=== PATIENT | male | born 1945 | race Caucasian/White ===

== ENCOUNTER 2017-06-13 22:15 | Inpatient (IN) | payer MEDICARE ==
[2017-06-13 22:36] LABS: Glucose,Whole Blood 96 mg/dL (75-99)
--- NOTE | 2017-06-13 22:52 | ED ---
General Adult HPI - General Chief complaint: Weakness Stated complaint: Speech problems Time Seen by Provider: 06/13/17 22:34 Source: patient, RN notes reviewed Mode of arrival: wheelchair Limitations: no limitations - History of Present Illness Initial comments: patient is a pleasant 71-year-old male presenting to the emergency department complaining of an episode of drooling and speech problems. Patient noticed drooling twice and then went to go check on a light. Patient came back and tried to talk with his however had garbled speech. Garbled speech lasted one to 2 minutes then resolved. Patient is currently symptom-free at this time except for minimal paresthesias of his fingertips. No history of similar symptoms previously. Patient denies actual confusion. No isolated area of weakness.patient is unclear whether or not he could've had facial droop. - Related Data Home Medications Medication Instructions Recorded Confirmed ALPRAZolam [Xanax] 0.25 mg PO TID 06/13/17 06/13/17 Aspirin 81 mg PO DAILY 06/13/17 06/13/17 Atorvastatin [Lipitor] 20 mg PO DAILY 06/13/17 06/13/17 Chlorthalidone [Hygroton] 25 mg PO DAILY 06/13/17 06/13/17 Cinnamon Bark [Cinnamon] 500 mg PO DAILY 06/13/17 06/13/17 Cranberry Fruit Extract [Cranberry] 500 mg PO DAILY 06/13/17 06/13/17 Glucosamine/Chondr Martines A Sod [Osteo 1 tab PO DAILY 06/13/17 06/13/17 Bi-Flex Caplet] L.acidoph,Paracasei, B.lactis 1 cap PO DAILY 06/13/17 06/13/17 [Probiotic] Losartan Potassium 100 mg PO DAILY 06/13/17 06/13/17 Metoprolol Tartrate [Lopressor] 100 mg PO BID 06/13/17 06/13/17 Multivitamins, Thera [Multivitamin 1 tab PO DAILY 06/13/17 06/13/17 (formulary)] Spironolactone [Aldactone] 25 mg PO DAILY 06/13/17 06/13/17 Tamsulosin HCl [Flomax] 0.4 mg PO DAILY 06/13/17 06/13/17 Allergies Allergy/AdvReac Type Severity Reaction Status Date / Time No Known Allergies Allergy Verified 06/13/17 22:22 Review of Systems ROS Statement: Those systems with pertinent positive or pertinent negative responses have been documented in the HPI. ROS Other: All systems not noted in ROS Statement are negative. Constitutional: Denies: fever Eyes: Denies: eye pain ENT: Denies: ear pain Respiratory: Denies: cough Cardiovascular: Denies: chest pain Endocrine: Denies: fatigue Gastrointestinal: Denies: abdominal pain Genitourinary: Denies: dysuria Musculoskeletal: Denies: back pain Skin: Denies: rash Neurological: Denies: weakness Past Medical History Past Medical History: CVA/TIA, GERD/Reflux, Hyperlipidemia, Hypertension History of Any Multi-Drug Resistant Organisms: None Reported Additional Past Surgical History / Comment(s): aorticvalve replacement , AAA repair Past Psychological History: Anxiety Smoking Status: Former smoker Past Alcohol Use History: Daily Past Drug Use History: None Reported General Exam Limitations: no limitations General appearance: alert, in no apparent distress Head exam: Present: atraumatic Eye exam: Present: normal appearance, PERRL, EOMI. Absent: nystagmus ENT exam: Present: normal oropharynx Neck exam: Present: normal inspection Respiratory exam: Present: normal lung sounds bilaterally Cardiovascular Exam: Present: regular rate, normal rhythm Expanded Peripheral pulses: 2+: Radial (R), Radial (L), Dorsalis Pedis (R), Dorsalis Pedis (L) GI/Abdominal exam: Present: soft. Absent: tenderness Extremities exam: Present: normal inspection, full ROM Neurological exam: Present: alert, oriented X3, CN II-XII intact. Absent: motor sensory deficit Expanded Patient oriented to: Present: person, place, time Speech: Present: fluid speech Cranial nerves: EOM's Intact: Normal, Facial Sensation: Normal Cerebellar function: Finger to Nose: Normal Sensory exam: Upper Extremity Light Touch: Normal, Lower Extremity Light Touch: Normal Motor strength exam: RUE: 5, LUE: 5, RLE: 5, LLE: 5 Eye Response: (4) open spontaneously Motor Response: (6) obeys commands Verbal Response: (5) oriented Psychiatric exam: Present: normal affect, normal mood Skin exam: Present: normal color Course Vital Signs 06/13/17 06/13/17 06/13/17 22:17 22:45 23:00 Temperature 98.5 F Pulse Rate 68 61 64 Respiratory 18 18 20 Rate Blood Pressure 151/74 129/86 131/66 O2 Sat by Pulse 98 99 97 Oximetry 06/13/17 06/13/17 23:15 23:32 Temperature Pulse Rate 63 60 Respiratory 20 16 Rate Blood Pressure 138/69 128/77 O2 Sat by Pulse 97 95 Oximetry - Reevaluation(s) Reevaluation #1: 06/14/17 00:21 patient was reevaluated and unchanged. Patient was updated on results. Patient is updated on recommendation for admission. Patient is made aware of diagnosis and concern for further testing and possible extension of disease process including full CVA and . Patient is contemplating leaving AGAINST MEDICAL ADVICE and is discussing this with his . Patient does demonstrate medical decision making. 06/14/17 00:50 patient is now agreeable to stay. was also updated. Case was discussed with sounds physician group Dr. Hernandez, who will admit for hospital call. 06/14/17 00:54 patient states he does have a history of thoracic aneurysm or dissection with repair. Patient did have a stroke at that time however did have discomfort at that time. EKG Findings - EKG Comments: EKG Findings:: sinus rhythm at 63. For screening AV block with OR of 282. QRS 80. QT 404. QTC 413. Normal axis. Normal QRS. No acute ST change. Medical Decision Making - Lab Data Result diagrams: 06/13/17 22:35 06/13/17 22:35 Lab Results 06/13/17 06/13/17 06/13/17 Range/Units 22:34 22:35 22:35 WBC 10.8 H (3.8-10.6) k/uL RBC 4.21 L (4.30-5.90) m/uL Hgb 12.8 L (13.0-17.5) gm/dL Hct 38.9 L (39.0-53.0) % MCV 92.5 (80.0-100.0) fL MCH 30.3 (25.0-35.0) pg MCHC 32.8 (31.0-37.0) g/dL RDW 13.7 (11.5-15.5) % Plt Count 225 (150-450) k/uL Neutrophils % 68 % Lymphocytes % 19 % Monocytes % 8 % Eosinophils % 3 % Basophils % 1 % Neutrophils # 7.3 (1.3-7.7) k/uL Lymphocytes # 2.0 (1.0-4.8) k/uL Monocytes # 0.9 (0-1.0) k/uL Eosinophils # 0.3 (0-0.7) k/uL Basophils # 0.1 (0-0.2) k/uL PT (9.0-12.0) sec INR (<1.2) APTT (22.0-30.0) sec Sodium (137-145) mmol/L Potassium (3.5-5.1) mmol/L Chloride (98-107) mmol/L Carbon Dioxide (22-30) mmol/L Anion Gap mmol/L BUN (9-20) mg/dL Creatinine (0.66-1.25) mg/dL Est GFR (MDRD) Af Amer (>60 ml/min/1.73 sqM) Est GFR (MDRD) Non-Af (>60 ml/min/1.73 sqM) Glucose (74-99) mg/dL POC Glucose (mg/dL) 96 (75-99) mg/dL POC Glu [employer] ID Ethan Moss Calcium (8.4-10.2) mg/dL Total Bilirubin (0.2-1.3) mg/dL AST (17-59) U/L ALT (21-72) U/L Alkaline Phosphatase (38-126) U/L Total Creatine Kinase 159 (55-170) U/L CK-MB (CK-2) 3.5 H* (0.0-2.4) ng/mL CK-MB (CK-2) Rel Index 2.2 Troponin I 0.012 (0.000-0.034) ng/mL Total Protein (6.3-8.2) g/dL Albumin (3.5-5.0) g/dL 06/13/17 06/13/17 Range/Units 22:35 22:35 WBC (3.8-10.6) k/uL RBC (4.30-5.90) m/uL Hgb (13.0-17.5) gm/dL Hct (39.0-53.0) % MCV (80.0-100.0) fL MCH (25.0-35.0) pg MCHC (31.0-37.0) g/dL RDW (11.5-15.5) % Plt Count (150-450) k/uL Neutrophils % % Lymphocytes % % Monocytes % % Eosinophils % % Basophils % % Neutrophils # (1.3-7.7) k/uL Lymphocytes # (1.0-4.8) k/uL Monocytes # (0-1.0) k/uL Eosinophils # (0-0.7) k/uL Basophils # (0-0.2) k/uL PT 10.9 (9.0-12.0) sec INR 1.1 (<1.2) APTT 21.7 L (22.0-30.0) sec Sodium 132 L (137-145) mmol/L Potassium 3.5 (3.5-5.1) mmol/L Chloride 95 L (98-107) mmol/L Carbon Dioxide 26 (22-30) mmol/L Anion Gap 11 mmol/L BUN 21 H (9-20) mg/dL Creatinine 0.90 (0.66-1.25) mg/dL Est GFR (MDRD) Af Amer >60 (>60 ml/min/1.73 sqM) Est GFR (MDRD) Non-Af >60 (>60 ml/min/1.73 sqM) Glucose 90 (74-99) mg/dL POC Glucose (mg/dL) (75-99) mg/dL POC Glu [employer] ID Calcium 9.4 (8.4-10.2) mg/dL Total Bilirubin 0.3 (0.2-1.3) mg/dL AST 33 (17-59) U/L ALT 43 (21-72) U/L Alkaline Phosphatase 57 (38-126) U/L Total Creatine Kinase (55-170) U/L CK-MB (CK-2) (0.0-2.4) ng/mL CK-MB (CK-2) Rel Index Troponin I (0.000-0.034) ng/mL Total Protein 6.4 (6.3-8.2) g/dL Albumin 4.1 (3.5-5.0) g/dL - Radiology Data Radiology results: report reviewed (computed tomography scan of the brain shows atrophy. Old lacunar infarct. No acute process.), image reviewed (chest x-ray shows no acute process.) Disposition Clinical Impression: TIA (transient ischemic attack) Disposition: ADMITTED IP TO THIS HOSP Referrals: Nonstaff,Physician [Primary Care Provider] - 1-2 days Decision Time: 00:51
[2017-06-13 23:06] LABS: Basophils # (A) 0.1 k/uL (0-0.2); Basophils % (A) 1 %; CHCM 33.6; Eosinophils # (A) 0.3 k/uL (0-0.7); Eosinophils % (A) 3 %; HCT 38.9 % (39.0-53.0); HDW 2.06; HGB 12.8 gm/dL (13.0-17.5); Luc # (Auto) 0.16; Luc % (Auto) 2; Lymphocytes % (A) 19 %; MCH 30.3 pg (25.0-35.0); MCHC 32.8 g/dL (31.0-37.0); MCV 92.5 fL (80.0-100.0); Mean Platelet Volume 6.9; Monocytes # (A) 0.9 k/uL (0-1.0); Monocytes % (A) 8 %; Neutrophils # (A) 7.3 k/uL (1.3-7.7); Neutrophils % (A) 68 %; RBC 4.21 m/uL (4.30-5.90); RDW 13.7 % (11.5-15.5); WBC 10.8 k/uL (3.8-10.6); WBC (Perox) 11.41
[2017-06-13 23:17] LABS: ALT 43 U/L (21-72); AST 33 U/L (17-59); Alkaline Phosphatase 57 U/L (38-126); Anion Gap 11 mmol/L; Blood Urea Nitrogen 21 mg/dL (9-20); Calcium 9.4 mg/dL (8.4-10.2); Carbon Dioxide 26 mmol/L (22-30); Chloride 95 mmol/L (98-107); Glucose 90 mg/dL (74-99); Non-African American GFR(MDRD) >60 (>60 ml/min/1.73 sqM); Potassium 3.5 mmol/L (3.5-5.1); Sodium 132 mmol/L (137-145); Total Bilirubin 0.3 mg/dL (0.2-1.3); Total Protein 6.4 g/dL (6.3-8.2)
--- NOTE | 2017-06-13 23:17 | CT ---
EXAMINATION TYPE: CT brain wo con DATE OF EXAM: 06/13/2017 COMPARISON: NONE HISTORY: AMS CT DLP: 1120.70 mGycm Automated exposure control for dose reduction was used. FINDINGS: There is cerebral cortical atrophy. There is no mass effect nor midline shift. There is no sign of in tracranial hemorrhage. The calvarium is intact. IMPRESSION: CEREBRAL ATROPHY. NO ACUTE INTRACRANIAL ABNORMALITY. 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
--- NOTE | 2017-06-13 23:18 | XR ---
EXAMINATION TYPE: XR chest 2V DATE OF EXAM: 06/13/2017 COMPARISON: 06/18/2014 HISTORY: Altered mental status. TECHNIQUE: Frontal and lateral views of the chest are obtained. FINDINGS: There is no heart failure nor confluent pneumonic infiltrate. There are sternal wires. The re are chest leads. Costophrenic angles are clear. IMPRESSION: No active cardiopulmonary disease. No change.
[2017-06-13 23:19] LABS: INR 1.1 (<1.2); Prothrombin Time 10.9 sec (9.0-12.0)
[2017-06-13 23:32] LABS: Troponin I 0.012 ng/mL (0.000-0.034)
[2017-06-13 23:40] LABS: Partial Thromboplastin Time 21.7 sec (22.0-30.0)
[2017-06-13 23:41] LABS: Creatine Kinase MB 3.5 ng/mL (0.0-2.4)
[2017-06-14] MEDS ORDERED: ASPIRIN 325 MG TAB PO STA (00:52)
[2017-06-14] MEDS ORDERED: RX INFO: IV CONTRAST WAS GIVEN 1 EACH MISC MISCELLANE PRN ×2 (00:53→01:54)
[2017-06-14] MEDS ORDERED: SODIUM CHLORIDE 0.9% 1,000 ML IV SCH ×2 (01:00→02:00)
--- NOTE | 2017-06-14 01:38 | CT ---
EXAMINATION TYPE: CT angio abd aorta wo/w con DATE OF EXAM: 06/14/2017 COMPARISON: NONE HISTORY: No prior, AMS, weakness, evaluate thoracic aorta, history of aortic dissecton with repair, a nd open heart sx CT DLP: DLP:737.40 mGycm, Automated Exposure Control for Dose Reduction was Utilized. CONTRAST: CT scan of the abdomen and pelvis is performed with oral and with IV Contrast, patient injected with 100 mL of Omnipaque 350. FINDINGS: There are 3-D post processed images. Thoracic aorta is atheromatous. There are sternal wires. There is aneurysm at the origin of the thora cic aorta that measures up to 4.5 cm. There is aneurysm of the arch of the aorta that measures 4.1 cm. There is patency of the abdominal aorta aortic bifurcation is not included on the exam. There is rosado ncy of the superior mesenteric artery and the celiac artery. There is bilateral patency of the renal arteries. There is no evidence of aortic dissection. There is symmetrical contrast opacification of t he kidneys. Spleen and liver pancreas appear normal. There is no pleural effusion. Heart appears enla rged. There is mild pleural thickening at the right lung base. There is wide patency of the great ves sels on the aortic arch. CONCLUSION: Atherosclerotic vascular disease. 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 No evidence of dissection. No evidence of aortic stenosis.
[2017-06-14] MEDS ORDERED: ACETAMINOPHEN TAB 325 MG TAB PO PRN (01:46)
--- NOTE | 2017-06-14 02:17 | P.HPIM ---
History of Present Illness H&P Date: 06/14/17 Chief Complaint: slurred speech 71-year-old male presenting to the emergency department complaining of an episode of drooling and speech problems. The drooling was coming out from the right side of his mouth. The drooling was spontaneous, uncontrollable by the patient and he thought was secondary to weakness on the right side of the face. Last night patient went to the garage to check on the light then he came back and tried to talk with his however he could not put the words right and his speech was significantly garbled. The episode lasted for about 2 minutes then resolved. He felt significant improvement in route to the hospital and at the time of the interview patient was symptom-free. Patient was able to think about words he was trying to say but he simply could not put them out in clear sentences. He denied having any blurry or double vision. No focal weakness or numbness. No history of similar symptoms previously. Patient denies actual confusion. No isolated area of weakness.patient is unclear whether or not he could've had facial droop. Over the past 6 months patient has been noticing worsening weakness and shortness of breath, he had aortic valve replacement surgery about 5 years ago. Patient mentioned that he had a transient stroke during his heart surgery, when he woke up from anesthesia if symptoms already resolved. Also the noticed a mass in the right side of his neck for the past several months, he told his family care physician about it but his physician shrugged it off and did not investigated further with any imaging. Review of Systems 12 point review of system was performed, negative except for HPI Past Medical History Past Medical History: CVA/TIA, GERD/Reflux, Hyperlipidemia, Hypertension Additional Past Medical History / Comment(s): history of aortic stenosis status post valve replacement, aortic dissection status post repair History of Any Multi-Drug Resistant Organisms: None Reported Additional Past Surgical History / Comment(s): aorticvalve replacement , AAA repair Past Psychological History: Anxiety Smoking Status: Former smoker Past Alcohol Use History: Daily, Heavy Additional Past Alcohol Use History / Comment(s): 4 beers a day Past Drug Use History: None Reported Medications and Allergies Home Medications Medication Instructions Recorded Confirmed Type ALPRAZolam [Xanax] 0.25 mg PO TID 06/13/17 06/13/17 History Aspirin 81 mg PO DAILY 06/13/17 06/13/17 History Atorvastatin [Lipitor] 20 mg PO DAILY 06/13/17 06/13/17 History Chlorthalidone [Hygroton] 25 mg PO DAILY 06/13/17 06/13/17 History Cinnamon Bark [Cinnamon] 500 mg PO DAILY 06/13/17 06/13/17 History Cranberry Fruit Extract [Cranberry] 500 mg PO DAILY 06/13/17 06/13/17 History Glucosamine/Chondr Martines A Sod [Osteo 1 tab PO DAILY 06/13/17 06/13/17 History Bi-Flex Caplet] L.acidoph,Paracasei, B.lactis 1 cap PO DAILY 06/13/17 06/13/17 History [Probiotic] Losartan Potassium 100 mg PO DAILY 06/13/17 06/13/17 History Metoprolol Tartrate [Lopressor] 100 mg PO BID 06/13/17 06/13/17 History Multivitamins, Thera [Multivitamin 1 tab PO DAILY 06/13/17 06/13/17 History (formulary)] Spironolactone [Aldactone] 25 mg PO DAILY 06/13/17 06/13/17 History Tamsulosin HCl [Flomax] 0.4 mg PO DAILY 06/13/17 06/13/17 History Allergies Allergy/AdvReac Type Severity Reaction Status Date / Time No Known Allergies Allergy Verified 06/13/17 22:22 Physical Exam Vitals: Vital Signs Temp Pulse Resp BP Pulse Ox 06/14/17 01:21 58 L 16 136/71 97 06/13/17 23:32 60 16 128/77 95 06/13/17 23:15 63 20 138/69 97 06/13/17 23:00 64 20 131/66 97 06/13/17 22:45 61 18 129/86 99 06/13/17 22:17 98.5 F 68 18 151/74 98 Intake and Output 06/13/17 06/13/17 06/14/17 14:59 22:59 06:59 Other: Weight 86.183 kg Patient Weight 06/14/17 06:59 Weight 86.183 kg Constitutional: No acute distress, conversant, pleasant Eyes:Anicteric sclerae, moist conjunctiva, no lid-lag, PERRLA, ENMT: Oropharynx clear, no erythema, exudates Neck: Supple, FROM, right-sided neck mass feels hard, slightly tender, or JVD, No carotid bruits, No thyromegaly Lungs: Clear to auscultation, Clear to percussion, Normal respiratory effort, no accessory muscle use Cardiovascular: Heart regular in rate and rhythm, No murmurs, gallops, or rubs, No peripheral edema Abdominal: Soft, Nontender, no guarding, rebound or rigidity, Normoactive bowel sounds, No hepatomegaly, No splenomegaly, No palpable mass Skin: Normal temperature, tone, texture, turgor, no induration, No subcutaneous nodules, No rash, lesions, No ulcers Extremities: No digital cyanosis, No clubbing, Pedal pulses intact and symmetrical, Radial pulses intact and symmetrical, No calf tenderness Psychiatric: Alert and oriented to person, place and time, appropriate affect, intact judgement Neuro: Muscles Strength 5/5 in all 4 extremities, Sensation to light touch grossly present throughout, Cranial nerves II-XII grossly intact, no focal sensory deficits Results CBC & Chem 7: 06/13/17 22:35 06/13/17 22:35 Labs: Abnormal Lab Results - Last 24 Hours (Table) 06/13/17 06/13/17 06/13/17 Range/Units 22:35 22:35 22:35 WBC 10.8 H (3.8-10.6) k/uL RBC 4.21 L (4.30-5.90) m/uL Hgb 12.8 L (13.0-17.5) gm/dL Hct 38.9 L (39.0-53.0) % APTT (22.0-30.0) sec Sodium 132 L (137-145) mmol/L Chloride 95 L (98-107) mmol/L BUN 21 H (9-20) mg/dL CK-MB (CK-2) 3.5 H* (0.0-2.4) ng/mL 06/13/17 Range/Units 22:35 WBC (3.8-10.6) k/uL RBC (4.30-5.90) m/uL Hgb (13.0-17.5) gm/dL Hct (39.0-53.0) % APTT 21.7 L (22.0-30.0) sec Sodium (137-145) mmol/L Chloride (98-107) mmol/L BUN (9-20) mg/dL CK-MB (CK-2) (0.0-2.4) ng/mL Assessment and Plan Plan: #1 Acute transient ischemic attack: head CT negative for acute stroke Admit to [facility] on telemetry Consults neurology MRI of the brain to rule out stroke Carotid Doppler 2-D echocardiogram PT and OT Neuro checks Check HbA1c and lipid profile Increase aspirin from baby dose to 325 mg daily. #2 Right-sided neck mass: [place] on exam CT soft tissue of the neck to look into it. #3 Benign hypertension, hypercholesterolemia, benign prostatic hypertrophy, history of aortic dissection status post repair, history of aortic stenosis status post replacement: All stable Continue all medications #4 DVT prophylaxis: SCDs and encourage early ambulation
[2017-06-14] MEDS: ALPRAZolam 0.25 MG TAB PO SCH ×2 (08:00→15:03)
[2017-06-14] MEDS ORDERED: MULTIVITAMINS, THERA 1 EACH TAB PO SCH (09:00)
[2017-06-14] MEDS ORDERED: SPIRONOLACTONE 25 MG TAB PO SCH (09:00)
[2017-06-14] MEDS ORDERED: LOSARTAN 50 MG TAB PO SCH (09:00)
[2017-06-14] MEDS ORDERED: ATORVASTATIN 20 MG TAB PO SCH (09:00)
[2017-06-14] MEDS ORDERED: METOPROLOL TARTRATE 50 MG TAB PO SCH (09:00)
[2017-06-14] MEDS ORDERED: TAMSULOSIN 0.4 MG CAP.ER.24H PO SCH (09:00)
--- NOTE | 2017-06-14 11:33 | ECHOF ---
Referral Reason:stroke workup MEASUREMENTS -------- HEIGHT: 185.4 cm WEIGHT: 86.2 kg BP: 143/71 IVSd: 1.2 cm (0.6 - 1.1) LVIDd: 3.9 cm (3.9 - 5.3) LVPWd: 1.4 cm (0.6 - 1.1) IVSs: 2.0 cm LVIDs: 2.6 cm LVPWs: 1.8 cm LAESV Index (A-L): 43.45 ml/m MV EXCURSION: 11.063 mm (> 18.000) MV EF SLOPE: 38 mm/s (70 - 150) EPSS: 0.9 cm MV E Ranjith: 1.55 m/s MV DecT: 291 ms MV A Ranjith: 1.05 m/s MV E/A Ratio: 1.47 AV maxP.57 mmHg AV meanP.62 mmHg FINDINGS -------- Sinus rhythm. This was a technically good study. The left ventricular size is normal. There is mild concentric left ventricular hypertrophy. Overa ll left ventricular systolic function is low-normal with, an EF between 50 - 55 %. The right ventricle is normal in size and function. LA is midly dilated 29-33ml/m2. The right atrium is normal in size. Aortic valve is trileaflet and is mildly thickened. Peak/mean gradient across the Aortic Valve is 3 1.57mmHg / 19.62mmHg. Normally functioning bioprosthetic valve. There is trace mitral regurgitation. MV Repair. [id number] tricuspid regurgitation present. The right ventricular systolic pressure, as measu red by Doppler, is {RVSP}. Pulmonic valve appears structurally normal. The aortic root size is normal. Normal inferior vena cava with normal inspiratory collapse consistent with estimated right atrial pre ssure of 5 mmHg. The pericardium is normal. CONCLUSIONS -------- 1. Sinus rhythm. 2. This was a technically good study. 3. The left ventricular size is normal. 4. There is mild concentric left ventricular hypertrophy. 5. Overall left ventricular systolic function is low-normal with, an EF between 50 - 55 %. 6. The right ventricle is normal in size and function. 7. LA is midly dilated 29-33ml/m2. 8. The right atrium is normal in size. 9. Aortic valve is trileaflet and is mildly thickened. 10. Peak/mean gradient across the Aortic Valve is 31.57mmHg / 19.62mmHg. 11. Normally functioning bioprosthetic valve. 12. There is trace mitral regurgitation. 13. MV Repair. 14. [id number] tricuspid regurgitation present. 15. The right ventricular systolic pressure, as measured by Doppler, is {RVSP}. 16. Pulmonic valve appears structurally normal. 17. The aortic root size is normal. 18. Normal inferior vena cava with normal inspiratory collapse consistent with estimated right atrial pressure of 5 mmHg. 19. The pericardium is normal. CHARGEBACK SPECIALIST: Joanne Coulter RDCS
[2017-06-14 12:44] VITALS: RESP 18
--- NOTE | 2017-06-14 12:50 | P.PN ---
Progress Note - Text Progress Note Date: 06/14/17 Briefly this is a 71-year-old male that presented with drooling and slurred speech which have now resolved he's here for TIA workup so far he CT of the head is been negative echocardiogram shows a normal ejection fraction MRI and carotid Dopplers have been ordered along with neurology consultation. At present the patient is working well with physical therapy without any deficits. We'll follow-up imaging results and consultation recommendations
[2017-06-14 14:34] VITALS: BMI 23.3
--- NOTE | 2017-06-14 15:42 | MR ---
EXAMINATION TYPE: MR brain wo con DATE OF EXAM: 06/14/2017 COMPARISON: CT 06/13/2017 HISTORY: 71-year-old male slurred speech/ r/o stroke TECHNIQUE: Multiplanar, multisequence images of the brain and brainstem were acquired without IV con trast. Diffusion weighted imaging is performed. FINDINGS: No evidence for acute infarction, hemorrhage, mass, mass effect, midline shift, herniation, effacemen t of basal cisterns, or extra-axial fluid collection. There is mild prominence to the ventricular system secondary to moderate to advanced generalized supr atentorial volume loss. Major intracranial flow voids are intact. T2/FLAIR weighted sequences show mild to moderate scattered burden of T2 bright white matter changes particularly in the subcortical regions. Small foci are also noted within the bilateral cerebellar he mispheres particularly on the T2 sequence. Midline structures demonstrate normal morphology. The craniocervical junction is normal. Mild mucosal thickening ethmoid air cells and maxillary sinuses. Orbits appear intact. IMPRESSION: 1. No acute intracranial abnormality seen. 2. Moderate to advanced cerebral atrophy and mild to moderate scattered burden of chronic small vesse l ischemic disease. 3. Mild chronic paranasal sinus disease
--- NOTE | 2017-06-14 15:52 | US ---
EXAMINATION TYPE: US carotid duplex BILAT DATE OF EXAM: 06/14/2017 COMPARISON: NONE CLINICAL HISTORY: Stenosis. Slurred speech EXAM MEASUREMENTS: RIGHT: Peak Systolic Velocity (PSV) cm/sec ----- Right CCA: 50.6 ----- Right ICA: 102.2 ----- Right ECA: 68.4 ICA/CCA ratio: 2.0 RIGHT: End Diastole cm/sec ----- Right CCA: 14.1 ----- Right ICA: 40.2 ----- Right ECA: 10.8 LEFT: Peak Systolic Velocity (PSV) cm/sec ----- Left CCA: 67.9 ----- Left ICA: 106.3 ----- Left ECA: 71.1 ICA/CCA ratio: 1.6 LEFT: End Diastole cm/sec ----- Left CCA: 15.6 ----- Left ICA: 33.4 ----- Left ECA: 12.1 VERTEBRALS (direction of flow): Right Vertebral: Antegrade Left Vertebral: Antegrade Rhythm: Normal Atheromatous plaque is present within the carotid bulbs, there is some shadowing present compatible w ith calcification.. Grayscale, color Doppler, spectral Doppler imaging performed of the carotid arteries. IMPRESSION: Elevated internal carotid to common carotid artery ratio on the right without elevated v elocity. No hemodynamic significant stenosis is evident by Doppler criteria, an indirect measurement of carotid stenosis, carotid MRA or CTA could be performed for additional evaluation as indicated Criteria for Assigning % of Stenosis / Diameter reduction (Estimation based on the indirect measurements of the internal carotid artery velocities (ICA PSV). 1. Normal (no stenosis)=ICA PSV < 125 cm/s: ratio < 2.0: ICA EDV<40 cm/s. 2. Less than 50% stenosis=ICA PSV < 125 cm/s: ratio < 2.0: ICA EDV<40 cm/s. 3. 50 to 69% stenosis=ICA PSV of 125 to 230 cm/s: ration 2.0 ? 4.0: ICA EDV 40-100 cm/s. 4. Greater than 70% stenosis to near occlusion= ICA PSV > 230 cm/s: ratio > 4.0: ICA EDV > 100 cm/s. 5. Near occlusion= ICA PSV velocities may be low or undetectable: variable ratio and ICA EDV. 6. Total occlusion=unable to detect flow.
[2017-06-14 15:56] VITALS: BP 110/63; PULSE 58; TEMP 97.6
--- NOTE | 2017-06-14 18:41 | P.PN ---
Progress Note - Text Progress Note Date: 06/14/17 Hospitalist interval note: Patient seen at bedside.Had been cleared by neurology for discharge. He reports all symptoms resolved and he is feeling much better. Reviewed all imaging and lab results with the patient. PCP is Dr. Ramon Shaw out of [facility]. He is unsure the width of his aorta on his last exam. His vascular surgeon is Rodney Bee MD and distance education faculty liaison Dr. Lincoln Feldman. We will fax copies of his CT report to his providers with his permission. DIscharge orders written by myself after discussion with Dr. Taylor. Barbara Davis, DO
[2017-06-15] MEDS ORDERED: ASPIRIN 325 MG TAB PO SCH (09:00)
--- NOTE | 2017-06-15 09:37 | CONS ---
CONSULTATION DATE OF CONSULTATION: 06/14/2017 CHIEF COMPLAINT: Transient ischemic attack. HISTORY OF PRESENT ILLNESS: Mr. Robbins is a pleasant 71-year-old male, who is being evaluated today on 06/14/2017 by the neurology service per the request of Dr. Hernandez for a transient ischemic attack. The patient was brought into [facility] Emergency Room after he had a transient episode of difficulty speaking. The patient recalls the episode and states that he knew what he wanted to tell his but his words would not come out. The spell lasted approximately 2 minutes and resolved spontaneously. A CT scan of the brain was done, which showed generalized atrophy, along with an old lacunar infarct involving the right internal capsule. The patient does take aspirin 81 mg daily at home. His aspirin was increased to 325 mg daily and he was admitted for further workup and management. A carotid Doppler was done, which showed no hemodynamically significant stenosis. An MRI of the brain was done, which showed small-vessel ischemic changes and generalized atrophy. The patient does have a history of aortic dissection with surgery being done for that. He does follow up with vascular surgery on a regular basis and he does have a followup appointment scheduled within the next 2 weeks according to him. 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 His cardiac enzymes and comprehensive metabolic profiles were normal except for mild hyponatremia at 132. His CBC showed no significant abnormalities. At the time of my evaluation, the patient is lying in his bed and appears to be in no acute distress. He denies any recurrence of any neurological symptoms. PAST MEDICAL HISTORY: Aortic dissection, status post surgical repair, history of stroke, gastroesophageal reflux disease, hypertension, dyslipidemia, history of aortic stenosis and valve replacement. He also has history of anxiety disorder. SOCIAL HISTORY: The patient is a former smoker. He admits to frequent alcohol use. He denies any drug use. FAMILY HISTORY: Noncontributory. HOME MEDICATIONS: Reviewed in the chart. ALLERGIES: No known drug allergies. REVIEW OF SYSTEMS: CONSTITUTIONAL: Negative. EYES: Negative. ENT: Negative. CARDIOVASCULAR: As mentioned above. RESPIRATORY: Negative. NEUROLOGICAL: As mentioned above. GASTROINTESTINAL: Negative. GENITOURINARY: Negative. DERMATOLOGICAL: Negative. MUSCULOSKELETAL: Negative. ENDOCRINE: Negative. PHYSICAL EXAM: Vital signs show a temperature of 97.6, pulse 58, respiration 18, blood pressure 110/63. GENERAL APPEARANCE: The patient is a well-developed male, who appears to be in no acute distress. HEENT: Normocephalic, atraumatic. No facial asymmetry is seen. Extraocular muscles are intact. Neck is supple with no masses felt. CARDIOVASCULAR: Bradycardic rate with a normal rhythm. ABDOMEN: Nontender, nondistended. Extremities showed no edema or clubbing. NEUROLOGICAL EXAM: The patient is alert, aware and oriented x3. Speech and language are normal. Strength is full in all 4 extremities. Sensory exam was normal to light touch in all 4 extremities. No facial asymmetry seen on cranial nerve testing. No pronator drift is seen. No tremors or seizure-like activity is noticed. IMPRESSION: 1. Transient ischemic attack. 2. Expressive aphasia, resolved. 3. Aortic aneurysms. 4. History of ischemic stroke. RECOMMENDATION: The patient does appear to have suffered a transient ischemic attack with a transient episode of expressive aphasia. He is already on aspirin and his dose was increased to 325 mg daily. I will order a fasting lipid panel and serum homocystine level. His carotid Doppler showed no hemodynamically significant stenosis. Of concerns are his aortic aneurysms. I had a lengthy discussion with him regarding the importance of following up with his vascular surgeon, which is in the next 2 weeks as he is already scheduled for an appointment. I will continue to follow with you. Further recommendations to follow. Thank you for allowing me to participate in the care of your patient. If you have any questions, please feel free to contact me. MMODL / IJN: [id number] /
--- NOTE | 2017-06-15 15:18 | P.DS ---
Providers Date of admission: 06/14/17 00:52 Expected date of discharge: 06/14/17 Attending physician: Davida Hernandez MD Consults: 06/14/17 00:53 Consult Physician Urgent Consulting Provider: Almaz Milton Consult Reason/Comments: tia Do you want consulting provider notified?: Yes 06/14/17 08:16 Consult Physician Urgent Consulting Provider: Ara Hopkins Consult Reason/Comments: TIA Do you want consulting provider notified?: Yes Primary care physician: Physician Nonstaff - Discharge Diagnosis(es) (1) TIA (transient ischemic attack) Status: Acute (2) Expressive aphasia Status: Acute (3) Aortic aneurysm, thoracic Status: Acute (4) Essential hypertension Status: Acute Hospital Course: The patient is a 71-year-old male that presented with symptoms of expressive aphasia that resolved within 5 hours of presentation he was admitted for TIA/stroke workup. He had it CT of the head that showed an old right lacunar internal capsule infarct but nothing acute, subsequent MRI only was suggestive of chronic small vessel ischemic disease. Patient was started on aspirin 325 mg daily and continue on statin regimen. Neurology was consulted and patient was seen by Dr. Almazan, further workup with a carotid Dopplers was not suggestive of any clinically significant carotid artery disease, echocardiogram showed an EF of 55-60%. Patient did have a CT of his chest that showed a 4.5 cm aneurysm of the ascending aorta and the 4 cm aneurysm of the aortic arch no evidence of dissection or aortic stenosis. The patient was subsequently discharged home in stable condition with plans for follow-up with his primary care physician PCP is Dr. Ramon Shaw out of [facility]. He is unsure the width of his aorta on his last exam. His vascular surgeon is Rodney Bee MD and property utilization officer Dr. Lincoln Feldman. We will fax copies of his CT report to his providers with his permission. This discharge process took approximately 25 minutes is going home on some aspirin on discharge Patient Condition at Discharge: Good Plan - Discharge Summary Discharge Rx Participant: No New Discharge Prescriptions: Continue Tamsulosin HCl [Flomax] 0.4 mg PO DAILY Spironolactone [Aldactone] 25 mg PO DAILY Metoprolol Tartrate [Lopressor] 100 mg PO BID Losartan Potassium 100 mg PO DAILY Chlorthalidone [Hygroton] 25 mg PO DAILY Atorvastatin [Lipitor] 20 mg PO DAILY Aspirin 81 mg PO DAILY ALPRAZolam [Xanax] 0.25 mg PO TID Multivitamins, Thera [Multivitamin (formulary)] 1 tab PO DAILY L.acidoph,Paracasei, B.lactis [Probiotic] 1 cap PO DAILY Glucosamine/Chondr Martines A Sod [Osteo Bi-Flex Caplet] 1 tab PO DAILY Cranberry Fruit Extract [Cranberry] 500 mg PO DAILY Cinnamon Bark [Cinnamon] 500 mg PO DAILY Discharge Medication List ALPRAZolam [Xanax] 0.25 mg PO TID 06/13/17 [History] Aspirin 81 mg PO DAILY 06/13/17 [History] Atorvastatin [Lipitor] 20 mg PO DAILY 06/13/17 [History] Chlorthalidone [Hygroton] 25 mg PO DAILY 06/13/17 [History] Cinnamon Bark [Cinnamon] 500 mg PO DAILY 06/13/17 [History] Cranberry Fruit Extract [Cranberry] 500 mg PO DAILY 06/13/17 [History] Glucosamine/Chondr Martines A Sod [Osteo Bi-Flex Caplet] 1 tab PO DAILY 06/13/17 [ History] L.acidoph,Paracasei, B.lactis [Probiotic] 1 cap PO DAILY 06/13/17 [History] Losartan Potassium 100 mg PO DAILY 06/13/17 [History] Metoprolol Tartrate [Lopressor] 100 mg PO BID 06/13/17 [History] Multivitamins, Thera [Multivitamin (formulary)] 1 tab PO DAILY 06/13/17 [History ] Spironolactone [Aldactone] 25 mg PO DAILY 06/13/17 [History] Tamsulosin HCl [Flomax] 0.4 mg PO DAILY 06/13/17 [History] Follow up Appointment(s)/Referral(s): Nonstaff,Physician [Primary Care Provider] - 1-2 days Patient Instructions/Handouts: Transient Ischemic Attack (DC), Abdominal Aortic Aneurysm (DC) Activity/Diet/Wound Care/Special Instructions: Activity as tolerated. If symptoms return please seek medical attention Follow up with Dr. Shaw in 3-[address] Tim in 1-2 weeks. Follow up with Dr. Atkins in 1-2 weeks. Discharge Disposition: HOME SELF-CARE
== END 2017-06-14 19:00 | disposition home or self-care (01) | DRG 69 ==
LOC: EC 22:15 → 6SEL 06-14 00:52
PROVIDERS: ADMIT Internal Medicine; ATTEND Internal Medicine
DX: G45.9 Transient cerebral ischemic attack, unspecified (principal); E87.1 Hypo-osmolality and hyponatremia; I71.2 Thoracic aortic aneurysm, without rupture; R47.01 Aphasia; I10 Essential (primary) hypertension; R22.1 Localized swelling, mass and lump, neck; E78.00 Pure hypercholesterolemia, unspecified; N40.0 Benign prostatic hyperplasia without lower urinary tract symptoms; F41.9 Anxiety disorder, unspecified; K21.9 Gastro-esophageal reflux disease without esophagitis; Z95.2 Presence of prosthetic heart valve; Z86.79 Personal history of other diseases of the circulatory system; Z87.891 Personal history of nicotine dependence; Z79.82 Long term (current) use of aspirin; Z79.899 Other long term (current) drug therapy
CPT/HCPCS: 36415; 70450; 70551; 71020; 75635; 80053; 82550; 82553; 83036; 84484; 85025; 85610; 85730; 93005; 93306; 93880; 96360; 99285

== ENCOUNTER 2020-05-15 17:44 | Inpatient (IN) | payer MEDICARE ==
[2020-05-15] MEDS ORDERED: RX INFO: IV CONTRAST WAS GIVEN 1 EACH MISC MISCELLANE PRN (18:13)
[2020-05-15] MEDS ORDERED: diphenhydrAMINE 50 MG/ML 1 ML VIAL IVP STA (18:14)
[2020-05-15 18:27] LABS: Basophils # (A) 0.1 k/uL (0-0.2); Basophils % (A) 1 %; Eosinophils # (A) 0.4 k/uL (0-0.7); Eosinophils % (A) 5 %; HCT 38.4 % (39.0-53.0); Lymphocytes # (A) 2.3 k/uL (1.0-4.8); Lymphocytes % (A) 26 %; MCH 32.5 pg (25.0-35.0); MCHC 33.9 g/dL (31.0-37.0); MCV 95.7 fL (80.0-100.0); Mean Platelet Volume 6.4; Monocytes # (A) 0.7 k/uL (0-1.0); Monocytes % (A) 8 %; Neutrophils # (A) 5.2 k/uL (1.3-7.7); Neutrophils % (A) 59 %; Platelet Count 185 k/uL (150-450); RBC 4.01 m/uL (4.30-5.90); WBC 8.9 k/uL (3.8-10.6)
[2020-05-15 18:36] LABS: Albumin 4.5 g/dL (3.5-5.0); Calcium 9.3 mg/dL (8.4-10.2); Potassium 3.9 mmol/L (3.5-5.1); Total Bilirubin 0.4 mg/dL (0.2-1.3); Total Protein 6.9 g/dL (6.3-8.2)
--- NOTE | 2020-05-15 18:42 | ED ---
General Adult HPI - General Chief complaint: Neuro Symptoms/Deficit Stated complaint: neuro problem Time Seen by Provider: 05/15/20 17:45 Source: patient Mode of arrival: ambulatory Limitations: no limitations - History of Present Illness Initial comments: 74-year-old male past medical history of aortic stenosis, AAA, TIA presents emergency room with reported strokelike symptoms. at bedside provides a history. States that the two of them were out in the backyard around 4:45 PM when the patient had acute onset of altered mental status and left-sided weakness. reports that the patient had left-sided facial droop. He was unable to answer questions for approximately 10 minutes when the symptoms resolved. Patient reports to tingling in the left side of his face. Upon arrival to the hospital the patient has regained most of the function of the left upper and left lower extremity. Does admit to history of TIAs with no residual weakness. Patient denies any chest pain or shortness of breath. No current speech difficulties. No fevers or chills. Recent blunt head trauma. No other alleviating, precipitating or modifying factors - Related Data Home Medications Medication Instructions Recorded Confirmed ALPRAZolam [Xanax] 0.25 mg PO Q8H PRN 06/13/17 05/15/20 Aspirin 81 mg PO DAILY 06/13/17 05/15/20 Atorvastatin [Lipitor] 20 mg PO HS 06/13/17 05/15/20 Chlorthalidone [Hygroton] 25 mg PO DAILY 06/13/17 05/15/20 Cinnamon Bark [Cinnamon] 500 mg PO DAILY 06/13/17 05/15/20 Cranberry Fruit Extract [Cranberry] 500 mg PO DAILY 06/13/17 05/15/20 Glucosamine/Chondr Martines A Sod [Osteo 1 tab PO DAILY 06/13/17 05/15/20 Bi-Flex Caplet] L.acidoph,Paracasei, B.lactis 1 cap PO DAILY 06/13/17 05/15/20 [Probiotic] Metoprolol Tartrate [Lopressor] 100 mg PO BID 06/13/17 05/15/20 Multivitamins, Thera [Multivitamin 1 tab PO DAILY 06/13/17 05/15/20 (formulary)] Spironolactone [Aldactone] 25 mg PO DAILY 06/13/17 05/15/20 Albuterol Inhaler [Ventolin Hfa 2 puff INHALATION RT-Q6H PRN 05/15/20 05/15/20 Inhaler] Cholecalciferol [Vitamin D3 (25 1,000 unit PO DAILY 05/15/20 05/15/20 Mcg = 1000 Iu)] Ibuprofen [Motrin] 400 mg PO Q8H PRN 05/15/20 05/15/20 Loperamide [Imodium] 2 mg PO QID PRN 05/15/20 05/15/20 Magnesium 100mg 100 mg PO BID 05/15/20 05/15/20 Telmisartan 80 mg PO DAILY 05/15/20 05/15/20 Ubidecarenone [Co Q-10] 100 mg PO DAILY 05/15/20 05/15/20 Zinc 50 mg PO DAILY 05/15/20 05/15/20 Previous Rx's Medication Instructions Recorded Clopidogrel [Plavix] 75 mg PO DAILY #30 tab 05/18/20 Allergies Allergy/AdvReac Type Severity Reaction Status Date / Time Sulfa (Sulfonamide Allergy Anaphylaxis Verified 05/15/20 19:45 Antibiotics) Review of Systems ROS Statement: Those systems with pertinent positive or pertinent negative responses have been documented in the HPI. ROS Other: All systems not noted in ROS Statement are negative. Past Medical History Past Medical History: CVA/TIA, GERD/Reflux, Hyperlipidemia, Hypertension Additional Past Medical History / Comment(s): history of aortic stenosis status post valve replacement, aortic dissection status post repair History of Any Multi-Drug Resistant Organisms: None Reported Past Surgical History: Appendectomy Additional Past Surgical History / Comment(s): aorticvalve replacement , AAA repair Past Anesthesia/Blood Transfusion Reactions: No Reported Reaction Past Psychological History: Anxiety Smoking Status: Never smoker Past Alcohol Use History: Daily, Heavy Past Drug Use History: None Reported - Past Family History Brother(s) Family Medical History: Cancer Mother Family Medical History: Cancer, Coronary Artery Disease (CAD) General Exam Limitations: no limitations General appearance: alert, in no apparent distress Head exam: Present: atraumatic, normocephalic, other (minimal left sided facial droop - flattening of nasolabial fold) Eye exam: Present: normal appearance, PERRL, EOMI. Absent: scleral icterus, conjunctival injection, periorbital swelling ENT exam: Present: normal exam, mucous membranes moist Neck exam: Present: normal inspection. Absent: tenderness, meningismus, lymphadenopathy Respiratory exam: Present: normal lung sounds bilaterally. Absent: respiratory distress, wheezes, rales, rhonchi, stridor Cardiovascular Exam: Present: regular rate, normal rhythm, normal heart sounds. Absent: systolic murmur, diastolic murmur, rubs, gallop, clicks GI/Abdominal exam: Present: soft, normal bowel sounds. Absent: distended, tenderness, guarding, rebound, rigid Extremities exam: Present: normal inspection, full ROM, normal capillary refill, other (equal molding associate strength). Absent: tenderness, pedal edema, joint swelling, calf tenderness Back exam: Present: normal inspection Neurological exam: Present: alert, oriented X3, CN II-XII intact Psychiatric exam: Present: normal affect, normal mood Skin exam: Present: warm, dry, intact, normal color. Absent: rash Course Vital Signs 05/15/20 05/15/20 05/15/20 17:45 18:00 18:15 Temperature 97.8 F 97.7 F 97.7 F Pulse Rate 76 75 76 Respiratory 16 18 16 Rate Blood Pressure 154/82 150/86 149/87 O2 Sat by Pulse 100 100 100 Oximetry 05/15/20 05/15/20 05/15/20 18:30 18:37 18:45 Temperature 97.7 F 97.7 F 97.7 F Pulse Rate 75 83 72 Respiratory 16 18 16 Rate Blood Pressure 150/82 150/82 149/88 O2 Sat by Pulse 100 100 100 Oximetry 05/15/20 05/15/20 05/15/20 19:00 19:08 20:55 Temperature 97.7 F 97.7 F 98.7 F Pulse Rate 80 76 79 Respiratory 16 18 18 Rate Blood Pressure 142/83 142/83 121/76 O2 Sat by Pulse 100 100 96 Oximetry EKG Findings - EKG Comments: EKG Findings:: EKG demonstrates sinus rhythm with first-degree AV block. Rate of 71. DE interval 270. QRS 78. QTC of 434. No acute ST segment elevations or depressions Medical Decision Making - Medical Decision Making Upon arrival the patient is placed into room 9. A thorough history and physical exam was performed. Code stroke was activated. Patient went over for a CT of his brain and cervical spine. Discussed the case with Dr. Lopez at 1836. NIH is 2 for mild left sided facial droop and ataxia of the left lower extremity. CT of the patient's aortic arch results performed because of his history of aortic dissection. Laboratory studies were conducted. CT of the patient's brain does demonstrate moderate left and right proximal ICA stenosis. The results are discussed with the patient. Patient will not be given TPA at this time as he has a low NIH with rapidly improving symptoms. Patient was given a full dose aspirin and his nightly statin. I did recommend hospital admission for neurology consultation. Patient did agree. Discussed the case with Dr. Phillips who agreed to admit the patient. Patient was transferred to floor in stable condition. NIH remained the same upon multiple evaluations. - Lab Data Result diagrams: 05/18/20 06:56 05/18/20 06:56 Lab Results 05/15/20 05/15/20 05/15/20 Range/Units 18:16 18:16 18:16 WBC 8.9 (3.8-10.6) k/uL RBC 4.01 L (4.30-5.90) m/uL Hgb 13.0 (13.0-17.5) gm/dL Hct 38.4 L (39.0-53.0) % MCV 95.7 (80.0-100.0) fL MCH 32.5 (25.0-35.0) pg MCHC 33.9 (31.0-37.0) g/dL RDW 13.0 (11.5-15.5) % Plt Count 185 (150-450) k/uL Neutrophils % 59 % Lymphocytes % 26 % Monocytes % 8 % Eosinophils % 5 % Basophils % 1 % Neutrophils # 5.2 (1.3-7.7) k/uL Lymphocytes # 2.3 (1.0-4.8) k/uL Monocytes # 0.7 (0-1.0) k/uL Eosinophils # 0.4 (0-0.7) k/uL Basophils # 0.1 (0-0.2) k/uL PT 10.0 (9.0-12.0) sec INR 1.0 (<1.2) APTT 21.8 L (22.0-30.0) sec Sodium 131 L (137-145) mmol/L Potassium 3.9 (3.5-5.1) mmol/L Chloride 97 L (98-107) mmol/L Carbon Dioxide 23 (22-30) mmol/L Anion Gap 11 mmol/L BUN 28 H (9-20) mg/dL Creatinine 1.20 (0.66-1.25) mg/dL Est GFR (CKD-EPI)AfAm 69 (>60 ml/min/1.73 sqM) Est GFR (CKD-EPI)NonAf 60 (>60 ml/min/1.73 sqM) Glucose 87 (74-99) mg/dL Estimated Ave Glu mg/dL Hemoglobin A1c (4.0-6.0) % Calcium 9.3 (8.4-10.2) mg/dL Total Bilirubin 0.4 (0.2-1.3) mg/dL AST 40 (17-59) U/L ALT 25 (4-49) U/L Alkaline Phosphatase 119 (38-126) U/L Troponin I (0.000-0.034) ng/mL Total Protein 6.9 (6.3-8.2) g/dL Albumin 4.5 (3.5-5.0) g/dL Triglycerides (<150) mg/dL Cholesterol (<200) mg/dL LDL Cholesterol, Calc (0-99) mg/dL HDL Cholesterol (40-60) mg/dL TSH (0.465-4.680) mIU/L Free T4 (0.78-2.19) ng/dL 05/15/20 05/15/20 05/15/20 Range/Units 18:16 18:16 18:16 WBC (3.8-10.6) k/uL RBC (4.30-5.90) m/uL Hgb (13.0-17.5) gm/dL Hct (39.0-53.0) % MCV (80.0-100.0) fL MCH (25.0-35.0) pg MCHC (31.0-37.0) g/dL RDW (11.5-15.5) % Plt Count (150-450) k/uL Neutrophils % % Lymphocytes % % Monocytes % % Eosinophils % % Basophils % % Neutrophils # (1.3-7.7) k/uL Lymphocytes # (1.0-4.8) k/uL Monocytes # (0-1.0) k/uL Eosinophils # (0-0.7) k/uL Basophils # (0-0.2) k/uL PT (9.0-12.0) sec INR (<1.2) APTT (22.0-30.0) sec Sodium (137-145) mmol/L Potassium (3.5-5.1) mmol/L Chloride (98-107) mmol/L Carbon Dioxide (22-30) mmol/L Anion Gap mmol/L BUN (9-20) mg/dL Creatinine (0.66-1.25) mg/dL Est GFR (CKD-EPI)AfAm (>60 ml/min/1.73 sqM) Est GFR (CKD-EPI)NonAf (>60 ml/min/1.73 sqM) Glucose (74-99) mg/dL Estimated Ave Glu mg/dL 114 Hemoglobin A1c 5.6 (4.0-6.0) % Calcium (8.4-10.2) mg/dL Total Bilirubin (0.2-1.3) mg/dL AST (17-59) U/L ALT (4-49) U/L Alkaline Phosphatase (38-126) U/L Troponin I 0.031 (0.000-0.034) ng/mL Total Protein (6.3-8.2) g/dL Albumin (3.5-5.0) g/dL Triglycerides 331 H (<150) mg/dL Cholesterol 170 (<200) mg/dL LDL Cholesterol, Calc 39 (0-99) mg/dL HDL Cholesterol 65 H (40-60) mg/dL TSH 0.446 L (0.465-4.680) mIU/L Free T4 1.33 (0.78-2.19) ng/dL 05/16/20 05/16/20 05/18/20 Range/Units 07:28 07:28 06:56 WBC 14.9 H 8.6 (3.8-10.6) k/uL RBC 4.11 L 4.24 L (4.30-5.90) m/uL Hgb 13.0 13.3 (13.0-17.5) gm/dL Hct 39.8 41.1 (39.0-53.0) % MCV 96.8 97.0 (80.0-100.0) fL MCH 31.7 31.5 (25.0-35.0) pg MCHC 32.7 32.5 (31.0-37.0) g/dL RDW 13.0 12.9 (11.5-15.5) % Plt Count 174 170 (150-450) k/uL Neutrophils % 90 59 % Lymphocytes % 5 22 % Monocytes % 3 7 % Eosinophils % 1 9 % Basophils % 0 1 % Neutrophils # 13.5 H 5.1 (1.3-7.7) k/uL Lymphocytes # 0.7 L 1.9 (1.0-4.8) k/uL Monocytes # 0.4 0.6 (0-1.0) k/uL Eosinophils # 0.2 0.7 (0-0.7) k/uL Basophils # 0.0 0.1 (0-0.2) k/uL PT (9.0-12.0) sec INR (<1.2) APTT (22.0-30.0) sec Sodium 131 L (137-145) mmol/L Potassium 4.2 (3.5-5.1) mmol/L Chloride 96 L (98-107) mmol/L Carbon Dioxide 28 (22-30) mmol/L Anion Gap 7 mmol/L BUN 23 H (9-20) mg/dL Creatinine 1.10 (0.66-1.25) mg/dL Est GFR (CKD-EPI)AfAm 77 (>60 ml/min/1.73 sqM) Est GFR (CKD-EPI)NonAf 66 (>60 ml/min/1.73 sqM) Glucose 124 H (74-99) mg/dL Estimated Ave Glu mg/dL Hemoglobin A1c (4.0-6.0) % Calcium 8.8 (8.4-10.2) mg/dL Total Bilirubin (0.2-1.3) mg/dL AST (17-59) U/L ALT (4-49) U/L Alkaline Phosphatase (38-126) U/L Troponin I (0.000-0.034) ng/mL Total Protein (6.3-8.2) g/dL Albumin (3.5-5.0) g/dL Triglycerides (<150) mg/dL Cholesterol (<200) mg/dL LDL Cholesterol, Calc (0-99) mg/dL HDL Cholesterol (40-60) mg/dL TSH (0.465-4.680) mIU/L Free T4 (0.78-2.19) ng/dL 05/18/20 Range/Units 06:56 WBC (3.8-10.6) k/uL RBC (4.30-5.90) m/uL Hgb (13.0-17.5) gm/dL Hct (39.0-53.0) % MCV (80.0-100.0) fL MCH (25.0-35.0) pg MCHC (31.0-37.0) g/dL RDW (11.5-15.5) % Plt Count (150-450) k/uL Neutrophils % % Lymphocytes % % Monocytes % % Eosinophils % % Basophils % % Neutrophils # (1.3-7.7) k/uL Lymphocytes # (1.0-4.8) k/uL Monocytes # (0-1.0) k/uL Eosinophils # (0-0.7) k/uL Basophils # (0-0.2) k/uL PT (9.0-12.0) sec INR (<1.2) APTT (22.0-30.0) sec Sodium 131 L (137-145) mmol/L Potassium 3.6 (3.5-5.1) mmol/L Chloride 95 L (98-107) mmol/L Carbon Dioxide 30 (22-30) mmol/L Anion Gap 6 mmol/L BUN 25 H (9-20) mg/dL Creatinine 1.28 H (0.66-1.25) mg/dL Est GFR (CKD-EPI)AfAm 64 (>60 ml/min/1.73 sqM) Est GFR (CKD-EPI)NonAf 55 (>60 ml/min/1.73 sqM) Glucose 105 H (74-99) mg/dL Estimated Ave Glu mg/dL Hemoglobin A1c (4.0-6.0) % Calcium 9.2 (8.4-10.2) mg/dL Total Bilirubin (0.2-1.3) mg/dL AST (17-59) U/L ALT (4-49) U/L Alkaline Phosphatase (38-126) U/L Troponin I (0.000-0.034) ng/mL Total Protein (6.3-8.2) g/dL Albumin (3.5-5.0) g/dL Triglycerides (<150) mg/dL Cholesterol (<200) mg/dL LDL Cholesterol, Calc (0-99) mg/dL HDL Cholesterol (40-60) mg/dL TSH (0.465-4.680) mIU/L Free T4 (0.78-2.19) ng/dL Critical Care Time Critical Care Time: Yes Critical Care Time: 35 minutes due to code stroke activation, discussion with Dr. Galvan in regards to patients care. Disposition Clinical Impression: Cerebrovascular accident (CVA) Disposition: ADMITTED IP TO THIS [facility] Condition: Stable Is patient prescribed a controlled substance at d/c from ED?: No Decision to Admit Reason: Admit from EC Decision Date: 05/15/20 Decision Time: 20:02
--- NOTE | 2020-05-15 18:49 | CT ---
EXAMINATION TYPE: CT brain wo con for TPA DATE OF EXAM: 05/15/2020 COMPARISON: 06/13/2017. HISTORY: cva CT DLP: 1147.9 mGycm Automated exposure control for dose reduction was used. FINDINGS: There is no acute intracranial hemorrhage, midline shift or hydrocephalus. Old left lacunar infarct i s seen. The pack-white differentiation is maintained. No calvarial fracture. The paranasal sinuses ar e adequately aerated. IMPRESSION: NO ACUTE INTRACRANIAL ABNORMALITY. OLD LACUNAR INFARCT.
[2020-05-15 18:53] LABS: Partial Thromboplastin Time 21.8 sec (22.0-30.0)
--- NOTE | 2020-05-15 19:19 | CT ---
EXAMINATION TYPE: CT angio head neck DATE OF EXAM: 05/15/2020 HISTORY: cva COMPARISON: None available. CT DLP: 595.1 mGycm. Automated Exposure Control for Dose Reduction was Utilized. TECHNIQUE: CTA scan of the head and neck is performed with IV Contrast, patient injected with 65cc m L of Isovue 370, axial images are obtained, coronal and sagittal reformatted images are reviewed. Thr ee-D reconstructed images are created on an independent workstation and reviewed. FINDINGS: Carotid/Vascular Structures: 50-70% stenosis of the left proximal ICA and less than 50% of the right proximal ICA. Otherwise the intracranial and cervical carotid and vertebral arteries are patent witho ut significant stenosis. The MCA, BENNIE and EGG GATHERER are patent. Other: None. IMPRESSION: No acute abnormality of the head and neck CTA is seen. Moderate left and mild to moderate right proximal ICA stenosis.
--- NOTE | 2020-05-15 20:00 | XR ---
EXAMINATION TYPE: XR chest 2V DATE OF EXAM: 05/15/2020 COMPARISON: Prior chest 06/13/2017 HISTORY: Altered mental status TECHNIQUE: Frontal and lateral views of the chest are obtained. FINDINGS: Patient is post median sternotomy and the right hemidiaphragm remains elevated. Heart is e nlarged, patient shows post cardiac valve replacement change. There is no evident pneumothorax or ple ural effusion. Central vascularity is mildly prominent. IMPRESSION: Correlate to exclude pulmonary venous hypertension and early interstitial edema. Postop changes. Stable elevated right hemidiaphragm.
[2020-05-15] MEDS ORDERED: ASPIRIN 325 MG TAB PO STA (20:02)
[2020-05-15] MEDS ORDERED: NALOXONE 0.4 MG/ML 1 ML VIAL IV PRN (20:03)
[2020-05-15] MEDS ORDERED: ALBUTEROL NEBULIZED 2.5 MG/3 ML INHALATION PRN (20:10)
[2020-05-15] MEDS ORDERED: tiZANidine 4 MG TAB PO PRN (20:10)
[2020-05-15] MEDS ORDERED: ALPRAZolam 0.25 MG TAB PO PRN (20:10)
[2020-05-15] MEDS ORDERED: HYDROcodone/APAP 5-325MG 1 EACH TAB PO STA (20:12)
[2020-05-15] MEDS ORDERED: MAGNESIUM 100 MG PO SCH (21:00)
[2020-05-15] MEDS: METOPROLOL TARTRATE 50 MG TAB PO SCH (21:46)
[2020-05-15] MEDS: ATORVASTATIN 20 MG TAB PO SCH (21:46)
--- NOTE | 2020-05-16 00:05 | HP ---
HISTORY AND PHYSICAL A 74-year-old white male came in with left-sided weakness and possible some facial hemiparesis at home. History of aortic stenosis, AAA, TIA, stroke-like symptoms. The patient had some altered mental status, left-sided weakness, left-sided facial drooping. He came to the hospital due to this and possible stroke versus TIA. Patient had tingling on the left side of his face. He had history of stroke many years ago. HOME MEDICINES: Home medicines include: 1. Lipitor 20 daily. 2. [place]groton 25 daily. 3. Cinnamon 500 daily. 4. Xanax 0.25 q.8 hours. 5. Glucosamine. 6. Probiotic. 7. Metoprolol 100 b.i.d. 8. Multivitamin daily. 9. Aldactone 25 daily. 10.Motrin 400 q.8 hours. 11.Imodium 2 mg q.i.d. 12.Magnesium 100 mg b.i.d. 13.Telmisartan 80 mg daily. REVIEW OF SYSTEMS: Fourteen-point review of systems otherwise negative. PAST MEDICAL HISTORY: CVA, TIA, GERD, dyslipidemia, hypertension, history of aortic stenosis, aortic valve replacement, aortic dissection surgery, appendectomy. History of anxiety. Daily alcohol. PHYSICAL EXAMINATION: VITAL SIGNS: Temperature is 97.7, blood pressure 140s to 150s over 70s to 80s, respiratory rate 16 to 18, pulse 70s. CARDIOVASCULAR: S1, S2. LUNGS: Clear. MUSCULOSKELETAL: He has 4 out of 5 strength to the left upper arm, left leg and 5/5 right arm, right leg. Minimal facial flaccidity possibly on the right side. CAT scan of the patient's aortic arch showed history of aortic dissection and CT of the brain shows moderate left and right proximal ICA stenosis. The patient was not given tPA as he had a low NIH rapidly improving symptoms. Full-dose aspirin and statin. Neurology consultation was done. Risk factor modification will be done. Possibly a vascular consult for carotid stenosis. MMODL / IJN: [id number] /
[2020-05-16 02:33] LABS: T4, Free (Free Thyroxine) 1.33 ng/dL (0.78-2.19)
[2020-05-16] MEDS: CHLORTHALIDONE 25 MG TAB PO SCH (08:16)
[2020-05-16] MEDS: SPIRONOLACTONE 25 MG TAB PO SCH (08:16)
[2020-05-16] MEDS: CHOLECALCIFEROL 1,000 UNIT TAB PO SCH (08:16)
[2020-05-16] MEDS: MULTIVITAMINS, THERA 1 EACH TAB PO SCH (08:16)
[2020-05-16] MEDS: LOSARTAN 50 MG TAB PO SCH (08:16)
[2020-05-16] MEDS: METOPROLOL TARTRATE 50 MG TAB PO SCH ×2 (08:16→20:44)
[2020-05-16] MEDS ORDERED: NON FORMULARY DRUG (L.Acidoph,Paracasei, B.Lactis [Probiotic] 1 EACH Capsule) PO SCH (09:00)
[2020-05-16] MEDS ORDERED: NON FORMULARY DRUG (Glucosamine/Chondr Su A Sod [Osteo Bi-Flex Caplet] 1 EACH Tablet) PO SCH (09:00)
[2020-05-16] MEDS ORDERED: NON FORMULARY DRUG (Ubidecarenone [Co Q-10] 100 MG Capsule) PO SCH (09:00)
[2020-05-16] MEDS ORDERED: NON FORMULARY DRUG (Zinc [Zinc] 50 MG Tablet) PO SCH (09:00)
[2020-05-16 09:21] LABS: Basophils % (A) 0 %; Eosinophils # (A) 0.2 k/uL (0-0.7); Eosinophils % (A) 1 %; HCT 39.8 % (39.0-53.0); Lymphocytes # (A) 0.7 k/uL (1.0-4.8); Lymphocytes % (A) 5 %; MCH 31.7 pg (25.0-35.0); MCHC 32.7 g/dL (31.0-37.0); MCV 96.8 fL (80.0-100.0); Monocytes # (A) 0.4 k/uL (0-1.0); Monocytes % (A) 3 %; Neutrophils # (A) 13.5 k/uL (1.3-7.7); Neutrophils % (A) 90 %; Platelet Count 174 k/uL (150-450); RBC 4.11 m/uL (4.30-5.90); WBC 14.9 k/uL (3.8-10.6)
[2020-05-16 09:29] LABS: Calcium 8.8 mg/dL (8.4-10.2); Potassium 4.2 mmol/L (3.5-5.1)
--- NOTE | 2020-05-16 10:44 | P.CRDCN ---
History of Present Illness Consult date: 05/16/20 Reason for Consult (text): TIA Chief complaint: Altered mental status changes, left-sided weakness, left facial droop History of present illness: This is a pleasant 74-year-old gentleman with documented history of prior TIA, GERD, hypertension, hyperlipidemia, history of aortic valve replacement, mitral valve repair, AAA, anxiety, no prior history of smoking. Patient had an echocardiogram with Doppler study performed in 2017 which revealed an ejection fraction of 50-55%, normally functioning bioprosthetic aortic valve and history of mitral valve repair. Patient presents to the hospital on this occasion with symptoms of mental status changes with associated left-sided weakness and left facial droop which occurred while he was in the backyard yesterday afternoon, symptoms seemed to have resolved within approximately 10-15 minutes. His chest x-ray on presentation here showed correlation to exclude a pulmonary venous hypertension, early interstitial edema. CAT scan of the brain did not reveal any acute intracranial abnormality, potential old infarct CTA did not show any head or neck abnormality, moderate right proximal ICA stenosis is documented. His EKG on presentation here showed a normal sinus rhythm with a first-degree AV block. No evidence of any arrhythmias on the monitor. Blood pressure 140/70 with a heart rate in the 90s, respirations 16, 90% on room air. White blood cell count 8.9, hemoglobin 13, platelet count 185. Sodium 1:30, potassium 3.9, BUN 28, creatinine 1.2. Tr oponins 0.012, 0.031. TSH 0.446 and T4 1 0.3. The patient was seen in consultation this morning by Dr. Abigail Aceves and was advised to undergo a ASHER, the procedure as well as the risks and benefits her spine to the patient in detail. We will also obtain an echocardiogram with Doppler study with contrast today. Past Medical History Past Medical History: CVA/TIA, GERD/Reflux, Hyperlipidemia, Hypertension Additional Past Medical History / Comment(s): history of aortic stenosis status post valve replacement, aortic dissection status post repair History of Any Multi-Drug Resistant Organisms: None Reported Past Surgical History: Appendectomy Additional Past Surgical History / Comment(s): aorticvalve replacement , AAA repair Past Anesthesia/Blood Transfusion Reactions: No Reported Reaction Past Psychological History: Anxiety Smoking Status: Never smoker Past Alcohol Use History: Daily, Heavy Past Drug Use History: None Reported - Past Family History Brother(s) Family Medical History: Cancer Mother Family Medical History: Cancer, Coronary Artery Disease (CAD) Medications and Allergies Home Medications Medication Instructions Recorded Confirmed Type ALPRAZolam [Xanax] 0.25 mg PO Q8H PRN 06/13/17 05/15/20 History Aspirin 81 mg PO DAILY 06/13/17 05/15/20 History Atorvastatin [Lipitor] 20 mg PO HS 06/13/17 05/15/20 History Chlorthalidone [Hygroton] 25 mg PO DAILY 06/13/17 05/15/20 History Cinnamon Bark [Cinnamon] 500 mg PO DAILY 06/13/17 05/15/20 History Cranberry Fruit Extract [Cranberry] 500 mg PO DAILY 06/13/17 05/15/20 History Glucosamine/Chondr Martines A Sod [Osteo 1 tab PO DAILY 06/13/17 05/15/20 History Bi-Flex Caplet] L.acidoph,Paracasei, B.lactis 1 cap PO DAILY 06/13/17 05/15/20 History [Probiotic] Metoprolol Tartrate [Lopressor] 100 mg PO BID 06/13/17 05/15/20 History Multivitamins, Thera [Multivitamin 1 tab PO DAILY 06/13/17 05/15/20 History (formulary)] Spironolactone [Aldactone] 25 mg PO DAILY 06/13/17 05/15/20 History Albuterol Inhaler [Ventolin Hfa 2 puff INHALATION RT-Q6H PRN 05/15/20 05/15/20 History Inhaler] Cholecalciferol [Vitamin D3 (25 1,000 unit PO DAILY 05/15/20 05/15/20 History Mcg = 1000 Iu)] Ibuprofen [Motrin] 400 mg PO Q8H PRN 05/15/20 05/15/20 History Loperamide [Imodium] 2 mg PO QID PRN 05/15/20 05/15/20 History Magnesium 100mg 100 mg PO BID 05/15/20 05/15/20 History Telmisartan 80 mg PO DAILY 05/15/20 05/15/20 History Ubidecarenone [Co Q-10] 100 mg PO DAILY 05/15/20 05/15/20 History Zinc 50 mg PO DAILY 05/15/20 05/15/20 History Allergies Allergy/AdvReac Type Severity Reaction Status Date / Time Sulfa (Sulfonamide Allergy Anaphylaxis Verified 05/15/20 19:45 Antibiotics) Physical Exam Vitals: Vital Signs Temp Pulse Pulse Resp BP BP Pulse Ox 05/16/20 08:00 91 16 107/68 95 05/16/20 04:00 97.8 F 92 16 140/73 98 05/16/20 00:00 97.7 F 73 18 111/55 97 05/15/20 21:20 97.9 F 77 18 127/78 97 05/15/20 20:55 98.7 F 79 18 121/76 96 05/15/20 19:08 97.7 F 76 18 142/83 100 05/15/20 19:00 97.7 F 80 16 142/83 100 05/15/20 18:45 97.7 F 72 16 149/88 100 05/15/20 18:37 97.7 F 83 18 150/82 100 05/15/20 18:30 97.7 F 75 16 150/82 100 05/15/20 18:15 97.7 F 76 16 149/87 100 05/15/20 18:00 97.7 F 75 18 150/86 100 05/15/20 17:45 97.8 F 76 16 154/82 100 Intake and Output 05/15/20 05/16/20 05/16/20 22:59 06:59 14:59 Intake Total 540 Output Total 600 Balance 540 -600 Intake: Oral 540 Output: Urine 600 Other: Voiding Method Bedside Commode Bedside Commode Urinal Urinal Weight 87.543 kg 84.9 kg PHYSICAL EXAMINATION: GENERAL: 74-year-old gentleman in no acute distress at the time of my examination HEENT: Head is atraumatic, normocephalic. Pupils equal, round. Sclera anicteric. Conjunctiva are clear. Mucous membranes of the mouth are moist. Neck is supple. There is no elevated jugular venous pressure. No carotid bruit is heard. HEART EXAMINATION: S1 S2 1 systolic murmur is heard CHEST EXAMINATION: Lungs are clear to auscultation and precussion. No chest wall tenderness is noted on palpation or with deep breathing. ABDOMEN: Soft, nontender. Bowel sounds are heard. No organomegaly noted. EXTREMITIES: 2+ peripheral pulses with no evidence of peripheral edema and no calf tenderness noted. NEUROLOGIC patient is awake, alert and oriented 3 . . Results 05/16/20 07:28 05/16/20 07:28 Cardiac Enzymes 05/15/20 05/15/20 Range/Units 18:16 18:16 AST 40 (17-59) U/L Troponin I 0.031 (0.000-0.034) ng/mL Coagulation 05/15/20 Range/Units 18:16 PT 10.0 (9.0-12.0) sec APTT 21.8 L (22.0-30.0) sec Lipids 05/15/20 Range/Units 18:16 Triglycerides 331 H (<150) mg/dL Cholesterol 170 (<200) mg/dL HDL Cholesterol 65 H (40-60) mg/dL CBC 05/15/20 05/16/20 Range/Units 18:16 07:28 WBC 8.9 14.9 H (3.8-10.6) k/uL RBC 4.01 L 4.11 L (4.30-5.90) m/uL Hgb 13.0 13.0 (13.0-17.5) gm/dL Hct 38.4 L 39.8 (39.0-53.0) % Plt Count 185 174 (150-450) k/uL Comprehensive Metabolic Panel 05/15/20 05/16/20 Range/Units 18:16 07:28 Sodium 131 L 131 L (137-145) mmol/L Potassium 3.9 4.2 (3.5-5.1) mmol/L Chloride 97 L 96 L (98-107) mmol/L Carbon Dioxide 23 28 (22-30) mmol/L BUN 28 H 23 H (9-20) mg/dL Creatinine 1.20 1.10 (0.66-1.25) mg/dL Glucose 87 124 H (74-99) mg/dL Calcium 9.3 8.8 (8.4-10.2) mg/dL AST 40 (17-59) U/L ALT 25 (4-49) U/L Alkaline Phosphatase 119 (38-126) U/L Total Protein 6.9 (6.3-8.2) g/dL Albumin 4.5 (3.5-5.0) g/dL Current Medications Generic Name Dose Route Start Last Admin Trade Name Freq PRN Reason Stop Dose Admin Albuterol Sulfate 2.5 mg 05/15/20 20:10 Albuterol Nebulized 2.5 Mg/3 Ml INHALATION RT-Q6H PRN Shortness Of Breath Alprazolam 0.25 mg 05/15/20 20:10 Alprazolam 0.25 Mg Tab PO Q8H PRN Anxiety Atorvastatin Calcium 20 mg 05/15/20 21:00 05/15/20 21:46 Atorvastatin 20 Mg Tab PO 20 mg HS ELENA Administration Chlorthalidone 25 mg 05/16/20 09:00 05/16/20 08:16 Chlorthalidone 25 Mg Tab PO 25 mg DAILY ELENA Administration Cholecalciferol 1,000 unit 05/16/20 09:00 05/16/20 08:16 Cholecalciferol 1,000 Unit Tab PO 1,000 unit DAILY ELENA Administration Losartan Potassium 150 mg 05/16/20 09:00 05/16/20 08:16 Losartan 50 Mg Tab PO 150 mg DAILY ELENA Administration Metoprolol Tartrate 100 mg 05/15/20 21:00 05/16/20 08:16 Metoprolol Tartrate 50 Mg Tab PO 100 mg BID ELENA Administration Miscellaneous Information 1 each 05/15/20 18:13 Rx Info: Iv Contrast Was Given 1 Each Misc MISCELLANE 05/17/20 18:13 DAILY PRN Per Protocol Multivitamins 1 each 05/16/20 09:00 05/16/20 08:16 Multivitamins, Thera 1 Each Tab PO 1 each DAILY ELENA Administration Naloxone HCl 0.2 mg 05/15/20 20:03 Naloxone 0.4 Mg/Ml 1 Ml Vial IV Q2M PRN Opioid Reversal Spironolactone 25 mg 05/16/20 09:00 05/16/20 08:16 Spironolactone 25 Mg Tab PO 25 mg DAILY ELENA Administration Tizanidine HCl 2 mg 05/15/20 20:10 Tizanidine 4 Mg Tab PO TID PRN Muscle Spasm Intake and Output 05/15/20 05/16/20 05/16/20 22:59 06:59 14:59 Intake Total 540 Output Total 600 Balance 540 -600 Intake: Oral 540 Output: Urine 600 Other: Voiding Method Bedside Commode Bedside Commode Urinal Urinal Weight 87.543 kg 84.9 kg 05/16/20 07:28 05/16/20 07:28 EKG Interpretations (text) EKG shows normal sinus rhythm with first-degree AV block Assessment and Plan Plan: Assessment and plan #1 symptoms of mental status changes with associated left-sided weakness, left facial droop, aeration of approximately 10-15 minutes, suggesting TIA #2 history of prior TIA #3 GERD #4 hypertension #5 hyperlipidemia #6 history of aortic valve replacement with bioprosthetic aortic valve and mitral valve repair #7 AAA #8 anxiety Plan We will obtain an echocardiogram with Doppler study with bubble study. Patient has also been advised by Dr. Abigail Aceves to undergo a transesophageal echocardiographic study. He did have breakfast this morning, this will be performed tomorrow by Dr. Ruiz. He is also advised the patient to have a 30 day event monitor. Further recommendations will be based on these findings and the patient's overall clinical course. DNP note has been reviewed, I agree with a documented findings and plan of care. Patient was seen and examined.
--- NOTE | 2020-05-16 11:59 | ECHOF ---
Referral Reason:embolic cva MEASUREMENTS -------- HEIGHT: 180.3 cm WEIGHT: 84.8 kg BP: 146/73 RVIDd: 4.4 cm (< 3.3) IVSd: 1.2 cm (0.6 - 1.1) LVIDd: 2.8 cm (3.9 - 5.3) LVPWd: 1.0 cm (0.6 - 1.1) IVSs: 1.9 cm LVIDs: 1.3 cm LVPWs: 1.8 cm LAESV Index (A-L): 30.87 ml/m Ao Diam: 4.1 cm (2.0 - 3.7) LA Diam: 3.5 cm (2.7 - 3.8) MV EXCURSION: 13.189 mm (> 18.000) MV EF SLOPE: 40 mm/s (70 - 150) EPSS: 0.7 cm MV E Ranjith: 1.12 m/s MV DecT: 250 ms MV A Ranjith: 0.82 m/s MV E/A Ratio: 1.38 AV maxP.27 mmHg AV meanP.91 mmHg RAP: 5.00 mmHg RVSP: 42.57 mmHg TAPSE: 13.88 mm FINDINGS -------- This was a technically adequate study. The left ventricular size is normal. There is borderline concentric left ventricular hypertrophy. Overall left ventricular systolic function is normal with, an EF between 55 - 60 %. There is parad oxical/dysynergic septal motion consistent with post-operative status. Both the mean atrial pressur e as well as the LV end diastolic pressure is elevated 27.89. LVOT Obstruction The right ventricle is moderately enlarged. LA is midly dilated 29-33ml/m2. The right atrial size is normal. Peak/mean gradient across the Aortic Valve is 27.27mmHg / 15.91mmHg. Normally functioning bioprosth etic aortic valve. No mitral regurgitation. Mitral ring annulloplasty is in place. The tricuspid valve appears structurally normal. Mild tricuspid regurgitation present. There is m ild pulmonary hypertension. The right ventricular systolic pressure, as measured by Doppler, is 42. 57mmHg. There is no pulmonic regurgitation present. The aortic root and ascending aorta are dilated measuring up to 4.3 cm. Echo free space indicative of a pericardial fat pad. There is no pericardial effusion. CONCLUSIONS -------- 1. The left ventricular size is normal. 2. There is borderline concentric left ventricular hypertrophy. 3. Overall left ventricular systolic function is normal with, an EF between 55 - 60 %. 4. There is paradoxical/dysynergic septal motion consistent with post-operative status. 5. Both the mean atrial pressure as well as the LV end diastolic pressure is elevated 27.89. 6. The right ventricle is moderately enlarged. 7. LA is midly dilated 29-33ml/m2. 8. Peak/mean gradient across the Aortic Valve is 27.27mmHg / 15.91mmHg. 9. Normally functioning bioprosthetic valve. 10. No mitral regurgitation. 11. Mitral ring annulloplasty is in place. 12. Mild tricuspid regurgitation present. 13. There is mild pulmonary hypertension. 14. The right ventricular systolic pressure, as measured by Doppler, is 42.57mmHg. 15. The aortic root and ascending aorta are dilated measuring up to 4.3 cm. 16. Echo free space indicative of a pericardial fat pad. 17. There is no pericardial effusion. MACHINE SHOP HELPER: Joanne Coulter RDCS
--- NOTE | 2020-05-16 13:55 | P.CNNES ---
History of Present Illness Consult date: 05/16/20 Requesting physician: Radha Nugyen Reason for Consult: Acute left-sided weakness, suspected TIA History of Present Illness: Patient is a 74-year-old ambidextrous male came to the hospital yesterday at 5:44 PM for strokelike symptoms. Patient states that yesterday he was moving heavy plants for winter. At around 3 PM he felt dizziness, held onto the shelf. He noticed that his left arm face and leg became numb and he couldn't use. He noticed some trouble making sentence. His brought him to the hospital. Vital signs on arrival blood pressure 154/82, pulse rate [address] head showed no acute intracranial abnormality. Old lacunar infarct. CTA of head and neck showed no acute abnormality of the head and neck CTA. Moderate left (50-70%) and [id number] right (<50%) proximal ICA stenosis. Chest x- ray showed possible pulmonary venous hypertension and early interstitial edema. Postop changes. EKG shows sinus rhythm with first-degree AV block. Blood test shows normal WBC hemoglobin 13.0, normal platelets. PTT 21.8, sodium 131 potassium 3.9, BUN 28 creatinine 1.20, hepatic panel normal. Total cholesterol 170, LDL 39, HDL 65, triglycerides 331. TSH is low 0.44, free T4 1.33. Stroke code was activated. NIH stroke scale was 2. The ED physician discussed with Dr. Lopez, and patient was not given TPA, due to low iron his stroke scale and rapidly improving symptoms. Patient was given a full aspirin and his nightly statin. Patient states that at this time, he continues to have numbness of the entire left side of the body. The dizziness and speech difficulty resol juan daniel by 7 PM yesterday. Patient had a previous MRI of the brain on 06/14/2017 which was normal. M oderate to advanced cerebral atrophy and [id number] scattered burden of chronic small vessel ischemic change Patient has history of aortic stenosis, AAA for aortic dissection. Patient is currently on aspirin 81 mg and Lipitor 20 mg. Patient has smoked <1 pack per day since early 20s, for about 15-17 years, quit 34 years ago. He denies diabetes, does have hypertension. Patient has history of aortic valve repair and also history of aortic dissection which was repaired. Review of Systems As above in detail. Continues to have numbness of left side of the body, with some incoordination. Denies any headache any problem with the vision hoarseness sore throat dysphagia. Patient denies abdominal pain nausea vomiting diarrhea. Denies peripheral edema. All other review of systems reviewed and noncontributory to the current illness. Past Medical History Past Medical History: CVA/TIA, GERD/Reflux, Hyperlipidemia, Hypertension Additional Past Medical History / Comment(s): history of aortic stenosis status post valve replacement, aortic dissection status post repair History of Any Multi-Drug Resistant Organisms: None Reported Past Surgical History: Appendectomy Additional Past Surgical History / Comment(s): aorticvalve replacement , AAA repair Past Anesthesia/Blood Transfusion Reactions: No Reported Reaction Past Psychological History: Anxiety Smoking Status: Never smoker Past Alcohol Use History: Daily, Heavy Past Drug Use History: None Reported - Past Family History Brother(s) Family Medical History: Cancer Mother Family Medical History: Cancer, Coronary Artery Disease (CAD) Medications and Allergies Home Medications Medication Instructions Recorded Confirmed Type ALPRAZolam [Xanax] 0.25 mg PO Q8H PRN 06/13/17 05/15/20 History Aspirin 81 mg PO DAILY 06/13/17 05/15/20 History Atorvastatin [Lipitor] 20 mg PO HS 06/13/17 05/15/20 History Chlorthalidone [Hygroton] 25 mg PO DAILY 06/13/17 05/15/20 History Cinnamon Bark [Cinnamon] 500 mg PO DAILY 06/13/17 05/15/20 History Cranberry Fruit Extract [Cranberry] 500 mg PO DAILY 06/13/17 05/15/20 History Glucosamine/Chondr Martines A Sod [Osteo 1 tab PO DAILY 06/13/17 05/15/20 History Bi-Flex Caplet] L.acidoph,Paracasei, B.lactis 1 cap PO DAILY 06/13/17 05/15/20 History [Probiotic] Metoprolol Tartrate [Lopressor] 100 mg PO BID 06/13/17 05/15/20 History Multivitamins, Thera [Multivitamin 1 tab PO DAILY 06/13/17 05/15/20 History (formulary)] Spironolactone [Aldactone] 25 mg PO DAILY 06/13/17 05/15/20 History Albuterol Inhaler [Ventolin Hfa 2 puff INHALATION RT-Q6H PRN 05/15/20 05/15/20 History Inhaler] Cholecalciferol [Vitamin D3 (25 1,000 unit PO DAILY 05/15/20 05/15/20 History Mcg = 1000 Iu)] Ibuprofen [Motrin] 400 mg PO Q8H PRN 05/15/20 05/15/20 History Loperamide [Imodium] 2 mg PO QID PRN 05/15/20 05/15/20 History Magnesium 100mg 100 mg PO BID 05/15/20 05/15/20 History Telmisartan 80 mg PO DAILY 05/15/20 05/15/20 History Ubidecarenone [Co Q-10] 100 mg PO DAILY 05/15/20 05/15/20 History Zinc 50 mg PO DAILY 05/15/20 05/15/20 History Allergies Allergy/AdvReac Type Severity Reaction Status Date / Time Sulfa (Sulfonamide Allergy Anaphylaxis Verified 05/15/20 19:45 Antibiotics) Physical Examination - Vital Signs Vital Signs: Vital Signs Temp Pulse Pulse Resp BP BP Pulse Ox 05/16/20 08:00 91 16 107/68 95 05/16/20 04:00 97.8 F 92 16 140/73 98 05/16/20 00:00 97.7 F 73 18 111/55 97 05/15/20 21:20 97.9 F 77 18 127/78 97 05/15/20 20:55 98.7 F 79 18 121/76 96 05/15/20 19:08 97.7 F 76 18 142/83 100 05/15/20 19:00 97.7 F 80 16 142/83 100 05/15/20 18:45 97.7 F 72 16 149/88 100 05/15/20 18:37 97.7 F 83 18 150/82 100 05/15/20 18:30 97.7 F 75 16 150/82 100 05/15/20 18:15 97.7 F 76 16 149/87 100 05/15/20 18:00 97.7 F 75 18 150/86 100 05/15/20 17:45 97.8 F 76 16 154/82 100 Intake and Output 05/15/20 05/16/20 05/16/20 22:59 06:59 14:59 Intake Total 540 Output Total 600 Balance 540 -600 Intake: Oral 540 Output: Urine 600 Other: Voiding Method Bedside Commode Urinal Weight 87.543 kg 84.9 kg On examination patient is an elderly male, in no acute distress. Patient is alert awake oriented to time place and person. He knows it is 05/16/2020. Speech and language functions are normal. Attention and concentration fund of knowledge is adequate. On cranial nerve examination pupils are round and reacting to light, surgical. His visual liang are full on confrontation, extraocular muscles are intact with no nystagmus. Face is symmetric, tongue protrudes to the to the midline. Palatal elevation and sensation normal hearing and shoulder shrug normal. On muscle strength testing there is no pronator drift and the strength is normal in arms and legs distally and proximally. Reflexes are 1 in the upper limbs, 2 at the knees 1 ankles and plantar is downgoing on the right whereas up on left. Sensory to touch and temperature is decreased in entire left side of the body. Patient has mild ataxia for gfbkty-yi-jzjh and rbzz-yi-twch testing on the left. Tone and bulk of muscles normal. Gait deferred. No obvious bruit. Patient does have murmur heard. No peripheral edema. Abdomen soft nontender, chest is clear. Results - Laboratory Findings CBC and BMP: 05/16/20 07:28 05/16/20 07:28 Abnormal Lab Findings: Abnormal Labs 05/15/20 05/15/20 05/15/20 18:16 18:16 18:16 WBC RBC 4.01 L Hct 38.4 L Neutrophils # Lymphocytes # APTT 21.8 L Sodium 131 L Chloride 97 L BUN 28 H Glucose Triglycerides HDL Cholesterol TSH 05/15/20 05/16/20 05/16/20 18:16 07:28 07:28 WBC 14.9 H RBC 4.11 L Hct Neutrophils # 13.5 H Lymphocytes # 0.7 L APTT Sodium 131 L Chloride 96 L BUN 23 H Glucose 124 H Triglycerides 331 H HDL Cholesterol 65 H TSH 0.446 L Assessment and Plan Assessment: * Acute ischemic CVA with numbness of left side of the body with mild ataxia. CVA likely embolic. Patient still has left-sided sensory symptoms. * History of aortic dissection with aortic valve repair. * Bilateral ICA stenosis, moderate on the left, mild on the right. * Hypertension Plan: * Patient had 2-D echo performed, which revealed normal left-ventricular size. Borderline concentric LVH. EF is 55-60%. There is paradoxical/dysynergic septal motion consistent with postoperative status. Left atrium is mildly dilated. Mitral ring annuloplasty is in place. Cardiology on board. * Patient to undergo ASHER in the morning as per cardiology. * Lipid panel showed cholesterol 170, LDL 39, HDL 65 and triglycerides 331. Continue statins. * Telemetry monitoring so far showing normal sinus rhythm with occasional PVC. No other arrhythmias. * Patient was on aspirin 81 mg daily. The dose has been increased to 325 mg. Consider placement of dual antiplatelet medications. * Hemoglobin A1c pending. * Patient has bilateral ICA stenosis, but is not significant at this time. Need to follow-up with serial Dopplers every 6 month. * Neurology will follow.
[2020-05-16 16:05] LABS: Hemoglobin A1C 5.6 % (4.0-6.0)
--- NOTE | 2020-05-16 18:46 | PN ---
PROGRESS NOTE This is a 74-year-old white male with acute left-sided weakness with acute ischemic stroke. He is going to have a ASHER done in the morning. His carotid disease is not significant to operate on. ASHER to rule out embolic stroke. Risk factor modification given to the patient. CARDIOVASCULAR: S1, S2. LUNGS: Clear. GI: Soft. He is up ambulating. He has left-sided weakness, some mild facial asymmetry. ASSESSMENT: 1. Acute ischemic stroke. 2. Hypertension. 3. Diabetes, etc. Risk factor modification. Aspirin has been increased to 325, Plavix 75 mg daily. Possible discharge home after ASHER unless some further reason is seen for his problems. MMODL / IJN: [id number] /
[2020-05-16] MEDS: ATORVASTATIN 20 MG TAB PO SCH (20:44)
[2020-05-17] MEDS: LOSARTAN 50 MG TAB PO SCH ×2 (08:25→13:54)
[2020-05-17] MEDS: CHLORTHALIDONE 25 MG TAB PO SCH (08:25)
[2020-05-17] MEDS: MULTIVITAMINS, THERA 1 EACH TAB PO SCH (08:25)
[2020-05-17] MEDS: METOPROLOL TARTRATE 50 MG TAB PO SCH ×2 (08:26→20:17)
[2020-05-17] MEDS: CHOLECALCIFEROL 1,000 UNIT TAB PO SCH (08:26)
[2020-05-17] MEDS: SPIRONOLACTONE 25 MG TAB PO SCH (08:28)
--- NOTE | 2020-05-17 10:09 | PN ---
PROGRESS NOTE Mr. Robbins is a gentleman with a history of aortic valve replacement with tissue valve and mitral valve repair. He has no significant obstructive CAD by history. He came in with a TIA from which he has recovered. I am recommending a transesophageal echo and event monitor. He is resting comfortably. He is going to have a ASHER today. Vitals are stable, no JVD. He is maintaining sinus rhythm. No arrhythmia was noted. S1, S2 heard normally. Short systolic murmur at the base is audible. Second heart sound is preserved. Lungs are clear. Abdomen and lower extremity exam unchanged. Plan is to perform transesophageal echo with Dr. Ruiz. Will do also an event monitor prior to discharge. MMODL / IJN: [id number] /
[2020-05-17] MEDS: CLOPIDOGREL 75 MG TAB PO SCH (10:31)
[2020-05-17] MEDS: ASPIRIN 325 MG TAB PO SCH (10:31)
[2020-05-17] MEDS: FAMOTIDINE 20 MG TAB PO SCH ×2 (10:32→20:17)
[2020-05-17] MEDS: fentaNYL (PF) 50 MCG/ML 2 ML AMP IV ONE ×2 (11:43→12:47)
[2020-05-17] MEDS ORDERED: MIDAZOLAM 2 MG/2 ML VIAL IV ONE ×2 (11:44→12:46)
[2020-05-17] MEDS ORDERED: fentaNYL (PF) 50 MCG/ML 2 ML AMP ONE (12:02)
[2020-05-17] MEDS ORDERED: SODIUM CHLORIDE 0.9% 250 ML IV ONE (12:25)
[2020-05-17] MEDS ORDERED: BENZOCAINE SPRAY 1 CAN MUCOUS MEM ONE (12:37)
[2020-05-17] MEDS ORDERED: LOPERAMIDE 2 MG CAP PO PRN (14:43)
--- NOTE | 2020-05-17 15:11 | P.PN ---
Subjective Progress Note Date: 05/17/20 Patient was seen for a follow-up. Patient is doing better. Offers no new complaints. States the numbness and coordination of the left side has improved. Main numbness involves the left hand, left foot and some part of the facial region, somewhat medially on the edge of nose and above upper lip. No new focal symptoms. Objective - Vital Signs Vital signs: Vital Signs Temp 97.6 F 05/17/20 04:00 Pulse 60 05/17/20 13:05 Resp 14 05/17/20 13:05 BP 105/54 05/17/20 13:05 Pulse Ox 98 05/17/20 13:05 Intake & Output 05/16/20 05/17/20 05/17/20 18:59 06:59 18:59 Intake Total 238 500 50 Balance 238 500 50 Weight 83.6 kg Intake: IV 50 Oral 238 500 Other: Voiding Method Bedside Commode Bedside Commode Urinal Urinal # Voids 3 3 - Exam On examination patient's mental status speech and language functions are normal. No aphasia or dysarthria. On cranial nerve examination pupils are round and reacting to light, visual liang are full, extraocular muscles intact, face is symmetric, tongue protrudes to the midline. Palatal elevation and sensation normal. Hearing appears normal. On muscle strength testing patient has mild left pronator drift. The strength is normal in the arms and legs distally and proximally. Patient has mild dysmetria for [id number] and bknt-zj-woky testing on the left. Sensory to touch is decreased in the left arm and left leg. If the right side is 100, patient rates left foot as 80, left hand as 50, left forearm 80. Patient neglects left side on double simultaneous stimulation. Gait deferred. - Labs CBC & Chem 7: 05/18/20 06:56 05/18/20 06:56 Assessment and Plan Assessment: * Acute ischemic CVA with numbness of left side of the body with mild ataxia. CVA likely embolic. Patient still has left-sided sensory symptoms. * History of aortic dissection with aortic valve repair. * Bilateral ICA stenosis, moderate on the left, mild on the right. * Hypertension Plan: * Patient had 2-D echo performed, which revealed normal left-ventricular size. Borderline concentric LVH. EF is 55-60%. There is paradoxical/dysynergic septal motion consistent with postoperative status. Left atrium is mildly dilated. Mitral ring annuloplasty is in place. Cardiology on board. * Await ASHER. * Lipid panel showed cholesterol 170, LDL 39, HDL 65 and triglycerides 331. Continue statins. * Telemetry monitoring and the last 24 hours shows normal sinus rhythm. No arrhythmia. * Patient placed on dual antiplatelet medication. * Check MRI of the brain * Hemoglobin A1c 5.6. * Patient has bilateral ICA stenosis, but is not significant at this time. Need to follow-up with serial carotid Dopplers every 6 month. * Discussed with patient's in detail to her satisfaction. Spent around 15 minutes with her on the phone. Addendum: MRI nika showed right thalamic lacunar stroke, likely from small vessel disease. ASHER report reviewed. No obvious embolic source. Continue above management. Neurologically clear.
--- NOTE | 2020-05-17 15:18 | PN ---
PROGRESS NOTE DATE OF SERVICE: 05/17/2020 I am covering for Dr. Phillips. This 74-year-old gentleman who was admitted with significant left-sided weakness and acute ischemic CVA was thought to have embolic phenomenon. Cardiology is planning a ASHER today. A 2D echo with Doppler, which I reviewed personally, showed ejection fraction about 55% to 60% and minimal valvular abnormalities. Aortic root and ascending aorta are dilated up to 4.3 cm. The patient is being closely monitored. The patient is on antiplatelet agents. Past medical history reviewed. The angio showed moderate left and mild to moderate right proximal ICA stenosis. REVIEW OF SYSTEMS: CARDIOVASCULAR SYSTEM: No angina, palpitations. RESPIRATORY SYSTEM: As mentioned earlier. GI: As mentioned earlier. : No dysuria or retention. NERVOUS SYSTEM: As mentioned earlier. CURRENT MEDICATIONS: Reviewed. They include Ventolin, Xanax, aspirin, Lipitor, Hygroton, Plavix, Pepcid, Cozaar, Lopressor, Narcan, aldactone. PHYSICAL EXAMINATION: Patient is alert and oriented x3. Pulse 63, blood pressure 100/58, respirations 16, temperature 98.2. He is 98% on 2 L. HEENT: Conjunctivae normal. NECK: No jugular venous distention. CARDIOVASCULAR SYSTEM: S1, S2 muffled. RESPIRATORY SYSTEM: Breath sounds diminished at the bases. No rhonchi. No crackles. ABDOMEN: Soft, non-tender. LEGS: No edema. No swelling. NERVOUS SYSTEM: Minimal diffuse weakness on the left side. LABS: WBC 14.2, hemoglobin 13, sodium 131. ASSESSMENT: 1. Acute left-sided weakness caused by right hemispheric lesion with acute stroke. 2. Increased white count. 3. Hyponatremia. 4. Hypertriglyceridemia. 5. History of gastroesophageal reflux disease. 6. Hypertension. 7. Hyperlipidemia. 8. History of aortic stenosis, status post valve replacement. 9. History of aortic dissection, status post repair. 10.History of abdominal aortic aneurysm repair. 11.History of anxiety. 12.History of ETOH. 13.FULL CODE. RECOMMENDATIONS AND DISCUSSION: In this 74-year-old gentleman who presented with multiple complex medical issues, we will monitor the patient closely. ASHER has been planned. Neurology also recommends MRI scan. I would also recommend a vascular surgery evaluation because of multiple complex medical issues. Closely follow with Cardiology. Otherwise, continue with antiplatelet agents currently. Guarded prognosis. Further recommendations to follow. The patient is on Lipitor as well as beta blockers. Continue to monitor. Prognosis guarded. Further recommendations to follow. MMODL / IJN: [id number] /
--- NOTE | 2020-05-17 17:54 | P.TEE ---
Indications for Procedure(s): Cryptogenic stroke Description of Procedure(s): Procedure performed: Transesophageal Echocardiogram with color flow doppler, pulsed wave doppler and continuous wave doppler, moderate conscious sedation Moderate conscious sedation: Moderate conscious sedation was supplied with direct supervision of myself using Versed and Fentanyl. Complications: none Indications: Cryptogenic stroke History: Patient is a pleasant 74-year-old male with history of bioprosthetic aortic valve replacement and mitral valve repair, TIA, GERD, hypertension, hyperlipidemia, AAA, anxiety who was found to have mental status changes and a TIA. We were asked to perform ASHER to rule out cardiac source of emboli. PROCEDURE: After the risks, benefits and alternatives of the above mentioned procedure was explained in detail with the patient, informed consent was obtained. Patient was brought to the lab in a fasting state. Patient was given IV Versed and Fentanyl for sedation. The throat was sprayed with Hurricane to anesthetize the throat. A lubricated Omni probe was then introduced into the esophagus and stomach and multiple views were obtained. 2D echo with color flow doppler, pulsed wave doppler and continuous wave doppler was utilized. Agitated saline bubbles were injected to assess for any intra-atrial shunt. The probe was then removed. Patient tolerated the procedure well. Patient was transferred to the post procedure area in stable and satisfactory condition. FINDINGS: 1. There is a bioprosthetic aortic valve which appears somewhat smaller than the annulus. No paravalvular leak. Mild to moderate calcification of the bioprosthetic valve with mild decrease in leaflet excursion. No significant aortic regurgitation. 2. The mitral valve has a mitral ring, status post repair with normally functioning mitral valve leaflets. Mild mitral regurgitation. 3. Tricuspid valve appears to be normal with mild to moderate tricuspid regurgitation.. 4. The interatrial septum is intact. No evidence of PFO. 5. Left atrial appendage is free of clot. 6. Left ventricular size and function appear to be normal with ejection fraction 55-60%. 7. Mildly dilated left atrium.
--- NOTE | 2020-05-17 19:28 | MR ---
"EXAMINATION TYPE: MR brain wo con DATE OF EXAM: 05/17/2020 COMPARISON: CT head from 2 days ago. MRI brain 3 days ago. HISTORY: Acute left sided weakness TECHNIQUE: Multiplanar, multisequence imaging of the brain and brainstem is performed without IV cont rast. FINDINGS: Diffusion weighted images demonstrate roughly 12 x 7 mm ovoid focus lateral aspect right thalamus pratibha ge 128 series 505 with diminished signal on ADC mapping that shows T2 hyperintensity and subtle T1 hy pointensity consistent with evolving acute infarct. There is no worrisome new extraaxial fluid collection. Diffuse ventricular and sulcal prominence. Sc attered areas of T2 hyperintensity including a C shaped area subcortical region left frontal lobe axi al image 20 redemonstrated.. Midline structures demonstrate normal morphology. The craniocervical junction appears within normal limits. Normal vascular flow voids are present. The visualized sinuses are clear and the globes are i ntact. IMPRESSION: 1. Evolving acute right lateral thalamic infarct. 2. Background moderate to advanced diffuse cerebral atrophy and mild to moderate chronic small vessel ischemic change redemonstrated. A Yellow level critical message alert has been initiated for Marshall Phillips MD via the [employer] 36 0 | Critical Results System on 05/17/2020 7:25 PM. This message alert has been sent to Marshall Phillips MD via the preferences provided by the clinician for the receipt of Radiology Critical Findings. [facility] [place] [id number]."
[2020-05-17] MEDS: ATORVASTATIN 20 MG TAB PO SCH (20:17)
[2020-05-18 07:41] LABS: Basophils # (A) 0.1 k/uL (0-0.2); Basophils % (A) 1 %; Eosinophils # (A) 0.7 k/uL (0-0.7); Eosinophils % (A) 9 %; HCT 41.1 % (39.0-53.0); HGB 13.3 gm/dL (13.0-17.5); Lymphocytes # (A) 1.9 k/uL (1.0-4.8); Lymphocytes % (A) 22 %; MCH 31.5 pg (25.0-35.0); MCHC 32.5 g/dL (31.0-37.0); Mean Platelet Volume 6.6; Monocytes # (A) 0.6 k/uL (0-1.0); Monocytes % (A) 7 %; Neutrophils # (A) 5.1 k/uL (1.3-7.7); Neutrophils % (A) 59 %; Platelet Count 170 k/uL (150-450); RBC 4.24 m/uL (4.30-5.90); RDW 12.9 % (11.5-15.5); WBC 8.6 k/uL (3.8-10.6)
[2020-05-18 07:57] LABS: Calcium 9.2 mg/dL (8.4-10.2); Potassium 3.6 mmol/L (3.5-5.1)
[2020-05-18] MEDS: MULTIVITAMINS, THERA 1 EACH TAB PO SCH (09:15)
[2020-05-18] MEDS: METOPROLOL TARTRATE 50 MG TAB PO SCH (09:15)
[2020-05-18] MEDS: CHOLECALCIFEROL 1,000 UNIT TAB PO SCH (09:15)
[2020-05-18] MEDS: SPIRONOLACTONE 25 MG TAB PO SCH (09:15)
[2020-05-18] MEDS: FAMOTIDINE 20 MG TAB PO SCH (09:15)
[2020-05-18] MEDS: CHLORTHALIDONE 25 MG TAB PO SCH (09:15)
[2020-05-18] MEDS: ASPIRIN 325 MG TAB PO SCH (09:15)
[2020-05-18] MEDS: CLOPIDOGREL 75 MG TAB PO SCH (09:15)
[2020-05-18] MEDS: LOSARTAN 50 MG TAB PO SCH (09:16)
--- NOTE | 2020-05-18 11:22 | P.GSCN ---
History of Present Illness Consult date: 05/18/20 Reason for Consult: Carotid stenosis History of present illness: 74-year-old gentleman who originally presented to the hospital secondary to le ft-sided weakness after moving some potted plants. He states he had some numbness in his left leg as well as his arm and this turned to weakness where he wasn't able to squeeze his left hand. Since his admission to the hospital and treatment he has been improving and states his symptoms have resolved. Currently he states he wants to go home and denies any lateralizing symptoms such as weakness, vision changes or speech issues. He does admit to having previous TIAs usually involving his face with a droop or numbness. He denies any fevers, chills, chest pain or shortness of breath. Review of Systems All systems: negative (what is mentioned in the HPI past medical history) Past Medical History Past Medical History: CVA/TIA, GERD/Reflux, Hyperlipidemia, Hypertension Additional Past Medical History / Comment(s): history of aortic stenosis status post valve replacement, aortic dissection status post repair, AAA History of Any Multi-Drug Resistant Organisms: None Reported Past Surgical History: Appendectomy Additional Past Surgical History / Comment(s): aorticvalve replacement , AAA repair Past Anesthesia/Blood Transfusion Reactions: No Reported Reaction Past Psychological History: Anxiety Smoking Status: Never smoker Past Alcohol Use History: Daily, Heavy Past Drug Use History: None Reported - Past Family History Brother(s) Family Medical History: Cancer Mother Family Medical History: Cancer, Coronary Artery Disease (CAD) Medications and Allergies Home Medications Medication Instructions Recorded Confirmed Type ALPRAZolam [Xanax] 0.25 mg PO Q8H PRN 06/13/17 05/15/20 History Aspirin 81 mg PO DAILY 06/13/17 05/15/20 History Atorvastatin [Lipitor] 20 mg PO HS 06/13/17 05/15/20 History Chlorthalidone [Hygroton] 25 mg PO DAILY 06/13/17 05/15/20 History Cinnamon Bark [Cinnamon] 500 mg PO DAILY 06/13/17 05/15/20 History Cranberry Fruit Extract [Cranberry] 500 mg PO DAILY 06/13/17 05/15/20 History Glucosamine/Chondr Martines A Sod [Osteo 1 tab PO DAILY 06/13/17 05/15/20 History Bi-Flex Caplet] L.acidoph,Paracasei, B.lactis 1 cap PO DAILY 06/13/17 05/15/20 History [Probiotic] Metoprolol Tartrate [Lopressor] 100 mg PO BID 06/13/17 05/15/20 History Multivitamins, Thera [Multivitamin 1 tab PO DAILY 06/13/17 05/15/20 History (formulary)] Spironolactone [Aldactone] 25 mg PO DAILY 06/13/17 05/15/20 History Albuterol Inhaler [Ventolin Hfa 2 puff INHALATION RT-Q6H PRN 05/15/20 05/15/20 History Inhaler] Cholecalciferol [Vitamin D3 (25 1,000 unit PO DAILY 05/15/20 05/15/20 History Mcg = 1000 Iu)] Ibuprofen [Motrin] 400 mg PO Q8H PRN 05/15/20 05/15/20 History Loperamide [Imodium] 2 mg PO QID PRN 05/15/20 05/15/20 History Magnesium 100mg 100 mg PO BID 05/15/20 05/15/20 History Telmisartan 80 mg PO DAILY 05/15/20 05/15/20 History Ubidecarenone [Co Q-10] 100 mg PO DAILY 05/15/20 05/15/20 History Zinc 50 mg PO DAILY 05/15/20 05/15/20 History Allergies Allergy/AdvReac Type Severity Reaction Status Date / Time Sulfa (Sulfonamide Allergy Anaphylaxis Verified 05/15/20 19:45 Antibiotics) Surgical - Exam Vital Signs Temp Pulse Resp BP Pulse Ox 97.8 F 76 16 154/82 100 05/15/20 17:45 05/15/20 17:45 05/15/20 17:45 05/15/20 17:45 05/15/20 17:45 Palpable DP, PT pulses bilaterally. Foot is warm with good refill. - General well developed, well nourished, no distress - Eyes PERRL - ENT normal pinna - Neck no masses, no bruits - Respiratory normal expansion, normal respiratory effort, clear to auscultation - Cardiovascular Rhythm: regular - Abdomen Abdomen: soft, non tender - Integumentary no rash, no growths - Neurologic normal coordination, normal sensation - Psychiatric oriented to time, oriented to person, oriented to place, speech is normal Results - Labs 05/18/20 06:56 05/18/20 06:56 Abnormal Lab Results - Last 24 Hours (Table) 05/18/20 05/18/20 Range/Units 06:56 06:56 RBC 4.24 L (4.30-5.90) m/uL Sodium 131 L (137-145) mmol/L Chloride 95 L (98-107) mmol/L BUN 25 H (9-20) mg/dL Creatinine 1.28 H (0.66-1.25) mg/dL Glucose 105 H (74-99) mg/dL Diabetes panel 05/18/20 Range/Units 06:56 Sodium 131 L (137-145) mmol/L Potassium 3.6 (3.5-5.1) mmol/L Chloride 95 L (98-107) mmol/L Carbon Dioxide 30 (22-30) mmol/L BUN 25 H (9-20) mg/dL Creatinine 1.28 H (0.66-1.25) mg/dL Glucose 105 H (74-99) mg/dL Calcium 9.2 (8.4-10.2) mg/dL Calcium panel 05/18/20 Range/Units 06:56 Calcium 9.2 (8.4-10.2) mg/dL Pituitary panel 05/18/20 Range/Units 06:56 Sodium 131 L (137-145) mmol/L Potassium 3.6 (3.5-5.1) mmol/L Chloride 95 L (98-107) mmol/L Carbon Dioxide 30 (22-30) mmol/L BUN 25 H (9-20) mg/dL Creatinine 1.28 H (0.66-1.25) mg/dL Glucose 105 H (74-99) mg/dL Calcium 9.2 (8.4-10.2) mg/dL Adrenal panel 05/18/20 Range/Units 06:56 Sodium 131 L (137-145) mmol/L Potassium 3.6 (3.5-5.1) mmol/L Chloride 95 L (98-107) mmol/L Carbon Dioxide 30 (22-30) mmol/L BUN 25 H (9-20) mg/dL Creatinine 1.28 H (0.66-1.25) mg/dL Glucose 105 H (74-99) mg/dL Calcium 9.2 (8.4-10.2) mg/dL - Imaging Additional studies: CTA of the neck was reviewed demonstrating stenosis of bilateral ICAs left worse than right. Assessment and Plan Assessment: #1 bilateral internal carotid artery stenosis right less than 50% and left 50- 69% #2 CVA with left-sided weakness resolved #3 history of aortic dissection and repair #4 history of aortic stenosis status post valve replacement #5 hypertension Plan: We reviewed his CAT scan of his neck which demonstrates mild stenosis of the right ICA and moderate stenosis of the left ICA. His symptoms are involving his left side and due to this his right ICA is not diseased enough for any surgical intervention at this time. I would recommend antiplatelet therapy and statin and we'll follow-up with him as outpatient. We will also obtain a carotid Dop pler in the office as well as an abdominal ultrasound for his history of AAA. Thank you for allowing me to participate in your patient's care.
[2020-05-18 12:01] VITALS: BP 99/64; PULSE 58; RESP 16; TEMP 97.8
--- NOTE | 2020-05-18 15:15 | PN ---
PROGRESS NOTE This is a gentleman who came with a TIA. Does not have any significant carotid disease to explain this. He has not had any arrhythmia, specifically no atrial fibrillation was noted. His neurological issues have resolved completely. Transesophageal echo does not reveal any evidence of thrombus. There is no shunt. The patient is doing well today asymptomatic. Vitals are stable S1-S2 are normal. A systolic murmur at the base is audible lungs are clear. Abdomen and lower extremity exam unchanged. Patient does have history of aortic valve replacement with a tissue valve and mitral valve repair in the past. I am recommending an event monitor to rule out any atrial fibrillation and this will be placed hopefully on Wednesday. I gave a prescription and advised the importance of this and to follow up with myself or his educational psychology teacher in the next 2 weeks. The patient can be discharged today. DAPHNE / FLAKITA: [id number] /
--- NOTE | 2020-05-18 22:37 | DS ---
DISCHARGE SUMMARY DATE OF SERVICE: 05/18/2020 FINAL DIAGNOSES: 1. Acute left-sided weakness and possible right hemispheric acute stroke. 2. Bilateral carotid stenosis. 3. Increased WBC. 4. Hyponatremia. 5. Hypertriglyceridemia. 6. History of gastroesophageal reflux disease. 7. Hypertension. 8. Hyperlipidemia. 9. History of aortic stenosis status post valve replacement. 10.History of aortic dissection, status post repair. 11.History of abdominal aortic aneurysm repair. 12.History of anxiety. 13.History EtOH. 14.FULL CODE. DISCHARGE DISPOSITION: The patient will be discharged in stable condition with guarded prognosis. Discharge cleared by multiple consultants. Total time taken 35 minutes. HISTORY OF PRESENT ILLNESS: This 74-year-old gentleman with a past medical history admitted with weakness of the left side. Acute stroke was diagnosed. Patient is seen by Neurology, multiple consultants including Dr. Stern, who recommended outpatient followup. Cardiology saw the patient. ASHER was also done. Brain MRI was also done. I recommend the patient follow up with a neurologist and as well as follow up with Dr. Stern in the outpatient setting. On exam, vitals are stable. Cardiovascular S1, S2. Abdomen soft. Nervous system: Minimal weakness of the left side. DISCHARGE ADVICE AND MEDICATIONS: 1. Diet is cardiac diet. 2. Activity limited until followup. 3. Follow up with primary physician in 2-3 days. 4. Follow up with Dr. Stern as mentioned earlier. 5. Follow up with Neurology as recommended. DISCHARGE MEDICATIONS: 1. Aldactone 25 mg daily. 2. Aspirin 81 mg daily. 3. Cinnamon bark. 4. Coenzyme Q. 5. Cranberry extract. 6. Chlorthalidone 25 mg daily. 8. Lipitor 20 mg q.h.s. 9. Lopressor 100 mg p.o. b.i.d. 10.Magnesium 100 mg p.o. b.i.d. 11.Motrin p.r.n. 12.Multivitamins 1 p.o. daily. 13.Glucosamine as before. 14.Probiotic as before. 15.Telmisartan 80 mg p.o. daily. 16.Albuterol p.r.n. 17.Vitamin D3 1000 daily. 18.Xanax p.r.n. 19.Zinc 50 mg daily. 20.Plavix 75 mg p.o. daily. Once again the patient discharged in stable condition. Guarded prognosis. MMBRUNILDAL / LYNNN: [id number] / MTDD
--- NOTE | 2020-05-21 10:14 | CDI ---
Documentation Clarification Form Date: 05/21/2020 09:01:00 AM From: Elinor Casillas Phone: If you have a question about this query, please contact Ofelia Diaz, Certified Flight Instructor at [phone] between 8am and 5pm. Admit Date: 05/18/2020 09:41:00 AM Patient Name: Jean Robbins Visit Number: [id number] Discharge Date: 05/18/2020 02:50:00 PM ATTENTION: The Clinical Documentation Specialists (CDI) and [facility] Coding Staff appreciate your assistance in clarifying documentation. Please respond to the clarification below the line at the bottom and electronically sign. The CDI & [facility] Coding staff will review the response and follow-up if needed. Please note: Queries are made part of the Legal Health Record. If you have any questions, please contact the author of this message via ITS. Dr. Elieser Pappas CVA is documented as ischemic CVA probably embolic. Patient has LT moderate ICA. Per surgical consult Patient with moderate Lt ICA and Mild RT ICA, his symptoms involving the left side. Please clarify if patient's CVA was due to LT ICA stenosis. History/risk factors: Lt moderate ICA stenosis Clinical Indicators: CT: LT moderate ICA stenosis MRI/MRA: Evolving acute right lateral thalamic infarct. Mild to moderate small vessel ischemic changes Treatment: Plavix In your professional opinion, please clarify each of the following if CVA was due to moderate LT ICA stenosis Cause of Stroke/CVA: Stenosis/Occlusion Lt ICA Embolic Thrombolytic Hypertension Other (please specify) Unable to Determine Posterior Cerebral Artery Precerebral Artery: Carotid Basilar Auditory, internal Vertebral Other (please specify) Unable to Determine Embolic Carotid MTDD
== END 2020-05-18 14:50 | disposition home or self-care (01) | DRG 65 ==
LOC: EC 17:44 → 3SCARD 20:03 → OBSVTOIN 05-18 09:41
PROVIDERS: ADMIT Family Medicine; ATTEND Family Medicine
PROC: B246ZZ4 Ultrasonography of Right and Left Heart, Transesophageal (ICD-10-PCS; principal; 2020-05-17 07:30)
DX: I63.40 Cerebral infarction due to embolism of unspecified cerebral artery (principal); G81.94 Hemiplegia, unspecified affecting left nondominant side; E87.1 Hypo-osmolality and hyponatremia; I65.23 Occlusion and stenosis of bilateral carotid arteries; E11.51 Type 2 diabetes mellitus with diabetic peripheral angiopathy without gangrene; E78.1 Pure hyperglyceridemia; E78.5 Hyperlipidemia, unspecified; Z87.891 Personal history of nicotine dependence; F41.9 Anxiety disorder, unspecified; I10 Essential (primary) hypertension; I34.0 Nonrheumatic mitral (valve) insufficiency; I44.0 Atrioventricular block, first degree; R47.89 Other speech disturbances; Z86.79 Personal history of other diseases of the circulatory system; R27.0 Ataxia, unspecified; K21.9 Gastro-esophageal reflux disease without esophagitis; R29.702 NIHSS score 2; R29.810 Facial weakness; Z79.82 Long term (current) use of aspirin; Z79.899 Other long term (current) drug therapy; Z82.49 Family history of ischemic heart disease and other diseases of the circulatory system; Z86.73 Personal history of transient ischemic attack (TIA), and cerebral infarction without residual deficits; Z95.3 Presence of xenogenic heart valve; Z88.2 Allergy status to sulfonamides; D72.829 Elevated white blood cell count, unspecified; Z90.49 Acquired absence of other specified parts of digestive tract
CPT/HCPCS: 36415; 70450; 70496; 70498; 70551; 71046; 80048; 80053; 80061; 83036; 84439; 84443; 84484; 85025; 85610; 85730; 93005; 93306; 93312; 93320; 93325; 96374; 99285

== ENCOUNTER → 2020-05-20 | Outpatient (CLI) | payer MEDICARE ==
[2020-05-20 14:42] LABS: Basophils # (A) 0.1 k/uL (0-0.2); Basophils % (A) 1 %; Eosinophils # (A) 0.3 k/uL (0-0.7); Eosinophils % (A) 3 %; HCT 39.5 % (39.0-53.0); HGB 13.1 gm/dL (13.0-17.5); Lymphocytes # (A) 2.4 k/uL (1.0-4.8); Lymphocytes % (A) 26 %; MCH 31.6 pg (25.0-35.0); MCV 95.7 fL (80.0-100.0); Mean Platelet Volume 6.7; Monocytes # (A) 0.8 k/uL (0-1.0); Monocytes % (A) 8 %; Neutrophils # (A) 5.4 k/uL (1.3-7.7); Neutrophils % (A) 59 %; Platelet Count 219 k/uL (150-450); RBC 4.13 m/uL (4.30-5.90); RDW 12.8 % (11.5-15.5); WBC 9.2 k/uL (3.8-10.6)
--- NOTE | 2020-06-24 12:17 | EM ---
EVENT MONITOR EVENT MONITOR: Patient was monitored between to May 20, and June 17, 2020. The rhythm strip revealed sinus mechanism, evidence of ventricular ectopic activity was noted in the form of single PVCs and couplets and there was one episode of 7 complex ventricular tachycardia that was asymptomatic. IMPRESSION: 1. Sinus mechanism baseline rhythm. 2. Single PVCs with 1.7 complex nonsustained ventricular tachycardia. 3. One pause noted during the night that was asymptomatic. 4. No symptoms were reported. MMODL / IJN: [id number] /
== END | disposition home or self-care (01) ==
LOC: RADECHMAIN 12:56
PROVIDERS: ATTEND Family Medicine
DX: I49.3 Ventricular premature depolarization (principal); I47.2 Ventricular tachycardia
CPT/HCPCS: 85025; 93270

== ENCOUNTER → 2020-07-01 | Outpatient (CLI) | payer MEDICARE ==
[2020-07-01 19:09] LABS: Chol/HDL Ratio 2.54; Cholesterol 142 mg/dL (0-200); LDL Cholesterol,Calculated 69.2 mg/dL (0.0-131.0)
[2020-07-01 19:12] LABS: Protein, Total 6.2 g/dL (6.2-8.2)
[2020-07-02 14:00] LABS: Albumin 4.01 g/dL (3.80-4.90); Gamma Globulin 0.67 g/dL (0.70-1.50)
== END | disposition home or self-care (01) ==
LOC: LABWHC1 10:16
PROVIDERS: ATTEND Psychiatry & Neurology Neurology
DX: E78.5 Hyperlipidemia, unspecified (principal); G62.9 Polyneuropathy, unspecified; I63.9 Cerebral infarction, unspecified
CPT/HCPCS: 36415; 80061; 82175; 82570; 83090; 83655; 83825; 84165; 85652; 86038; 86334; 86618

== ENCOUNTER 2020-09-09 05:22 | Inpatient (IN) | payer MEDICARE ==
[2020-09-09] MEDS ORDERED: SODIUM CHLORIDE 0.9% 1,000 ML IV STA (05:24)
--- NOTE | 2020-09-09 05:25 | ED ---
Syncope HPI - General Stated Complaint: Syncopy Time Seen by Provider: 09/09/20 05:24 Source: RN notes reviewed, old records reviewed Limitations: no limitations - History of Present Illness Initial Comments: This is a 75-year-old male DF for evaluation. Patient is syncopal near syncopal symptoms history of stroke. Patient has no recent head trauma. No travel history. No fevers. Patient does have positive chest pain currently. Patient also has headache given with headache and severe vertigo today. Much worse with Position changes he feels very dizzy he has vomited is very unstable on his fee t, ataxic. MD Complaint: felt faint, other (Severe vertiginous symptoms dizziness and ataxia) -: hour(s) Prodromal Symptoms: headache, lightheaded, chest pain, palpitations, nausea/vomiting -: minutes(s) Witnessed: yes - by bystander Injuries Sustained Associated with Event: None Current Symptoms: lightheaded, vertigo, chest pain Context: during exertion, getting out of bed, standing up Treatments Prior to Arrival: none - Related Data Home Medications Medication Instructions Recorded Confirmed ALPRAZolam [Xanax] 0.25 mg PO Q8H PRN 06/13/17 09/09/20 Aspirin 81 mg PO DAILY 06/13/17 09/09/20 Atorvastatin [Lipitor] 20 mg PO HS 06/13/17 09/09/20 Chlorthalidone [Hygroton] 25 mg PO DAILY 06/13/17 09/09/20 Cinnamon Bark [Cinnamon] 1,000 mg PO HS 06/13/17 09/09/20 Glucosamine/Chondr Martines A Sod [Osteo 1 tab PO DAILY 06/13/17 09/09/20 Bi-Flex Caplet] L.acidoph,Paracasei, B.lactis 1 cap PO DAILY 06/13/17 09/09/20 [Probiotic] Metoprolol Tartrate [Lopressor] 100 mg PO BID 06/13/17 09/09/20 Albuterol Inhaler [Ventolin Hfa 2 puff INHALATION RT-Q6H PRN 05/15/20 09/09/20 Inhaler] Telmisartan 80 mg PO DAILY 05/15/20 09/09/20 Ubidecarenone [Co Q-10] 200 mg PO DAILY 05/15/20 09/09/20 Zinc 25 mg PO DAILY 05/15/20 09/09/20 Apha Lipoc Acid 250 mg PO DAILY 09/09/20 09/09/20 Arnica & Haugen Gel 1 applic TOPICAL DAILY PRN 09/09/20 09/09/20 Cholecalciferol [Vitamin D3 (25 25 mcg PO DAILY 09/09/20 09/09/20 Mcg = 1000 Iu)] [place] 2,000 mg PO HS 09/09/20 09/09/20 Collagen Hydrlysate 12 g PO DAILY 09/09/20 09/09/20 Cranberry + Vitamin C 1 tab PO HS 09/09/20 09/09/20 Cyclobenzaprine [Flexeril] 10 mg PO DAILY PRN 09/09/20 09/09/20 Flaxseed Oil [[place]-3 Flaxseed Oil] 1,000 mg PO HS 09/09/20 09/09/20 Glucosam/Luis-Msm1/C/Reinaldo/Bosw 1 tab PO DAILY 09/09/20 09/09/20 [Okmxxrvrtaj-Zfcroccmmck-NRS Tb] Magnesium Glycinate 400 mg PO DAILY 09/09/20 09/09/20 Methyl B12/Methyl Folate 1 tab PO DAILY 09/09/20 09/09/20 Multivit-Min/Folic/Vit K/Lycop 1 tab PO DAILY 09/09/20 09/09/20 [Men's Multivitamin Tablet] [place] Epa Dha 720 1 cap PO DAILY 09/09/20 09/09/20 Papaya [Papaya Enzyme] 1 tab PO DAILY PRN 09/09/20 09/09/20 Previous Rx's Medication Instructions Recorded Clopidogrel [Plavix] 75 mg PO DAILY #30 tab 05/18/20 Allergies Allergy/AdvReac Type Severity Reaction Status Date / Time Sulfa (Sulfonamide Allergy Anaphylaxis Verified 09/09/20 08:20 Antibiotics) Review of Systems ROS Statement: Those systems with pertinent positive or pertinent negative responses have been documented in the HPI. ROS Other: All systems not noted in ROS Statement are negative. Past Medical History Past Medical History: CVA/TIA, GERD/Reflux, Hyperlipidemia, Hypertension Additional Past Medical History / Comment(s): history of aortic stenosis status post valve replacement, aortic dissection status post repair, AAA History of Any Multi-Drug Resistant Organisms: None Reported Past Surgical History: Appendectomy Additional Past Surgical History / Comment(s): aorticvalve replacement , AAA repair Past Anesthesia/Blood Transfusion Reactions: No Reported Reaction Past Psychological History: Anxiety Smoking Status: Never smoker Past Alcohol Use History: Daily, Heavy Past Drug Use History: None Reported - Past Family History Brother(s) Family Medical History: Cancer Mother Family Medical History: Cancer, Coronary Artery Disease (CAD) Father Family Medical History: No Reported History Additional Family Medical History / Comment(s): Father was healthy General Exam - General Exam Comments Initial Comments: GCS of 15, NIH of 0, sampson and almeok-sk-fggn are within normal limits General appearance: alert, in no apparent distress Head exam: Present: atraumatic, normocephalic, normal inspection Eye exam: Present: normal appearance, PERRL, EOMI, nystagmus (Patient does have nystagmus to the left). Absent: scleral icterus, conjunctival injection, periorbital swelling ENT exam: Present: normal exam, mucous membranes moist Neck exam: Present: normal inspection. Absent: tenderness, meningismus, lymphadenopathy Respiratory exam: Present: normal lung sounds bilaterally. Absent: respiratory distress, wheezes, rales, rhonchi, stridor Cardiovascular Exam: Present: regular rate, normal rhythm, normal heart sounds. Absent: systolic murmur, diastolic murmur, rubs, gallop, clicks GI/Abdominal exam: Present: soft, normal bowel sounds. Absent: distended, ten derness, guarding, rebound, rigid Extremities exam: Present: normal inspection, full ROM, normal capillary refill. Absent: tenderness, pedal edema, joint swelling, calf tenderness Back exam: Present: normal inspection Neurological exam: Present: alert, oriented X3, CN II-XII intact Psychiatric exam: Present: normal affect, normal mood Skin exam: Present: warm, dry, intact, normal color. Absent: rash Course Vital Signs 09/09/20 09/09/20 09/09/20 05:23 06:31 08:00 Temperature 97.9 F Pulse Rate 61 52 L 62 Respiratory 24 18 16 Rate Blood Pressure 150/77 130/87 149/79 O2 Sat by Pulse 99 98 100 Oximetry 09/09/20 09/09/20 09/09/20 11:58 13:17 13:37 Temperature 97.9 F 97.9 F Pulse Rate 69 75 Respiratory 16 20 Rate Blood Pressure 163/87 137/94 O2 Sat by Pulse 99 96 Oximetry - Reevaluation(s) Reevaluation #1: 09/09/20 06:49 Medical records reviewed Reevaluation #2: 09/09/20 06:50 Patient still very dizzy with any sort of movement severe vertigo - Consultations Consultation #1: Spoke with sound regarding admission. Dr Hernandez is agreeable EKG Findings - EKG Comments: EKG Findings:: EKG is sinus rhythm 61 HI 296 QRS 74 QTc 424 Medical Decision Making - Medical Decision Making 75 male with vertiginous type symptoms history of CVA, will admit for neurology consult secondary to as well as chest pain observation with history of chest. Heart disease - Lab Data Result diagrams: 09/09/20 05:50 09/09/20 05:50 Lab Results 09/09/20 09/09/20 09/09/20 Range/Units 05:50 05:50 05:50 WBC 8.7 (3.8-10.6) k/uL RBC 4.59 (4.30-5.90) m/uL Hgb 14.0 (13.0-17.5) gm/dL Hct 42.8 (39.0-53.0) % MCV 93.4 (80.0-100.0) fL MCH 30.6 (25.0-35.0) pg MCHC 32.8 (31.0-37.0) g/dL RDW 13.0 (11.5-15.5) % Plt Count 216 (150-450) k/uL MPV 6.7 Neutrophils % 60 % Lymphocytes % 27 % Monocytes % 7 % Eosinophils % 3 % Basophils % 1 % Neutrophils # 5.2 (1.3-7.7) k/uL Lymphocytes # 2.4 (1.0-4.8) k/uL Monocytes # 0.6 (0-1.0) k/uL Eosinophils # 0.3 (0-0.7) k/uL Basophils # 0.1 (0-0.2) k/uL PT 10.2 (9.0-12.0) sec INR 0.9 (<1.2) APTT 21.4 L (22.0-30.0) sec D-Dimer 1.31 H (<0.60) mg/L FEU Sodium 131 L (137-145) mmol/L Potassium 3.9 (3.5-5.1) mmol/L Chloride 92 L (98-107) mmol/L Carbon Dioxide 31 H (22-30) mmol/L Anion Gap 8 mmol/L BUN 26 H (9-20) mg/dL Creatinine 0.97 (0.66-1.25) mg/dL Est GFR (CKD-EPI)AfAm 89 (>60 ml/min/1.73 sqM) Est GFR (CKD-EPI)NonAf 77 (>60 ml/min/1.73 sqM) Glucose 119 H (74-99) mg/dL Plasma Lactic Acid [place] (0.7-2.0) mmol/L Calcium 9.8 (8.4-10.2) mg/dL Phosphorus 3.3 (2.5-4.5) mg/dL Magnesium 2.0 (1.6-2.3) mg/dL Total Bilirubin 0.6 (0.2-1.3) mg/dL AST 30 (17-59) U/L ALT 22 (4-49) U/L Alkaline Phosphatase 76 (38-126) U/L Creatine Kinase 71 (55-170) U/L Troponin I (0.000-0.034) ng/mL NT-Pro-B Natriuret Pep pg/mL Total Protein 6.9 (6.3-8.2) g/dL Albumin 4.4 (3.5-5.0) g/dL 09/09/20 09/09/20 09/09/20 Range/Units 05:50 05:50 05:50 WBC (3.8-10.6) k/uL RBC (4.30-5.90) m/uL Hgb (13.0-17.5) gm/dL Hct (39.0-53.0) % MCV (80.0-100.0) fL MCH (25.0-35.0) pg MCHC (31.0-37.0) g/dL RDW (11.5-15.5) % Plt Count (150-450) k/uL MPV Neutrophils % % Lymphocytes % % Monocytes % % Eosinophils % % Basophils % % Neutrophils # (1.3-7.7) k/uL Lymphocytes # (1.0-4.8) k/uL Monocytes # (0-1.0) k/uL Eosinophils # (0-0.7) k/uL Basophils # (0-0.2) k/uL PT (9.0-12.0) sec INR (<1.2) APTT (22.0-30.0) sec D-Dimer (<0.60) mg/L FEU Sodium (137-145) mmol/L Potassium (3.5-5.1) mmol/L Chloride (98-107) mmol/L Carbon Dioxide (22-30) mmol/L Anion Gap mmol/L BUN (9-20) mg/dL Creatinine (0.66-1.25) mg/dL Est GFR (CKD-EPI)AfAm (>60 ml/min/1.73 sqM) Est GFR (CKD-EPI)NonAf (>60 ml/min/1.73 sqM) Glucose (74-99) mg/dL Plasma Lactic Acid [place] 1.1 (0.7-2.0) mmol/L Calcium (8.4-10.2) mg/dL Phosphorus (2.5-4.5) mg/dL Magnesium (1.6-2.3) mg/dL Total Bilirubin (0.2-1.3) mg/dL AST (17-59) U/L ALT (4-49) U/L Alkaline Phosphatase (38-126) U/L Creatine Kinase (55-170) U/L Troponin I <0.012 (0.000-0.034) ng/mL NT-Pro-B Natriuret Pep 1210 pg/mL Total Protein (6.3-8.2) g/dL Albumin (3.5-5.0) g/dL - Radiology Data Radiology results: report reviewed (CT brain CT head neck clear w lacunar infarct, old. Maybe progressive. CTa chest negative for PE), image reviewed Critical Care Time Critical Care Time: Yes Total Critical Care Time: 31 Disposition Clinical Impression: TIA (transient ischemic attack), Vertigo, Chest pain, Aortic aneurysm, thoracic, Essential hypertension Narrative: ro CVA Disposition: ADMITTED IP TO THIS HOSP Condition: Good Is patient prescribed a controlled substance at d/c from ED?: No
[2020-09-09 06:02] LABS: Basophils # (A) 0.1 k/uL (0-0.2); Basophils % (A) 1 %; Eosinophils # (A) 0.3 k/uL (0-0.7); Eosinophils % (A) 3 %; HCT 42.8 % (39.0-53.0); Lymphocytes # (A) 2.4 k/uL (1.0-4.8); Lymphocytes % (A) 27 %; MCH 30.6 pg (25.0-35.0); MCHC 32.8 g/dL (31.0-37.0); MCV 93.4 fL (80.0-100.0); Mean Platelet Volume 6.7; Monocytes # (A) 0.6 k/uL (0-1.0); Monocytes % (A) 7 %; Neutrophils # (A) 5.2 k/uL (1.3-7.7); Neutrophils % (A) 60 %; Platelet Count 216 k/uL (150-450); RBC 4.59 m/uL (4.30-5.90); WBC 8.7 k/uL (3.8-10.6)
[2020-09-09 06:12] LABS: Albumin 4.4 g/dL (3.5-5.0); Calcium 9.8 mg/dL (8.4-10.2); Phosphorus 3.3 mg/dL (2.5-4.5); Potassium 3.9 mmol/L (3.5-5.1); Total Bilirubin 0.6 mg/dL (0.2-1.3); Total Protein 6.9 g/dL (6.3-8.2)
[2020-09-09 06:23] LABS: INR 0.9 (<1.2); Prothrombin Time 10.2 sec (9.0-12.0)
[2020-09-09 06:32] LABS: D-Dimer 1.31 mg/L FEU (<0.60); Partial Thromboplastin Time 21.4 sec (22.0-30.0)
[2020-09-09] MEDS ORDERED: ASPIRIN 325 MG TAB PO STA (06:46)
[2020-09-09] MEDS ORDERED: diphenhydrAMINE 50 MG/ML 1 ML VIAL IVP STA (06:48)
[2020-09-09] MEDS ORDERED: ONDANSETRON 4 MG/2 ML VIAL IVP STA (06:48)
[2020-09-09] MEDS ORDERED: diphenhydrAMINE 50 MG/ML 1 ML VIAL IVP PRN (06:48)
[2020-09-09] MEDS ORDERED: ONDANSETRON 4 MG/2 ML VIAL IVP PRN (06:48)
[2020-09-09] MEDS: SODIUM CHLORIDE 0.9% 1,000 ML IV SCH ×2 (07:00→20:30)
--- NOTE | 2020-09-09 07:52 | CT ---
EXAMINATION TYPE: CT brain wo con DATE OF EXAM: 09/09/2020 COMPARISON: 05/15/2020 HISTORY: 75-year-old male Syncope, vertigo TECHNIQUE: Examination was done in axial plane without intravenous contrast. Coronal and sagittal r econstructions performed. CT DLP: 1161.8 mGycm Automated exposure control for dose reduction was used. FINDINGS: There is no evidence of acute intracranial hemorrhage, acute ischemic changes, mass, mass-effect, or extra-axial fluid collection. There is no effacement of cerebral sulci or basal subarachnoid cister ns. There is no midline shift. Monsivais-white matter distinction is preserved. Encephalomalacia has developed in the lateral right thalamus as compared to 05/15/2020. Old lacunar infarcts within the bilateral caudate heads. Cortical and subcortical encephalomalacia lateral left frontal lobe remains unchanged. Moderate generalized supratentorial volume loss with secondary mild prominence to the ventricular sys tem is unchanged. Asymmetrically smaller right maxillary sinus redemonstrated. Trace mucosal thickening ethmoid air hayden ls and left maxillary sinus. Mastoid air cells are well pneumatized. Orbits and globes are intact. Le ftward nasal septal deviation. IMPRESSION: 1. Moderate atrophy and old lacunar infarcts in the caudate heads. 2. Progression of the patient's previous 05/15/2020 infarct into chronic encephalomalacia within the right lateral thalamus. 3. No acute intracranial abnormality seen. MRI if symptoms persist.
[2020-09-09 08:03] LABS: Appearance,Urine Clear (Clear); Bilirubin,Urine Negative (Negative); Blood,Urine Negative (Negative); Color,Urine Light Yellow; Glucose,Urine (UA) Negative (Negative); Ketones,Urine Negative (Negative); Leukocyte Esterase,Urine Negative (Negative); Nitrite,Urine Negative (Negative); PH, Urine 6.5 (5.0-8.0); Protein,Urine Negative (Negative); Specific Gravity,Urine 1.026 (1.001-1.035); Urobilinogen,Urine <2.0 mg/dL (<2.0)
--- NOTE | 2020-09-09 08:07 | CT ---
EXAMINATION TYPE: CT angio chest DATE OF EXAM: 09/09/2020 COMPARISON: None HISTORY: 75 year-old male shortness of breath, elevated D-dimer TECHNIQUE: Contiguous axial scanning of the chest performed with IV Contrast, patient injected with 8 5 mL of Isovue 370. Coronal/sagittal MIP reconstructions performed. CT DLP: 391.1 mGycm Automated exposure control for dose reduction was used. FINDINGS: The heart is borderline to mildly enlarged without pericardial effusion. There is some left atrial an d right-sided cardiac enlargement noted. Mitral annuloplasty ring. Median sternotomy with post-CABG changes. Aortic root aneurysmal at 4.8 cm. Moderate atherosclerotic calcifications throughout with bovine conf iguration to the aortic arch. Aneurysmal upper descending thoracic aorta 4.4 cm and distal descending thoracic aorta measuring up to 3.1 cm. Scattered nonenlarged mediastinal lymph nodes are present. No thoracic lymphadenopathy by CT size cri teria. Large caliber to the main right and left pulmonary arteries measuring 3.5 and 3.6 cm, respectively, s uggesting underlying pulmonary arterial hypertension. There is satisfactory opacification of the pulm onary arterial system. Breathing motion artifact causing some limitation especially of basilar segmen jesi and more distal lower lobe branches. No definite pulmonary embolus. Mild emphysematous change. Prominent dependent atelectasis. Volume loss at the right base with right basilar atelectasis. Biapical pleural-parenchymal scarring. Scattered septal lines are noted. Small hiatal hernia. Visualized upper abdomen shows no gross abnormal. Bones: There seems to be congenital or posttraumatic synostosis across the right anterior fourth and fifth rib. Mild to moderate degenerative disc disease mid to lower thoracic spine. IMPRESSION: 1. BREATHING MOTION ARTIFACT LIMITS THE EVALUATION. NO DEFINITE PULMONARY EMBOLUS. 2. CARDIOMEGALY AND PULMONARY ARTERIAL HYPERTENSION. THERE ARE SOME SEPTAL LINES NOTED IN THE LUNGS. CORRELATE TO EXCLUDE MILD CHF. 3. COPD WITH MILD EMPHYSEMA. PROMINENT DEPENDENT ATELECTASIS. RIGHT BASILAR ATELECTASIS WITH ELEVATIO N OF THE RIGHT HEMIDIAPHRAGM. 4. ANEURYSMAL THORACIC AORTA MEASURING UP TO 4.8 CM. 5. SMALL HIATAL HERNIA.
--- NOTE | 2020-09-09 08:29 | CT ---
EXAMINATION TYPE: CT angio head neck DATE OF EXAM: 09/09/2020 HISTORY: Syncope COMPARISON: 05/15/2020 CT DLP: 530.9 mGycm. Automated Exposure Control for Dose Reduction was Utilized. TECHNIQUE: CTA scan of the neck is performed with IV Contrast, patient injected with 65 mL of Isovue 370, axial images are obtained, coronal and sagittal reformatted images are reviewed. Three-D recons tructed images are created on an independent workstation and reviewed. Source images are reviewed. FINDINGS: Carotid/Vascular Structures: There is a three-vessel arch. Common carotid arteries dividing into inte rnal and external carotid arteries. Atheromatous plaquing is present at bilateral carotid bifurcation s. This may be slightly greater on the left compared to the right. Some mild narrowing may be present . No significant flow-limiting stenosis is evident within the internal carotid arteries. Some plaquin g may be present at the origin of the right vertebral artery Cervical of [place]: Vertebral basilar system appears normal. Posterior cerebral vasculature is unrema rkable. Internal carotid arteries bifurcate normally into A1 and M1 segments. Some volume averaging w ith the clivus appears to be present on the right. A2 segments are normal. The anterior communicating artery is patent. Posterior communicating arteries are not identified. Other: None IMPRESSION: 1. No flow-limiting stenosis bilateral carotid bifurcations. Atheromatous plaquing is present bilater ally with narrowing less than 50%. This is greater on the left. 2. Normal [place] of [place]. 3. No significant change from the comparison.
--- NOTE | 2020-09-09 12:16 | P.CNNES ---
History of Present Illness Consult date: 09/09/20 Requesting physician: Donato Rolle Reason for Consult: dizziness History of Present Illness: This is a 75-year-old gentleman with medical history of stroke (right thalamus), hyperlipidemia, hypertension, abdominal aortic aneurysm, aortic stenosis status post the valve replacement, aortic dissection status post repair presented to the emergency department on 09/09/2020 for acute dizziness. Patient stated that he noticed the symptoms around 8:30 in the morning on 09/08/2019 upon getting up from bed and going to the bathroom. He felt very dizzy and he felt like there was spinning. He said that his dizziness is worsened with position and what once he is lying or resting and it's alleviated that. He felt nauseous but no vomiting. Patient has chronic history of tinnitus and left hearing loss. He denies of any diplopia, any worsening of the hearing or ringing in the ears appear denies of any difficulty getting his words out or swallowing. She denies of any focal weakness. He has a numbness over the left side as well as left upper and lower extremity from his stroke and now April 2020. Patient is on aspirin 81 mg, Plavix 75 mg and Lipitor 20 mg daily. Workup in the ED consisted of: Initial vital signs: blood pressure: 150/77, rate 61, respiratory 24, temperature of 97.9 Fahrenheit oral and pulse ox of 99% on room air. CT of the head is reported as moderate atrophy and old lacunar infarct in the caudate heads. Progressive of the patient previous 05/15/2020 infarct into chronic supple malacia within the right lateral thalamus and no acute intracranial abnormality seen. MRI if symptoms persist. CTA head and neck: No flow-limiting stenosis bilateral carotid bifurcations. Atheromatous plaquing is present bilaterally with narrowing less than 50%. This is greater on the left. Normal [place] No significant change from the comparison. EKG is reported as sinus rhythm with first-degree AV block with premature atrial complexes with aberrant conduction. Nonspecific ST and T-wave abnormality. Abnormal EKG. Her sodium 131. Glucose serum is 119. In the ED the patient was given aspirin 325 once. Of note the patient was seen by Dr. Herrera in his last note was on 05/18/2020 for stroke the patient had the right thalamus S lacunar stroke on MRI the brain which was likely due to small vessel disease. The patient also had ASHER and dad there is no obvious embolic source. Also the patient had rest of the stroke workup. Dr. Meraz recommended dual antiplatelet medication. Review of Systems Review of system: The 12 point system was reviewed and apparent positive and negative per HPI. Past Medical History Past Medical History: CVA/TIA, GERD/Reflux, Hyperlipidemia, Hypertension Additional Past Medical History / Comment(s): history of aortic stenosis status post valve replacement, aortic dissection status post repair, AAA History of Any Multi-Drug Resistant Organisms: None Reported Past Surgical History: Appendectomy Additional Past Surgical History / Comment(s): aorticvalve replacement , AAA repair Past Anesthesia/Blood Transfusion Reactions: No Reported Reaction Past Psychological History: Anxiety Smoking Status: Never smoker Past Alcohol Use History: Daily, Heavy Past Drug Use History: None Reported - Past Family History Brother(s) Family Medical History: Cancer Mother Family Medical History: Cancer, Coronary Artery Disease (CAD) Medications and Allergies Home Medications Medication Instructions Recorded Confirmed Type ALPRAZolam [Xanax] 0.25 mg PO Q8H PRN 06/13/17 09/09/20 History Aspirin 81 mg PO DAILY 06/13/17 09/09/20 History Atorvastatin [Lipitor] 20 mg PO HS 06/13/17 09/09/20 History Chlorthalidone [Hygroton] 25 mg PO DAILY 06/13/17 09/09/20 History Cinnamon Bark [Cinnamon] 1,000 mg PO HS 06/13/17 09/09/20 History Glucosamine/Chondr Martines A Sod [Osteo 1 tab PO DAILY 06/13/17 09/09/20 History Bi-Flex Caplet] L.acidoph,Paracasei, B.lactis 1 cap PO DAILY 06/13/17 09/09/20 History [Probiotic] Metoprolol Tartrate [Lopressor] 100 mg PO BID 06/13/17 09/09/20 History Albuterol Inhaler [Ventolin Hfa 2 puff INHALATION RT-Q6H PRN 05/15/20 09/09/20 History Inhaler] Telmisartan 80 mg PO DAILY 05/15/20 09/09/20 History Ubidecarenone [Co Q-10] 200 mg PO DAILY 05/15/20 09/09/20 History Zinc 25 mg PO DAILY 05/15/20 09/09/20 History Clopidogrel [Plavix] 75 mg PO DAILY #30 tab 05/18/20 09/09/20 Rx Apha Lipoc Acid 250 mg PO DAILY 09/09/20 09/09/20 History Arnica & Kersey Gel 1 applic TOPICAL DAILY PRN 09/09/20 09/09/20 History Cholecalciferol [Vitamin D3 (25 25 mcg PO DAILY 09/09/20 09/09/20 History Mcg = 1000 Iu)] [place] 2,000 mg PO HS 09/09/20 09/09/20 History Collagen Hydrlysate 12 g PO DAILY 09/09/20 09/09/20 History Cranberry + Vitamin C 1 tab PO HS 09/09/20 09/09/20 History Cyclobenzaprine [Flexeril] 10 mg PO DAILY PRN 09/09/20 09/09/20 History Flaxseed Oil [[place]-3 Flaxseed Oil] 1,000 mg PO HS 09/09/20 09/09/20 History Glucosam/Luis-Msm1/C/Reinaldo/Bosw 1 tab PO DAILY 09/09/20 09/09/20 History [Jmbbsetgxgj-Hhxzlwkbwhl-ZNR Tb] Magnesium Glycinate 400 mg PO DAILY 09/09/20 09/09/20 History Methyl B12/Methyl Folate 1 tab PO DAILY 09/09/20 09/09/20 History Multivit-Min/Folic/Vit K/Lycop 1 tab PO DAILY 09/09/20 09/09/20 History [Men's Multivitamin Tablet] [place] Epa Dha 720 1 cap PO DAILY 09/09/20 09/09/20 History Papaya [Papaya Enzyme] 1 tab PO DAILY PRN 09/09/20 09/09/20 History Allergies Allergy/AdvReac Type Severity Reaction Status Date / Time Sulfa (Sulfonamide Allergy Anaphylaxis Verified 09/09/20 08:20 Antibiotics) Physical Examination - Vital Signs Vital Signs: Vital Signs Temp Pulse Resp BP Pulse Ox 09/09/20 08:00 62 16 149/79 100 09/09/20 06:31 52 L 18 130/87 98 09/09/20 05:23 97.9 F 61 24 150/77 99 Intake and Output 09/08/20 09/09/20 09/09/20 22:59 06:59 14:59 Other: Weight 87.543 kg GENERAL: The patient is lying in bed and is not in acute distress. CHEST: The heart rate is regular rate rhythm. No murmurs to auscultation. No carotid bruit bilaterally. LUNG: Clear to auscultation bilaterally no wheezing noted throughout. Not labored breathing. ABDOMEN/GI: Bowel sounds present in all 4 quadrants. No tenderness to palpation throughout. NEUROLOGICAL: Higher mental function: The patient is awake, alert, oriented to self, place and time. Patient is following commands. No aphasia and no neglect. Cranial nerves: The pupils are round, equal and reactive to light and accommodation. Visual liang are full to confrontation throughout. Extraocular movement is intact no nystagmus is noted. Facial sensation is decreased over the left face but at different distrubtion. The facial strength is normal throughout. Hearing is decreased to hand rub over the left (chronic). Tongue is midline and moved [id number] without any difficulty. No dysarthria is n oted. Shoulder shrug is normal bilaterally. Motor: Gait is deferred since patient got dizzy upon sitting up. The strength is 5 over 5 throughout. Normal tone and bulk. Cerebellum: Normal finger to nose heel and heel to sampson bilaterally. Sensation: Decrease sensation to touch (old since stroke 04/2020). Reflexes (right/left): 2+ throughout. Plantars are downgoing bilaterally. Results AST of 30 and ALT of 22. Coagulation study: PT is 10.2, INR 0.9 and PTT of 21.4. Urine analysis is negative for urinary tract infection. Coronavirus PCR: Not-detected. - Laboratory Findings CBC and BMP: 09/09/20 05:50 09/09/20 05:50 Abnormal Lab Findings: Abnormal Labs 09/09/20 09/09/20 05:50 05:50 APTT 21.4 L D-Dimer 1.31 H Sodium 131 L Chloride 92 L Carbon Dioxide 31 H BUN 26 H Glucose 119 H Assessment and Plan Assessment: Acute vertigo: Is likely benign positional vertigo History of stroke (right thalamic stroke from small vessel disease on 04/2020). Bilateral carotid stenosis, moderate on the left mild on the right Hypertension History of aortic dissection with aortic valve repair Abdominal aortic aneurysm Plan: The patient was restarted on aspirin home medication by the primary team. I restarted the Plavix. Patient to continue dual antiplatelets for now. I increa sed the Lipitor from 20 mg to 40 mg daily at bedtime for secondary stroke prophylaxis. ED team ordered carotid duplex, 2-D echo and MRI the brain which are pending. PT, OT and CONTRACT PARALEGAL are consulted by the ED team. Continue every 4 neuro checks. Continue continous cardiac monitoring. I ordered the meclizine 12.5 mg 1 tablet twice a day scheduled. Patient's symptoms don't resolve an MRI of the brain is negative then consider the vestibular rehab as an outpatient. Will defer the rest of the medical management to the primary team. Thank you for the consultation. Joe Harmon MD Neuro-Hospitalist Time with Patient: Greater than 30
[2020-09-09] MEDS: CLOPIDOGREL 75 MG TAB PO SCH (13:14)
[2020-09-09] MEDS: MECLIZINE 12.5 MG TAB PO SCH ×2 (13:15→21:49)
[2020-09-09] MEDS ORDERED: NALOXONE 0.4 MG/ML 1 ML VIAL IV PRN (13:36)
[2020-09-09] MEDS ORDERED: [UNRECOGNIZED DRUG - OTHER] TOPICAL PRN (13:38)
[2020-09-09] MEDS ORDERED: ARNICA TOPICAL PRN (13:38)
[2020-09-09] MEDS ORDERED: ALBUTEROL HFA INHALER INHALATION PRN (13:38)
[2020-09-09] MEDS ORDERED: CYCLOBENZAPRINE 10 MG TAB PO PRN (13:38)
[2020-09-09] MEDS ORDERED: NON FORMULARY DRUG (Papaya [Papaya Enzyme] 1 EACH Tablet) PO PRN (13:38)
[2020-09-09] MEDS ORDERED: ALPRAZolam 0.25 MG TAB PO PRN (13:38)
--- NOTE | 2020-09-09 13:42 | P.HPIM ---
History of Present Illness H&P Date: 09/09/20 Chief Complaint: dizziness 75 year old man with history of CVA, HTN/HLD, AAA, s/p TAVR, osteoarthritis presented with dizziness. Patient says that his symptoms started yesterday morning and are worse with movement. He has associated nausea, but did not vomit. Sensation feels like the room is spinning around him. Patient says that the symptoms are worse when going from sitting or standing to laying down, but he also gets the symptoms from going from laying down to sitting/standing. He says that it feels better with no movement. Denies fevers, chills, vomiting, chest pain, palps, syncope, presyncope, abd pain, dyspnea, dysuria/dyschezia, muscle weakness. He does report left sided numbness from face down to thigh which is chronic for him, and some bilateral leg numbness which is also chronic per patient. Afebrile, HDS. Chemistries show hyponatremia. D-Dimer elevated at 1.31. Troponins are all negative, BNP 1210. CTA of the chest negative for PE, Brain CT shows old stroke, but no acute pathology. EKG is NSR with first degree AVB. Review of Systems All Systems reviewed and pertinent positives and negatives noted in HPI, all other symptoms are negative Past Medical History Past Medical History: CVA/TIA, GERD/Reflux, Hyperlipidemia, Hypertension, Vascular Disorder Additional Past Medical History / Comment(s): April 2020 CVA wtih L side weakness/numbness, increased lower back pain since CVA, TIA, bilateral caratid artery disease, stomach ulcer in his early 30s, elevated R diaphragm, SOB with exertion, aortic valve stenosis with replacement, mitral valve repair, aortic dissection with repain and has abdominal aortic small aneurysms History of Any Multi-Drug Resistant Organisms: None Reported Past Surgical History: Appendectomy, Cardiac Valve Replacement, Heart Catheterization Additional Past Surgical History / Comment(s): AAA repair, aortic valve replacement, mitral valve repair, TEEs, bilateral cataract removals/lens implants, colonoscopy, testicle drained. Past Anesthesia/Blood Transfusion Reactions: No Reported Reaction, Motion Sickne ss Smoking Status: Former smoker - Past Family History Brother(s) Family Medical History: Cancer Mother Family Medical History: Coronary Artery Disease (CAD), Vascular Disorder Additional Family Medical History / Comment(s): Stomach problems, varicosities Father Family Medical History: No Reported History Additional Family Medical History / Comment(s): Father was healthy Medications and Allergies Home Medications Medication Instructions Recorded Confirmed Type ALPRAZolam [Xanax] 0.25 mg PO Q8H PRN 06/13/17 09/09/20 History Aspirin 81 mg PO DAILY 06/13/17 09/09/20 History Atorvastatin [Lipitor] 20 mg PO HS 06/13/17 09/09/20 History Chlorthalidone [Hygroton] 25 mg PO DAILY 06/13/17 09/09/20 History Cinnamon Bark [Cinnamon] 1,000 mg PO HS 06/13/17 09/09/20 History Glucosamine/Chondr Martines A Sod [Osteo 1 tab PO DAILY 06/13/17 09/09/20 History Bi-Flex Caplet] L.acidoph,Paracasei, B.lactis 1 cap PO DAILY 06/13/17 09/09/20 History [Probiotic] Metoprolol Tartrate [Lopressor] 100 mg PO BID 06/13/17 09/09/20 History Albuterol Inhaler [Ventolin Hfa 2 puff INHALATION RT-Q6H PRN 05/15/20 09/09/20 History Inhaler] Telmisartan 80 mg PO DAILY 05/15/20 09/09/20 History Ubidecarenone [Co Q-10] 200 mg PO DAILY 05/15/20 09/09/20 History Zinc 25 mg PO DAILY 05/15/20 09/09/20 History Clopidogrel [Plavix] 75 mg PO DAILY #30 tab 05/18/20 09/09/20 Rx Apha Lipoc Acid 250 mg PO DAILY 09/09/20 09/09/20 History Arnica & Goltry Gel 1 applic TOPICAL DAILY PRN 09/09/20 09/09/20 History Cholecalciferol [Vitamin D3 (25 25 mcg PO DAILY 09/09/20 09/09/20 History Mcg = 1000 Iu)] [place] 2,000 mg PO HS 09/09/20 09/09/20 History Collagen Hydrlysate 12 g PO DAILY 09/09/20 09/09/20 History Cranberry + Vitamin C 1 tab PO HS 09/09/20 09/09/20 History Cyclobenzaprine [Flexeril] 10 mg PO DAILY PRN 09/09/20 09/09/20 History Flaxseed Oil [[place]-3 Flaxseed Oil] 1,000 mg PO HS 09/09/20 09/09/20 History Glucosam/Luis-Msm1/C/Reinaldo/Bosw 1 tab PO DAILY 09/09/20 09/09/20 History [Ntsgynpmtax-Arsmtvynpen-LCC Tb] Magnesium Glycinate 400 mg PO DAILY 09/09/20 09/09/20 History Methyl B12/Methyl Folate 1 tab PO DAILY 09/09/20 09/09/20 History Multivit-Min/Folic/Vit K/Lycop 1 tab PO DAILY 09/09/20 09/09/20 History [Men's Multivitamin Tablet] [place] Epa Dha 720 1 cap PO DAILY 09/09/20 09/09/20 History Papaya [Papaya Enzyme] 1 tab PO DAILY PRN 09/09/20 09/09/20 History Allergies Allergy/AdvReac Type Severity Reaction Status Date / Time Sulfa (Sulfonamide Allergy Anaphylaxis Verified 09/09/20 08:20 Antibiotics) Physical Exam Osteopathic Statement: *. No significant issues noted on an osteopathic structural exam other than those noted in the History and Physical/Consult. Vitals: Vital Signs Temp Pulse Resp BP Pulse Ox 09/09/20 11:58 97.9 F 69 16 163/87 99 09/09/20 08:00 62 16 149/79 100 09/09/20 06:31 52 L 18 130/87 98 09/09/20 05:23 97.9 F 61 24 150/77 99 Intake and Output 09/08/20 09/09/20 09/09/20 22:59 06:59 14:59 Other: Weight 87.543 kg 87.543 kg Gen: awake, alert HEENT: normocephalic, atraumatic, good hearing acuity, moist mucous membranes Resp: good air exchange, breathing comfortably with no accessory muscle use, clear to auscultation bilaterally without wheezes CVS: good distal perfusion x 4, regular rate and rhythm with mild systolic murmur GI: soft, NTTP, ND : no SPT, no CVAT, patel catheter not present MSK: no pitting edema, no clubbing Neuro: moving all extremities with no strength deficits Psych: cooperative, euthymic mood Results CBC & Chem 7: 09/09/20 05:50 09/09/20 05:50 Labs: Abnormal Lab Results - Last 24 Hours (Table) 09/09/20 09/09/20 Range/Units 05:50 05:50 APTT 21.4 L (22.0-30.0) sec D-Dimer 1.31 H (<0.60) mg/L FEU Sodium 131 L (137-145) mmol/L Chloride 92 L (98-107) mmol/L Carbon Dioxide 31 H (22-30) mmol/L BUN 26 H (9-20) mg/dL Glucose 119 H (74-99) mg/dL Thrombosis Risk Factor Assmnt - Choose All That Apply Any of the Below Risk Factors Present?: Yes Other Risk Factors: Yes Each Risk Factor Represents 2 Points: Age 61-74 years Other congenital or acquired thrombophilia - If yes, enter type in comment: No Thrombosis Risk Factor Assessment Total Risk Factor Score: 2 Thrombosis Risk Factor Assessment Level: Low Risk Assessment and Plan Assessment: 1. Vertigo 2. Hx CVA 3. HTN 4. HLD 5. Osteoarthritis 6. s/p repair 7. AAA 8. Aortic Dissection s/p repair 75 year old man with history of CVA, HTN/HLD, s/p repair, AAA, Aortic Dissection s/p repair presented with dizziness associated with movement, and alleviated by keeping still; admitted for stroke rule out. Plan: - admit to telemetry - neurology consult, appreciate recs - Imaging - echo, pending - MRI Brain, pending - CT Angio H/N = non-critical narrowing of b/l carotids < 50% - CTH = old thalamic infarct with increasing encephalomalacia, but no acute stroke - Risk Factors: - Lipid panel, pending - A1c, pending - TSH, pending - continue ASA, Plavix - increase home statin - continue home telmisartan, chlorthalidone - orthostatics BID - PT/OT, help with ponce maneuver - meclizine 12.5mg BID - benadryl 25mg q6h PRN - nausea control: zofran PRN - IVF: 1L NS bolus in ER --> NS 100cc/hr Full Code DVT PPx: early ambulation
--- NOTE | 2020-09-09 16:03 | US ---
EXAMINATION TYPE: US carotid duplex BILAT DATE OF EXAM: 09/09/2020 COMPARISON: 06/14/2017 and 05/15/2020 CTA CLINICAL HISTORY: 75-year-old male Stenosis. Dizziness TECHNIQUE: Carotid duplex ultrasound examination. Indirect Doppler criteria was utilized. FINDINGS: EXAM MEASUREMENTS: RIGHT: Peak Systolic Velocity (PSV) cm/sec ----- Right CCA: 63.2 ----- Right ICA: 120.4 ----- Right ECA: 69.8 ICA/CCA ratio: 1.9 RIGHT: End Diastole cm/sec ----- Right CCA: 18.3 ----- Right ICA: 33.8 ----- Right ECA: 10.8 LEFT: Peak Systolic Velocity (PSV) cm/sec ----- Left CCA: 49.3 ----- Left ICA: 105.3 ----- Left ECA: 66.8 ICA/CCA ratio: 2.1 LEFT: End Diastole cm/sec ----- Left CCA: 10.1 ----- Left ICA: 23.3 ----- Left ECA: 6.0 VERTEBRALS (direction of flow): Right Vertebral: Antegrade Left Vertebral: Antegrade Rhythm: Normal Actuarial Consultant notes: Bilateral intimal thickening, plaque bilateral bulb and ICA, no elevated velocitie s, left ICA/CCA ratio 2.1 IMPRESSION: Increased ICA/CCA ratio on the left of 2.1 can be seen with a moderate ICA stenosis. Moderate athero sclerotic changes are seen at the bifurcations on grayscale imaging. Correlate with findings on dylan villegas's recent 05/15/2020 CTA. Criteria for Assigning % of Stenosis / Diameter reduction (Estimation based on the indirect measurements of the internal carotid artery velocities (ICA PSV). 1. Normal (no stenosis)=ICA PSV < 125 cm/s: ratio < 2.0: ICA EDV<40 cm/s. 2. Less than 50% stenosis=ICA PSV < 125 cm/s: ratio < 2.0: ICA EDV<40 cm/s. 3. 50 to 69% stenosis=ICA PSV of 125 to 230 cm/s: ration 2.0 ? 4.0: ICA EDV 40-100 cm/s. 4. Greater than 70% stenosis to near occlusion= ICA PSV > 230 cm/s: ratio > 4.0: ICA EDV > 100 cm/s. 5. Near occlusion= ICA PSV velocities may be low or undetectable: variable ratio and ICA EDV. 6. Total occlusion=unable to detect flow.
--- NOTE | 2020-09-09 18:24 | ECHOF ---
Referral Reason:Thrombus MEASUREMENTS -------- HEIGHT: 190.5 cm WEIGHT: 87.5 kg BP: 142/99 IVSd: 1.5 cm (0.6 - 1.1) LVIDd: 4.1 cm (3.9 - 5.3) LVPWd: 1.5 cm (0.6 - 1.1) IVSs: 2.0 cm LVIDs: 2.7 cm LVPWs: 1.8 cm LA Diam: 4.5 cm (2.7 - 3.8) RVIDd: 4.0 cm (< 3.3) LAESV Index (A-L): 38.60 ml/m Ao Diam: 3.9 cm (2.0 - 3.7) AV Cusp: 1.8 cm (1.5 - 2.6) EPSS: 0.7 cm MV E Ranjith: 1.53 m/s MV DecT: 224 ms MV A Ranjith: 1.09 m/s MV E/A Ratio: 1.41 AV maxP.01 mmHg AV meanP.04 mmHg RAP: 15.00 mmHg RVSP: 59.01 mmHg MV EF SLOPE: 38.06 mm/s (70 - 150) MV EXCURSION: 15.12 mm (> 18.000) FINDINGS -------- Sinus rhythm. This was a technically adequate study. The left ventricular size is normal. There is moderate concentric left ventricular hypertrophy. O verall left ventricular systolic function is normal with, an EF between 60 - 65 %. Basal inferior L V wall motion is hypokinetic. Mid inferior LV wall motion is hypokinetic. The right ventricle is moderately enlarged. LA is moderately dilated 34-39 ml/m2 The right atrium is normal in size. Peak/mean gradient across the Aortic Valve is 28.01mmHg / 12.04mmHg. Normally functioning bioprosth etic valve. The mitral valve leaflets are mildly thickened. Mild mitral annular calcification present. MV Rep air 2012 Mild tricuspid regurgitation present. There is severe pulmonary hypertension. The right ventricul ar systolic pressure, as measured by Doppler, is 59.01mmHg. Trace/mild (physiologic) pulmonic regurgitation. The aortic root is dilated measuring 3.9cm. The inferior vena cava is dilated with no significant inspiratory collapse which is consistent estima bulmaro right atrial pressure of >15 mmHg. There is no pericardial effusion. CONCLUSIONS -------- 1. The left ventricular size is normal. 2. There is moderate concentric left ventricular hypertrophy. 3. Overall left ventricular systolic function is normal with, an EF between 60 - 65 %. 4. The right ventricle is moderately enlarged. 5. LA is moderately dilated 34-39 ml/m2 6. Peak/mean gradient across the Aortic Valve is 28.01mmHg / 12.04mmHg. 7. Normally functioning bioprosthetic valve. 8. The mitral valve leaflets are mildly thickened. 9. Mild mitral annular calcification present. 10. MV Repair 2012 11. Mild tricuspid regurgitation present. 12. There is severe pulmonary hypertension. 13. The right ventricular systolic pressure, as measured by Doppler, is 59.01mmHg. 14. Trace/mild (physiologic) pulmonic regurgitation. 15. The aortic root is dilated measuring 3.9cm. 16. The inferior vena cava is dilated with no significant inspiratory collapse which is consistent es timated right atrial pressure of >15 mmHg. 17. There is no pericardial effusion. [employer]: Lazara Santoro RDCS
[2020-09-09] MEDS: METOPROLOL TARTRATE 50 MG TAB PO SCH (20:28)
[2020-09-09] MEDS: ACETAMINOPHEN TAB 325 MG TAB PO PRN (20:51)
--- NOTE | 2020-09-09 20:52 | MR ---
EXAMINATION TYPE: MR brain wo/w con DATE OF EXAM: 09/09/2020 COMPARISON: 05/17/2020 HISTORY: Vertigo. CONTRAST: Standard multiplanar, multisequence MRI departmental protocol utilizing 8.5 mL intravenous Gadavist g adolinium contrast. There is cerebral cortical atrophy. There is no mass effect nor midline shift. There is no evidence o f intracranial hemorrhage. Diffusion images show no sign of an acute cortical infarct. On the T2 and FLAIR images there is multiple scattered variable sized foci of increased signal at the pack-white matter junction both cerebral hemispheres. These measure up to 1.5 cm. Most of these are less than 5 mm. Total number is approximately 25. There is largest lesion in the left posterior front al lobe. There is 2 x 1 cm area of cortical increased signal right temporal lobe convexity. There is some mucosal thickening in the ethmoid air cells. There is normal enhancement of the venous sinuses. I see no pathologic enhancement. There is arterial flow in the anterior middle and posterior cerebral arteries. There is arterial flow in the vertebrob asilar artery system. IMPRESSION: Cerebral atrophy. Patchy white matter signal changes consistent with multiple areas of chronic small vessel ischemia. This does not have a pattern of demyelinating disease. Small cortical infarct lateral right temporal lobe. No evidence of posterior fossa infarct.
[2020-09-09] MEDS ORDERED: [UNRECOGNIZED DRUG - OTHER] PO SCH (21:00)
[2020-09-09] MEDS ORDERED: ATORVASTATIN 40 MG TAB PO SCH (21:00)
[2020-09-09] MEDS ORDERED: CRANBERRY PO SCH (21:00)
[2020-09-09] MEDS ORDERED: NON FORMULARY DRUG (Flaxseed Oil [Omega-3 Flaxseed Oil] 1,000 MG Capsule) PO SCH (21:00)
[2020-09-09] MEDS ORDERED: VITAMIN C PO SCH (21:00)
[2020-09-09] MEDS ORDERED: NON FORMULARY DRUG (Cinnamon Bark [Cinnamon] 500 MG Capsule) PO SCH (21:00)
[2020-09-10] MEDS: ACETAMINOPHEN TAB 325 MG TAB PO PRN (05:49)
[2020-09-10] MEDS: SODIUM CHLORIDE 0.9% 1,000 ML IV SCH (05:50)
[2020-09-10] MEDS: CLOPIDOGREL 75 MG TAB PO SCH (08:53)
[2020-09-10] MEDS: MECLIZINE 12.5 MG TAB PO SCH (08:53)
[2020-09-10] MEDS ORDERED: OMEGA EPA DHA PO SCH (09:00)
[2020-09-10] MEDS ORDERED: METHYL B12 PO SCH (09:00)
[2020-09-10] MEDS ORDERED: LOSARTAN 50 MG TAB PO SCH (09:00)
[2020-09-10] MEDS ORDERED: MULTIVITAMINS, THERA 1 EACH TAB PO SCH (09:00)
[2020-09-10] MEDS ORDERED: NON FORMULARY DRUG (Ubidecarenone [Co Q-10] 100 MG Capsule) PO SCH (09:00)
[2020-09-10] MEDS ORDERED: MAGNESIUM OXIDE 400 MG TAB PO SCH (09:00)
[2020-09-10] MEDS ORDERED: METHYL FOLATE PO SCH (09:00)
[2020-09-10] MEDS ORDERED: ASPIRIN 325 MG TAB PO SCH (09:00)
[2020-09-10] MEDS ORDERED: [UNRECOGNIZED DRUG - OTHER] PO SCH (09:00)
[2020-09-10] MEDS ORDERED: NON FORMULARY DRUG (Glucosam/Chon-Msm1/C/Mang/Bosw [Glucosamine-Chondroitin-Msm Tb] 1 EACH PO SCH (09:00)
[2020-09-10] MEDS ORDERED: NON FORMULARY DRUG (Glucosamine/Chondr Su A Sod [Osteo Bi-Flex Caplet] 1 EACH Tablet) PO SCH (09:00)
[2020-09-10] MEDS ORDERED: ZINC SULFATE 220 MG CAP PO SCH (09:00)
[2020-09-10] MEDS ORDERED: [UNRECOGNIZED DRUG - OTHER] PO SCH (09:00)
[2020-09-10] MEDS ORDERED: ASPIRIN 81 MG PO SCH (09:00)
[2020-09-10] MEDS ORDERED: CHOLECALCIFEROL 25 MCG (1000 IU) TABLET PO SCH (09:00)
[2020-09-10] MEDS ORDERED: CHLORTHALIDONE 25 MG TAB PO SCH (09:00)
[2020-09-10] MEDS ORDERED: LACTOBACILLUS ACIDOPH & BULGAR 1 EACH PACKET PO SCH (09:00)
[2020-09-10] MEDS: METOPROLOL TARTRATE 50 MG TAB PO SCH (09:24)
[2020-09-10 09:29] LABS: Basophils % (A) 0 %; Eosinophils # (A) 0.5 k/uL (0-0.7); Eosinophils % (A) 5 %; HCT 39.5 % (39.0-53.0); HGB 12.8 gm/dL (13.0-17.5); Lymphocytes # (A) 1.1 k/uL (1.0-4.8); Lymphocytes % (A) 12 %; MCHC 32.4 g/dL (31.0-37.0); MCV 95.8 fL (80.0-100.0); Mean Platelet Volume 6.5; Monocytes # (A) 0.4 k/uL (0-1.0); Monocytes % (A) 4 %; Neutrophils # (A) 6.6 k/uL (1.3-7.7); Neutrophils % (A) 77 %; Platelet Count 183 k/uL (150-450); RBC 4.12 m/uL (4.30-5.90); RDW 12.6 % (11.5-15.5); WBC 8.7 k/uL (3.8-10.6)
[2020-09-10 09:39] LABS: African American GFR (CKD) >90 (>60 ml/min/1.73 sqM); Anion Gap 6 mmol/L; Blood Urea Nitrogen 13 mg/dL (9-20); Calcium 8.1 mg/dL (8.4-10.2); Carbon Dioxide 28 mmol/L (22-30); Chloride 98 mmol/L (98-107); Cholesterol 128 mg/dL (<200); Glucose 100 mg/dL (74-99); HDL Cholesterol 51 mg/dL (40-60); LDL Cholesterol,Calculated 64 mg/dL (0-99); Magnesium 1.8 mg/dL (1.6-2.3); Non-African American GFR(CKD) 86 (>60 ml/min/1.73 sqM); Potassium 3.3 mmol/L (3.5-5.1); Sodium 132 mmol/L (137-145); Triglycerides 65 mg/dL (<150)
[2020-09-10] MEDS ORDERED: Potassium Replacement Protocol 1 EACH MISC MISCELLANE PRN (10:28)
[2020-09-10 10:38] VITALS: RESP 18; TEMP 97.9
[2020-09-10] MEDS ORDERED: POTASSIUM CHLORIDE ER 20 MEQ TAB.ER PO SCH (11:00)
[2020-09-10 13:35] VITALS: BP 165/76; PULSE 62
--- NOTE | 2020-09-10 13:43 | P.DS ---
Providers Date of admission: 09/09/20 06:46 Expected date of discharge: 09/10/20 Attending physician: Angel Hernandez MD Consults: 09/09/20 06:47 Consult Physician Routine Consulting Provider: Aundrea Lassiter Consult Reason/Comments: vertigo Do you want consulting provider notified?: Yes Primary care physician: Dixon Shaw MD Hospital Course: 1. Vertigo 2. Hx CVA 3. HTN 4. HLD 5. Osteoarthritis 6. s/p repair 7. AAA 8. Aortic Dissection s/p repair 75 year old man with history of CVA, HTN/HLD, s/p repair, AAA, Aortic Dissection s/p repair presented with dizziness associated with movement, and alleviated by keeping still; admitted for stroke rule out. Patient was seen in consultation with neurology. MRI, CTH, and CT Angio H/N were negative for acute pathology, and positive for non-critical b/l carotid artery stenosis. Imaging did demonstrate some progression of old infarct with increasing right thalamic encephalomalacia. Patient's vertigo improved with meclizine; and he was given instructions for ponce maneuver on discharge for BPPV. He did have an episode of hypotension while in house, and was asymptomatic from this, however, his chlorthalidone was discontinued on discharge and telmisartan was decreased from 80mg to 40mg daily. He was also discharged with prescription for meclizine BID for 7 more days. He is to follow up with PCP. Assessment: Gen: awake, alert HEENT: normocephalic, atraumatic, good hearing acuity, moist mucous membranes Resp: good air exchange, breathing comfortably with no accessory muscle use, clear to auscultation bilaterally without wheezes CVS: good distal perfusion x 4, regular rate and rhythm with mild systolic murmur GI: soft, NTTP, ND : no SPT, no CVAT, patel catheter not present MSK: no pitting edema, no clubbing Neuro: moving all extremities with no strength deficits Psych: cooperative, euthymic mood Patient Condition at Discharge: Good Plan - Discharge Summary Discharge Rx Participant: No New Discharge Prescriptions: New Meclizine [Antivert] 12.5 mg PO BID #14 tab Continue Metoprolol Tartrate [Lopressor] 100 mg PO BID Aspirin 81 mg PO DAILY ALPRAZolam [Xanax] 0.25 mg PO Q8H PRN PRN Reason: Anxiety L.acidoph,Paracasei, B.lactis [Probiotic] 1 cap PO DAILY Glucosamine/Chondr Martines A Sod [Osteo Bi-Flex Caplet] 1 tab PO DAILY Cinnamon Bark [Cinnamon] 1,000 mg PO HS Albuterol Inhaler [Ventolin Hfa Inhaler] 2 puff INHALATION RT-Q6H PRN PRN Reason: Shortness Of Breath Zinc 25 mg PO DAILY Ubidecarenone [Co Q-10] 200 mg PO DAILY Clopidogrel [Plavix] 75 mg PO DAILY #30 tab Flaxseed Oil [[place]-3 Flaxseed Oil] 1,000 mg PO HS [place] 2,000 mg PO HS Methyl B12/Methyl Folate 1 tab PO DAILY Magnesium Glycinate 400 mg PO DAILY Papaya [Papaya Enzyme] 1 tab PO DAILY PRN PRN Reason: DIGESTION Cranberry + Vitamin C 1 tab PO HS Multivit-Min/Folic/Vit K/Lycop [Men's Multivitamin Tablet] 1 tab PO DAILY Cholecalciferol [Vitamin D3 (25 Mcg = 1000 Iu)] 25 mcg PO DAILY Collagen Hydrlysate 12 g PO DAILY Cyclobenzaprine [Flexeril] 10 mg PO DAILY PRN PRN Reason: Muscle Spasm Arnica & [place] Gel 1 applic TOPICAL DAILY PRN PRN Reason: PAIN/BRUISING Glucosam/Luis-Msm1/C/Reinaldo/Bosw [Xvykezcnium-Ndgoutmqsso-QFK Tb] 1 tab PO DAILY Apha Lipoc Acid 250 mg PO DAILY [place] Epa Dha 720 1 cap PO DAILY Changed Atorvastatin [Lipitor] 40 mg PO HS #0 Telmisartan 40 mg PO DAILY #0 Discontinued Chlorthalidone [Hygroton] 25 mg PO DAILY Discharge Medication List ALPRAZolam [Xanax] 0.25 mg PO Q8H PRN 06/13/17 [History] Aspirin 81 mg PO DAILY 06/13/17 [History] Cinnamon Bark [Cinnamon] 1,000 mg PO HS 06/13/17 [History] Glucosamine/Chondr Martines A Sod [Osteo Bi-Flex Caplet] 1 tab PO DAILY 06/13/17 [History] L.acidoph,Paracasei, B.lactis [Probiotic] 1 cap PO DAILY 06/13/17 [History] Metoprolol Tartrate [Lopressor] 100 mg PO BID 06/13/17 [History] Albuterol Inhaler [Ventolin Hfa Inhaler] 2 puff INHALATION RT-Q6H PRN 05/15/20 [History] Ubidecarenone [Co Q-10] 200 mg PO DAILY 05/15/20 [History] Zinc 25 mg PO DAILY 05/15/20 [History] Clopidogrel [Plavix] 75 mg PO DAILY #30 tab 05/18/20 [Rx] Apha Lipoc Acid 250 mg PO DAILY 09/09/20 [History] Arnica & [place] Gel 1 applic TOPICAL DAILY PRN 09/09/20 [History] Cholecalciferol [Vitamin D3 (25 Mcg = 1000 Iu)] 25 mcg PO DAILY 09/09/20 [ History] [place] 2,000 mg PO HS 09/09/20 [History] Collagen Hydrlysate 12 g PO DAILY 09/09/20 [History] Cranberry + Vitamin C 1 tab PO HS 09/09/20 [History] Cyclobenzaprine [Flexeril] 10 mg PO DAILY PRN 09/09/20 [History] Flaxseed Oil [[place]-3 Flaxseed Oil] 1,000 mg PO HS 09/09/20 [History] Glucosam/Luis-Msm1/C/Reinaldo/Bosw [Efhcmftsrsl-Xqfqrezeoqh-HIA Tb] 1 tab PO DAILY 09/09/20 [History] Magnesium Glycinate 400 mg PO DAILY 09/09/20 [History] Methyl B12/Methyl Folate 1 tab PO DAILY 09/09/20 [History] Multivit-Min/Folic/Vit K/Lycop [Men's Multivitamin Tablet] 1 tab PO DAILY 09/09/20 [History] [place] Epa Dha 720 1 cap PO DAILY 09/09/20 [History] Papaya [Papaya Enzyme] 1 tab PO DAILY PRN 09/09/20 [History] Atorvastatin [Lipitor] 40 mg PO HS #0 09/10/20 [Rx] Meclizine [Antivert] 12.5 mg PO BID #14 tab 09/10/20 [Rx] Telmisartan 40 mg PO DAILY #0 09/10/20 [Rx] Follow up Appointment(s)/Referral(s): Dixon Shaw MD [Primary Care Provider] - 1-2 days Discharge Disposition: HOME SELF-CARE
--- NOTE | 2020-09-10 14:39 | P.PN ---
Subjective Progress Note Date: 09/10/20 The patient was seen at bedside and he felt his dizziness is better today compared to yesterday. He stated when he walks he is cautious and using a walker as precaution. While lying his dizziness is improved but worsened with position. MRI the brain was reported as cerebral atrophy. Patchy white matter signal changes consistent with multiple area of chronic small vessel ischemia. This does not have a pattern of demyelinating disease at. Small cortical infarct lateral right temporal lobe. No evidence of posterior fossa infarct. I personally reviewed the MRI the brain and the eye did not see any acute or subacute ischemic stroke. As a result I called the the current reading radiologist (Dr. Maddox) and he reviewed the images and the addendum was the DWI sequences reviewed with the neurology over the phone. There is no restricted diffusion to suggest an acute or subacute infarct. The previous infarct within the lateral right thalamus is now chronic. There is moderate burden of chronic small vessel ischemia disease along with an old lateral right temporal cortical infarct. Objective - Vital Signs Vital signs: Vital Signs Temp 97.9 F 09/10/20 08:00 Pulse 66 09/10/20 08:00 Resp 18 09/10/20 08:00 BP 124/71 09/10/20 08:00 Pulse Ox 98 09/10/20 08:00 Intake & Output 09/09/20 09/10/20 09/10/20 18:59 06:59 18:59 Intake Total 240 Output Total 300 400 Balance -300 -160 Weight 87.543 kg 82.2 kg Intake: Oral 240 Output: Urine 300 400 Other: Voiding Method Toilet Urinal Urinal # Voids 2 1 - Exam GENERAL: The patient is lying in bed and is not in acute distress. NEUROLOGICAL: Higher mental function: The patient is awake, alert, oriented to self, place and time. Patient is following commands. No aphasia and no neglect. Cranial nerves: The pupils are round, equal and reactive to light and accommo dation. Visual liang are full to confrontation throughout. Extraocular movement is intact no nystagmus is noted. Facial sensation is decreased over the left face but at different distrubtion. The facial strength is normal throughout. Hearing is decreased to hand rub over the left (chronic). Tongue is midline and moved [id number] without any difficulty. No dysarthria is noted. Shoulder shrug is normal bilaterally. Motor: Gait is deferred. The strength is 5 over 5 throughout. Normal tone and bulk. Cerebellum: Normal finger to nose heel and heel to sampson bilaterally. Sensation: Decrease sensation to touch (old since stroke 04/2020). Reflexes (right/left): 2+ throughout. Plantars are downgoing bilaterally. - Labs CBC & Chem 7: 09/10/20 08:45 09/10/20 08:45 Labs: Abnormal Lab Results - Last 24 Hours (Table) 09/10/20 09/10/20 Range/Units 08:45 08:45 RBC 4.12 L (4.30-5.90) m/uL Hgb 12.8 L (13.0-17.5) gm/dL Sodium 132 L (137-145) mmol/L Potassium 3.3 L (3.5-5.1) mmol/L Glucose 100 H (74-99) mg/dL Calcium 8.1 L (8.4-10.2) mg/dL Assessment and Plan Assessment: Acute vertigo:is peripheral and seems benign positional vertigo History of stroke (right thalamic stroke from small vessel disease on 04/2020). Bilateral carotid stenosis, moderate on the left mild on the right Hypertension History of aortic dissection with aortic valve repair Abdominal aortic aneurysm Plan: Continue ASA 81mg and Plavix 75mg (especially with carotid stenosis). I restarted the Plavix. Patient to continue dual antiplatelets for now. Continue Lipitor 40 mg daily at bedtime for secondary stroke prophylaxis. Carotid duplex ordered by the ED team is reported as increased ICA/CCA ratio on the left of 2.1 MB seen with a moderate ICA stenosis. Moderate out the scar exchange are seen at the bifurcation on grayscale imaging at. Correlate with findings on patient's recent 05/15/2020 CTA. MRI the brain was reported as cerebral atrophy. Patchy white matter signal changes consistent with multiple area of chronic small vessel ischemia. This does not have a pattern of demyelinating disease at. Small cortical infarct lateral right temporal lobe. No evidence of posterior fossa infarct. I personally reviewed the MRI the brain and the eye did not see any acute or subacute ischemic stroke. As a result I called the the current reading radiologist (Dr. Maddox) and he reviewed the images and the addendum was the DWI sequences reviewed with the neurology over the phone. There is no restricted diffusion to suggest an acute or subacute infarct. The previous infarct within the lateral right thalamus is now chronic. There is moderate burden of chronic small vessel ischemia disease along with an old lateral right temporal cortical infarct. PT, OT and MIX CHEMIST are consulted by the ED team. Continue every 4 neuro checks. Continue continous cardiac monitoring. Continue meclizine 12.5 mg 1 tablet twice a day scheduled. Consider the vestibular rehab and ENT as an outpatient. Will defer the rest of the medical management to the primary team. Patient to follow-up with neurologist as outpatient within 3 weeks because of history of stroke. From a neurology perspective no further work-up is needed. Joe Harmon MD Neuro-Hospitalist Time with Patient: Less than 30
[2020-09-10 17:18] LABS: Hemoglobin A1C 5.5 % (4.0-6.0)
== END 2020-09-10 15:22 | disposition home or self-care (01) | DRG 149 ==
LOC: EC 05:22 → 3SCARD 06:46
PROVIDERS: ADMIT Internal Medicine; ATTEND Internal Medicine
DX: H81.10 Benign paroxysmal vertigo, unspecified ear (principal); E87.1 Hypo-osmolality and hyponatremia; E78.5 Hyperlipidemia, unspecified; H91.92 Unspecified hearing loss, left ear; I10 Essential (primary) hypertension; I35.0 Nonrheumatic aortic (valve) stenosis; I44.0 Atrioventricular block, first degree; I49.1 Atrial premature depolarization; Z86.73 Personal history of transient ischemic attack (TIA), and cerebral infarction without residual deficits; Z20.822 Contact with and (suspected) exposure to COVID-19; I65.23 Occlusion and stenosis of bilateral carotid arteries; I73.9 Peripheral vascular disease, unspecified; M19.90 Unspecified osteoarthritis, unspecified site; Z79.02 Long term (current) use of antithrombotics/antiplatelets; Z79.82 Long term (current) use of aspirin; Z79.899 Other long term (current) drug therapy; Z82.49 Family history of ischemic heart disease and other diseases of the circulatory system; Z86.79 Personal history of other diseases of the circulatory system; Z87.11 Personal history of peptic ulcer disease; Z87.891 Personal history of nicotine dependence; Z95.2 Presence of prosthetic heart valve; Z98.42 Cataract extraction status, left eye; Z98.41 Cataract extraction status, right eye; Z96.1 Presence of intraocular lens; Z88.2 Allergy status to sulfonamides; Z80.9 Family history of malignant neoplasm, unspecified; K21.9 Gastro-esophageal reflux disease without esophagitis
CPT/HCPCS: 36415; 70450; 70496; 70498; 70553; 71275; 80048; 80053; 80061; 81003; 82550; 83036; 83605; 83735; 83880; 84100; 84443; 84484; 85025; 85379; 85610; 85730; 87635; 93005; 93306; 93880; 96361; 96374; 96375; 99291

== ENCOUNTER 2021-04-05 13:49 | Observation (INO) | payer MEDICARE ==
[2021-04-05] MEDS ORDERED: ASPIRIN 81 MG PO STA (14:06)
[2021-04-05] MEDS ORDERED: NITROGLYCERIN SL TABS 0.4 MG TAB SUBLINGUAL STA ×3 (14:06)
--- NOTE | 2021-04-05 14:08 | ED ---
General Adult HPI - General Source: patient, family, RN notes reviewed Mode of arrival: wheelchair Limitations: no limitations <Collin Robbins - Last Filed: 04/05/21 14:52> <Manolo Sheikh - Last Filed: 04/05/21 17:11> - General Chief complaint: Chest Pain Stated complaint: Chest Pain Time Seen by Provider: 04/05/21 13:55 - History of Present Illness Initial comments: Patient is a pleasant 75-year-old male presenting to the emergency Department with complaint of chest discomfort. Onset of symptoms was around 2 hours ago. Patient was lifting some heavy equipment. Patient had discomfort that was more severe however now moderate rated 5/10. Discomfort is left chest and feels like tightness. Patient does have some mild associated dyspnea. Patient was diaphoretic earlier. No nausea. Patient does have history of previous dissection however symptoms are not similar to that. Patient also has history of cardiac valve problems. (Collin Robbins) - Related Data Home Medications Medication Instructions Recorded Confirmed ALPRAZolam [Xanax] 0.25 mg PO Q8H PRN 06/13/17 04/05/21 Aspirin 81 mg PO DAILY 06/13/17 04/05/21 Cinnamon Bark [Cinnamon] 1,000 mg PO HS 06/13/17 04/05/21 L.acidoph,Paracasei, B.lactis 1 cap PO DAILY 06/13/17 04/05/21 [Probiotic] Ubidecarenone [Co Q-10] 200 mg PO DAILY 05/15/20 04/05/21 Zinc 25 mg PO DAILY 05/15/20 04/05/21 Apha Lipoc Acid 250 mg PO HS 09/09/20 04/05/21 Arnica & [place] Gel 1 applic TOPICAL DAILY PRN 09/09/20 04/05/21 Cholecalciferol [Vitamin D3 (25 25 mcg PO DAILY 09/09/20 04/05/21 Mcg = 1000 Iu)] Cranberry + Vitamin C 1 tab PO HS 09/09/20 04/05/21 Cyclobenzaprine [Flexeril] 10 mg PO DAILY PRN 09/09/20 04/05/21 Glucosam/Luis-Msm1/C/Reinaldo/Bosw 2 tab PO DAILY 09/09/20 04/05/21 [Ramvwlfmnej-Cepfagajkac-TLZ Tb] Magnesium Glycinate 400 mg PO DAILY 09/09/20 04/05/21 Methyl B12/Methyl Folate 1 tab PO DAILY 09/09/20 04/05/21 Multivit-Min/Folic/Vit K/Lycop 1 tab PO DAILY 09/09/20 04/05/21 [Men's Multivitamin Tablet] [place] Epa Dha 720 1 cap PO HS 09/09/20 04/05/21 Papaya [Papaya Enzyme] 1 tab PO DAILY PRN 09/09/20 04/05/21 Acetaminophen [Tylenol Extra 500 mg PO Q8H PRN 04/05/21 04/05/21 Strength] Atorvastatin [Lipitor] 20 mg PO HS 04/05/21 04/05/21 Bumetanide 1 mg PO DAILY 04/05/21 04/05/21 Fluticasone/Umeclidin/Vilanter 1 puff INHALATION RT-DAILY 04/05/21 04/05/21 [Trelegy Ellipta 100-62.5-25] Spironolactone 25 mg PO DAILY 04/05/21 04/05/21 Telmisartan 80 mg PO DAILY 04/05/21 04/05/21 Previous Rx's Medication Instructions Recorded Clopidogrel [Plavix] 75 mg PO DAILY #30 tab 05/18/20 Allergies Allergy/AdvReac Type Severity Reaction Status Date / Time Sulfa (Sulfonamide Allergy Anaphylaxis Verified 04/05/21 13:54 Antibiotics) Review of Systems ROS Other: All systems not noted in ROS Statement are negative. Constitutional: Denies: fever Eyes: Denies: eye pain ENT: Denies: ear pain Respiratory: Reports: as per HPI. Denies: cough Cardiovascular: Reports: as per HPI, chest pain Endocrine: Denies: fatigue Gastrointestinal: Denies: abdominal pain Genitourinary: Denies: dysuria Musculoskeletal: Denies: back pain Skin: Denies: rash Neurological: Denies: weakness <Collin Robbins - Last Filed: 04/05/21 14:52> ROS Other: All systems not noted in ROS Statement are negative. <Manolo Sheikh - Last Filed: 04/05/21 17:11> ROS Statement: Those systems with pertinent positive or pertinent negative responses have been documented in the HPI. Past Medical History Past Medical History: CVA/TIA, GERD/Reflux, Hyperlipidemia, Hypertension Additional Past Medical History / Comment(s): history of aortic stenosis status post valve replacement, aortic dissection status post repair, AAA History of Any Multi-Drug Resistant Organisms: None Reported Past Surgical History: Appendectomy Additional Past Surgical History / Comment(s): aorticvalve replacement , AAA repair Past Anesthesia/Blood Transfusion Reactions: No Reported Reaction Past Psychological History: Anxiety Smoking Status: Never smoker Past Alcohol Use History: Daily, Heavy Past Drug Use History: None Reported - Past Family History Brother(s) Family Medical History: Cancer Mother Family Medical History: Cancer, Coronary Artery Disease (CAD) Father Family Medical History: No Reported History Additional Family Medical History / Comment(s): Father was healthy <Collin Robbins - Last Filed: 04/05/21 14:52> General Exam Limitations: no limitations General appearance: alert, in no apparent distress Head exam: Present: normocephalic Eye exam: Present: normal appearance Neck exam: Present: normal inspection Respiratory exam: Present: normal lung sounds bilaterally. Absent: chest wall tenderness Cardiovascular Exam: Present: regular rate, normal rhythm Expanded Peripheral pulses: 2+: Radial (R), Radial (L), Dorsalis Pedis (R), Dorsalis Pedis (L) GI/Abdominal exam: Present: soft. Absent: tenderness Extremities exam: Present: normal inspection. Absent: pedal edema, calf tenderness Neurological exam: Present: alert Psychiatric exam: Present: normal affect, normal mood Skin exam: Present: normal color <Collin Robbins - Last Filed: 04/05/21 14:52> Course <Collin Robbins - Last Filed: 04/05/21 14:52> <Manolo Sheikh - Last Filed: 04/05/21 17:11> Vital Signs 04/05/21 04/05/21 04/05/21 13:51 14:45 14:50 Temperature 97.8 F Pulse Rate 90 92 88 Respiratory 20 24 20 Rate Blood Pressure 113/73 71/53 96/65 O2 Sat by Pulse 99 98 98 Oximetry 04/05/21 04/05/21 04/05/21 15:15 16:00 16:35 Temperature Pulse Rate 88 90 89 Respiratory 20 20 20 Rate Blood Pressure 101/73 114/78 120/84 O2 Sat by Pulse 98 98 98 Oximetry - Reevaluation(s) Reevaluation #1: 04/05/21 14:52 Repeat EKG shows sinus rhythm with rate of 88. For screening AV block WA 246. QRS 76. QT 386. QTc 467. Normal axis. Normal QRS. No acute ST change. (Collin Robbins) 04/05/21 16:43 Patient was endorsed to me by ED physician Dr. Robbins with the patient's CT (for rule out aortic dissection) and some of his labs still pending. Dr. Robbins felt that the patient should be admitted to the hospital for further evaluation, serial troponins and cardiac monitoring regardless of his CT report. Patient's CT is fairly unremarkable. Patient's initial troponin is negative. Patient states that his pain has improved since onset. Patient denies development of any new symptoms while in the ED. Patient's most recent vital signs are within normal limits. Patient and are aware the patient's test results, and they both agree with hospital admission at this time. 04/05/21 17:10 Case, test results and ED management were discussed with Dr. Osorio . He accepts hospital admission. He agrees with cardiology consultation. He has no further recommendations at this time. (Manolo Sheikh) EKG Findings - EKG Comments: EKG Findings:: Sinus rhythm with a rate of 85. First-degree AV block WA of 258. QRS 60 QT 378. QTC 449. Normal axis. Normal QRS. No acute ST change. <Collin Robbins - Last Filed: 04/05/21 14:52> Medical Decision Making - Lab Data Result diagrams: 04/05/21 14:13 04/05/21 14:13 - Radiology Data Radiology results: image reviewed (Chest x-ray shows no acute process. Cardiac megaly. Thoracic aortic aneurysm, better visualized previous CT) <Collin Robbins - Last Filed: 04/05/21 14:52> - Lab Data Result diagrams: 04/05/21 14:13 04/05/21 14:13 <Manolo Sheikh - Last Filed: 04/05/21 17:11> - Lab Data Lab Results 04/05/21 04/05/21 04/05/21 Range/Units 14:13 14:13 14:13 WBC 10.9 H (3.8-10.6) k/uL RBC 4.29 L (4.30-5.90) m/uL Hgb 13.6 (13.0-17.5) gm/dL Hct 40.4 (39.0-53.0) % MCV 94.1 (80.0-100.0) fL MCH 31.6 (25.0-35.0) pg MCHC 33.6 (31.0-37.0) g/dL RDW 13.0 (11.5-15.5) % Plt Count 246 (150-450) k/uL MPV 6.7 Neutrophils % 80 % Lymphocytes % 11 % Monocytes % 6 % Eosinophils % 1 % Basophils % 0 % Neutrophils # 8.7 H (1.3-7.7) k/uL Lymphocytes # 1.2 (1.0-4.8) k/uL Monocytes # 0.6 (0-1.0) k/uL Eosinophils # 0.1 (0-0.7) k/uL Basophils # 0.0 (0-0.2) k/uL PT 10.5 (9.0-12.0) sec INR 1.0 (<1.2) APTT 21.4 L (22.0-30.0) sec D-Dimer 1.65 H (<0.60) mg/L FEU Sodium 131 L (137-145) mmol/L Potassium 4.4 (3.5-5.1) mmol/L Chloride 100 (98-107) mmol/L Carbon Dioxide 21 L (22-30) mmol/L Anion Gap 10 mmol/L BUN 23 H (9-20) mg/dL Creatinine 1.81 H (0.66-1.25) mg/dL Est GFR (CKD-EPI)AfAm 42 (>60 ml/min/1.73 sqM) Est GFR (CKD-EPI)NonAf 36 (>60 ml/min/1.73 sqM) Glucose 111 H (74-99) mg/dL Calcium 10.0 (8.4-10.2) mg/dL Magnesium 2.0 (1.6-2.3) mg/dL Total Bilirubin 0.7 (0.2-1.3) mg/dL AST 39 (17-59) U/L ALT 29 (4-49) U/L Alkaline Phosphatase 101 (38-126) U/L Troponin I (0.000-0.034) ng/mL Total Protein 6.9 (6.3-8.2) g/dL Albumin 4.5 (3.5-5.0) g/dL 04/05/21 Range/Units 14:13 WBC (3.8-10.6) k/uL RBC (4.30-5.90) m/uL Hgb (13.0-17.5) gm/dL Hct (39.0-53.0) % MCV (80.0-100.0) fL MCH (25.0-35.0) pg MCHC (31.0-37.0) g/dL RDW (11.5-15.5) % Plt Count (150-450) k/uL MPV Neutrophils % % Lymphocytes % % Monocytes % % Eosinophils % % Basophils % % Neutrophils # (1.3-7.7) k/uL Lymphocytes # (1.0-4.8) k/uL Monocytes # (0-1.0) k/uL Eosinophils # (0-0.7) k/uL Basophils # (0-0.2) k/uL PT (9.0-12.0) sec INR (<1.2) APTT (22.0-30.0) sec D-Dimer (<0.60) mg/L FEU Sodium (137-145) mmol/L Potassium (3.5-5.1) mmol/L Chloride (98-107) mmol/L Carbon Dioxide (22-30) mmol/L Anion Gap mmol/L BUN (9-20) mg/dL Creatinine (0.66-1.25) mg/dL Est GFR (CKD-EPI)AfAm (>60 ml/min/1.73 sqM) Est GFR (CKD-EPI)NonAf (>60 ml/min/1.73 sqM) Glucose (74-99) mg/dL Calcium (8.4-10.2) mg/dL Magnesium (1.6-2.3) mg/dL Total Bilirubin (0.2-1.3) mg/dL AST (17-59) U/L ALT (4-49) U/L Alkaline Phosphatase (38-126) U/L Troponin I 0.019 (0.000-0.034) ng/mL Total Protein (6.3-8.2) g/dL Albumin (3.5-5.0) g/dL - Radiology Data CT angiogram thoracic abdomen pelvis aorta with IV contrast: No aortic dissection, stenosis, occlusion or aneurysm. Mildly prominent main pulmonary artery which can be seen with underlying pulmonary hypertension. No focal consolidations, pleural effusions or pneumothorax. No acute intra-abdominal process. (Manolo Sheikh) Disposition <Collin Robbins - Last Filed: 04/05/21 14:52> Is patient prescribed a controlled substance at d/c from ED?: No Time of Disposition: 17:11 <Manolo Sheikh - Last Filed: 04/05/21 17:11> Clinical Impression: Chest pain Disposition: ADMITTED IP TO THIS HOSP Condition: Stable Referrals: Dixon Shaw MD [Primary Care Provider] - 1-2 days
[2021-04-05 14:24] LABS: Basophils % (A) 0 %; Eosinophils # (A) 0.1 k/uL (0-0.7); Eosinophils % (A) 1 %; HCT 40.4 % (39.0-53.0); HGB 13.6 gm/dL (13.0-17.5); Lymphocytes # (A) 1.2 k/uL (1.0-4.8); Lymphocytes % (A) 11 %; MCH 31.6 pg (25.0-35.0); MCHC 33.6 g/dL (31.0-37.0); MCV 94.1 fL (80.0-100.0); Mean Platelet Volume 6.7; Monocytes # (A) 0.6 k/uL (0-1.0); Monocytes % (A) 6 %; Neutrophils # (A) 8.7 k/uL (1.3-7.7); Neutrophils % (A) 80 %; Platelet Count 246 k/uL (150-450); RBC 4.29 m/uL (4.30-5.90); WBC 10.9 k/uL (3.8-10.6)
--- NOTE | 2021-04-05 14:40 | XR ---
EXAMINATION TYPE: XR chest 2V DATE OF EXAM: 04/05/2021 COMPARISON: CT chest 09/09/2020 HISTORY: Chest pain, arm pain TECHNIQUE: Frontal and lateral views of the chest are obtained. FINDINGS: There is no focal air space opacity, pleural effusion, or pneumothorax seen. Cardiomegaly. The aortic arch is prominent consistent with known thoracic aortic aneurysm. Multiple intact sternot jayla wires; the osseous structures are otherwise intact. Mitral valve and aortic valve replacements. IMPRESSION: 1. No acute cardiopulmonary process. 2. Cardiomegaly. 3. Thoracic aortic aneurysm, better visualized on previous CT.
[2021-04-05 14:41] LABS: Prothrombin Time 10.5 sec (9.0-12.0)
[2021-04-05 14:43] LABS: Albumin 4.5 g/dL (3.5-5.0); Potassium 4.4 mmol/L (3.5-5.1); Total Bilirubin 0.7 mg/dL (0.2-1.3); Total Protein 6.9 g/dL (6.3-8.2)
[2021-04-05 14:53] LABS: Partial Thromboplastin Time 21.4 sec (22.0-30.0)
[2021-04-05] MEDS ORDERED: SODIUM CHLORIDE 0.9% 1,000 ML IV STA (14:54)
--- NOTE | 2021-04-05 16:26 | CT ---
EXAMINATION TYPE: CT angio thor/abd pel aorta DATE OF EXAM: 04/05/2021 COMPARISON: CTA chest 09/09/2020 HISTORY: chest pain CT DLP: 1245.3 mGycm. Automated Exposure Control for Dose Reduction was Utilized. TECHNIQUE: Multiple contiguous axial CT images of the chest, abdomen, and pelvis were obtained from t he lung apices through the pubic symphysis without and with IV Contrast, patient injected with 100 mL of Isovue 370. 2-D sagittal and coronal reformatted images were obtained. FINDINGS: Vasculature: Diffuse atherosclerotic calcifications of the thoracic and abdominal aorta without stenosis, occlusio n, dissection, or aneurysm. Patent origins of the major branches of the aorta. Main pulmonary artery is mildly prominent. Chest: Cardiac size appears within normal limits. Aortic and mitral valve replacements. No pericardial effus ion. Moderate atherosclerotic calcifications of the coronary arteries. No mediastinal or hilar lympha denopathy. No axillary lymphadenopathy. The airways are normal course and caliber. No focal consolidations, pleural effusions, or pneumothora x. Abdomen/pelvis: Liver, spleen, pancreas, and bilateral adrenal glands have an unremarkable enhanced appearance. Gallbladder is present. No definite intrahepatic or extrahepatic biliary ductal dilatation. Kidneys are symmetric in size without hydronephrosis. No renal or ureteral calculi. Urinary bladder a ppears unremarkable. Prostate is moderately enlarged. Small fat-containing inguinal hernias bilaterally, right greater malini n left. No free fluid. Visualized bowel is of normal caliber without evidence of obstruction. No significant mesenteric infl ammation. Scattered distal colonic diverticula without adjacent inflammatory changes. Appendix is not definitively visualized. No free air. No intra-abdominal or retroperitoneal lymphadenopathy. Subcutaneous soft tissues appear unremarkable. Musculoskeletal: Multiple sternotomy wires are present. Moderate degenerative changes of the visualized thoracic and l umbar spines. IMPRESSION: 1. No aortic dissection, stenosis, occlusion, or aneurysm. 2. Mildly prominent main pulmonary artery which can be seen with underlying pulmonary hypertension. 3. No focal consolidations, pleural effusions, or pneumothorax. 4. No acute intra-abdominal process.
[2021-04-05] MEDS ORDERED: ALPRAZolam 0.25 MG TAB PO PRN (17:12)
[2021-04-05] MEDS ORDERED: ACETAMINOPHEN TAB 500 MG TAB PO PRN (18:10)
[2021-04-05] MEDS ORDERED: CYCLOBENZAPRINE 10 MG TAB PO PRN (18:10)
--- NOTE | 2021-04-05 18:26 | P.HPIM ---
History of Present Illness H&P Date: 04/05/21 Chief Complaint: Chest pain Patient is a 75-year-old male he's got past medical history of CVA, aortic stenosis, descending AAA, he presents to the hospital today with chief complaints of some left-sided chest pain pressure. Patient states that he first noticed the pain after he was moving a heavy object. He described the pain as pressure-like and tightness sensation. Patient also has some associated shortness of breath and some diaphoresis with this event. Patient reports that the pain persisted for 2 hours prior for him to come into the emergency room for evaluation. Patient does report that he follows with cardiology at [facility]. He was scheduled for a routine stress test to be performed earlier this week however he was unable to make this appointment. Patient currently states that his chest pressure feels improved. He rates it at 2 out of 10 at the present time. Past medical history: Hypertension, aortic stenosis status post bioprosthetic valve replacement, AAA, previous CVA, TIA, GERD, hyperlipidemia next Past surgical history: Aortic valve replacement with bioprosthetic, descending aortic aneurysm repair, appendectomy Social history: Patient is a former tobacco user denies any current tobacco use. He does report daily USE he reports that he drinks about half to one bottle of wine daily. Patient denies ever going through any or call withdrawal when he is been hospitalized. Family history: Hypertension, patient's also reports coronary artery disease in his father Review of Systems A full 12 point review of system was conducted pertinent positives and negatives noted in HPI all other systems reviewed negative. Past Medical History Past Medical History: Cancer, CVA/TIA, GERD/Reflux, Hyperlipidemia, Hypertension Additional Past Medical History / Comment(s): history of aortic stenosis status post valve replacement, aortic dissection status post repair, AAA, skin cancer History of Any Multi-Drug Resistant Organisms: None Reported Past Surgical History: Appendectomy Additional Past Surgical History / Comment(s): aorticvalve replacement , AAA repair, skin cancer removal 2020 Past Anesthesia/Blood Transfusion Reactions: No Reported Reaction Past Psychological History: Anxiety Additional Psychological History / Comment(s): Pt resides with his spouse. He is independent. Smoking Status: Never smoker Past Alcohol Use History: Daily, Heavy Additional Past Alcohol Use History / Comment(s): 3 glasses of wine a day. Past Drug Use History: None Reported - Past Family History Brother(s) Family Medical History: Cancer Mother Family Medical History: Cancer, Coronary Artery Disease (CAD) Father Family Medical History: No Reported History Additional Family Medical History / Comment(s): Father was healthy Medications and Allergies Home Medications Medication Instructions Recorded Confirmed Type ALPRAZolam [Xanax] 0.25 mg PO Q8H PRN 06/13/17 04/05/21 History Aspirin 81 mg PO DAILY 06/13/17 04/05/21 History Cinnamon Bark [Cinnamon] 1,000 mg PO HS 06/13/17 04/05/21 History L.acidoph,Paracasei, B.lactis 1 cap PO DAILY 06/13/17 04/05/21 History [Probiotic] Ubidecarenone [Co Q-10] 200 mg PO DAILY 05/15/20 04/05/21 History Zinc 25 mg PO DAILY 05/15/20 04/05/21 History Clopidogrel [Plavix] 75 mg PO DAILY #30 tab 05/18/20 04/05/21 Rx Apha Lipoc Acid 250 mg PO HS 09/09/20 04/05/21 History Arnica & [place] Gel 1 applic TOPICAL DAILY PRN 09/09/20 04/05/21 History Cholecalciferol [Vitamin D3 (25 25 mcg PO DAILY 09/09/20 04/05/21 History Mcg = 1000 Iu)] Cranberry + Vitamin C 1 tab PO HS 09/09/20 04/05/21 History Cyclobenzaprine [Flexeril] 10 mg PO DAILY PRN 09/09/20 04/05/21 History Glucosam/Luis-Msm1/C/Reinaldo/Bosw 2 tab PO DAILY 09/09/20 04/05/21 History [Xlxvaqntvzd-Ncvorwxbukc-NDO Tb] Magnesium Glycinate 400 mg PO DAILY 09/09/20 04/05/21 History Methyl B12/Methyl Folate 1 tab PO DAILY 09/09/20 04/05/21 History Multivit-Min/Folic/Vit K/Lycop 1 tab PO DAILY 09/09/20 04/05/21 History [Men's Multivitamin Tablet] [place] Epa Dha 720 1 cap PO HS 09/09/20 04/05/21 History Papaya [Papaya Enzyme] 1 tab PO DAILY PRN 09/09/20 04/05/21 History Acetaminophen [Tylenol Extra 500 mg PO Q8H PRN 04/05/21 04/05/21 History Strength] Atorvastatin [Lipitor] 20 mg PO HS 04/05/21 04/05/21 History Bumetanide 1 mg PO DAILY 04/05/21 04/05/21 History Fluticasone/Umeclidin/Vilanter 1 puff INHALATION RT-DAILY 04/05/21 04/05/21 History [Trelegy Ellipta 100-62.5-25] Spironolactone 25 mg PO DAILY 04/05/21 04/05/21 History Telmisartan 80 mg PO DAILY 04/05/21 04/05/21 History Allergies Allergy/AdvReac Type Severity Reaction Status Date / Time Sulfa (Sulfonamide Allergy Anaphylaxis Verified 04/05/21 13:54 Antibiotics) Physical Exam Osteopathic Statement: *. No significant issues noted on an osteopathic structural exam other than those noted in the History and Physical/Consult. Vitals: Vital Signs Temp Pulse Pulse Resp BP BP Pulse Ox 04/05/21 17:54 97.6 F 87 17 155/90 98 04/05/21 16:35 89 20 120/84 98 04/05/21 16:00 90 20 114/78 98 04/05/21 15:15 88 20 101/73 98 04/05/21 14:50 88 20 96/65 98 04/05/21 14:45 92 24 71/53 98 04/05/21 13:51 97.8 F 90 20 113/73 99 Intake and Output 04/05/21 04/05/21 04/05/21 06:59 14:59 22:59 Other: Weight 83.915 kg Gen.: Patient is alert and oriented 3 in no acute distress well-developed well- nourished next HEENT: Pupils are round equal reactive to light and accommodation no scleral icterus no conjunctival erythema, normocephalic atraumatic no pharyngeal erythema no thyromegaly Cardiovascular: S1-S2 present no murmurs rubs or gallops Pulmonary: Lungs are clear to auscultation bilaterally no wheezing or crackles next Abdomen: Soft nondistended nontender to palpation Extremities: No lower extremity edema noted next Neurological: Patient is alert and oriented 3 without any neural focal deficits cranial nerves II through XII are grossly intact Skin no rashes or lesions noted Results CBC & Chem 7: 04/05/21 14:13 04/05/21 14:13 Labs: Abnormal Lab Results - Last 24 Hours (Table) 04/05/21 04/05/21 04/05/21 Range/Units 14:13 14:13 14:13 WBC 10.9 H (3.8-10.6) k/uL RBC 4.29 L (4.30-5.90) m/uL Neutrophils # 8.7 H (1.3-7.7) k/uL APTT 21.4 L (22.0-30.0) sec D-Dimer 1.65 H (<0.60) mg/L FEU Sodium 131 L (137-145) mmol/L Carbon Dioxide 21 L (22-30) mmol/L BUN 23 H (9-20) mg/dL Creatinine 1.81 H (0.66-1.25) mg/dL Glucose 111 H (74-99) mg/dL Thrombosis Risk Factor Assmnt - Choose All That Apply Any of the Below Risk Factors Present?: Yes Each Factor Represents 1 point: Varicose veins Other Risk Factors: Yes Each Risk Factor Represents 2 Points: Age 61-74 years Other congenital or acquired thrombophilia - If yes, enter type in comment: No Thrombosis Risk Factor Assessment Total Risk Factor Score: 3 Thrombosis Risk Factor Assessment Level: Moderate Risk Assessment and Plan Assessment: Chest pain: -Patient is complaining of anterior left-sided chest pain described as pressure. Patient has been admitted to observation unit to rule out possible ACS. First set of troponins negative. We'll continue to trend. EKG does not reveal any evidence of ischemic changes. Patient has been ordered a nuclear stress test due to his inability to exercise on a treadmill. Cardiology consultation has also been placed. Patient did have a CTA performed in the hospital which did not reveal any evidence of aortic dissection. Hypertension -Continue with home medications including telmisartan, spironolactone Aortic stenosis status post repair -Patient has a medical history of bioprosthetic valve replacement. History of CVA Continue with home medications of Plavix and aspirin Hyperlipidemia -Statin therapy DVT prophylaxis: Lovenox Diet: Cardiac Disposition: Patient admitted to observation floor. We'll await cardiology evaluation Lexiscan stress ordered. (1) Chest pain Current Visit: Yes Status: Acute Code(s): R07.9 - CHEST PAIN, UNSPECIFIED SNOMED Code(s): 51779417 (2) Essential hypertension Current Visit: No Status: Acute Code(s): I10 - ESSENTIAL (PRIMARY) HYPERTENSION SNOMED Code(s): 96247321
[2021-04-05] MEDS ORDERED: ATORVASTATIN 20 MG TAB PO SCH (21:00)
[2021-04-05] MEDS ORDERED: HEPARIN SODIUM 1,000 UN/ML (10ML VL) IV PRN (22:23)
[2021-04-05] MEDS ORDERED: HEPARIN SODIUM 1,000 UN/ML (10ML VL) IV ONE (22:23)
[2021-04-05] MEDS ORDERED: HEPARIN SOD,PORK IN 0.45% NACL 25,000 UNIT in 0.45% NACL 1 250ML.BAG IV SCH (22:30)
[2021-04-05 22:59] LABS: Basophils % (A) 0 %; Eosinophils # (A) 0.2 k/uL (0-0.7); Eosinophils % (A) 2 %; HCT 36.4 % (39.0-53.0); HGB 12.8 gm/dL (13.0-17.5); Lymphocytes # (A) 1.5 k/uL (1.0-4.8); Lymphocytes % (A) 14 %; MCH 33.4 pg (25.0-35.0); MCHC 35.1 g/dL (31.0-37.0); MCV 95.2 fL (80.0-100.0); Mean Platelet Volume 7.2; Monocytes # (A) 0.8 k/uL (0-1.0); Monocytes % (A) 7 %; Neutrophils # (A) 8.1 k/uL (1.3-7.7); Neutrophils % (A) 75 %; Platelet Count 226 k/uL (150-450); RBC 3.83 m/uL (4.30-5.90); RDW 13.2 % (11.5-15.5); WBC 10.8 k/uL (3.8-10.6)
[2021-04-05 23:11] LABS: INR 1.1 (<1.2); Partial Thromboplastin Time 64.1 sec (22.0-30.0); Prothrombin Time 11.3 sec (9.0-12.0)
[2021-04-06 07:26] VITALS: BP 115/62; PULSE 60; RESP 16; TEMP 98.1
[2021-04-06 07:43] LABS: Partial Thromboplastin Time 38.3 sec (22.0-30.0); Prothrombin Time 10.8 sec (9.0-12.0)
[2021-04-06] MEDS ORDERED: SYMBICORT 80-4.5 MCG INHALER INHALATION SCH (08:00)
[2021-04-06] MEDS: IPRATROPIUM 0.5 MG/2.5 ML NEBU INHALATION SCH ×2 (08:42→11:18)
[2021-04-06] MEDS ORDERED: MAGNESIUM OXIDE 400 MG TAB PO SCH (09:00)
[2021-04-06] MEDS ORDERED: BUMETANIDE 1 MG TAB PO SCH (09:00)
[2021-04-06] MEDS ORDERED: SPIRONOLACTONE 25 MG TAB PO SCH (09:00)
[2021-04-06] MEDS ORDERED: CHOLECALCIFEROL 25 MCG (1000 IU) TABLET PO SCH (09:00)
[2021-04-06] MEDS ORDERED: ASPIRIN 81 MG PO SCH (09:00)
[2021-04-06] MEDS ORDERED: NON FORMULARY DRUG (Ubidecarenone [Co Q-10] 100 MG Capsule) PO SCH (09:00)
[2021-04-06] MEDS ORDERED: LOSARTAN 50 MG TAB PO SCH (09:00)
[2021-04-06] MEDS ORDERED: CLOPIDOGREL 75 MG TAB PO SCH (09:00)
[2021-04-06 12:28] LABS: Basophils # (A) 0.07 X 10*3/uL (0.00-0.10); Basophils % (A) 0.7 %; Eosinophils % (A) 2.9 %; HCT 35.7 % (39.6-50.0); Lymphocytes # (A) 1.53 X 10*3/uL (0.90-5.00); Lymphocytes % (A) 14.7 %; MCH 31.7 pg (27.0-32.0); MCHC 33.6 g/dL (32.0-37.0); MCV 94.4 fL (80.0-97.0); Mean Platelet Volume 9.1 fL (9.5-12.2); Monocytes # (A) 0.94 X 10*3/uL (0.20-1.00); Monocytes % (A) 9.1 %; Neutrophils # (A) 7.49 X 10*3/uL (1.80-7.70); Neutrophils % (A) 72.1 %; Platelet Count 213 X 10*3/uL (140-440); RBC 3.78 X 10*6/uL (4.40-5.60); RDW 13.7 % (11.5-14.5); WBC 10.38 X 10*3/uL (4.50-10.00)
[2021-04-06] MEDS ORDERED: APIXABAN 5 MG TAB PO SCH (13:00)
--- NOTE | 2021-04-06 13:07 | P.CRDCN ---
History of Present Illness Consult date: 04/06/21 Requesting physician: Corinna Osorio Reason for Consult (text): chest pain Chief complaint: chest tightness/pressure History of present illness: This is a pleasant 75-year-old gentleman who follows with Dr. Davidson, [facility]. He has a poor historian as he's had memory issues since CVA in April 2020. The is currently at the bedside. He has a history of hypertension, hyperlipidemia, aortic stenosis, status post aortic valve replacement in 2011, mitral valve repair, aortic dissection 6 weeks following aortic valve replacement, status post repair, AAA, and CVA in April 2020 with no definitive source found and continues to have some symptoms on the left side with some baseline numbness and a bandlike area of pressure/tightness in the left chest.. According to the , at the time of his aortic valve replacement he was told he had no coronary artery disease. He does have mild right and moderate left carotid artery disease. He underwent stress testing in October of this year and the is going to present this report for his chart here. This did show a mostly fixed defect in the inferior and inferolateral wall with small area of reversibility that was noted to likely be soft tissue attenuation however underlying ischemia cannot be entirely ruled out. This was noted to be also seen on his stress test from January 2020. Presented to the emergency departm ent after doing some heavy lifting yesterday and developing some increasing of his symptoms on the left side. He feels a bandlike sensation around his left chest which worsened after lifting as well as some heaviness in his left arm and numbness in his left arm and face. According to the he did have some diaphoresis. At baseline he has dyspnea on exertion which has improved over the last several months since increasing his diuretic and adding Trelegy. Initial EKG on admission showed sinus rhythm with a first-degree AV block and no evidence of ischemia. Subsequently the patient has gone into atrial fibrillation with controlled ventricular response. He is currently on heparin drip. He has no documented history of atrial fibrillation. Laboratory values show white blood cell count 10,900, d-dimer 1.65, sodium 131, potassium 4.4, BUN 23 and creatinine 1.81. Troponins 0.019, 0.030 and 0.036. Chest x-ray and admission showed no acute cardiopulmonary process, cardiomegaly, thoracic aortic aneurysm, better visualized on previous CT. Thoracic CTA showed no aortic dissection, stenosis, occlusion or aneurysm with mildly prominent main pulmonary artery which can be seen with underlying pulmonary hypertension, no focal consolidations, pleural effusions, pneumothorax and no acute intra-abdominal process. According to the patient this morning he did have an episode of jaw pain that was brief in duration and not related to any type of activity he was resting in bed. He continues to have the tightness/pressure on the left chest that seems a bit worse compared to his baseline. He did have an echocardiogram done in December which showed a normal LV systolic function with abnormal diastolic function, bioprosthetic aortic valve with normal function, mitral valve ring present, mild residual regurgitation present, moderate right ventricular dilation with mild systolic dysfunction, RVSP estimated at 55-60 mmHg, mild tricuspid regurgitation, moderate dilatation of the aortic root and severe biatrial dilation. Past Medical History Past Medical History: Cancer, CVA/TIA, GERD/Reflux, Hyperlipidemia, Hypertension Additional Past Medical History / Comment(s): history of aortic stenosis status post valve replacement, aortic dissection status post repair, AAA, skin cancer History of Any Multi-Drug Resistant Organisms: None Reported Past Surgical History: Appendectomy Additional Past Surgical History / Comment(s): aorticvalve replacement , AAA repair, skin cancer removal 2020 Past Anesthesia/Blood Transfusion Reactions: No Reported Reaction Past Psychological History: Anxiety Additional Psychological History / Comment(s): Pt resides with his spouse. He is independent. Smoking Status: Never smoker Past Alcohol Use History: Daily, Heavy Additional Past Alcohol Use History / Comment(s): 3 glasses of wine a day. Past Drug Use History: None Reported - Past Family History Brother(s) Family Medical History: Cancer Mother Family Medical History: Cancer, Coronary Artery Disease (CAD) Father Family Medical History: No Reported History Additional Family Medical History / Comment(s): Father was healthy Medications and Allergies Home Medications Medication Instructions Recorded Confirmed Type ALPRAZolam [Xanax] 0.25 mg PO Q8H PRN 06/13/17 04/05/21 History Aspirin 81 mg PO DAILY 06/13/17 04/05/21 History Cinnamon Bark [Cinnamon] 1,000 mg PO HS 06/13/17 04/05/21 History L.acidoph,Paracasei, B.lactis 1 cap PO DAILY 06/13/17 04/05/21 History [Probiotic] Ubidecarenone [Co Q-10] 200 mg PO DAILY 05/15/20 04/05/21 History Zinc 25 mg PO DAILY 05/15/20 04/05/21 History Clopidogrel [Plavix] 75 mg PO DAILY #30 tab 05/18/20 04/05/21 Rx Apha Lipoc Acid 250 mg PO HS 09/09/20 04/05/21 History Arnica & [place] Gel 1 applic TOPICAL DAILY PRN 09/09/20 04/05/21 History Cholecalciferol [Vitamin D3 (25 25 mcg PO DAILY 09/09/20 04/05/21 History Mcg = 1000 Iu)] Cranberry + Vitamin C 1 tab PO HS 09/09/20 04/05/21 History Cyclobenzaprine [Flexeril] 10 mg PO DAILY PRN 09/09/20 04/05/21 History Glucosam/Luis-Msm1/C/Reinaldo/Bosw 2 tab PO DAILY 09/09/20 04/05/21 History [Sjrrgthqpjk-Vhgpivmejng-NNM Tb] Magnesium Glycinate 400 mg PO DAILY 09/09/20 04/05/21 History Methyl B12/Methyl Folate 1 tab PO DAILY 09/09/20 04/05/21 History Multivit-Min/Folic/Vit K/Lycop 1 tab PO DAILY 09/09/20 04/05/21 History [Men's Multivitamin Tablet] [place] Epa Dha 720 1 cap PO HS 09/09/20 04/05/21 History Papaya [Papaya Enzyme] 1 tab PO DAILY PRN 09/09/20 04/05/21 History Acetaminophen [Tylenol Extra 500 mg PO Q8H PRN 04/05/21 04/05/21 History Strength] Atorvastatin [Lipitor] 20 mg PO HS 04/05/21 04/05/21 History Bumetanide 1 mg PO DAILY 04/05/21 04/05/21 History Fluticasone/Umeclidin/Vilanter 1 puff INHALATION RT-DAILY 04/05/21 04/05/21 History [Trelegy Ellipta 100-62.5-25] Spironolactone 25 mg PO DAILY 04/05/21 04/05/21 History Telmisartan 80 mg PO DAILY 04/05/21 04/05/21 History Allergies Allergy/AdvReac Type Severity Reaction Status Date / Time Sulfa (Sulfonamide Allergy Anaphylaxis Verified 04/05/21 13:54 Antibiotics) Physical Exam Vitals: Vital Signs Temp Pulse Pulse Resp BP BP Pulse Ox 04/06/21 07:26 98.1 F 60 16 115/62 98 04/06/21 02:00 18 04/06/21 01:50 97.5 F L 58 L 18 124/64 99 04/05/21 20:00 18 04/05/21 19:10 98.2 F 89 18 103/60 98 04/05/21 17:54 97.6 F 87 17 155/90 98 04/05/21 16:35 89 20 120/84 98 04/05/21 16:00 90 20 114/78 98 04/05/21 15:15 88 20 101/73 98 04/05/21 14:50 88 20 96/65 98 04/05/21 14:45 92 24 71/53 98 04/05/21 13:51 97.8 F 90 20 113/73 99 Intake and Output 04/05/21 04/06/21 04/06/21 22:59 06:59 14:59 Intake Total 97.167 Balance 97.167 Intake: Intake, IV Titration 97.167 Amount Heparin Sod,Pork in 0.45% 97.167 NaCl 25,000 unit In 0.45 % NaCl 1 250ml.bag @ 11. 917 UNITS/KG/HR 10 mls/hr IV .Q24H [facility] Rx#: [id number] Other: Voiding Method Toilet Toilet Urinal Urinal # Voids 2 2 Weight 83.915 kg PHYSICAL EXAMINATION: This is a 75-year-old male in no apparent distress at the time of my examination. VITAL SIGNS: Blood pressure 115/62, heart rate 60, respirations 16, temp 98.1F. Patient is 98 % on room air. HEENT: Head is atraumatic, normocephalic. Pupils are equal, round. Sclerae anicteric. Conjunctivae are clear. Mucous membranes of the mouth are moist. Neck is supple. There is no elevated jugular venous pressure. No carotid bruit is heard. CHEST EXAMINATION: Clear to auscultation bilaterally. No wheezes rales or rhonchi. Respirations even and nonlabored. HEART EXAMINATION: Heart irregular rate and rhythm, positive S1 and S2. No S3. No S4. With a systolic murmur. ABDOMEN: Soft, nontender. Bowel sounds are heard. No organomegaly noted. EXTREMITIES: 2+ peripheral pulses with no evidence of peripheral edema and no calf tenderness noted. Minimal left sided weakness noted. NEUROLOGIC EXAMINATION: Patient is awake, alert and oriented x3, with poor recall. Results 04/06/21 06:29 04/05/21 14:13 Cardiac Enzymes 04/05/21 04/05/21 04/05/21 Range/Units 14:13 14:13 18:40 AST 39 (17-59) U/L Troponin I 0.019 0.030 (0.000-0.034) ng/mL 04/05/21 Range/Units 21:50 AST (17-59) U/L Troponin I 0.036 H* (0.000-0.034) ng/mL Coagulation 04/05/21 04/05/21 04/06/21 Range/Units 14:13 22:48 06:29 PT 10.5 11.3 10.8 (9.0-12.0) sec APTT 21.4 L 64.1 H 38.3 H (22.0-30.0) sec CBC 04/05/21 04/05/21 Range/Units 14:13 22:48 WBC 10.9 H 10.8 H (3.8-10.6) k/uL RBC 4.29 L 3.83 L (4.30-5.90) m/uL Hgb 13.6 12.8 L (13.0-17.5) gm/dL Hct 40.4 36.4 L (39.0-53.0) % Plt Count 246 226 (150-450) k/uL Comprehensive Metabolic Panel 04/05/21 Range/Units 14:13 Sodium 131 L (137-145) mmol/L Potassium 4.4 (3.5-5.1) mmol/L Chloride 100 (98-107) mmol/L Carbon Dioxide 21 L (22-30) mmol/L BUN 23 H (9-20) mg/dL Creatinine 1.81 H (0.66-1.25) mg/dL Glucose 111 H (74-99) mg/dL Calcium 10.0 (8.4-10.2) mg/dL AST 39 (17-59) U/L ALT 29 (4-49) U/L Alkaline Phosphatase 101 (38-126) U/L Total Protein 6.9 (6.3-8.2) g/dL Albumin 4.5 (3.5-5.0) g/dL Current Medications Generic Name Dose Route Start Last Admin Trade Name Freq PRN Reason Stop Dose Admin Acetaminophen 500 mg 04/05/21 18:10 Acetaminophen Tab 500 Mg Tab PO Q8H PRN Fever and/ or Pain Alprazolam 0.25 mg 04/05/21 17:12 Alprazolam 0.25 Mg Tab PO Q8H PRN Anxiety Aminophylline 100 mg 04/07/21 05:00 Aminophylline 500 Mg/20 Ml Vial IV 04/07/21 23:00 ONCE PRN Patient Response Aspirin 81 mg 04/06/21 09:00 04/06/21 08:31 Aspirin 81 Mg PO 81 mg DAILY ELENA Administration Atorvastatin Calcium 20 mg 04/05/21 21:00 04/05/21 20:58 Atorvastatin 20 Mg Tab PO 20 mg HS ELENA Administration Budesonide/Formoterol Fumarate 2 puff 04/06/21 08:00 04/06/21 08:42 Symbicort 80-4.5 Mcg Inhaler INHALATION Not Given RT-BID ELENA Bumetanide 1 mg 04/06/21 09:00 04/06/21 08:39 Bumetanide 1 Mg Tab PO 1 mg DAILY ELENA Administration Caffeine Citrate 60 mg 04/07/21 05:00 Caffeine Citrate 60 Mg/3 Ml Vial IV 04/07/21 23:00 ONCE PRN Patient Response Cholecalciferol 25 mcg 04/06/21 09:00 04/06/21 08:32 Cholecalciferol 25 Mcg (1000 Iu) Tablet PO 25 mcg DAILY ELENA Administration Clopidogrel Bisulfate 75 mg 04/06/21 09:00 04/06/21 08:32 Clopidogrel 75 Mg Tab PO 75 mg DAILY ELENA Administration Cyclobenzaprine HCl 10 mg 04/05/21 18:10 Cyclobenzaprine 10 Mg Tab PO DAILY PRN Muscle Spasm Heparin Sodium (Porcine) 0 unit 04/05/21 22:23 04/06/21 08:26 Heparin Sodium 1,000 Un/Ml (10ml Vl) IV 2,100 unit PER PROTOCOL PRN Administration Low PTT Protocol Heparin Sodium/Sodium Chloride 250 mls @ 10 mls/hr 04/05/21 22:30 04/06/21 08:24 25,000 unit/ Sodium Chloride IV 13.917 units/kg/hr .Q24H [facility] 11.678 mls/hr Titration Protocol 11.917 UNITS/KG/HR Ipratropium [place] 0.5 mg 04/06/21 08:00 04/06/21 08:42 Ipratropium 0.5 Mg/2.5 Ml Nebu INHALATION Not Given RT-QID ELENA Losartan Potassium 150 mg 04/06/21 09:00 04/06/21 08:32 Losartan 50 Mg Tab PO 150 mg DAILY ELENA Administration Magnesium Oxide 400 mg 04/06/21 09:00 04/06/21 08:32 Magnesium Oxide 400 Mg Tab PO 400 mg DAILY ELENA Administration Non-Formulary Medication 200 mg 04/06/21 09:00 04/06/21 08:40 Ubidecarenone [Co Q-10] PO Not Given DAILY ELENA Regadenoson 0.4 mg 04/07/21 06:00 Regadenoson 0.4 Mg/5 Ml Syringe IV 04/07/21 23:00 ONCE PRN Per Protocol Spironolactone 25 mg 04/06/21 09:00 04/06/21 08:32 Spironolactone 25 Mg Tab PO 25 mg DAILY ELENA Administration Intake and Output 04/05/21 04/06/21 04/06/21 22:59 06:59 14:59 Intake Total 97.167 Balance 97.167 Intake: Intake, IV Titration 97.167 Amount Heparin Sod,Pork in 0.45% 97.167 NaCl 25,000 unit In 0.45 % NaCl 1 250ml.bag @ 11. 917 UNITS/KG/HR 10 mls/hr IV .Q24H [facility] Rx#: [id number] Other: Voiding Method Toilet Toilet Urinal Urinal # Voids 2 2 Weight 83.915 kg 04/05/21 22:48 04/05/21 14:13 Assessment and Plan Assessment: #1 chest pressure and tightness, acute coronary event has been ruled out #2 paroxysmal atrial fibrillation, new onset #3 hyperlipidemia #4 prior CVA #5 history of aortic valve replacement and mitral valve repair #6 history of aortic dissection, status post repair Plan: From cardiology's perspective and acute coronary event has been ruled out. Discussed in detail the rationale behind adding anticoagulation for future CVA prevention. We will stop the heparin and add Eliquis. 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 IT QUALITY ANALYST note has been reviewed, I agree with a documented findings and plan of care. Patient was seen and examined.
[2021-04-06 13:16] LABS: African American GFR (CKD) 85.6 (60.0-200.0); Albumin 3.8 g/dL (3.80-4.90); Albumin/Globulin Ratio 2.11 (1.60-3.17); Anion Gap 9.9 mmol/L (4.00-12.00); Calcium 8.7 mg/dL (8.7-10.3); Carbon Dioxide 24.1 mmol/L (21.6-31.8); Globulin 1.8 g/dL (1.6-3.3); Non-African American GFR(CKD) 73.8 (60.0-200.0); Potassium 3.9 mmol/L (3.5-5.5); Total Bilirubin 0.7 mg/dL (0.2-1.2); Total Protein 5.6 g/dL (6.2-8.2)
--- NOTE | 2021-04-06 13:41 | P.DS ---
Providers Date of admission: 04/05/21 17:11 Attending physician: Corinna Osorio MD Consults: 04/05/21 17:11 Consult Physician Urgent Consulting Provider: Fitz Petty Consult Reason/Comments: chest pain Do you want consulting provider notified?: Yes Primary care physician: Dixon Shaw MD Hospital Course: Diagnoses upon discharge Chest pain, likely atypical Paroxysmal atrial fibrillation Hypertension Aortic stenosis status post repair History of CVA without residual findings Hyperlipidemia Acute kidney injury history of aortic valve replacement and mitral valve repair HPI: Patient is a 75-year-old male he's got past medical history of CVA, aortic stenosis, descending AAA, he presents to the hospital today with chief complaints of some left-sided chest pain pressure. Patient states that he first noticed the pain after he was moving a heavy object. He described the pain as pressure-like and tightness sensation. Patient also has some associated shortness of breath and some diaphoresis with this event. Patient reports that the pain persisted for 2 hours prior for him to come into the emergency room for evaluation. Patient does report that he follows with cardiology at [facility]. He was scheduled for a routine stress test to be performed earlier this week however he was unable to make this appointment. Patient currently states that his chest pressure feels improved. He rates it at 2 out of 10 at the present time. Hospital course and treatment: Patient was admitted to the hospital with chest discomfort. He was evaluated by cardiology. Cardiac enzymes were initially negative, increased minimally then normalized. No evidence of ischemia per cardiology. CTA negative for PE or dissection. Patient would rather do a stress test as an outpatient. He also was found to have an acute kidney injury likely associated with hypovolemia, serum creatinine 1.8 which normalized to baseline which is 1.1.2.he will follow up with PCP and cardiology as an outpatient Patient Condition at Discharge: Stable Plan - Discharge Summary Discharge Rx Participant: No New Discharge Prescriptions: New Apixaban [Eliquis] 5 mg PO BID #60 tab Continue ALPRAZolam [Xanax] 0.25 mg PO Q8H PRN PRN Reason: Anxiety L.acidoph,Paracasei, B.lactis [Probiotic] 1 cap PO DAILY Cinnamon Bark [Cinnamon] 1,000 mg PO HS Zinc 25 mg PO DAILY Ubidecarenone [Co Q-10] 200 mg PO DAILY Clopidogrel [Plavix] 75 mg PO DAILY #30 tab Methyl B12/Methyl Folate 1 tab PO DAILY Magnesium Glycinate 400 mg PO DAILY Papaya [Papaya Enzyme] 1 tab PO DAILY PRN PRN Reason: DIGESTION Cranberry + Vitamin C 1 tab PO HS Multivit-Min/Folic/Vit K/Lycop [Men's Multivitamin Tablet] 1 tab PO DAILY Cholecalciferol [Vitamin D3 (25 Mcg = 1000 Iu)] 25 mcg PO DAILY Cyclobenzaprine [Flexeril] 10 mg PO DAILY PRN PRN Reason: Muscle Spasm [place] & [place] Gel 1 applic TOPICAL DAILY PRN PRN Reason: PAIN/BRUISING Glucosam/Luis-Msm1/C/Reinaldo/Bosw [Jvnaivkdykf-Aecorsfnioo-PVQ Tb] 2 tab PO DAILY Apha Lipoc Acid 250 mg PO HS [place] Epa Dha 720 1 cap PO HS Atorvastatin [Lipitor] 20 mg PO HS Telmisartan 80 mg PO DAILY Spironolactone 25 mg PO DAILY Bumetanide 1 mg PO DAILY Acetaminophen [Tylenol Extra Strength] 500 mg PO Q8H PRN PRN Reason: Fever And/ Or Pain Fluticasone/Umeclidin/Vilanter [Trelegy Ellipta 100-62.5-25] 1 puff INHALATION RT-DAILY Discontinued Aspirin 81 mg PO DAILY Discharge Medication List ALPRAZolam [Xanax] 0.25 mg PO Q8H PRN 06/13/17 [History] Cinnamon Bark [Cinnamon] 1,000 mg PO HS 06/13/17 [History] L.acidoph,Paracasei, B.lactis [Probiotic] 1 cap PO DAILY 06/13/17 [History] Ubidecarenone [Co Q-10] 200 mg PO DAILY 05/15/20 [History] Zinc 25 mg PO DAILY 05/15/20 [History] Clopidogrel [Plavix] 75 mg PO DAILY #30 tab 05/18/20 [Rx] Apha Lipoc Acid 250 mg PO HS 09/09/20 [History] Arnica & [place] Gel 1 applic TOPICAL DAILY PRN 09/09/20 [History] Cholecalciferol [Vitamin D3 (25 Mcg = 1000 Iu)] 25 mcg PO DAILY 09/09/20 [History] Cranberry + Vitamin C 1 tab PO HS 09/09/20 [History] Cyclobenzaprine [Flexeril] 10 mg PO DAILY PRN 09/09/20 [History] Glucosam/Luis-Msm1/C/Reinaldo/Bosw [Gsckrfoxgdk-Lnvdvhudepv-LKY Tb] 2 tab PO DAILY 09/09/20 [History] Magnesium Glycinate 400 mg PO DAILY 09/09/20 [History] Methyl B12/Methyl Folate 1 tab PO DAILY 09/09/20 [History] Multivit-Min/Folic/Vit K/Lycop [Men's Multivitamin Tablet] 1 tab PO DAILY 09/09/20 [History] [place] Epa Dha 720 1 cap PO HS 09/09/20 [History] Papaya [Papaya Enzyme] 1 tab PO DAILY PRN 09/09/20 [History] Acetaminophen [Tylenol Extra Strength] 500 mg PO Q8H PRN 04/05/21 [History] Atorvastatin [Lipitor] 20 mg PO HS 04/05/21 [History] Bumetanide 1 mg PO DAILY 04/05/21 [History] Fluticasone/Umeclidin/Vilanter [Trelegy Ellipta 100-62.5-25] 1 puff INHALATION RT-DAILY 04/05/21 [History] Spironolactone 25 mg PO DAILY 04/05/21 [History] Telmisartan 80 mg PO DAILY 04/05/21 [History] Apixaban [Eliquis] 5 mg PO BID #60 tab 04/06/21 [Rx] Follow up Appointment(s)/Referral(s): Dixon Shaw MD [Primary Care Provider] - 1-2 days Discharge Disposition: HOME SELF-CARE
[2021-04-07] MEDS ORDERED: AMINOPHYLLINE 500 MG/20 ML VIAL IV PRN (05:00)
[2021-04-07] MEDS ORDERED: REGADENOSON 0.4 MG/5 ML SYRINGE IV PRN ×2 (05:00→06:00)
[2021-04-07] MEDS ORDERED: CAFFEINE CITRATE 60 MG/3 ML VIAL IV PRN (05:00)
== END 2021-04-06 14:07 | disposition home or self-care (01) ==
LOC: EC 13:49 → 6NMEDSUR 17:11
PROVIDERS: ADMIT Internal Medicine; ATTEND Internal Medicine
DX: R07.89 Other chest pain (principal); I48.0 Paroxysmal atrial fibrillation; N17.9 Acute kidney failure, unspecified; I11.9 Hypertensive heart disease without heart failure; I44.0 Atrioventricular block, first degree; I65.23 Occlusion and stenosis of bilateral carotid arteries; R20.0 Anesthesia of skin; R61 Generalized hyperhidrosis; R68.84 Jaw pain; I77.810 Thoracic aortic ectasia; E78.5 Hyperlipidemia, unspecified; I10 Essential (primary) hypertension; K21.9 Gastro-esophageal reflux disease without esophagitis; F41.9 Anxiety disorder, unspecified; I07.1 Rheumatic tricuspid insufficiency; I83.90 Asymptomatic varicose veins of unspecified lower extremity; X50.0XXA Overexertion from strenuous movement or load, initial encounter; Z79.82 Long term (current) use of aspirin; Z79.51 Long term (current) use of inhaled steroids; Z79.02 Long term (current) use of antithrombotics/antiplatelets; Z79.899 Other long term (current) drug therapy; Z88.2 Allergy status to sulfonamides; Z86.73 Personal history of transient ischemic attack (TIA), and cerebral infarction without residual deficits; Z86.79 Personal history of other diseases of the circulatory system; Z95.3 Presence of xenogenic heart valve; Z87.891 Personal history of nicotine dependence; Z85.828 Personal history of other malignant neoplasm of skin; Z90.49 Acquired absence of other specified parts of digestive tract; Z98.890 Other specified postprocedural states; Z82.49 Family history of ischemic heart disease and other diseases of the circulatory system; Z80.9 Family history of malignant neoplasm, unspecified
CPT/HCPCS: 96376 ×2; 96365; 96366 ×2; 96361; 99285; 36415; 93005; 85379; 80053 ×2; 83735; 84484 ×2; 85025 ×2; 85610 ×2; 85730 ×2; 71046; 71275; 74174; G0378 ×2; J1644 ×3; Q9967

== ENCOUNTER 2023-02-17 23:56 | Observation (INO) | payer MEDICARE ==
--- NOTE | 2023-02-18 00:24 | ED ---
Recheck HPI - General Chief Complaint: Extremity Problem,Nontraumatic Stated Complaint: Lumps on neck Time Seen by Provider: 02/18/23 00:13 Source: patient, RN notes reviewed, old records reviewed Mode of arrival: ambulatory Limitations: no limitations - History of Present Illness Initial Comments: This is a 77-year-old male today. Patient resents for evaluation of complaints of elevated bumps in his neck or skin bumps on his neck which he noticed a looking at the mere. Patient had some shortness of breath lately with significant swelling of both lower extremities. states patient does have fluid around his heart she is unsure if that means on his lungs are actually around his heart. Patient still does not feel increasing weakness but does occasionally have chest pain is currently on diuresis for increased fluid levels and he does appear to be urinating significantly MD Complaint: other (Patient concern for lumps on his neck which she believes maybe arterial or venous) Returns Today for: other (Shortness of breath and chest pain) Symptoms Since Prior Visit: no new symptoms Associated Symptoms: none Treatments Prior to Arrival: other - Related Data Home Medications Medication Instructions Recorded Confirmed ALPRAZolam [Xanax] 0.25 mg PO DAILY PRN 06/13/17 02/18/23 L.acidoph,Paracasei, B.lactis 1 cap PO DAILY 06/13/17 02/18/23 [Probiotic] Ubidecarenone [Co Q-10] 200 mg PO DAILY 05/15/20 02/18/23 Arnica & [place] Gel 1 applic TOPICAL DAILY PRN 09/09/20 02/18/23 Cholecalciferol [Vitamin D3 (25 25 mcg PO DAILY 09/09/20 02/18/23 Mcg = 1000 Iu)] Cyclobenzaprine [Flexeril] 10 mg PO DAILY PRN 09/09/20 02/18/23 Glucosam/Luis-Msm1/C/Reinaldo/Bosw 2 tab PO DAILY 09/09/20 02/18/23 [Fjoyhtoqtro-Cisepdjlxsl-KYB Tb] Methyl B12/Methyl Folate 1 tab PO DAILY 09/09/20 02/18/23 Multivit-Min/Folic/Vit K/Lycop 1 tab PO DAILY 09/09/20 02/18/23 [Men's Multivitamin Tablet] Papaya [Papaya Enzyme] 1 tab PO DAILY 09/09/20 02/18/23 Acetaminophen [Tylenol Extra 500 mg PO Q8H PRN 04/05/21 02/18/23 Strength] Fluticasone/Umeclidin/Vilanter 1 puff INHALATION RT-DAILY 04/05/21 02/18/23 [Trelegy Ellipta 100-62.5-25] Spironolactone 25 mg PO DAILY 04/05/21 02/18/23 Telmisartan 80 mg PO DAILY 04/05/21 02/18/23 Alpha Lipoic Acid 250mg 1 tab PO HS 02/18/23 02/18/23 Atorvastatin [Lipitor] 20 mg PO HS 02/18/23 02/18/23 [place] Cinnamon 1000mg 1 tab PO HS 02/18/23 02/18/23 Magnesium Asporotate 400mg 2 tab PO DAILY 02/18/23 02/18/23 [place]/Epa/Dha 160/860/580mg 1 tab PO HS 02/18/23 02/18/23 Zinc Picolinate 22mg 1 tab PO DAILY 02/18/23 02/18/23 Previous Rx's Medication Instructions Recorded Apixaban [Eliquis] 5 mg PO BID #60 tab 04/06/21 Furosemide [Lasix] 40 mg PO BID #60 tab 02/19/23 Thiamine [Vitamin B-1] 100 mg PO DAILY #14 tab 02/19/23 Allergies Allergy/AdvReac Type Severity Reaction Status Date / Time Sulfa (Sulfonamide Allergy Anaphylaxis Verified 02/18/23 07:47 Antibiotics) Review of Systems ROS Statement: Those systems with pertinent positive or pertinent negative responses have been documented in the HPI. ROS Other: All systems not noted in ROS Statement are negative. Past Medical History Past Medical History: Cancer, CVA/TIA, GERD/Reflux, Hyperlipidemia, Hypertension Additional Past Medical History / Comment(s): history of aortic stenosis status post valve replacement, aortic dissection status post repair, AAA, skin cancer History of Any Multi-Drug Resistant Organisms: None Reported Past Surgical History: Appendectomy Additional Past Surgical History / Comment(s): aorticvalve replacement , AAA repair, skin cancer removal 2020 Past Anesthesia/Blood Transfusion Reactions: No Reported Reaction Past Psychological History: Anxiety Smoking Status: Never smoker Past Alcohol Use History: Daily, Heavy Past Drug Use History: None Reported - Past Family History Brother(s) Family Medical History: Cancer Mother Family Medical History: Cancer, Coronary Artery Disease (CAD) Father Family Medical History: No Reported History Additional Family Medical History / Comment(s): Father was healthy General Exam Limitations: no limitations General appearance: alert, in no apparent distress Head exam: Present: atraumatic, normocephalic, normal inspection Eye exam: Present: normal appearance, PERRL, EOMI. Absent: scleral icterus, conjunctival injection, periorbital swelling ENT exam: Present: normal exam, mucous membranes moist Neck exam: Present: normal inspection. Absent: tenderness, meningismus, lymphadenopathy Respiratory exam: Present: normal lung sounds bilaterally. Absent: respiratory distress, wheezes, rales, rhonchi, stridor Cardiovascular Exam: Present: regular rate, normal rhythm, normal heart sounds. Absent: systolic murmur, diastolic murmur, rubs, gallop, clicks GI/Abdominal exam: Present: soft, normal bowel sounds. Absent: distended, tenderness, guarding, rebound, rigid Extremities exam: Present: normal inspection, full ROM, normal capillary refill. Absent: tenderness, pedal edema, joint swelling, calf tenderness Back exam: Present: normal inspection Neurological exam: Present: alert, oriented X3, CN II-XII intact Psychiatric exam: Present: normal affect, normal mood Skin exam: Present: warm, dry, intact, normal color. Absent: rash Course Vital Signs 02/17/23 02/18/23 02/18/23 23:57 02:17 05:48 Temperature 97.9 F Pulse Rate 63 49 L 48 L Respiratory 18 16 16 Rate Blood Pressure 121/82 116/89 142/82 O2 Sat by Pulse 98 97 99 Oximetry 02/18/23 02/18/23 02/18/23 08:41 08:44 08:54 Temperature Pulse Rate 50 L 56 L Respiratory Rate Blood Pressure O2 Sat by Pulse 97 Oximetry 02/18/23 02/18/23 02/18/23 09:04 09:24 11:21 Temperature 97.5 F L Pulse Rate 47 L 52 L 58 L Respiratory 19 19 18 Rate Blood Pressure 99/70 129/101 122/90 O2 Sat by Pulse 95 100 95 Oximetry 02/18/23 02/18/23 02/18/23 11:47 11:55 15:26 Temperature Pulse Rate 54 L 50 L 59 L Respiratory Rate Blood Pressure O2 Sat by Pulse Oximetry 02/18/23 02/18/23 02/18/23 15:35 16:28 16:36 Temperature 97.4 F L Pulse Rate 56 L 55 L 55 L Respiratory 19 18 Rate Blood Pressure 129/82 129/82 O2 Sat by Pulse 96 96 Oximetry - Reevaluation(s) Reevaluation #1: 02/18/23 00:35 [facility] record is reviewed Reevaluation #2: Symptoms are unchanged here in the ER Reevaluation #3: Patient informed results and questions answered Reevaluation #4: 02/18/23 00:35 Was pt. sent in by a medical professional or institution (, [facility], [employer], urgent care, hospital, or longterm...) When possible be specific @ -no Did you speak to anyone other than the patient for history (EMS, parent, family, police, friend...)? What history was obtained from this source @ -no Did you review nursing and triage notes (agree or disagree)? Why? @ -agree Are old charts reviewed (outside hosp., previous admission, EMS record, old EKG, old radiological studies, urgent care reports/EKG's, longterm records)? Report findings @ -yes Differential Diagnosis (chest pain, altered mental status, abdominal pain women, abdominal pain men, vaginal bleeding, weakness, fever, dyspnea, syncope, he adache, dizziness, GI bleed, back pain, seizure, CVA, palpatations, mental health, musculoskeletal)? @ -prior EKG interpreted by me (3pts min.). @ -yes X-rays interpreted by me (1pt min.). @ -yes CT interpreted by me (1pt min.). @ -no U/S interpreted by me (1pt. min.). @ -no What testing was considered but not performed or refused? (CT, X-rays, U/S, labs)? Why? @ -none What meds were considered but not given or refused? Why? @ -none Did you discuss the management of the patient with other professionals (professionals i.e. [facility]ose[facility], [employer], lab, RT, psych nurse, director of social media marketing, casting house laborer, teacher, health promotion officer, casework manager)? Give summary @ -no Was smoking cessation discussed for >3mins.? @ -no Was critical care preformed (if so, how long)? @ -no Were there social determinants of health that impacted care today? How? (Homelessness, low income, unemployed, alcoholism, drug addiction, t ransportation, low edu. Level, literacy, decrease access to med. care, correction, rehab)? @ -none Was there de-escalation of care discussed even if they declined (Discuss DNR or withdrawal of care, Hospice)? DNR status @ -no What co-morbidities impacted this encounter? (DM, HTN, Smoking, COPD, CAD, Can cer, CVA, ARF, Chemo, Hep., AIDS, mental health diagnosis, sleep apnea, morbid obesity)? @ -none Was patient admitted / discharged? Hospital course, mention meds given and route, prescriptions, significant lab abnormalities, going to OR and other pertinent info. @ - 77 male to the emergency department today for evaluation what he describes as lumps on his neck does appear to have significant JVD, CHF on x-ray CHF with lower extremity edema significant despite Lasix treatment. Patient is also found to be bradycardic patient will be admitted for cardiology evaluation and treatment Admitted Undiagnosed new problem with uncertain prognosis? @ -no Drug Therapy requiring intensive monitoring for toxicity (Heparin, Nitro, Insulin, Cardizem)? @ -no Were any procedures done? @ -no Diagnosis/symptom? @ -CHF, weakness, leg edema Acute, or Chronic, or Acute on Chronic? @ -Acute Uncomplicated (without systemic symptoms) or Complicated (systemic symptoms)? @ -Complicated Side effects of treatment? @ -no Exacerbation, Progression, or Severe Exacerbation? @ -exacerbation Poses a threat to life or bodily function? How? (Chest pain, [place], [place], pneumonia, PE, COPD, DKA, ARF, appy, cholecystitis, CVA, Diverticulitis, Homicidal, Suicidal, threat to staff... and all critical care pts) @ -yes Reevaluation #5: Differential Dyspnea: Coronary syndrome, arrhythmia, tamponade, asthma, COPD, pulmonary embolism, pneumonia, pneumothorax, pulmonary effusion, anaphylaxis, diabetic ketoacidosis, flailed chest, pulmonary contusion, diaphragmatic rupture, anemia, neuromuscular, this is not meant to be an all-inclusive list. - Consultations Consultation #1: Spoke with admitting physicians agreeable to admit this patient Medical Decision Making - Medical Decision Making 77 male to the emergency department today for evaluation what he describes as lumps on his neck does appear to have significant JVD, CHF on x-ray CHF with lower extremity edema significant despite Lasix treatment. Patient is also found to be bradycardic patient will be admitted for cardiology evaluation and treatment - Lab Data Result diagrams: 02/18/23 00:46 02/19/23 05:33 Lab Results 02/18/23 02/18/23 02/18/23 Range/Units 00:46 00:46 00:46 WBC 8.4 (3.8-10.6) k/uL RBC 3.73 L (4.30-5.90) m/uL Hgb 11.8 L (13.0-17.5) gm/dL Hct 35.4 L (39.0-53.0) % MCV 94.8 (80.0-100.0) fL MCH 31.7 (25.0-35.0) pg MCHC 33.4 (31.0-37.0) g/dL RDW 15.1 (11.5-15.5) % Plt Count 103 L (150-450) k/uL MPV 8.5 Neutrophils % 68 % Lymphocytes % 17 % Monocytes % 10 % Eosinophils % 2 % Basophils % 0 % Neutrophils # 5.7 (1.3-7.7) k/uL Lymphocytes # 1.4 (1.0-4.8) k/uL Monocytes # 0.9 (0-1.0) k/uL Eosinophils # 0.1 (0-0.7) k/uL Basophils # 0.0 (0-0.2) k/uL PT 12.2 H (9.0-12.0) sec INR 1.2 H (<1.2) APTT 23.7 (22.0-30.0) sec Sodium 132 L (137-145) mmol/L Potassium 4.0 (3.5-5.1) mmol/L Chloride 101 (98-107) mmol/L Carbon Dioxide 23 (22-30) mmol/L Anion Gap 8 mmol/L BUN 38 H (9-20) mg/dL Creatinine 1.40 H (0.66-1.25) mg/dL Est GFR (CKD-EPI)AfAm 56 (>60 ml/min/1.73 sqM) Est GFR (CKD-EPI)NonAf 49 (>60 ml/min/1.73 sqM) Glucose 109 H (74-99) mg/dL Calcium 8.4 (8.4-10.2) mg/dL Phosphorus 4.1 (2.5-4.5) mg/dL Magnesium 2.1 (1.6-2.3) mg/dL Total Bilirubin 0.9 (0.2-1.3) mg/dL AST 39 (17-59) U/L ALT 30 (4-49) U/L Alkaline Phosphatase 135 H (38-126) U/L Troponin I (0.000-0.034) ng/mL NT-Pro-B Natriuret Pep 7340 pg/mL Total Protein 5.8 L (6.3-8.2) g/dL Albumin 3.5 (3.5-5.0) g/dL 02/18/23 Range/Units 00:46 WBC (3.8-10.6) k/uL RBC (4.30-5.90) m/uL Hgb (13.0-17.5) gm/dL Hct (39.0-53.0) % MCV (80.0-100.0) fL MCH (25.0-35.0) pg MCHC (31.0-37.0) g/dL RDW (11.5-15.5) % Plt Count (150-450) k/uL MPV Neutrophils % % Lymphocytes % % Monocytes % % Eosinophils % % Basophils % % Neutrophils # (1.3-7.7) k/uL Lymphocytes # (1.0-4.8) k/uL Monocytes # (0-1.0) k/uL Eosinophils # (0-0.7) k/uL Basophils # (0-0.2) k/uL PT (9.0-12.0) sec INR (<1.2) APTT (22.0-30.0) sec Sodium (137-145) mmol/L Potassium (3.5-5.1) mmol/L Chloride (98-107) mmol/L Carbon Dioxide (22-30) mmol/L Anion Gap mmol/L BUN (9-20) mg/dL Creatinine (0.66-1.25) mg/dL Est GFR (CKD-EPI)AfAm (>60 ml/min/1.73 sqM) Est GFR (CKD-EPI)NonAf (>60 ml/min/1.73 sqM) Glucose (74-99) mg/dL Calcium (8.4-10.2) mg/dL Phosphorus (2.5-4.5) mg/dL Magnesium (1.6-2.3) mg/dL Total Bilirubin (0.2-1.3) mg/dL AST (17-59) U/L ALT (4-49) U/L Alkaline Phosphatase (38-126) U/L Troponin I 0.020 (0.000-0.034) ng/mL NT-Pro-B Natriuret Pep pg/mL Total Protein (6.3-8.2) g/dL Albumin (3.5-5.0) g/dL - EKG Data -: EKG Interpreted by Me (EKG is A. fib 46 QRS 93 QTC 424) - Radiology Data Radiology results: report reviewed (Chest x-rays positive for CHF), image reviewed Disposition Clinical Impression: CHF (congestive heart failure), Bradycardia, Bilateral leg edema, Aortic aneurysm, thoracic Disposition: ADMITTED IP TO THIS HOSP Condition: Good Is patient prescribed a controlled substance at d/c from ED?: No Time of Disposition: 02:20
[2023-02-18 00:57] LABS: Basophils % (A) 0 %; Eosinophils # (A) 0.1 k/uL (0-0.7); Eosinophils % (A) 2 %; HCT 35.4 % (39.0-53.0); HGB 11.8 gm/dL (13.0-17.5); Lymphocytes # (A) 1.4 k/uL (1.0-4.8); Lymphocytes % (A) 17 %; MCH 31.7 pg (25.0-35.0); MCHC 33.4 g/dL (31.0-37.0); MCV 94.8 fL (80.0-100.0); Mean Platelet Volume 8.5; Monocytes # (A) 0.9 k/uL (0-1.0); Monocytes % (A) 10 %; Neutrophils # (A) 5.7 k/uL (1.3-7.7); Neutrophils % (A) 68 %; Platelet Count 103 k/uL (150-450); RBC 3.73 m/uL (4.30-5.90); RDW 15.1 % (11.5-15.5); WBC 8.4 k/uL (3.8-10.6)
[2023-02-18 01:05] LABS: African American GFR (CKD) 56 (>60 ml/min/1.73 sqM); Anion Gap 8 mmol/L; Blood Urea Nitrogen 38 mg/dL (9-20); Calcium 8.4 mg/dL (8.4-10.2); Carbon Dioxide 23 mmol/L (22-30); Chloride 101 mmol/L (98-107); Glucose 109 mg/dL (74-99); Magnesium 2.1 mg/dL (1.6-2.3); Non-African American GFR(CKD) 49 (>60 ml/min/1.73 sqM); Phosphorus 4.1 mg/dL (2.5-4.5); Sodium 132 mmol/L (137-145); Total Protein 5.8 g/dL (6.3-8.2)
[2023-02-18 01:06] LABS: ALT 30 U/L (4-49); AST 39 U/L (17-59); Albumin 3.5 g/dL (3.5-5.0); Alkaline Phosphatase 135 U/L (38-126); Total Bilirubin 0.9 mg/dL (0.2-1.3)
[2023-02-18 01:14] LABS: NT-Pro-B-Type Natriuretic Pept 7340 pg/mL
[2023-02-18 01:15] LABS: INR 1.2 (<1.2); Partial Thromboplastin Time 23.7 sec (22.0-30.0); Prothrombin Time 12.2 sec (9.0-12.0)
--- NOTE | 2023-02-18 01:47 | XR ---
EXAM: XR Chest, 2 Views CLINICAL HISTORY: ITS.REASON XR Reason: Weakness TECHNIQUE: Frontal and lateral views of the chest. COMPARISON: No relevant prior studies available. FINDINGS: Lungs: No consolidation or mass. Mild vascular congestion. Pleural space: No effusion. Heart: cardiomegaly. Bones/joints: No acute findings. IMPRESSION: Mild vascular congestion.
[2023-02-18] MEDS ORDERED: ALPRAZolam 0.25 MG TAB PO PRN (05:40)
[2023-02-18] MEDS ORDERED: ACETAMINOPHEN TAB 500 MG TAB PO PRN (05:40)
--- NOTE | 2023-02-18 05:52 | P.HPIM ---
History of Present Illness H&P Date: 02/18/23 Chief Complaint: Leg edema 77-year-old male with congestive heart failure, COPD, A. fib Patient coming in due to concerns about knots in his neck. He also reports some increase shortness of breath gradually over the past week to a point where now he cannot lay down and having orthopnea paroxysmal maternal dyspnea and reports shortness of breath on [id number] exertion he denies any shortness of breath while resting doing nothing. He also noticed increased gradual leg edema bilaterally he takes diuretics at home which has been adjusted by his doctor with no much benefit. He denies any chest pain denies any coughing denies any fevers chills or upper respiratory infection symptoms he denies any wheezing, denies any nausea vomiting denies any diarrhea or GI bleeding he denies any abdominal pain hematuria or urinary changes He reports history of stroke with left-sided weakness and history of open heart surgery with pig valve replacement Denies any tobacco smoking and illicit drugs however he does admit to daily alcohol drink he drinks 4 beers daily review of systems Pertinent positives as noted in HPI. All other systems were reviewed and are negative on exam Constitutional: No acute distress, conversant, pleasant Eyes: Anicteric sclerae, moist conjunctiva, Pupils equal round reactive to light ENMT: NC/AT Oropharynx clear, no erythema, or exudates Neck: Supple, no masses, positive JVD bilaterally with engorged veins No carotid bruits No thyromegaly Lungs: Decreased breath sounds at lung basis with respiratory rales no wheezing Clear to percussion Normal respiratory effort, no accessory muscle use Cardiovascular: Heart regular in rate and rhythm, Positive murmurs, no gallops, or rubs +2 bilateral peripheral edema Abdominal: Soft Nontender, no guarding, rebound or rigidity Abdomen moving with respiration Normoactive bowel sounds No hepatomegaly, No splenomegaly No palpable mass No abdominal wall hernia noted Skin: Normal temperature, tone, texture, turgor Extremities: No digital cyanosis No clubbing Pedal pulses intact and symmetrical Radial pulses intact and symmetrical No calf tenderness Psychiatric: Alert and oriented to person, place and time Appropriate affect fair judgment Neuro Muscles Strength 5/5 in right upper extremities and lower extremiti es, 4 out of 5 over the left upper and lower extremities Sensation to light touch grossly present throughout Cranial nerves II-XII grossly intact Lymphatics: no palpable cervical or supraclavicular lymph nodes Past Medical History Past Medical History: Cancer, CVA/TIA, GERD/Reflux, Hyperlipidemia, Hypertension Additional Past Medical History / Comment(s): history of aortic stenosis status post valve replacement, aortic dissection status post repair, AAA, skin cancer History of Any Multi-Drug Resistant Organisms: None Reported Past Surgical History: Appendectomy Additional Past Surgical History / Comment(s): aorticvalve replacement , AAA repair, skin cancer removal 2020 Past Anesthesia/Blood Transfusion Reactions: No Reported Reaction Past Psychological History: Anxiety Smoking Status: Never smoker Past Alcohol Use History: Daily, Heavy Past Drug Use History: None Reported - Past Family History Brother(s) Family Medical History: Cancer Mother Family Medical History: Cancer, Coronary Artery Disease (CAD) Father Family Medical History: No Reported History Additional Family Medical History / Comment(s): Father was healthy Medications and Allergies Home Medications Medication Instructions Recorded Confirmed Type ALPRAZolam [Xanax] 0.25 mg PO Q8H PRN 06/13/17 04/05/21 History Cinnamon Bark [Cinnamon] 1,000 mg PO HS 06/13/17 04/05/21 History L.acidoph,Paracasei, B.lactis 1 cap PO DAILY 06/13/17 04/05/21 History [Probiotic] Ubidecarenone [Co Q-10] 200 mg PO DAILY 05/15/20 04/05/21 History Zinc 25 mg PO DAILY 05/15/20 04/05/21 History Clopidogrel [Plavix] 75 mg PO DAILY #30 tab 05/18/20 04/05/21 Rx Apha Lipoc Acid 250 mg PO HS 09/09/20 04/05/21 History Arnica & [place] Gel 1 applic TOPICAL DAILY PRN 09/09/20 04/05/21 History Cholecalciferol [Vitamin D3 (25 25 mcg PO DAILY 09/09/20 04/05/21 History Mcg = 1000 Iu)] Cranberry + Vitamin C 1 tab PO HS 09/09/20 04/05/21 History Cyclobenzaprine [Flexeril] 10 mg PO DAILY PRN 09/09/20 04/05/21 History Glucosam/Luis-Msm1/C/Reinaldo/Bosw 2 tab PO DAILY 09/09/20 04/05/21 History [Yutfatrpkoe-Ecmjtxzusff-YCZ Tb] Magnesium Glycinate 400 mg PO DAILY 09/09/20 04/05/21 History Methyl B12/Methyl Folate 1 tab PO DAILY 09/09/20 04/05/21 History Multivit-Min/Folic/Vit K/Lycop 1 tab PO DAILY 09/09/20 04/05/21 History [Men's Multivitamin Tablet] [place] Epa Dha 720 1 cap PO HS 09/09/20 04/05/21 History Papaya [Papaya Enzyme] 1 tab PO DAILY PRN 09/09/20 04/05/21 History Acetaminophen [Tylenol Extra 500 mg PO Q8H PRN 04/05/21 04/05/21 History Strength] Atorvastatin [Lipitor] 20 mg PO HS 04/05/21 04/05/21 History Bumetanide 1 mg PO DAILY 04/05/21 04/05/21 History Fluticasone/Umeclidin/Vilanter 1 puff INHALATION RT-DAILY 04/05/21 04/05/21 History [Trelegy Ellipta 100-62.5-25] Spironolactone 25 mg PO DAILY 04/05/21 04/05/21 History Telmisartan 80 mg PO DAILY 04/05/21 04/05/21 History Apixaban [Eliquis] 5 mg PO BID #60 tab 04/06/21 Rx Allergies Allergy/AdvReac Type Severity Reaction Status Date / Time Sulfa (Sulfonamide Allergy Anaphylaxis Verified 02/18/23 00:03 Antibiotics) Physical Exam Vitals: Vital Signs Temp Pulse Resp BP Pulse Ox 02/18/23 02:17 49 L 16 116/89 97 02/17/23 23:57 97.9 F 63 18 121/82 98 Intake and Output 02/17/23 02/17/23 02/18/23 14:59 22:59 06:59 Other: Weight 86.183 kg Results CBC & Chem 7: 02/18/23 00:46 02/18/23 00:46 Labs: Abnormal Lab Results - Last 24 Hours (Table) 02/18/23 02/18/23 02/18/23 Range/Units 00:46 00:46 00:46 RBC 3.73 L (4.30-5.90) m/uL Hgb 11.8 L (13.0-17.5) gm/dL Hct 35.4 L (39.0-53.0) % Plt Count 103 L (150-450) k/uL PT 12.2 H (9.0-12.0) sec INR 1.2 H (<1.2) Sodium 132 L (137-145) mmol/L BUN 38 H (9-20) mg/dL Creatinine 1.40 H (0.66-1.25) mg/dL Glucose 109 H (74-99) mg/dL Alkaline Phosphatase 135 H (38-126) U/L Total Protein 5.8 L (6.3-8.2) g/dL Assessment and Plan Assessment: 77-year-old male coming in for engorged neck veins and reporting new onset exertional dyspnea on mild to moderate exertion I discussed the case with the ED doctor and I accepted the admission for acute CHF exacerbation for further cardiac workup Acute CHF exacerbation Echocardiogram from 2020 showing left ventricular ejection fraction of 60% Continue with salt and fluid restriction Daily weights Continue with metoprolol 50 mg daily, Hold telmisartan secondary to acute kidney injury Lasix IV push 40 mg twice a day Continue spironolactone 25 mg daily Check new echocardiogram Cardiology consult Troponin negative BMP 7340 elevated Chest x-ray showed acute pulmonary vascular congestion Acute kidney injury Avoid nephrotoxic meds Hold telmisartan Monitor urine output Renal function showing BUN of 38 creatinine 1.4 Sodium 132 potassium 4.0 Atrial fibrillation status post pacemaker Continue with metoprolol and Eliquis 5 mg twice a day History of stroke with left-sided weakness Continue with atorvastatin 20 mg daily at bedtime Continue with Plavix daily 75 mg J prophylaxis Protonix 40 mg by mouth daily 50 prophylaxis on Eliquis for A. fib Full code
[2023-02-18] MEDS ORDERED: LORazepam 1 MG TAB PO PRN ×3 (05:53)
[2023-02-18] MEDS ORDERED: LORazepam 0.5 MG TAB PO PRN (05:53)
[2023-02-18] MEDS: IPRATROPIUM 0.5 MG/2.5 ML NEBU INHALATION SCH ×4 (08:41→20:58)
[2023-02-18] MEDS: SYMBICORT 80-4.5 MCG INHALER INHALATION SCH ×2 (08:41→20:58)
[2023-02-18] MEDS ORDERED: CLOPIDOGREL 75 MG TAB PO SCH (09:00)
[2023-02-18] MEDS ORDERED: METOPROLOL SUCCINATE (ER) 50 MG TAB.ER.24H PO SCH (09:00)
[2023-02-18] MEDS: APIXABAN 5 MG TAB PO SCH ×2 (09:13→20:26)
[2023-02-18] MEDS: FUROSEMIDE 10 MG/ML 4 ML VIAL IV SCH ×2 (09:13→20:26)
[2023-02-18] MEDS: SPIRONOLACTONE 25 MG TAB PO SCH (09:14)
--- NOTE | 2023-02-18 12:58 | P.CRDCN ---
History of Present Illness History of present illness: HISTORY OF PRESENT ILLNESS: This is a 77-year-old male with a past medical history significant for congestive heart failure, hypertension, hyperlipidemia, aortic stenosis, aortic valve replacement in 2012, mitral valve repair, aortic dissection 6 weeks following aortic valve replacement status post repair, AAA and CVA. Patient follows with a Dr. Telles out of [place]. We have been asked to see the patient in consultation for congestive heart failure. Patient examined at the bedside in the emergency room. Patient presented to the hospital for chief complaint of shortness of breath. He states over the past couple days his shortness of breath has been getting progressively worse. He states he has been waking up in the middle of the night short of breath. He denied having any chest pain or pressure. The patient was found to be in acute congestive heart failure and was started on IV Lasix. * EKG reveals atrial fibrillation with slow ventricular rate * Chest xray mild vascular congestion * Laboratory data: WBC 8.4. Hemoglobin 11.8. Platelet count 103. Sodium 132. Potassium 4.0. B UN 38. Creatinine 1.40. Troponin negative 3. ProBNP 7340. * Current home cardiac medications include Eliquis 5mg BID, Lipitor 20 mg at night, Lasix 40 mg daily, metoprolol succinate 50 mg daily, and spironolactone 25 mg daily * Most recent echocardiogram obtained in August 2020 revealed ejection fraction 60-65%, normally functioning bioprosthetic valve, mitral valve repair, mild tricuspid regurgitation, severe pulmonary hypertension REVIEW OF SYSTEMS: At the time of my exam: CONSTITUTIONAL: Denies fever or chills. HEENT: Denies blurred vision, vision changes, or eye pain. Denies hemoptysis CARDIOVASCULAR: Denies chest pain. Denies orthopnea. Denies PND. Denies palpitations RESPIRATORY: Reports shortness of breath. GASTROINTESTINAL: Denies abdominal pain. Denies nausea or vomiting. HEMATOLOGIC: Denies bleeding disorders. GENITOURINARY: Denies any blood in urine. SKIN: Denies pruitis. Denies rash. PHYSICAL EXAM: VITAL SIGNS: Reviewed. GENERAL: Well-developed in no acute distress. HEENT: Head is normocephalic. Pupils are equal, round. Sclerae anicteric. Mucous membranes of the mouth are moist. Neck supple. No JVD or thyromegaly LUNGS: Respirations even and unlabored. Lungs diminished with bibasilar rales HEART: Regular rate and rhythm. S1 and S2 heard. ABDOMEN: Soft. Nondistended. Nontender. EXTREMITIES: Normal range of motion. No clubbing or cyanosis. Peripheral pulses intact. bilateral lower extremity edema NEUROLOGIC: Awake and alert. Oriented x 3. ASSESSMENT: Shortness of breath Acute on chronic heart failure with preserved ejection fraction Hypertension Hyperlipidemia History of aortic stenosis with previous aortic valve replacement2011 History of mitral valve repair History of aortic dissection 6 weeks following aortic valve replacement History of CVA PLAN: Obtain 2-D echo to assess cardiac structure and function Resume home cardiac medications Discontinue metoprolol secondary to bradycardia Continue IV Lasix Daily weights, accurate I&O, and monitoring of kidney function Further recommendations for any patient course Nurse practitioner note has been reviewed by physician. Signing provider agrees with the documented findings, assessment, and plan of care. Past Medical History Past Medical History: Cancer, CVA/TIA, GERD/Reflux, Hyperlipidemia, Hypertension Additional Past Medical History / Comment(s): history of aortic stenosis status post valve replacement, aortic dissection status post repair, AAA, skin cancer History of Any Multi-Drug Resistant Organisms: None Reported Past Surgical History: Appendectomy Additional Past Surgical History / Comment(s): aorticvalve replacement , AAA repair, skin cancer removal 2020 Past Anesthesia/Blood Transfusion Reactions: No Reported Reaction Past Psychological History: Anxiety Smoking Status: Never smoker Past Alcohol Use History: Daily, Heavy Past Drug Use History: None Reported - Past Family History Brother(s) Family Medical History: Cancer Mother Family Medical History: Cancer, Coronary Artery Disease (CAD) Father Family Medical History: No Reported History Additional Family Medical History / Comment(s): Father was healthy Medications and Allergies Home Medications Medication Instructions Recorded Confirmed Type ALPRAZolam [Xanax] 0.25 mg PO DAILY PRN 06/13/17 02/18/23 History L.acidoph,Paracasei, B.lactis 1 cap PO DAILY 06/13/17 02/18/23 History [Probiotic] Ubidecarenone [Co Q-10] 200 mg PO DAILY 05/15/20 02/18/23 History Arnica & [place] Gel 1 applic TOPICAL DAILY PRN 09/09/20 02/18/23 History Cholecalciferol [Vitamin D3 (25 25 mcg PO DAILY 09/09/20 02/18/23 History Mcg = 1000 Iu)] Cyclobenzaprine [Flexeril] 10 mg PO DAILY PRN 09/09/20 02/18/23 History Glucosam/Luis-Msm1/C/Reinaldo/Bosw 2 tab PO DAILY 09/09/20 02/18/23 History [Koghmpshstk-Hlbvkbhxcon-GGT Tb] Methyl B12/Methyl Folate 1 tab PO DAILY 09/09/20 02/18/23 History Multivit-Min/Folic/Vit K/Lycop 1 tab PO DAILY 09/09/20 02/18/23 History [Men's Multivitamin Tablet] Papaya [Papaya Enzyme] 1 tab PO DAILY 09/09/20 02/18/23 History Acetaminophen [Tylenol Extra 500 mg PO Q8H PRN 04/05/21 02/18/23 History Strength] Fluticasone/Umeclidin/Vilanter 1 puff INHALATION RT-DAILY 04/05/21 02/18/23 History [Trelegy Ellipta 100-62.5-25] Spironolactone 25 mg PO DAILY 04/05/21 02/18/23 History Telmisartan 80 mg PO DAILY 04/05/21 02/18/23 History Apixaban [Eliquis] 5 mg PO BID #60 tab 04/06/21 02/18/23 Rx Alpha Lipoic Acid 250mg 1 tab PO HS 02/18/23 02/18/23 History Atorvastatin [Lipitor] 20 mg PO HS 02/18/23 02/18/23 History [place] Cinnamon 1000mg 1 tab PO HS 02/18/23 02/18/23 History Furosemide [Lasix] 40 mg PO DAILY 02/18/23 02/18/23 History Magnesium Asporotate 400mg 2 tab PO DAILY 02/18/23 02/18/23 History Metoprolol Succinate (ER) [Toprol 50 mg PO DAILY 02/18/23 02/18/23 History Xl] [place]/Epa/Dha 160/860/580mg 1 tab PO HS 02/18/23 02/18/23 History Zinc Picolinate 22mg 1 tab PO DAILY 02/18/23 02/18/23 History Allergies Allergy/AdvReac Type Severity Reaction Status Date / Time Sulfa (Sulfonamide Allergy Anaphylaxis Verified 02/18/23 07:47 Antibiotics) Physical Exam Vitals: Vital Signs Temp Pulse Resp BP Pulse Ox 02/18/23 11:21 97.5 F L 58 L 18 122/90 95 02/18/23 09:24 52 L 19 129/101 100 02/18/23 09:04 47 L 19 99/70 95 02/18/23 08:54 56 L 02/18/23 08:44 50 L 02/18/23 08:41 97 02/18/23 05:48 48 L 16 142/82 99 02/18/23 02:17 49 L 16 116/89 97 02/17/23 23:57 97.9 F 63 18 121/82 98 Intake and Output 02/17/23 02/18/23 02/18/23 22:59 06:59 14:59 Other: Weight 86.183 kg Results 02/18/23 00:46 02/18/23 00:46 Cardiac Enzymes 02/18/23 02/18/23 02/18/23 Range/Units 00:46 00:46 05:43 AST 39 (17-59) U/L Troponin I 0.020 0.016 (0.000-0.034) ng/mL 02/18/23 Range/Units 09:51 AST (17-59) U/L Troponin I 0.016 (0.000-0.034) ng/mL Coagulation 02/18/23 Range/Units 00:46 PT 12.2 H (9.0-12.0) sec APTT 23.7 (22.0-30.0) sec CBC 02/18/23 Range/Units 00:46 WBC 8.4 (3.8-10.6) k/uL RBC 3.73 L (4.30-5.90) m/uL Hgb 11.8 L (13.0-17.5) gm/dL Hct 35.4 L (39.0-53.0) % Plt Count 103 L (150-450) k/uL Comprehensive Metabolic Panel 02/18/23 Range/Units 00:46 Sodium 132 L (137-145) mmol/L Potassium 4.0 (3.5-5.1) mmol/L Chloride 101 (98-107) mmol/L Carbon Dioxide 23 (22-30) mmol/L BUN 38 H (9-20) mg/dL Creatinine 1.40 H (0.66-1.25) mg/dL Glucose 109 H (74-99) mg/dL Calcium 8.4 (8.4-10.2) mg/dL AST 39 (17-59) U/L ALT 30 (4-49) U/L Alkaline Phosphatase 135 H (38-126) U/L Total Protein 5.8 L (6.3-8.2) g/dL Albumin 3.5 (3.5-5.0) g/dL Current Medications Generic Name Dose Route Start Last Admin Trade Name Freq PRN Reason Stop Dose Admin Acetaminophen 500 mg 02/18/23 05:40 Acetaminophen Tab 500 Mg Tab PO Q8H PRN Fever and/ or Pain Alprazolam 0.25 mg 02/18/23 05:40 Alprazolam 0.25 Mg Tab PO Q8H PRN Anxiety Apixaban 5 mg 02/18/23 09:00 02/18/23 09:13 Apixaban 5 Mg Tab PO 5 mg BID ELENA Administration Protocol Atorvastatin Calcium 20 mg 02/18/23 21:00 Atorvastatin 20 Mg Tab PO HS ELENA Budesonide/Formoterol Fumarate 2 puff 02/18/23 08:00 02/18/23 08:41 Symbicort 80-4.5 Mcg Inhaler INHALATION 2 puff RT-BID ELENA Administration Furosemide 40 mg 02/18/23 09:00 02/18/23 09:13 Furosemide 10 Mg/Ml 4 Ml Vial IV 40 mg Q12HR ELENA Administration Ipratropium [place] 0.5 mg 02/18/23 08:00 02/18/23 08:41 Ipratropium 0.5 Mg/2.5 Ml Nebu INHALATION 0.5 mg RT-QID ELENA Administration Lorazepam 0.5 mg 02/18/23 05:53 Lorazepam 0.5 Mg Tab PO Q4HR PRN [place] 4 To 5 Lorazepam 1 mg 02/18/23 05:53 Lorazepam 1 Mg Tab PO Q4HR PRN [place] 6 To 7 Lorazepam 2 mg 02/18/23 05:53 Lorazepam 1 Mg Tab PO Q2HR PRN [place] 10 or greater Lorazepam 2 mg 02/18/23 05:53 Lorazepam 1 Mg Tab PO Q3HR PRN [place] 8 To 9 Spironolactone 25 mg 02/18/23 09:00 02/18/23 09:14 Spironolactone 25 Mg Tab PO 25 mg DAILY ELENA Administration Thiamine HCl 100 mg 02/19/23 09:00 Thiamine 100 Mg Tab PO DAILY ELENA Intake and Output 02/17/23 02/18/23 02/18/23 22:59 06:59 14:59 Other: Weight 86.183 kg 02/18/23 00:46 02/18/23 00:46
--- NOTE | 2023-02-18 17:51 | CA ---
Transthoracic Echo Report Name: Jean Robbins Age: 77 Gender: M : 1945 Exam Date: 02/18/2023 08:16 Exam Location: [place] [facility] Ht (in): 74 Wt (lb): 190 Ordering Physician: Donato Rolle DO Attending/Referring Phys: [id number], Sariah [employer] Rosette Colon [facility] Procedure CPT: Indications: Heart failure Cardiac Hx: Technical Quality: Fair Contrast 1: Total Dose (mL): Contrast 2: Total Dose (mL): MEASUREMENTS (Male / Female) Normal Values 2D ECHO LV Diastolic Diameter PLAX 4.9 cm 4.2 - 5.9 / 3.9 - 5.3 cm LV Systolic Diameter PLAX 3.9 cm IVS Diastolic Thickness 1.0 cm 0.6 - 1.0 / 0.6 - 0.9 cm LVPW Diastolic Thickness 0.9 cm 0.6 - 1.0 / 0.6 - 0.9 cm LV Relative Wall Thickness 0.4 LVOT Diameter 2.0 cm LV Diastolic Volume MOD BP 115.6 cm??? 67 - 155 / 56 - 104 cm??? LV Systolic Volume MOD BP 53.3 cm??? 22 - 58 / 19 - 49 cm??? LV Ejection Fraction MOD BP 53.9 % >= 55 % LV Cardiac Index MOD BP 1290.3 cm???/min???m??? LV Diastolic Volume MOD 4C 110.6 cm??? LV Systolic Volume MOD 4C 51.3 cm??? LV Ejection Fraction MOD 4C 53.6 % LV Cardiac Index MOD 4C 1227.7 cm???/min???m??? LV Diastolic Length 4C 10.0 cm LV Systolic Length 4C 9.1 cm LV Diastolic Volume MOD 2C 118.0 cm??? LV Systolic Volume MOD 2C 53.7 cm??? LV Ejection Fraction MOD 2C 54.5 % LV Cardiac Index MOD 2C 1331.8 cm???/min???m??? LV Diastolic Length 2C 9.7 cm LV Systolic Length 2C 8.7 cm Ascending Aorta Diameter 3.5 cm M-MODE Aortic Root Diameter MM 3.4 cm LA Systolic Diameter MM 5.3 cm LA Ao Ratio MM 1.6 AV Cusp Separation MM 1.8 cm DOPPLER AV Peak Velocity 327.4 cm/s AV Peak Gradient 42.9 mmHg AV Mean Velocity 221.9 cm/s AV Mean Gradient 22.3 mmHg AV Velocity Time Integral 75.7 cm LVOT Peak Velocity 105.0 cm/s LVOT Peak Gradient 4.4 mmHg LVOT Velocity Time Integral 26.6 cm LVOT Stroke Volume 82.8 cm??? LVOT Stroke Volume Index 39.0 ml/m??? LVOT Cardiac Index 1715.2 cm???/min???m??? AV Area Cont Eq vti 1.1 cm??? AV Area Cont Eq pk 1.0 cm??? MV Peak Velocity 139.1 cm/s MV Peak Gradient 7.7 mmHg MV Mean Velocity 72.0 cm/s MV Mean Gradient 2.8 mmHg MV Velocity Time Integral 32.9 cm Mitral E Point Velocity 129.1 cm/s Mitral A Point Velocity 40.9 cm/s Mitral E to A Ratio 3.2 MV Deceleration Time 203.9 ms TR Peak Velocity 281.1 cm/s TR Peak Gradient 31.6 mmHg Right Atrial Pressure 15.0 mmHg Pulmonary Artery Systolic Pressu 46.6 mmHg Right Ventricular Systolic Press 46.6 mmHg FINDINGS Left Ventricle Left ventricular wall thickness normal. Left ventricular cavity size normal. Mildly decreased left ventricular ejection fraction. Left ventricular ejection fraction is estimated at 40 to 45 %. Right Ventricle Severe right ventricular dilatation. Severely reduced right ventricular global systolic function. Moderate pulmonary hypertension. Moderator band noted. Right Atrium Severe right atrial dilatation. Left Atrium Severe left atrial dilatation. Mitral Valve Mitral valve thickened. Mild mitral annular calcification. MV ring noted S/P MV repair. Mild mitral regurgitation. Aortic Valve Porcine aortic valve bioprosthesis with a peak gradient of 42.86 mmHg and a mean gradient of 22 mmHg. No aortic regurgitation. Tricuspid Valve Structurally normal tricuspid valve. Moderate to severe tricuspid regurgitation. Pulmonic Valve Structurally normal pulmonic valve.moderate pulmonic regurgitation. Pericardium No pericardial effusion. Aorta Normal size aortic root and proximal ascending aorta. CONCLUSIONS 1. Moderately impaired left ventricular systolic function 2. Status post mitral valve annuloplasty with mild mitral regurgitation 3. Moderate to severe tricuspid regurgitation with moderate pulmonary hypertension 4. Bioprosthetic aortic valve with a mean gradient of 22 mmHg 5. Dilated right ventricle with severe global hypokinesis Previewed by: Dr. Al Farnsworth MD (Electronically Signed) Final Date: 18 February 2023 17:50
[2023-02-18] MEDS ORDERED: ATORVASTATIN 20 MG TAB PO SCH (21:00)
[2023-02-19 06:37] LABS: African American GFR (CKD) 72 (>60 ml/min/1.73 sqM); Anion Gap 7 mmol/L; Blood Urea Nitrogen 27 mg/dL (9-20); Calcium 8.4 mg/dL (8.4-10.2); Carbon Dioxide 28 mmol/L (22-30); Chloride 100 mmol/L (98-107); Glucose 93 mg/dL (74-99); Non-African American GFR(CKD) 62 (>60 ml/min/1.73 sqM); Potassium 3.5 mmol/L (3.5-5.1); Sodium 135 mmol/L (137-145)
[2023-02-19] MEDS: APIXABAN 5 MG TAB PO SCH (07:28)
[2023-02-19] MEDS: FUROSEMIDE 10 MG/ML 4 ML VIAL IV SCH (07:28)
[2023-02-19] MEDS: SPIRONOLACTONE 25 MG TAB PO SCH (07:29)
[2023-02-19] MEDS: IPRATROPIUM 0.5 MG/2.5 ML NEBU INHALATION SCH ×2 (07:31→11:19)
[2023-02-19] MEDS: SYMBICORT 80-4.5 MCG INHALER INHALATION SCH (07:31)
[2023-02-19 07:34] VITALS: BP 130/72; RESP 16; TEMP 97.6
[2023-02-19] MEDS ORDERED: THIAMINE 100 MG TAB PO SCH (09:00)
[2023-02-19 11:03] VITALS: BMI 22.8
--- NOTE | 2023-02-19 11:14 | P.DS ---
Providers Date of admission: 02/18/23 02:20 Expected date of discharge: 02/19/23 Attending physician: Nitin Bell MD Consults: 02/18/23 02:20 Consult Physician Routine Consulting Provider: Al Farnsworth Consult Reason/Comments: aracelis,CHF Do you want consulting provider notified?: Yes Primary care physician: [facility] Course: Acute systolic heart failure exacerbation, ejection fraction 45% Hypertension Hyperlipidemia Status post aortic valve replacement, mitral valve repair Alcohol use disorder 77-year-old man with a medical history of congestive heart failure, hypertension, hyperlipidemia, aortic stenosis, aortic valve replacement in 2011, mitral valve repair, aortic dissection 6 weeks following aortic valve replacement status post repair, history of CVA presented for evaluation of increasing dyspnea on exertion. In the emergency room, patient was afebrile, 121/82, heart rate 63, 98% on room air. CBC showed anemia down to 11.8, platelets of 103, otherwise unremarkable. Basic metabolic panel showed BUN of 38, creatinine 1.4, sodium 132. Liver function tests are unremarkable. Initial troponin is 0.02 and trended to 1016. BNP was 7340. INR was mildly elevated at 1.2. EKG showed atrial fibrillation with slow ventricular response, left axis deviation. Chest x-ray showed mild vascular congestion. Case is discussed with emergency room provider decision was made to admit the patient to the hospital for heart failure exacerbation. Patient was seen by cardiology who recommended an echocardiogram. Echocardiogram was completed and showed reduction of ejection fraction 45%. Patient was diuresed with Lasix and reported improvement in his symptomatology. He was discharged home with instructions to follow-up with cardiology for further management. Patient was counseled extensively on discontinuation of alcohol. He was discharged on increased dose of Lasix to 40 mg twice a day. I spent 35 minutes coordinating this discharge on 02/19 Gen: awake, alert HEENT: normocephalic, atraumatic, good hearing acuity, moist mucous membranes Resp: good air exchange, breathing comfortably with no accessory muscle use CVS: good distal perfusion x 4, GI: soft, NTTP, ND : no SPT, no CVAT, patel catheter not present MSK: Bilateral pitting edema, no clubbing Neuro: non-focal, moving all extremities Psych: cooperative, euthymic mood Patient Condition at Discharge: Good Plan - Discharge Summary Discharge Rx Participant: No New Discharge Prescriptions: New Thiamine [Vitamin B-1] 100 mg PO DAILY #14 tab Continue ALPRAZolam [Xanax] 0.25 mg PO DAILY PRN PRN Reason: Anxiety L.acidoph,Paracasei, B.lactis [Probiotic] 1 cap PO DAILY Ubidecarenone [Co Q-10] 200 mg PO DAILY Methyl B12/Methyl Folate 1 tab PO DAILY Multivit-Min/Folic/Vit K/Lycop [Men's Multivitamin Tablet] 1 tab PO DAILY Cholecalciferol [Vitamin D3 (25 Mcg = 1000 Iu)] 25 mcg PO DAILY Cyclobenzaprine [Flexeril] 10 mg PO DAILY PRN PRN Reason: Muscle Spasm Arnica & [place] Gel 1 applic TOPICAL DAILY PRN PRN Reason: PAIN/BRUISING Glucosam/Luis-Msm1/C/Reinaldo/Bosw [Qurlnhazlva-Dynjyrtkswy-PVA Tb] 2 tab PO DAILY Telmisartan 80 mg PO DAILY Spironolactone 25 mg PO DAILY Apixaban [Eliquis] 5 mg PO BID #60 tab Alpha Lipoic Acid 250mg 1 tab PO HS [place] Cinnamon 1000mg 1 tab PO HS Zinc Picolinate 22mg 1 tab PO DAILY Atorvastatin [Lipitor] 20 mg PO HS Acetaminophen [Tylenol Extra Strength] 500 mg PO Q8H PRN PRN Reason: Fever And/ Or Pain Fluticasone/Umeclidin/Vilanter [Trelegy Ellipta 100-62.5-25] 1 puff INHALATION RT-DAILY Magnesium Asporotate 400mg 2 tab PO DAILY [place]/Epa/Dha 160/860/580mg 1 tab PO HS Changed Furosemide [Lasix] 40 mg PO BID #60 tab Discontinued Metoprolol Succinate (ER) [Toprol Xl] 50 mg PO DAILY No Action Papaya [Papaya Enzyme] 1 tab PO DAILY Discharge Medication List ALPRAZolam [Xanax] 0.25 mg PO DAILY PRN 06/13/17 [History] L.acidoph,Paracasei, B.lactis [Probiotic] 1 cap PO DAILY 06/13/17 [History] Ubidecarenone [Co Q-10] 200 mg PO DAILY 05/15/20 [History] Arnica & [place] Gel 1 applic TOPICAL DAILY PRN 09/09/20 [History] Cholecalciferol [Vitamin D3 (25 Mcg = 1000 Iu)] 25 mcg PO DAILY 09/09/20 [History] Cyclobenzaprine [Flexeril] 10 mg PO DAILY PRN 09/09/20 [History] Glucosam/Luis-Msm1/C/Reinaldo/Bosw [Uahztndulmo-Nzpxmgzdsez-DPF Tb] 2 tab PO DAILY 09/09/20 [History] Methyl B12/Methyl Folate 1 tab PO DAILY 09/09/20 [History] Multivit-Min/Folic/Vit K/Lycop [Men's Multivitamin Tablet] 1 tab PO DAILY 09/09/20 [History] Papaya [Papaya Enzyme] 1 tab PO DAILY 09/09/20 [History] Acetaminophen [Tylenol Extra Strength] 500 mg PO Q8H PRN 04/05/21 [History] Fluticasone/Umeclidin/Vilanter [Trelegy Ellipta 100-62.5-25] 1 puff INHALATION RT-DAILY 04/05/21 [History] Spironolactone 25 mg PO DAILY 04/05/21 [History] Telmisartan 80 mg PO DAILY 04/05/21 [History] Apixaban [Eliquis] 5 mg PO BID #60 tab 04/06/21 [Rx] Alpha Lipoic Acid 250mg 1 tab PO HS 02/18/23 [History] Atorvastatin [Lipitor] 20 mg PO HS 02/18/23 [History] [place] Cinnamon 1000mg 1 tab PO HS 02/18/23 [History] Magnesium Asporotate 400mg 2 tab PO DAILY 02/18/23 [History] [place]/Epa/Dha 160/860/580mg 1 tab PO HS 02/18/23 [History] Zinc Picolinate 22mg 1 tab PO DAILY 02/18/23 [History] Furosemide [Lasix] 40 mg PO BID #60 tab 02/19/23 [Rx] Thiamine [Vitamin B-1] 100 mg PO DAILY #14 tab 02/19/23 [Rx] Follow up Appointment(s)/Referral(s): Jenny Aceves MD [STAFF PHYSICIAN] - 1 Week (This is the slip sheeter that saw you in the hospital; please either follow up with him or your normal slip sheeter with [facility].) Dean Richards DO [Primary Care Provider] - 02/23/23 1:20 pm ([facility]) Patient Instructions/Handouts: Heart Failure (DC), A-fib (Atrial Fibrillation) (DC), Bradycardia (DC) Discharge Disposition: HOME SELF-CARE
[2023-02-19 11:30] VITALS: PULSE 70
--- NOTE | 2023-02-19 12:23 | P.PN ---
Subjective HISTORY OF PRESENT ILLNESS: This is a 77-year-old male with a past medical history significant for congestive heart failure, hypertension, hyperlipidemia, aortic stenosis, aortic valve replacement in 2012, mitral valve repair, aortic dissection 6 weeks following aortic valve replacement status post repair, AAA and CVA. Patient follows with a Dr. Telles out of [place]. We have been asked to see the patient in consultation for congestive heart failure. Patient examined at the bedside in the emergency room. Patient presented to the hospital for chief complaint of shortness of breath. He states over the past couple days his shortness of breath has been getting progressively worse. He states he has been waking up in the middle of the night short of breath. He denied having any chest pain or pressure. The patient was found to be in acute congestive heart failure and was started on IV Lasix. * EKG reveals atrial fibrillation with slow ventricular rate * Chest xray mild vascular congestion * Laboratory data: WBC 8.4. Hemoglobin 11.8. Platelet count 103. Sodium 132. Potassium 4.0. B UN 38. Creatinine 1.40. Troponin negative 3. ProBNP 7340. * Current home cardiac medications include Eliquis 5mg BID, Lipitor 20 mg at night, Lasix 40 mg daily, metoprolol succinate 50 mg daily, and spironolactone 25 mg daily * Most recent echocardiogram obtained in August 2020 revealed ejection fraction 60-65%, normally functioning bioprosthetic valve, mitral valve repair, mild tricuspid regurgitation, severe pulmonary hypertension 02/19/2023 Patient examined this morning at the bedside. Patient denies chest pain or pressure. He denies shortness of breath. He remains on IV Lasix. He has been ambulating without difficulty. Vital signs are stable. Echocardiogram performed revealing ejection fraction 40-45%, moderate pulmonary hypertension, severe right ventricular dilatation, severe left atrial dilatation, mild mitral regurgitation, moderate to severe tricuspid regurgitation, and porcine aortic valve bioprosthesis noted. PHYSICAL EXAM: VITAL SIGNS: Reviewed. GENERAL: Well-developed in no acute distress. HEENT: Head is normocephalic. Pupils are equal, round. Sclerae anicteric. Mucous membranes of the mouth are moist. Neck supple. No JVD or thyromegaly LUNGS: Respirations even and unlabored. Lungs clear to auscultation bilaterally. HEART: Regular rate and rhythm. S1 and S2 heard. ABDOMEN: Soft. Nondistended. Nontender. EXTREMITIES: Normal range of motion. No clubbing or cyanosis. Peripheral pulses intact. NEUROLOGIC: Awake and alert. Oriented x 3. ASSESSMENT: Shortness of breath Acute on chronic heart failure with preserved ejection fraction, now mildly reduced EF Moderate pulmonary hypertension Hypertension Hyperlipidemia History of aortic stenosis with previous aortic valve replacement, 2011 History of mitral valve repair History of aortic dissection 6 weeks following aortic valve replacement History of CVA PLAN: Continue current cardiac medications Discontinue IV Lasix. Begin oral Lasix 40 mg twice a day Patient's called via phone and updated on patient condition and plan of ca re. All questions answered. 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 Signing provider agrees with the documented findings, assessment, and plan of care. Objective - Vital Signs Vital signs: Vital Signs Temp 97.6 F 02/19/23 07:21 Pulse 70 02/19/23 11:30 Resp 16 02/19/23 07:21 BP 130/72 02/19/23 07:21 Pulse Ox 96 02/19/23 07:31 FiO2 Intake & Output 02/18/23 02/19/23 02/19/23 18:59 06:59 18:59 Intake Total 180 Balance 180 Weight 86.183 kg 80.8 kg 80.8 kg Intake: Oral 180 Other: Voiding Method Toilet Toilet Urinal Urinal # Voids 1 2 - Labs CBC & Chem 7: 02/18/23 00:46 02/19/23 05:33 Labs: Abnormal Lab Results - Last 24 Hours (Table) 02/19/23 Range/Units 05:33 Sodium 135 L (137-145) mmol/L BUN 27 H (9-20) mg/dL
[2023-02-19] MEDS ORDERED: FUROSEMIDE 40 MG TAB PO SCH (16:00)
== END 2023-02-19 12:18 | disposition home or self-care (01) ==
LOC: EC 23:56 → 3SCARD 02-18 02:20 → INTOOBSV 02-18 02:20 → 3SCARD 02-18 02:30 → UNDODISIN 02-19 12:18
PROVIDERS: ADMIT Internal Medicine; ATTEND Internal Medicine
DX: I11.0 Hypertensive heart disease with heart failure (principal); I50.43 Acute on chronic combined systolic (congestive) and diastolic (congestive) heart failure; R00.1 Bradycardia, unspecified; R60.0 Localized edema; I71.20 Thoracic aortic aneurysm, without rupture, unspecified; N17.9 Acute kidney failure, unspecified; K21.9 Gastro-esophageal reflux disease without esophagitis; E78.5 Hyperlipidemia, unspecified; F41.9 Anxiety disorder, unspecified; F10.20 Alcohol dependence, uncomplicated; J44.9 Chronic obstructive pulmonary disease, unspecified; I48.91 Unspecified atrial fibrillation; I27.20 Pulmonary hypertension, unspecified; I69.354 Hemiplegia and hemiparesis following cerebral infarction affecting left non-dominant side; Z95.0 Presence of cardiac pacemaker; Z95.4 Presence of other heart-valve replacement; Z85.820 Personal history of malignant melanoma of skin; Z79.899 Other long term (current) drug therapy; Z88.2 Allergy status to sulfonamides; Z82.49 Family history of ischemic heart disease and other diseases of the circulatory system; Z79.01 Long term (current) use of anticoagulants; Z79.02 Long term (current) use of antithrombotics/antiplatelets
CPT/HCPCS: 96376 ×2; 96374; 99285; 36415; 94640 ×4; 94760; 93005; 93306; 83880; 80053; 80048; 83735; 84100; 84484; 85025; 85610; 85730; 71046; G0378 ×2; J1940 ×2

== ENCOUNTER 2024-04-06 16:02 | Inpatient (IN) | payer MEDICARE ==
[2024-04-06 16:54] LABS: INR 1.2 (<1.2); Partial Thromboplastin Time 25.9 sec (22.0-30.0); Prothrombin Time 12.6 sec (10.0-12.5)
[2024-04-06 16:57] LABS: Basophils % (A) 1 %; Eosinophils # (A) 0.2 k/uL (0-0.7); Eosinophils % (A) 3 %; HCT 38.8 % (39.0-53.0); HGB 12.9 gm/dL (13.0-17.5); Lymphocytes # (A) 1.3 k/uL (1.0-4.8); Lymphocytes % (A) 18 %; MCH 31.4 pg (25.0-35.0); MCHC 33.2 g/dL (31.0-37.0); MCV 94.8 fL (80.0-100.0); Mean Platelet Volume 7.5; Monocytes # (A) 0.9 k/uL (0-1.0); Monocytes % (A) 13 %; Neutrophils # (A) 4.4 k/uL (1.3-7.7); Neutrophils % (A) 62 %; Platelet Count 154 k/uL (150-450); RDW 14.5 % (11.5-15.5); WBC 7.2 k/uL (3.8-10.6)
--- NOTE | 2024-04-06 17:05 | ED ---
Chest Pain HPI - General Source: patient, RN notes reviewed Mode of arrival: wheelchair Limitations: no limitations <Eugenia Cam - Last Filed: 04/06/24 17:04> <Donato Mccarty - Last Filed: 04/06/24 19:35> - General Chief Complaint: Chest Pain Stated Complaint: confusion Time Seen by Provider: 04/06/24 17:04 - History of Present Illness Initial Comments: Quick note: 78 year old male to the ER with chief complaint of confusion. is regarding moderate his HPI. 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 reports for the past 3 days he send increasing confusion. He also has been endorsing a cough with yellow phlegm. Patient has been complaining of a chest pressure that has been on and off with exertional dyspnea. states when patient does have heart failure flareups he typically gets confused. Denies any fevers or chills. He has been weak and off balance per . (Eugenai Cam) This is a 78-year-old male who has a past medical history significant for aortic dissection. Patient also has a past history of smoking a couple of decades ago. Patient also has been having difficulty keeping weight on over the last year and according to the he is having signs of dementia and becoming very forgetful at times. states has gotten a lot worse over the last 2 weeks. Patient today has been complaining of shortness of breath and chest pressure for the last 2 days intermittently. Patient states the chest pressure still appears to be there currently. Patient denies any radiation of the pain no arm neck or back pain. Patient denies abdominal pain patient has nausea vomiting diarrhea. Patient denies any fever or chills but he has been having a cough and coughing up quite a bit of sputum. Patient denies any leg swelling or calf tenderness (Donato Mccarty) - Related Data Home Medications Medication Instructions Recorded Confirmed ALPRAZolam [Xanax] 0.25 mg PO DAILY PRN 06/13/17 04/06/24 Multivit-Min/Folic/Vit K/Lycop 1 tab PO DAILY 09/09/20 04/06/24 [Men's Multivitamin Tablet] Fluticasone/Umeclidin/Vilanter 1 puff INHALATION RT-DAILY 04/05/21 04/06/24 [Lorraineciera Joeta 100-62.5-25] Atorvastatin [Lipitor] 20 mg PO HS 02/18/23 04/06/24 Zinc Picolinate 22mg 22 mg PO DAILY 02/18/23 04/06/24 Furosemide [Lasix] 80 mg PO DAILY 04/06/24 04/06/24 Magnesium Oxide [Mag-Ox] 400 mg PO DAILY 04/06/24 04/06/24 Potassium Chloride ER [K-Dur 20] 20 meq PO DAILY 04/06/24 04/06/24 Vitamin D3/Vitamin K2 (Mk4) 1 tab PO DAILY 04/06/24 04/06/24 [Vitamin K2 Plus D3 Tablet] Previous Rx's Medication Instructions Recorded Apixaban [Eliquis] 5 mg PO BID #60 tab 04/06/21 Allergies Allergy/AdvReac Type Severity Reaction Status Date / Time Sulfa (Sulfonamide Allergy Anaphylaxis, Verified 04/06/24 19:15 Antibiotics) Rash Review of Systems ROS Other: All systems not noted in ROS Statement are negative. <Eugenia Cam - Last Filed: 04/06/24 17:04> ROS Other: All systems not noted in ROS Statement are negative. <Donato Mccarty - Last Filed: 04/06/24 19:35> ROS Statement: Those systems with pertinent positive or pertinent negative responses have been documented in the HPI. Past Medical History Past Medical History: Cancer, CVA/TIA, GERD/Reflux, Hyperlipidemia, Hypertension Additional Past Medical History / Comment(s): history of aortic stenosis status post valve replacement, aortic dissection status post repair, AAA, skin cancer History of Any Multi-Drug Resistant Organisms: None Reported Past Surgical History: Appendectomy Additional Past Surgical History / Comment(s): aorticvalve replacement , AAA repair, skin cancer removal 2020 Past Anesthesia/Blood Transfusion Reactions: No Reported Reaction Past Psychological History: Anxiety Smoking Status: Never smoker Past Alcohol Use History: Daily, Heavy Past Drug Use History: None Reported - Past Family History Brother(s) Family Medical History: Cancer Mother Family Medical History: Cancer, Coronary Artery Disease (CAD) Father Family Medical History: No Reported History Additional Family Medical History / Comment(s): Father was healthy <Eugenia Cam - Last Filed: 04/06/24 17:04> General Exam Limitations: no limitations <Eugenia Cam - Last Filed: 04/06/24 17:04> <Donato Mccarty - Last Filed: 04/06/24 19:35> - General Exam Comments Initial Comments: Visual Physical Exam Vital signs reviewed General: Well-appearing, nontoxic, no acute distress. Head: Normocephalic, atraumatic Eyes: PERRLA, EOMI ENT: Airway patent Chest: Nonlabored breathing Skin: No visual rash, normal skin tone Neuro: Alert and oriented 3 Musculoskeletal: No gross abnormalities (Eugenia Cam) GENERAL: Patient is well-developed and well-nourished. Patient is nontoxic and well- hydrated and is in mild distress. ENT: Neck is soft and supple. No significant lymphadenopathy is noted. Oropharynx is clear. Moist mucous membranes. Neck has full range of motion without eliciting any pain. EYES: The sclera were anicteric and conjunctiva were pink and moist. Extraocular movements were intact and pupils were equal round and reactive to light. Eyelids were unremarkable. PULMONARY: Unlabored respirations. Good breath sounds bilaterally. No audible rales rhonchi or wheezing was noted. CARDIOVASCULAR: There is a regular rate and rhythm without any murmurs gallops or rubs. ABDOMEN: Soft and nontender with normal bowel sounds. SKIN: Skin is clear with no lesions or rashes and otherwise unremarkable. NEUROLOGIC: Patient is alert and oriented x3. Cranial nerves II through XII are grossly intact. Motor and sensory are also intact. Normal speech, volume and content. Symmetrical smile. MUSCULOSKELETAL: Normal extremities with adequate strength and full range of motion. Patient has 1+ edema bilaterally LYMPHATICS: No significant lymphadenopathy is noted PSYCHIATRIC: Normal psychiatric evaluation. (Donato Mccarty) Course Vital Signs 04/06/24 04/06/24 04/06/24 16:10 18:26 18:30 Temperature 97.5 F L Pulse Rate 63 78 Pulse Rate [ 64 Chief Compressor Station Engineer ] Respiratory 16 20 Rate Blood Pressure 131/77 135/80 O2 Sat by Pulse 98 99 Oximetry Chest Pain [facility] <Eugenia Cam - Last Filed: 04/06/24 17:04> <Donato Mccarty - Last Filed: 04/06/24 19:35> - [facility] I performed the quick note portion of this chart. Electronically signed by Eugenia Cam PA-C (Eugenia Cam) EKG is interpreted by myself shows atrial fibrillation at a rate of 66 bpm QRS is 98 QT interval 428 QTc is 441. Was pt. sent in by a medical professional or institution (, KELBY, GUEST EXPERIENCE MANAGER, urgent care, hospital, or shelter...) When possible be specific @ -No Did you speak to anyone other than the patient for history (EMS, parent, family, police, friend...)? What history was obtained from this source @ - gives most of the history secondary to the patient's dementia Did you review nursing and triage notes (agree or disagree)? Why? @ -I reviewed and agree with nursing and triage notes Were old charts reviewed (outside hosp., previous admission, EMS record, old EKG, old radiological studies, urgent care reports/EKG's, shelter records)? Report findings @ -No old charts were reviewed Differential Diagnosis? @ -Differential Chest Pain: Stable Angina, Unstable Angina, STEMI, NSTEMI Aortic Dissection, Pneumothorax, Musculoskeletal, Esophageal Spasm GERD, Cholecystitis, Pancreatitis, Zoster, this is not meant to be an all-inclusive list. EKG interpreted by me (3pts min.). @ -As above X-rays interpreted by me (1pt min.). @ -Chest x-ray shows mild pulmonary edema CT interpreted by me (1pt min.). @ -None done U/S interpreted by me (1pt. min.). @ -None done What testing was considered but not performed or refused? (CT, X-rays, U/S, labs)? Why? @ -None What meds were considered but not given or refused? Why? @ -None Did you discuss the management of the patient with other professionals (irving flores i.e. KELBY Moseley, GUEST EXPERIENCE MANAGER, lab, RT, psych nurse, social problems specialist, cloth classer, teacher, hazard mitigation officer, human services case manager)? Give summary @ -I spoke with [facility] hospitalist and they agreed to admit the kelby morfinnt Was smoking cessation discussed for >3mins.? @ -No Was critical care preformed (if so, how long)? @ -No Were there social determinants of health that impacted care today? How? (Homelessness, low income, unemployed, alcoholism, drug addiction, transportation, low edu. Level, literacy, decrease access to med. care, senior living, rehab)? @ -No Was there de-escalation of care discussed even if they declined (Discuss DNR or withdrawal of care, Hospice)? DNR status @ -No What co-morbidities impacted this encounter? (DM, HTN, Smoking, COPD, CAD, Cancer, CVA, ARF, Chemo, Hep., AIDS, mental health diagnosis, sleep apnea, morbid obesity)? @ -None Was patient admitted / discharged? Hospital course, mention meds given and route, prescriptions, significant lab abnormalities, going to OR and other pertinent info. @ -Patient's was not comfortable taking the patient home because of the amount of falls since Wednesday. I spoke with [facility] hospitalist and he agreed admit the patient admit the patient wrote admitting orders Undiagnosed new problem with uncertain prognosis? @ -No Drug Therapy requiring intensive monitoring for toxicity (Heparin, Nitro, Insulin, Cardizem)? @ -No Were any procedures done? @ -No Diagnosis/symptom? @ -Chest pain Acute, or Chronic, or Acute on Chronic? @ -Acute Uncomplicated (without systemic symptoms) or Complicated (systemic symptoms)? @ -Comp Side effects of treatment? @ -No Exacerbation, Progression, or Severe Exacerbation? @ -No Poses a threat to life or bodily function? How? (Chest pain, [place], [place], pneumonia, PE, COPD, DKA, ARF, appy, cholecystitis, CVA, Diverticulitis, Homicidal, Suicidal, threat to staff... and all critical care pts) @ -Yes this could lead to an TN and endorgan dysfunction Diagnosis/symptom? @ -Pulmonary edema Acute, or Chronic, or Acute on Chronic? @ -Acute Uncomplicated (without systemic symptoms) or Complicated (systemic symptoms)? @ -complicated Side effects of treatment? @ -None Exacerbation, Progression, or Severe Exacerbation] @ -No Poses a threat to life or bodily function? @ -No (Donato Mccarty) Disposition <Eugenia Cam - Last Filed: 04/06/24 17:04> Time of Disposition: 19:34 <Donato Mccarty - Last Filed: 04/06/24 19:35> Clinical Impression: Chest pain, Pulmonary edema Disposition: ADMITTED IP TO THIS HOSP Referrals: Dean Richards DO [Primary Care Provider] - 1-2 days
[2024-04-06 17:19] LABS: ALT 37 U/L (4-49); AST 52 U/L (17-59); African American GFR (CKD) 85 (>60 ml/min/1.73 sqM); Albumin 4.1 g/dL (3.5-5.0); Alkaline Phosphatase 213 U/L (38-126); Anion Gap 11 mmol/L; Blood Urea Nitrogen 18 mg/dL (9-20); Calcium 9.2 mg/dL (8.4-10.2); Carbon Dioxide 26 mmol/L (22-30); Chloride 100 mmol/L (98-107); Glucose 92 mg/dL (74-99); Non-African American GFR(CKD) 73 (>60 ml/min/1.73 sqM); Potassium 3.5 mmol/L (3.5-5.1); Sodium 137 mmol/L (137-145); Total Bilirubin 1.4 mg/dL (0.2-1.3); Total Protein 6.5 g/dL (6.3-8.2)
--- NOTE | 2024-04-06 17:29 | XR ---
EXAMINATION TYPE: XR chest 2V DATE OF EXAM: 04/06/2024 5:07 PM CLINICAL INDICATION: Male, 78 years old with history of Chest Pain; [facility] COMPARISON: Chest radiographs from 02/18/2023 TECHNIQUE: XR chest 2V Frontal view of the chest. FINDINGS: Lungs/Pleura: There is no evidence of pleural effusion, focal consolidation, or pneumothorax. Pulmonary vascularity: Unremarkable. Heart/mediastinum: Cardiomediastinal silhouette is enlarged. Post aortic valve repair changes. Musculoskeletal: No acute osseous pathology. Midline sternotomy wires are noted. Other findings: None Lines/Tubes: IMPRESSION: 1. Chronic changes without acute pulmonary process. No significant change from prior. 2. Cardiomegaly mild pulmonary edema correlate with serum BNP.
[2024-04-06] MEDS ORDERED: NITROGLYCERIN SL TABS 0.4 MG TAB SUBLINGUAL PRN (19:35)
[2024-04-06] MEDS ORDERED: ALPRAZolam 0.25 MG TAB PO PRN (19:39)
[2024-04-06] MEDS: FUROSEMIDE 10 MG/ML 4 ML VIAL IV STA (20:59)
[2024-04-06] MEDS: APIXABAN 5 MG TAB PO SCH (21:00)
[2024-04-06] MEDS: ATORVASTATIN 20 MG TAB PO SCH (21:01)
--- NOTE | 2024-04-06 22:21 | P.HPIM ---
History of Present Illness H&P Date: 04/06/24 Patient is a 78-year-old male with a PMH of systolic heart failure (EF 4045% on Echo 02/18/2023), A-fib (on Eliquis 5 mg), COPD (not on home O2), hypertension, hyperlipidemia, alcohol use disorder, status post aortic valve replacement and mitral valve repair presents to the ED with chest pain. Patient states the chest pain occurred 1 week ago and attributes to a cough that started around the same time. Says that the chest pain does not radiate, and described as a pressurelike sensation. He states the chest pain is still there currently. He reports that he has been coughing up yellowish phlegm during this time. He also reports of shortness of breath, orthopnea, paroxysmal nocturnal dyspnea. was not present during interview. Per ED note the states that he has been having increased confusion and signs of dementia, and reports that this usually this occurs when his systolic heart failure flares up. Patient denies fevers, chills, nausea, vomiting, abdominal pain. Admits to edema that is more present on the right lower extremity versus the left. EKG independently interpreted show atrial fibrillation, right axis deviation, rate 66 bpm, QTc 441 ms CXR independently interpreted show cardiomegaly with mild pulmonary edema Troponin 0.018 => 0.018, proBNP 7510, Hgb 12.9, MCV 94.8, PT 12.6, INR 1.2, total bilirubin 1.4, alk phos 250 T 97.5F, ID 78, RR 22, BP 135/80, O2 sat 96% on room air ED documentation reviewed. Review of systems: Pertinent positives and negatives as discussed in HPI, a complete review of systems was performed and all other systems are negative. Social history: Tobacco: 1 pack a day for 40 years, quit 12 years ago Alcohol: Has history alcohol use disorder, says he of quit 14 years ago Recreational drugs: Denies illicit drug use Travel: No recent travel Occupation: Retired Physical examination: Vital signs reviewed General: non toxic, no distress, appears at stated age, normal weight Derm: no unusual rashes/lesions, warm Head: atraumatic, normocephalic, symmetric Eyes: EOMI, anicteric sclera, pupils equal round reactive to light ENT: Nose and ears atraumatic Mouth: no lip lesion, mucus membranes moist Cardiovascular: S1S2 reg, systolic murmur, positive dorsalis pedis pulse bilate ral, bilateral LE 1+ edema Lungs: Lung sounds diminished, no rhonchi, no rales, no accessory muscle use Abdominal: soft, nontender to palpation, no guarding Ext: muscle strength 5 out of 5 in all 4 extremities grossly, no gross muscle atrophy, no contractures, Neuro: CN II-XI grossly intact, no gross focal neuro deficits Psych: Alert and oriented to only person and place Assessment/Plan: Patient is a 78-year-old male with a PMH of systolic heart failure (EF 40-45%), hypertension, hyperlipidemia, alcohol use disorder, status post aortic valve replacement and mitral valve repair presents to the ED with chest pain. #. Chest pain and dyspnea Suspect systolic heart failure exacerbation versus COPD exacerbation versus ACS Patient admits to dyspnea, orthopnea, PND Patient with bilateral lower extremity 1+ edema Troponin 0.018 => 0.018, continue to trend BNP 7510 EKG independently interpreted showed atrial fibrillation, right axis deviation, rate 66 bpm, QTc 441 ms CXR independently interpreted show mild pulmonary edema Lipid panel ordered Order echocardiogram Strict intake output Fluid restriction 1500 mL Weight checks Heart healthy diet Cardiac monitoring Placed on IV Lasix 40 mg q8hr C/w Aspiring 325 mg po qd Nitrostat 0.4 mg sublingual Q5M as needed Consult cardiology - Check procalcitonin levels #. COPD, not in acute exacerbation (not on home O2) Patient admits to dyspnea cough with increased purulent sputum production since last week O2 sat 99% on room air No wheezing on physical exam CXR as stated above Placed ipratropium 0.5 mg inhalation QID in ED Placed on Symbicort 80-4.5 mcg inhaler 2 puff BID in ED #. Chronic atrial fibrillation (on Eliquis 5 mg) Continue with Eliquis 5 mg BID INR 1.2 Keep K > 4, Mg > 2.0 Cardiac monitoring Elevated total bilirubin, suspect due to ongoing CHF exacerbation - Monitor CMP - C/w management of CHF as per above #. Normocytic anemia Hgb 12.9, MCV 94.8 No active bleeding Borderline lab values, reevaluate CBC tomorrow #. Hypertension Currently not on any antihypertensive Continue with IV Lasix #. Hyperlipidemia Continue Lipitor 20 mg p.o. at bedtime #. Anxiety Xanax 0.25 mg p.o. daily as needed DVT prophylaxis: Eliquis 5 mg PO BID F: N/A E: Replete electrolytes as needed N: Heart healthy diet A: Fall precaution The patient is admitted with an anticipated greater than 2 midnight stay for evaluation of CODE STATUS: Full Discussed with: Patient Anticipated discharge place: Home Past Medical History Past Medical History: Cancer, CVA/TIA, GERD/Reflux, Hyperlipidemia, Hypertension Additional Past Medical History / Comment(s): history of aortic stenosis status post valve replacement, aortic dissection status post repair, AAA, skin cancer History of Any Multi-Drug Resistant Organisms: None Reported Past Surgical History: Appendectomy Additional Past Surgical History / Comment(s): aorticvalve replacement , AAA repair, skin cancer removal 2020 Past Anesthesia/Blood Transfusion Reactions: No Reported Reaction Past Psychological History: Anxiety Smoking Status: Never smoker Past Alcohol Use History: Daily, Heavy Past Drug Use History: None Reported - Past Family History Brother(s) Family Medical History: Cancer Mother Family Medical History: Cancer, Coronary Artery Disease (CAD) Father Family Medical History: No Reported History Additional Family Medical History / Comment(s): Father was healthy Medications and Allergies Home Medications Medication Instructions Recorded Confirmed Type ALPRAZolam [Xanax] 0.25 mg PO DAILY PRN 06/13/17 04/06/24 History Multivit-Min/Folic/Vit K/Lycop 1 tab PO DAILY 09/09/20 04/06/24 History [Men's Multivitamin Tablet] Fluticasone/Umeclidin/Vilanter 1 puff INHALATION RT-DAILY 04/05/21 04/06/24 History [Treleciera Ellipta 100-62.5-25] Apixaban [Eliquis] 5 mg PO BID #60 tab 04/06/21 04/06/24 Rx Atorvastatin [Lipitor] 20 mg PO HS 02/18/23 04/06/24 History Zinc Picolinate 22mg 22 mg PO DAILY 02/18/23 04/06/24 History Furosemide [Lasix] 80 mg PO DAILY 04/06/24 04/06/24 History Magnesium Oxide [Mag-Ox] 400 mg PO DAILY 04/06/24 04/06/24 History Potassium Chloride ER [K-Dur 20] 20 meq PO DAILY 04/06/24 04/06/24 History Vitamin D3/Vitamin K2 (Mk4) 1 tab PO DAILY 04/06/24 04/06/24 History [Vitamin K2 Plus D3 Tablet] Allergies Allergy/AdvReac Type Severity Reaction Status Date / Time Sulfa (Sulfonamide Allergy Anaphylaxis, Verified 04/06/24 19:15 Antibiotics) Rash Physical Exam Vitals: Vital Signs Temp Pulse Pulse Resp BP Pulse Ox 04/06/24 21:00 96 04/06/24 18:30 78 20 135/80 99 04/06/24 18:26 64 04/06/24 16:10 97.5 F L 63 16 131/77 98 Intake and Output 04/06/24 04/06/24 04/06/24 06:59 14:59 22:59 Other: Weight 81.647 kg Results CBC & Chem 7: 04/06/24 16:37 04/06/24 16:37 Labs: Abnormal Lab Results - Last 24 Hours (Table) 04/06/24 04/06/24 04/06/24 Range/Units 16:37 16:37 16:37 RBC 4.10 L (4.30-5.90) m/uL Hgb 12.9 L (13.0-17.5) gm/dL Hct 38.8 L (39.0-53.0) % PT 12.6 H (10.0-12.5) sec INR 1.2 H (<1.2) Total Bilirubin 1.4 H (0.2-1.3) mg/dL Alkaline Phosphatase 213 H (38-126) U/L
[2024-04-06] MEDS: NITROGLYCERIN OINT 1 INCH/GM PACKET TOPICAL SCH (23:50)
[2024-04-07] MEDS ORDERED: FUROSEMIDE 10 MG/ML 10 ML VIAL IV SCH
[2024-04-07 06:50] LABS: Basophils % (A) 0 %; Eosinophils # (A) 0.1 k/uL (0-0.7); Eosinophils % (A) 1 %; HCT 35.3 % (39.0-53.0); HGB 11.7 gm/dL (13.0-17.5); Hypochromasia Slight; Lymphocytes # (A) 0.7 k/uL (1.0-4.8); Lymphocytes % (A) 7 %; MCH 31.9 pg (25.0-35.0); MCHC 33.1 g/dL (31.0-37.0); MCV 96.4 fL (80.0-100.0); Mean Platelet Volume 6.9; Monocytes # (A) 0.8 k/uL (0-1.0); Monocytes % (A) 8 %; Neutrophils # (A) 8.3 k/uL (1.3-7.7); Neutrophils % (A) 82 %; Platelet Count 163 k/uL (150-450); RBC 3.66 m/uL (4.30-5.90); RDW 14.2 % (11.5-15.5); WBC 10.1 k/uL (3.8-10.6)
[2024-04-07 07:21] LABS: ALT 32 U/L (4-49); AST 48 U/L (17-59); African American GFR (CKD) 81 (>60 ml/min/1.73 sqM); Albumin 3.7 g/dL (3.5-5.0); Alkaline Phosphatase 212 U/L (38-126); Anion Gap 8 mmol/L; Blood Urea Nitrogen 20 mg/dL (9-20); Calcium 8.6 mg/dL (8.4-10.2); Carbon Dioxide 28 mmol/L (22-30); Chloride 101 mmol/L (98-107); Glucose 111 mg/dL (74-99); Magnesium 1.8 mg/dL (1.6-2.3); Non-African American GFR(CKD) 70 (>60 ml/min/1.73 sqM); Potassium 3.4 mmol/L (3.5-5.1); Sodium 137 mmol/L (137-145); Total Bilirubin 1.3 mg/dL (0.2-1.3); Total Protein 5.8 g/dL (6.3-8.2)
[2024-04-07] MEDS: IPRATROPIUM 0.5 MG/2.5 ML NEBU INHALATION SCH (08:13)
[2024-04-07] MEDS: SYMBICORT 80-4.5 MCG INHALER INHALATION SCH (08:14)
[2024-04-07] MEDS: MAGNESIUM OXIDE 400 MG TAB PO SCH (08:43)
[2024-04-07] MEDS: ASPIRIN 325 MG TAB PO SCH (08:43)
[2024-04-07] MEDS: POTASSIUM CHLORIDE ER 20 MEQ TAB.ER PO SCH (08:44)
[2024-04-07] MEDS: FUROSEMIDE 10 MG/ML 4 ML VIAL IV SCH (08:44)
[2024-04-07 10:27] LABS: LDL Cholesterol,Calculated 48.7 mg/dL (0.0-131.0); VLDL Calculation 11.18 mg/dL (5.00-40.00)
--- NOTE | 2024-04-07 14:54 | P.PN ---
Subjective Progress Note Date: 04/07/24 Subjective: Patient seen and examined at bedside. No acute events overnight. All Systems reviewed and pertinent positives and negatives noted in HPI, all other symptoms are negative Objective: Vital signs reviewed. General: non toxic, no distress, appears at stated age, normal weight Derm: no unusual rashes/lesions, warm Head: atraumatic, normocephalic, symmetric Eyes: EOMI, no lid lag, anicteric sclera, pupils equal round reactive to light ENT: Nose and ears atraumatic Neck: No cervical lymphadenopathy, trachea midline, supple Mouth: no lip lesion, mucus membranes moist Cardiovascular: S1S2 reg, grade 3 systolic murmur, positive dorsalis pedis pulse bilateral, bilateral +1 LE edema Lungs: CTA bilateral, no rhonchi, no rales, no accessory muscle use Abdominal: soft, nontender to palpation, no guarding Ext: muscle strength 5 out of 5 in all 4 extremities grossly, no gross muscle atrophy, no contractures, Neuro: CN II-XI grossly intact, no gross focal neuro deficits Psych: Alert, oriented x 3, appropriate affect Data reviewed today: Labs: WBC 10.1, hemoglobin 11.7, hematocrit 35.3, sodium 137, potassium 3.4, BUN 20, creatinine 1.03, glucose 111, alkaline phosphatase 212 Procalcitonin 0.2 Images: Echocardiogram pending Assessment and Plan: Patient is a 78-year-old male with a PMH of systolic heart failure (EF 40-45%), hypertension, hyperlipidemia, alcohol use disorder, status post aortic valve replacement and mitral valve repair presents to the ED with chest pain. # Congestive heart failure exacerbation likely secondary to suspected aortic valve replacement failure Bioprosthetic aortic valve replacement in 2011 Echocardiogram on 02/18/2023 shows LVEF 40 to 45% Patient admits to dyspnea, orthopnea, PND Patient with bilateral lower extremity 1+ edema Troponin trends flat, 0.018 and 0.02; ACS ruled out Echocardiogram pending Strict I's and O's, daily weights, fluid restriction 1.5 L Heart healthy diet Continue cardiac monitoring IV Lasix 40 mg every 12 hour Aspirin 81 mg p.o. daily Nitrostat 0.4 mg sublingual Q5M as needed Cardiology consulted #COPD, not in acute exacerbation (not on home O2) Procalcitonin 0.2, negative Atrovent nebulizer 0.5 mg inhalation RT 4 times daily Resume Symbicort 80-4.5 mcg inhaler 2 puff BID #Chronic atrial fibrillation (on Eliquis 5 mg) Continue with Eliquis 5 mg BID INR 1.2 Keep K > 4, Mg > 2.0 Resume potassium chloride ER 20 mEq p.o. daily Cardiac monitoring #Elevated total bilirubin #Elevated alkaline phosphatase alkaline phosphatase 212 Total bilirubin 1.4 suspect due to ongoing CHF exacerbation Monitor CMP C/w management of CHF as per above Order GGT #Normocytic anemia Hgb 12.9, MCV 94.8 No active bleeding Order iron studies #Hypertension BP improved Currently not on any antihypertensive Continue with IV Lasix #Hyperlipidemia Continue Lipitor 20 mg p.o. at bedtime #Anxiety Xanax 0.25 mg p.o. daily as needed DVT prophylaxis: Eliquis 5 mg PO BID F: N/A E: Replete electrolytes as needed N: Heart healthy diet A: Fall precaution The patient is admitted with an anticipated greater than 2 midnight stay for evaluation of CHF secondary to failed aortic valve replacement CODE STATUS: Full Discussed with: Patient Anticipated discharge place: Home I have seen and evaluated the patient today. Discussed with the resident and agree with the residents finding and plan as documented in the resident's note. Patient feeling better in terms of his breathing. Continue Lasix IV. Monitor electrolytes and renal function. Objective - Vital Signs Vital signs: Vital Signs Temp 98.6 F 04/07/24 07:27 Pulse 73 04/07/24 13:29 Resp 18 04/07/24 13:29 BP 115/80 04/07/24 13:29 Pulse Ox 98 04/07/24 13:29 FiO2 Intake & Output 04/06/24 04/07/24 04/07/24 18:59 06:59 18:59 Weight 81.647 kg - Labs CBC & Chem 7: 04/07/24 05:54 04/07/24 06:05 Labs: Abnormal Lab Results - Last 24 Hours (Table) 04/06/24 04/06/24 04/06/24 Range/Units 16:37 16:37 16:37 RBC 4.10 L (4.30-5.90) m/uL Hgb 12.9 L (13.0-17.5) gm/dL Hct 38.8 L (39.0-53.0) % Neutrophils # (1.3-7.7) k/uL Lymphocytes # (1.0-4.8) k/uL PT 12.6 H (10.0-12.5) sec INR 1.2 H (<1.2) Potassium (3.5-5.1) mmol/L Glucose (74-99) mg/dL Total Bilirubin 1.4 H (0.2-1.3) mg/dL Alkaline Phosphatase 213 H (38-126) U/L Total Protein (6.3-8.2) g/dL 04/07/24 04/07/24 Range/Units 05:54 06:05 RBC 3.66 L (4.30-5.90) m/uL Hgb 11.7 L (13.0-17.5) gm/dL Hct 35.3 L (39.0-53.0) % Neutrophils # 8.3 H (1.3-7.7) k/uL Lymphocytes # 0.7 L (1.0-4.8) k/uL PT (10.0-12.5) sec INR (<1.2) Potassium 3.4 L (3.5-5.1) mmol/L Glucose 111 H (74-99) mg/dL Total Bilirubin (0.2-1.3) mg/dL Alkaline Phosphatase 212 H (38-126) U/L Total Protein 5.8 L (6.3-8.2) g/dL
--- NOTE | 2024-04-07 15:40 | P.CRDCN ---
History of Present Illness Consult date: 04/07/24 Consult reason: chest pain History of present illness: HISTORY OF PRESENT ILLNESS: This is a 78-year-old male with past medical history significant for aortic stenosis status post valve replacement in 2011,aortic dissection 6 weeks following valve replacement status post repair, mitral valve repair, AAA, CVA in April 2020, hypertension, hyperlipidemia. Per past admission now, patient follows with Dr. Davidson of [facility]. We have been asked to see the patient in consultation for chest pain. Patient was examined at the bedside in the emergency room. Patient came to the hospital because he states he had chest pain. He also reports of shortness of breath, orthopnea, paroxysmal nocturnal dyspnea, and swelling in the lower legs. Patient denies fevers, chills, nausea, vomiting, abdominal pain. DIAGNOSTICS: - EKG reveals nonspecific changes - Chest xray shows cardiomegaly mild pulmonary edema - Laboratory data: Hemoglobin 11.7. Potassium 3.4. NT proBNP 7510. Troponins x 2 normal - Current home cardiac medications include Lipitor 20 mg daily, Lasix 80 mg p.o. daily, Eliquis 5 mg twice daily Most recent echocardiogram in January 2023 showed moderately impaired left ventricular function, estimated EF of 40 to 45%, status post mitral valve annuloplasty with mild MR moderate to severe TR with moderate pulmonary hypertension, bioprosthetic aortic valve with gradient of 22 mmHg dilated right ventricle with severe global hypokinesis REVIEW OF SYSTEMS: At the time of my exam: CONSTITUTIONAL: Denies fever or chills. HEENT: Denies blurred vision, vision changes, or eye pain. Denies hemoptysis CARDIOVASCULAR: Denies chest pain, describes as pressure/discomfort. Orthopnea. PND. Denies palpitations RESPIRATORY: Endorses shortness of breath, but states improved. GASTROINTESTINAL: Denies abdominal pain. Denies nausea or vomiting. HEMATOLOGIC: Denies bleeding disorders. GENITOURINARY: Denies any blood in urine. SKIN: Denies pruritus. Denies rash. PHYSICAL EXAM: VITAL SIGNS: Reviewed. Normotensive, hemodynamically stable, satting well on room air. GENERAL: Well-developed in no acute distress. HEENT: Head is normocephalic. Pupils are equal, round. Sclerae anicteric. Mucous membranes of the mouth are moist. Neck supple. No JVD or thyromegaly LUNGS: Respirations even and unlabored. Bilateral Inspiratory wheezing HEART: Severe systolic murmur heard at RUSB. ABDOMEN: Soft. Nontender to palpation. EXTREMITIES: Normal range of motion. No clubbing or cyanosis. Peripheral pulses intact. 3+ pitting edema in bilateral lower extremities NEUROLOGIC: Awake and alert. Oriented x 3. ASSESSMENT: Acute systolic heart failure exacerbation Aortic stenosis status post valve replacement 2011 Chronic atrial fibrillation, anticoagulated on Eliquis History of AAA History of aortic dissection status post repair History of CVA in 2019 COPD, currently not in exacerbation Hypertension Hyperlipidemia PLAN: Follow-up on echocardiogram Continue home cardiac meds as stated above Start aspirin 81 mg daily Continue IV Lasix 40 mg every 12 hours Monitor CHANTAL, daily weights, electrolytes and renal function Further recommendations to follow based upon clinical course Thank you kindly for this consultation. Past Medical History Past Medical History: Cancer, CVA/TIA, GERD/Reflux, Hyperlipidemia, Hypertension Additional Past Medical History / Comment(s): history of aortic stenosis status post valve replacement, aortic dissection status post repair, AAA, skin cancer History of Any Multi-Drug Resistant Organisms: None Reported Past Surgical History: Appendectomy Additional Past Surgical History / Comment(s): aorticvalve replacement , AAA repair, skin cancer removal 2020 Past Anesthesia/Blood Transfusion Reactions: No Reported Reaction Past Psychological History: Anxiety Smoking Status: Never smoker Past Alcohol Use History: Daily, Heavy Past Drug Use History: None Reported - Past Family History Brother(s) Family Medical History: Cancer Mother Family Medical History: Cancer, Coronary Artery Disease (CAD) Father Family Medical History: No Reported History Additional Family Medical History / Comment(s): Father was healthy Medications and Allergies Home Medications Medication Instructions Recorded Confirmed Type ALPRAZolam [Xanax] 0.25 mg PO DAILY PRN 06/13/17 04/06/24 History Multivit-Min/Folic/Vit K/Lycop 1 tab PO DAILY 09/09/20 04/06/24 History [Men's Multivitamin Tablet] Fluticasone/Umeclidin/Vilanter 1 puff INHALATION RT-DAILY 04/05/21 04/06/24 History [Treleciera Ellipta 100-62.5-25] Apixaban [Eliquis] 5 mg PO BID #60 tab 04/06/21 04/06/24 Rx Atorvastatin [Lipitor] 20 mg PO HS 02/18/23 04/06/24 History Zinc Picolinate 22mg 22 mg PO DAILY 02/18/23 04/06/24 History Furosemide [Lasix] 80 mg PO DAILY 04/06/24 04/06/24 History Magnesium Oxide [Mag-Ox] 400 mg PO DAILY 04/06/24 04/06/24 History Potassium Chloride ER [K-Dur 20] 20 meq PO DAILY 04/06/24 04/06/24 History Vitamin D3/Vitamin K2 (Mk4) 1 tab PO DAILY 04/06/24 04/06/24 History [Vitamin K2 Plus D3 Tablet] Allergies Allergy/AdvReac Type Severity Reaction Status Date / Time Sulfa (Sulfonamide Allergy Anaphylaxis, Verified 04/06/24 19:15 Antibiotics) Rash Physical Exam Vitals: Vital Signs Temp Pulse Pulse Resp BP Pulse Ox 04/07/24 08:26 78 04/07/24 08:14 73 04/07/24 07:27 98.6 F 89 18 100/78 95 04/07/24 06:04 98 18 111/69 92 L 04/07/24 01:31 79 18 123/90 95 04/06/24 21:30 18 102/78 04/06/24 21:00 16 109/92 94 L 04/06/24 20:30 82 13 112/88 96 04/06/24 20:00 75 18 142/86 98 04/06/24 19:30 22 140/79 04/06/24 19:00 68 21 135/80 96 04/06/24 18:30 80 16 135/80 99 04/06/24 18:26 64 04/06/24 16:10 97.5 F L 63 16 131/77 98 Intake and Output 04/06/24 04/07/24 04/07/24 22:59 06:59 14:59 Other: Weight 81.647 kg Results 04/07/24 05:54 04/07/24 06:05 Cardiac Enzymes 04/06/24 04/06/24 04/06/24 Range/Units 16:37 16:37 20:42 AST 52 (17-59) U/L Troponin I 0.018 0.018 (0.000-0.034) ng/mL 04/07/24 04/07/24 Range/Units 00:37 06:05 AST 48 (17-59) U/L Troponin I 0.022 (0.000-0.034) ng/mL Coagulation 04/06/24 Range/Units 16:37 PT 12.6 H (10.0-12.5) sec APTT 25.9 (22.0-30.0) sec CBC 04/06/24 04/07/24 Range/Units 16:37 05:54 WBC 7.2 10.1 (3.8-10.6) k/uL RBC 4.10 L 3.66 L (4.30-5.90) m/uL Hgb 12.9 L 11.7 L (13.0-17.5) gm/dL Hct 38.8 L 35.3 L (39.0-53.0) % Plt Count 154 163 (150-450) k/uL Comprehensive Metabolic Panel 04/06/24 04/07/24 Range/Units 16:37 06:05 Sodium 137 137 (137-145) mmol/L Potassium 3.5 3.4 L (3.5-5.1) mmol/L Chloride 100 101 (98-107) mmol/L Carbon Dioxide 26 28 (22-30) mmol/L BUN 18 20 (9-20) mg/dL Creatinine 0.99 1.03 (0.66-1.25) mg/dL Glucose 92 111 H (74-99) mg/dL Calcium 9.2 8.6 (8.4-10.2) mg/dL AST 52 48 (17-59) U/L ALT 37 32 (4-49) U/L Alkaline Phosphatase 213 H 212 H (38-126) U/L Total Protein 6.5 5.8 L (6.3-8.2) g/dL Albumin 4.1 3.7 (3.5-5.0) g/dL Current Medications Generic Name Dose Route Start Last Admin Trade Name Freq PRN Reason Stop Dose Admin Alprazolam 0.25 mg 04/06/24 19:39 Alprazolam 0.25 Mg Tab PO DAILY PRN Anxiety Apixaban 5 mg 04/06/24 21:00 04/07/24 08:43 Apixaban 5 Mg Tab PO 5 mg BID ELENA Administration Protocol Aspirin 325 mg 04/07/24 09:00 04/07/24 08:43 Aspirin 325 Mg Tab PO 325 mg DAILY ELENA Administration Atorvastatin Calcium 20 mg 04/06/24 21:00 04/06/24 21:01 Atorvastatin 20 Mg Tab PO 20 mg HS ELENA Administration Budesonide/Formoterol Fumarate 2 puff 04/07/24 08:00 04/07/24 08:14 Symbicort 80-4.5 Mcg Inhaler INHALATION 2 puff RT-BID ELENA Administration Furosemide 40 mg 04/07/24 09:00 04/07/24 08:44 Furosemide 10 Mg/Ml 4 Ml Vial IV 40 mg Q12HR ELENA Administration Ipratropium Dequincy 0.5 mg 04/07/24 08:00 04/07/24 08:13 Ipratropium 0.5 Mg/2.5 Ml Nebu INHALATION 0.5 mg RT-QID ELENA Administration Magnesium Oxide 400 mg 04/07/24 09:00 04/07/24 08:43 Magnesium Oxide 400 Mg Tab PO 400 mg DAILY ELENA Administration Nitroglycerin 0.4 mg 04/06/24 19:35 Nitroglycerin Sl Tabs 0.4 Mg Tab SUBLINGUAL Q5M PRN Chest Pain Nitroglycerin 1 inch 04/07/24 00:00 04/07/24 05:21 Nitroglycerin Oint 1 Inch/Gm Packet TOPICAL 1 inch Q6HR ELENA Administration Potassium Chloride 20 meq 04/07/24 09:00 04/07/24 08:44 Potassium Chloride Er 20 Meq Tab.Er PO 20 meq DAILY ELENA Administration Intake and Output 04/06/24 04/07/24 04/07/24 22:59 06:59 14:59 Other: Weight 81.647 kg 04/07/24 05:54 04/07/24 06:05
[2024-04-08 07:51] LABS: Basophils % (A) 0 %; Eosinophils # (A) 0.1 k/uL (0-0.7); Eosinophils % (A) 1 %; HCT 38.4 % (39.0-53.0); HGB 12.2 gm/dL (13.0-17.5); Hypochromasia Slight; Lymphocytes # (A) 1.5 k/uL (1.0-4.8); Lymphocytes % (A) 19 %; MCH 30.5 pg (25.0-35.0); MCHC 31.8 g/dL (31.0-37.0); MCV 95.9 fL (80.0-100.0); Mean Platelet Volume 7.4; Monocytes # (A) 0.8 k/uL (0-1.0); Monocytes % (A) 10 %; Neutrophils # (A) 5.2 k/uL (1.3-7.7); Neutrophils % (A) 66 %; Platelet Count 190 k/uL (150-450); RDW 14.1 % (11.5-15.5); WBC 7.9 k/uL (3.8-10.6)
[2024-04-08 08:17] LABS: African American GFR (CKD) 83 (>60 ml/min/1.73 sqM); Anion Gap 9 mmol/L; Blood Urea Nitrogen 21 mg/dL (9-20); Calcium 8.5 mg/dL (8.4-10.2); Carbon Dioxide 29 mmol/L (22-30); Chloride 100 mmol/L (98-107); Glucose 106 mg/dL (74-99); Magnesium 1.9 mg/dL (1.6-2.3); Non-African American GFR(CKD) 72 (>60 ml/min/1.73 sqM); Sodium 138 mmol/L (137-145)
[2024-04-08] MEDS: ASPIRIN 81 MG PO SCH (09:08)
--- NOTE | 2024-04-08 09:29 | P.PN ---
Subjective Progress Note Date: 04/08/24 The patient was seen and evaluated this morning. He is feeling better. The shortness of breath has improved significantly. No symptoms of chest pain or chest discomfort. He continues to be in atrial fibrillation with controlled heart rate. He is on oral anticoagulation. The echo still pending. The physical examination is remarkable for irregular rhythm with severe systolic murmur at right upper sternal border with clear breathing sounds bilaterally and no edema was noted Assessment Heart failure of unknown etiology at this point Atrial fibrillation with controlled heart rate Status post aortic valve replacement using bioprosthetic valve History of aortic dissection Multiple comorbid conditions Plan Continue the current medical regimen Continue Lasix for additional 24 hours Continue oral anticoagulation Follow-up on the echocardiogram Follow-up with the patient Objective - Vital Signs Vital signs: Vital Signs Temp 98 F 04/08/24 08:00 Pulse 80 04/08/24 08:23 Resp 18 04/08/24 08:00 BP 110/53 04/08/24 08:00 Pulse Ox 96 04/08/24 08:00 FiO2 Intake & Output 04/07/24 04/08/24 04/08/24 18:59 06:59 18:59 Weight 70.1 kg Other: Voiding Method Toilet Urinal - Labs CBC & Chem 7: 04/08/24 07:19 04/08/24 07:19 Labs: Abnormal Lab Results - Last 24 Hours (Table) 04/08/24 04/08/24 Range/Units 07:19 07:19 RBC 4.00 L (4.30-5.90) m/uL Hgb 12.2 L (13.0-17.5) gm/dL Hct 38.4 L (39.0-53.0) % Potassium 3.0 L (3.5-5.1) mmol/L BUN 21 H (9-20) mg/dL Glucose 106 H (74-99) mg/dL
[2024-04-08] MEDS: POTASSIUM CHLORIDE ER 20 MEQ TAB.ER PO STA (10:06)
[2024-04-08] MEDS: ACETAMINOPHEN TAB 325 MG TAB PO PRN (10:07)
[2024-04-08 11:02] VITALS: BMI 19.8
--- NOTE | 2024-04-08 13:32 | P.PN ---
Subjective Progress Note Date: 04/08/24 Subjective: Patient seen and examined at bedside. No acute events overnight. All Systems reviewed and pertinent positives and negatives noted in HPI, all other symptoms are negative Objective: Vital signs reviewed. General: non toxic, no distress, appears at stated age, normal weight Derm: no unusual rashes/lesions, warm Head: atraumatic, normocephalic, symmetric Eyes: EOMI, no lid lag, anicteric sclera, pupils equal round reactive to light ENT: Nose and ears atraumatic Neck: No cervical lymphadenopathy, trachea midline, supple Mouth: no lip lesion, mucus membranes moist Cardiovascular: S1S2 reg, grade 3 systolic murmur, positive dorsalis pedis pulse bilateral, bilateral +1 LE edema Lungs: CTA bilateral, no rhonchi, no rales, no accessory muscle use Abdominal: soft, nontender to palpation, no guarding Ext: muscle strength 5 out of 5 in all 4 extremities grossly, no gross muscle atrophy, no contractures, Neuro: CN II-XI grossly intact, no gross focal neuro deficits Psych: Alert, oriented x 3, appropriate affect Data reviewed today: Labs: WBC 7.9, hemoglobin 12.2, platelet count 190, sodium 132, potassium 3.0, BUN 21, creatinine 1.01, glucose 106 Images: Echocardiogram pending Assessment and Plan: Patient is a 78-year-old male with a PMH of systolic heart failure (EF 40-45%), hypertension, hyperlipidemia, alcohol use disorder, status post aortic valve replacement and mitral valve repair presents to the ED with chest pain. # Congestive heart failure exacerbation likely secondary to suspected aortic valve replacement failure Bioprosthetic aortic valve replacement in 2011 Echocardiogram on 02/18/2023 shows LVEF 40 to 45% Troponin trends flat, 0.018 and 0.02; ACS ruled out Echocardiogram pending; follow-up results Strict I's and O's, daily weights, fluid restriction 1.5 L Heart healthy diet Continue cardiac monitoring IV Lasix 40 mg every 12 hour Aspirin 81 mg p.o. daily Nitrostat 0.4 mg sublingual Q5M as needed Cardiology consulted #COPD, not in acute exacerbation (not on home O2) Procalcitonin 0.2, negative Atrovent nebulizer 0.5 mg inhalation RT 4 times daily Resume Symbicort 80-4.5 mcg inhaler 2 puff BID #Hypokalemia Potassium 3.0 Potassium chloride 60 mEq p.o. once stat Continue with potassium chloride 20 mEq p.o. daily Continue monitor BMP #Chronic atrial fibrillation (on Eliquis 5 mg), rate controlled Continue with Eliquis 5 mg BID INR 1.2 Keep K > 4, Mg > 2.0 Cardiac monitoring #Elevated total bilirubin #Elevated alkaline phosphatase alkaline phosphatase 212 Total bilirubin 1.4 suspect due to ongoing CHF exacerbation Monitor CMP C/w management of CHF as per above Order GGT #Normocytic anemia Hgb 12.9, MCV 94.8 No active bleeding Order iron studies #Hypertension BP improved Currently not on any antihypertensive Continue with IV Lasix #Hyperlipidemia Continue Lipitor 20 mg p.o. at bedtime #Anxiety Xanax 0.25 mg p.o. daily as needed DVT prophylaxis: Eliquis 5 mg PO BID F: N/A E: Replete electrolytes as needed N: Heart healthy diet A: Fall precaution The patient is admitted with an anticipated greater than 2 midnight stay for evaluation of CHF secondary to failed aortic valve replacement CODE STATUS: Full Discussed with: Patient Anticipated discharge place: Home I have seen and evaluated the patient today. Discussed with the resident and agree with the residents finding and plan as documented in the resident's note. Patient feeling better in terms of his breathing. Would like to go home to his . K 3.0. 60 meq KCl ordered. Echo EF 20-25% mild-mod MR w/ repaired MV, bioprosthetic AV with mean gradient 25 mmHg, mod pulmonary HTN. Echo is 2022 showed EF 40-45%. Cardiology recommends continuing Lasix IV. Start Metoprolol 12.5 mg PO QD and Farxiga 10 mg PO QD. Would also benefit from ELADIO + potassium sparing diuretic. Monitor electrolytes and renal function. Objective - Vital Signs Vital signs: Vital Signs Temp 98 F 04/08/24 08:00 Pulse 84 04/08/24 11:39 Resp 18 04/08/24 08:00 BP 110/53 04/08/24 08:00 Pulse Ox 96 04/08/24 08:00 FiO2 Intake & Output 04/07/24 04/08/24 04/08/24 18:59 06:59 18:59 Weight 70.1 kg 70.1 kg Other: Voiding Method Toilet Urinal - Labs CBC & Chem 7: 04/08/24 07:19 04/08/24 07:19 Labs: Abnormal Lab Results - Last 24 Hours (Table) 04/08/24 04/08/24 Range/Units 07:19 07:19 RBC 4.00 L (4.30-5.90) m/uL Hgb 12.2 L (13.0-17.5) gm/dL Hct 38.4 L (39.0-53.0) % Potassium 3.0 L (3.5-5.1) mmol/L BUN 21 H (9-20) mg/dL Glucose 106 H (74-99) mg/dL
[2024-04-08 13:51] LABS: % Iron Saturation 10.19 (15.00-50.00); Ferritin 97.9 ng/mL (22.0-322.0); GGT 285 U/L (0-73); Iron 32 UG/DL (65-175); Total Iron Binding Capacity 314 UG/DL (228-460)
--- NOTE | 2024-04-08 16:21 | CA ---
Transthoracic Echo Report Name: Jean Robbins Age: 78 Gender: M : 1945 Exam Date: 04/07/2024 15:18 Exam Location: [place] [facility] Ht (in): 74 Wt (lb): 180 Ordering Physician: Megan Kerns MD Attending/Referring Phys: [employer] Sanjuanita Avila RDCS Procedure CPT: Indications: Heart failure Cardiac Hx: Technical Quality: Fair Contrast 1: Total Dose (mL): Contrast 2: Total Dose (mL): MEASUREMENTS (Male / Female) Normal Values 2D ECHO LV Diastolic Diameter PLAX 4.2 cm 4.2 - 5.9 / 3.9 - 5.3 cm LV Systolic Diameter PLAX 3.6 cm IVS Diastolic Thickness 1.5 cm 0.6 - 1.0 / 0.6 - 0.9 cm LVPW Diastolic Thickness 1.7 cm 0.6 - 1.0 / 0.6 - 0.9 cm LV Relative Wall Thickness 0.7 RV Internal Dim ED PLAX 3.9 cm LVOT Diameter 2.4 cm LV Diastolic Volume MOD BP 127.5 cm??? 67 - 155 / 56 - 104 cm??? LV Systolic Volume MOD BP 96.0 cm??? 22 - 58 / 19 - 49 cm??? LV Ejection Fraction MOD BP 24.7 % >= 55 % LV Cardiac Index MOD BP 855.1 cm???/min???m??? LV Diastolic Volume MOD 4C 101.1 cm??? LV Systolic Volume MOD 4C 72.6 cm??? LV Ejection Fraction MOD 4C 28.2 % LV Cardiac Index MOD 4C 774.1 cm???/min???m??? LV Diastolic Length 4C 9.4 cm LV Systolic Length 4C 8.6 cm LV Diastolic Volume MOD 2C 148.2 cm??? LV Systolic Volume MOD 2C 107.5 cm??? LV Ejection Fraction MOD 2C 27.4 % LV Cardiac Index MOD 2C 1103.3 cm???/min???m??? LV Diastolic Length 2C 10.4 cm LV Systolic Length 2C 10.2 cm LA Volume 110.1 cm??? 18 - 58 / 22 - 52 cm??? LA Volume Index 53.4 cm???/m??? 16 - 28 cm???/m??? M-MODE Aortic Root Diameter MM 4.8 cm LA Systolic Diameter MM 4.4 cm LA Ao Ratio MM 0.9 DOPPLER AV Peak Velocity 328.4 cm/s AV Peak Gradient 43.1 mmHg AV Mean Velocity 236.5 cm/s AV Mean Gradient 25.2 mmHg AV Velocity Time Integral 76.4 cm MV Peak Velocity 153.0 cm/s MV Peak Gradient 9.4 mmHg MV Mean Velocity 80.1 cm/s MV Mean Gradient 3.3 mmHg MV Velocity Time Integral 33.7 cm TR Peak Velocity 263.8 cm/s TR Peak Gradient 27.8 mmHg Right Ventricular Systolic Press 46.2 mmHg FINDINGS Left Ventricle Left ventricular ejection fraction is estimated at 20-25%. Moderately increased septal wall thickness. Severely increased left ventricular systolic volume. Severely decreased left ventricular ejection fraction. Right Ventricle Severe right ventricular dilatation. Moderate pulmonary hypertension. Right Atrium Severe right atrial dilatation. Left Atrium Severely increased left atrial volume. Moderately increased left atrial area. Mitral Valve MV Repair Mean PG 3.3 mmHg. [id number] mitral regurgitation. Aortic Valve Bioprosthetic aortic valve. Gradient recorded across the prosthetic aortic valve above the expected range.AV peak gradient of 43 mmHg and a mean gradient of 25mmHg. Tricuspid Valve Annular dilatation of the tricuspid valve. Severe tricuspid regurgitation. Pulmonic Valve Structurally normal pulmonic valve. No pulmonic stenosis. Moderate pulmonic regurgitation. Pericardium No pericardial effusion. Aorta Severe aortic dilatation at the level of the sinuses of valsalva (root) 4.8cm CONCLUSIONS Severely impaired LV function with an EF between 20 to 25% and dilated LV Repaired mitral valve with a mean gradient of 3 mmHg and mild to moderate MR Bioprosthetic aortic valve with a mean gradient of 25 mmHg Moderate pulmonary hypertension Dilated RV Previewed by: Dr. Fitz Petty MD (Electronically Signed) Final Date: 08 April 2024 16:20
[2024-04-08] MEDS: DAPAGLIFLOZIN PROPANEDIOL 10 MG TABLET PO SCH (21:12)
[2024-04-08] MEDS: METOPROLOL SUCCINATE (ER) 25 MG TAB.ER.24H PO SCH (21:12)
[2024-04-09 01:42] LABS: Basophils # (A) 0.1 k/uL (0-0.2); Basophils % (A) 1 %; Eosinophils # (A) 0.2 k/uL (0-0.7); Eosinophils % (A) 2 %; HCT 40.2 % (39.0-53.0); HGB 13.2 gm/dL (13.0-17.5); Hypochromasia Slight; Lymphocytes # (A) 1.7 k/uL (1.0-4.8); Lymphocytes % (A) 18 %; MCH 31.3 pg (25.0-35.0); MCHC 32.7 g/dL (31.0-37.0); MCV 95.7 fL (80.0-100.0); Mean Platelet Volume 7.3; Monocytes # (A) 0.9 k/uL (0-1.0); Monocytes % (A) 9 %; Neutrophils # (A) 6.4 k/uL (1.3-7.7); Neutrophils % (A) 67 %; Platelet Count 212 k/uL (150-450); WBC 9.6 k/uL (3.8-10.6)
[2024-04-09 01:53] LABS: Sodium 130 mmol/L (137-145)
[2024-04-09 01:54] LABS: African American GFR (CKD) 79 (>60 ml/min/1.73 sqM); Anion Gap 11 mmol/L; Blood Urea Nitrogen 24 mg/dL (9-20); Calcium 8.9 mg/dL (8.4-10.2); Carbon Dioxide 29 mmol/L (22-30); Chloride 90 mmol/L (98-107); Glucose 98 mg/dL (74-99); Magnesium 1.9 mg/dL (1.6-2.3); Non-African American GFR(CKD) 69 (>60 ml/min/1.73 sqM); Potassium 3.1 mmol/L (3.5-5.1)
[2024-04-09] MEDS: SPIRONOLACTONE 25 MG TAB PO SCH (08:09)
[2024-04-09] MEDS: FUROSEMIDE 40 MG TAB PO SCH (08:09)
[2024-04-09] MEDS: POTASSIUM CHLORIDE ER 20 MEQ TAB.ER PO STA (08:09)
--- NOTE | 2024-04-09 08:55 | P.PN ---
Subjective Progress Note Date: 04/09/24 The patient was seen and evaluated this morning. He is feeling better. The shortness of breath has improved significantly. No symptoms of chest pain or chest discomfort. He continues to be in atrial fibrillation with controlled heart rate. He is on oral anticoagulation. The echo still pending. The physical examination is remarkable for irregular rhythm with severe systolic murmur at right upper sternal border with clear breathing sounds bilaterally and no edema was noted April 09, 2024 The patient was seen and evaluated this morning. He is feeling better. The shortness of breath back to baseline. No symptoms of chest pain or chest discomfort. Hemodynamically he is stable. The echo showed reduced LV function with EF between 25 to 30%. I do not have a copy of the last echo from the office but a ASHER was performed in 2019 showed normal ejection fraction. He might benefit from coronary angiogram if the cardiomyopathy is new. Also he might benefit from switching lisinopril to Entresto but the patient would like to go home today. The physical examination is remarkable for regular rhythm with a soft systolic murmur and clear breathing sounds bilaterally and no edema was noted in the lower extremities Assessment Heart failure of unknown etiology at this point Atrial fibrillation with controlled heart rate Status post aortic valve replacement using bioprosthetic valve History of aortic dissection Cardiomyopathy rule out severe CAD Multiple comorbid conditions Plan Continue the current medical regimen Consider coronary angiogram probably as an outpatient Add SGLT2 inhibitors with the current medical regimen Possible discharge in next 24 hours Objective - Vital Signs Vital signs: Vital Signs Temp 98.0 F 04/09/24 08:00 Pulse 84 04/09/24 08:30 Resp 18 04/09/24 08:00 BP 119/65 04/09/24 08:00 Pulse Ox 97 04/09/24 08:00 FiO2 Intake & Output 04/08/24 04/09/24 04/09/24 18:59 06:59 18:59 Intake Total 118 10 Output Total 300 Balance -182 10 Weight 70.1 kg 67.4 kg Intake: IV 10 Invasive Line 2 10 Oral 118 Output: Urine 300 Other: Voiding Method Toilet Urinal # Voids 1 - Labs CBC & Chem 7: 04/09/24 01:20 04/09/24 01:20 Labs: Abnormal Lab Results - Last 24 Hours (Table) 09/14/24 09/15/24 09/15/24 Range/Units 07:19 01:20 01:20 RBC 4.20 L (4.30-5.90) m/uL Sodium 130 L (137-145) mmol/L Potassium 3.1 L (3.5-5.1) mmol/L Chloride 90 L (98-107) mmol/L BUN 24 H (9-20) mg/dL Iron 32 L (65-175) UG/DL % Saturation 10.19 L (15.00-50.00) GGT 285 H (0-73) U/L
--- NOTE | 2024-04-09 13:31 | P.PN ---
Subjective Progress Note Date: 04/09/24 78-year-old male with a PMH of systolic heart failure (EF 4045% on Echo 02/18/2023), A-fib (on Eliquis 5 mg), COPD (not on home O2), hypertension, hyperlipidemia, alcohol use disorder, status post aortic valve replacement and mitral valve repair presents to the ED with chest pain associated with cough, SO B, PND and orthopnea. In the ED her underwent extensive evaluation. T 97.5F, MO 78, RR 22, BP 135/80, O2 sat 96% on RA. CBC, Coag panel, CMP significant for RBC 4.1, Hg 12.9, Hct 38.8, PT 12.6, INR 1.2, T. Bili 1.4, alk phos 213. Troponin 0.018, 0.018, 0.022. BNP 7510. Flu, RSV, COVID negative. CXR cardiomegaly with pulmonary edema. Patient was admitted for CHF exacerbation. Pro-debby negative no concerns for PNA. Started on Lasix IV and Cardiology consulted. Repeat Echo EF 20-25% mild-mod MR w/ repaired MV, bioprosthetic AV with mean gradient 25 mmHg, mod pulmonary HTN. Started on Metoprolol, Lisinopril, Aldactone and Farxiga for GDMT. 04/09 Patient was seen and examined. Breathing better. CBC and BMP significant for RBC 4.2, Na 130, K 3.1, Cl 90, BUN 24. Mag 1.9. Patient is adamant about going home. I discussed the case extensively with Dr. Petty, ideally he should stay for heart cath tomorrow but OK with discharge home and outpatient follow up, no need for Life Vest at this time. Discussed with extensively, would prefer the patient stay to get the heart cath tomorrow. I started the patient on Metoprolol and Farxiga yesterday and Aldactone + Lisinopril today. reports that he was previously on Metoprolol and had pre-syncopal episodes requiring discontinuation of this medication and she would like to hold off on any medications that can affect the blood pressure at this time until she can talk to the [employer]. I subsequently stopped Metoprolol, Lisinopril and Ald actone. General: no distress, appears at stated age Derm: Warm, dry Head: Atraumatic, normocephalic, symmetric Eyes: EOMI, no lid lag, anicteric sclera Mouth: No lip lesion, mucus membranes moist Cardiovascular: S1S2 reg. systolic murmur. No rubs, gallops. 1+ LE edema. Lungs: CTA bilateral, no rhonchi, no rales, no accessory muscle use Abdominal: Soft, no distended, non tender to palpation Ext: No gross muscle atrophy, no edema, no contractures Neuro: No focal neurologic deficits Psych: Alert, oriented, appropriate affect Based on my assessment of this patient, this patient meets a high complexity level of care. Acute on chronic systolic CHF exacerbation: Echo shows worsening EF 20-25%. S witched Lasix IV to 40 mg PO QD today. Added Lisinopril 2.5 mg PO QD and Aldactone 12.5 mg PO QD today (stopped per 's request). Started Metoprolol 12.5 mg PO QD (stopped per 's request) and Farxiga 10 mg PO QD yesterday. Strict intake and outtake. Daily weights. Telemetry monitoring. Cardiology on board, hopeful cardiac cath tomorrow. Hypokalemia: KCl 60 meq PO x 1 in addition to 20 meq PO QD. Hyponatremia and prerenal azotemia likely due to forced diuresis. COPD not in acute exacerbation: Symbicort 2 INH BID. Atrovent 0.5 INH QID. Chronic atrial fibrillation: AC with Eliquis 5 mg PO QD. Rate controlled. Elevated alkaline phosphatase: With elevated GGT. Possible related to hepatic congestion from CHF. Monitor outpatient. Normocytic anemia: Fe 32. No signs of active bleeding. Outpatient workup including routine CA screening (C-scope) recommended to patient. Dyslipidemia: Lipitor 20 mg PO QHS. Anxiety: Xanax 0.25 mg PO QD PRN. Resolved: Elevated T. Bili. CODE STATUS: FULL CODE DVT Prophylaxis: Eliquis GI Prophylaxis: Designated medical POA if patient is not able to make medical decisions for themselves: I have reviewed the following medical device sales consultant notes: Cardiology. I have reviewed the results of the following tests: CBC, BMP, Mag I have ordered the following tests: BMP in AM I have discussed the care of this patient with the following independent historian: CAROL Garza. I have independently interpreted the following test below: I have discussed the management of this patient with the following physician: Dr. Petty Objective - Vital Signs Vital signs: Vital Signs Temp 97.5 F L 04/09/24 03:41 Pulse 61 04/09/24 07:22 Resp 16 04/09/24 03:41 BP 127/70 04/09/24 03:41 Pulse Ox 96 04/09/24 03:41 FiO2 Intake & Output 04/08/24 04/09/24 04/09/24 18:59 06:59 18:59 Intake Total 118 10 Output Total 300 Balance -182 10 Weight 70.1 kg 67.4 kg Intake: IV 10 Invasive Line 2 10 Oral 118 Output: Urine 300 Other: Voiding Method Toilet Urinal # Voids 1 - Labs CBC & Chem 7: 04/09/24 01:20 04/09/24 01:20 Labs: Abnormal Lab Results - Last 24 Hours (Table) 04/08/24 04/08/24 04/09/24 Range/Units 07:19 07:19 01:20 RBC 4.00 L 4.20 L (4.30-5.90) m/uL Hgb 12.2 L (13.0-17.5) gm/dL Hct 38.4 L (39.0-53.0) % Sodium (137-145) mmol/L Potassium 3.0 L (3.5-5.1) mmol/L Chloride (98-107) mmol/L BUN 21 H (9-20) mg/dL Glucose 106 H (74-99) mg/dL Iron 32 L (65-175) UG/DL % Saturation 10.19 L (15.00-50.00) GGT 285 H (0-73) U/L 04/09/24 Range/Units 01:20 RBC (4.30-5.90) m/uL Hgb (13.0-17.5) gm/dL Hct (39.0-53.0) % Sodium 130 L (137-145) mmol/L Potassium 3.1 L (3.5-5.1) mmol/L Chloride 90 L (98-107) mmol/L BUN 24 H (9-20) mg/dL Glucose (74-99) mg/dL Iron (65-175) UG/DL % Saturation (15.00-50.00) GGT (0-73) U/L
[2024-04-10 09:21] LABS: African American GFR (CKD) 79 (>60 ml/min/1.73 sqM); Anion Gap 7 mmol/L; Blood Urea Nitrogen 25 mg/dL (9-20); Carbon Dioxide 30 mmol/L (22-30); Chloride 99 mmol/L (98-107); Glucose 91 mg/dL (74-99); Magnesium 2.1 mg/dL (1.6-2.3); Non-African American GFR(CKD) 69 (>60 ml/min/1.73 sqM); Potassium 4.1 mmol/L (3.5-5.1); Sodium 136 mmol/L (137-145)
[2024-04-10] MEDS ORDERED: ALPRAZolam 0.25 MG TAB PO PRN (09:26)
[2024-04-10] MEDS ORDERED: NITROGLYCERIN SL TABS 0.4 MG TAB SUBLINGUAL PRN (09:26)
--- NOTE | 2024-04-10 14:30 | P.PN ---
Subjective HISTORY OF PRESENT ILLNESS: This is a 78-year-old male with past medical history significant for aortic stenosis status post valve replacement in 2011,aortic dissection 6 weeks following valve replacement status post repair, mitral valve repair, AAA, CVA in April 2020, hypertension, hyperlipidemia. Per past admission now, patient follows with Dr. Davidson of [facility]. We have been asked to see the patient in consultation for chest pain. Patient was examined at the bedside in the emergency room. Patient came to the hospital because he states he had chest pain. He also reports of shortness of breath, orthopnea, paroxysmal nocturnal dyspnea, and swelling in the lower legs. Patient denies fevers, chills, nausea, vomiting, abdominal pain. DIAGNOSTICS: - EKG reveals nonspecific changes - Chest xray shows cardiomegaly mild pulmonary edema - Laboratory data: Hemoglobin 11.7. Potassium 3.4. NT proBNP 7510. Troponins x 2 normal - Current home cardiac medications include Lipitor 20 mg daily, Lasix 80 mg p.o. daily, Eliquis 5 mg twice daily Most recent echocardiogram in January 2023 showed moderately impaired left v entricular function, estimated EF of 40 to 45%, status post mitral valve annuloplasty with mild MR moderate to severe TR with moderate pulmonary hypertension, bioprosthetic aortic valve with gradient of 22 mmHg dilated right ventricle with severe global hypokinesis 04/08/2024 The patient was seen and evaluated this morning. He is feeling better. The shortness of breath has improved significantly. No symptoms of chest pain or chest discomfort. He continues to be in atrial fibrillation with controlled heart rate. He is on oral anticoagulation. The echo still pending. The physical examination is remarkable for irregular rhythm with severe systolic murmur at right upper sternal border with clear breathing sounds bilaterally and no edema was noted April 09, 2024 The patient was seen and evaluated this morning. He is feeling better. The shortness of breath back to baseline. No symptoms of chest pain or chest discomfort. Hemodynamically he is stable. The echo showed reduced LV function with EF between 25 to 30%. I do not have a copy of the last echo from the office but a ASHER was performed in 2019 showed normal ejection fraction. He might benefit from coronary angiogram if the cardiomyopathy is new. Also he might benefit from switching lisinopril to Entresto but the patient would like to go home today. The physical examination is remarkable for regular rhythm with a soft systolic murmur and clear breathing sounds bilaterally and no edema was noted in the lower extremities 04/10/2024 Patient examined this morning. Patient is sitting on the side of the bed. Piper cifuentes currently denies chest pain or pressure. He denies shortness of breath. Vital signs are stable. Telemetry reveals atrial fibrillation with heart rate in the 70s. PHYSICAL EXAM: VITAL SIGNS: Reviewed. GENERAL: Well-developed in no acute distress. NECK: Supple. No JVD or thyromegaly LUNGS: Respirations even and unlabored. Lungs essentially clear to auscultation bilaterally. HEART: Irregular rate and rhythm. S1 and S2 heard. Systolic murmur noted. EXTREMITIES: Normal range of motion. No clubbing or cyanosis. Peripheral pulses intact. No lower extremity edema ASSESSMENT: Shortness of breath Acute on chronic heart failure with reduced EF, 25 to 30% Worsening cardiomyopathy, previously 40 to 45%, now 25 to 30%, ischemic versus nonischemic Permanent atrial fibrillation History of bioprosthetic aortic valve replacement and mitral valve repair, 2011 History of AAA History of aortic dissection s/p repair History of CVA, 2019 History of COPD, currently not in acute exacerbation Hypertension Hyperlipidemia PLAN: Continue current cardiac medications Patient was started on Aldactone, metoprolol, and Lisinopril over the weekend but apparently were DC per request Hold Kika ybarra and tomorrow morning N.p.o. at midnight Patient to undergo cardiac catheterization tomorrow to evaluate worsening cardiomyopathy with Dr. Petty Further recommendations pending patient course Nurse practitioner note has been reviewed by physician. Signing provider agrees with the documented findings, assessment, and plan of care documented by DIRECTOR OF MATERIALS as a scribe. Objective - Vital Signs Vital signs: Vital Signs Temp 97.5 F L 04/10/24 08:00 Pulse 76 04/10/24 13:08 Resp 18 04/10/24 08:00 BP 102/64 04/10/24 08:00 Pulse Ox 95 04/10/24 08:00 FiO2 Intake & Output 04/09/24 04/10/24 04/10/24 18:59 06:59 18:59 Intake Total 120 540 120 Output Total 200 800 Balance 120 340 -680 Weight 67.5 kg Intake: Oral 120 540 120 Output: Urine 200 800 Other: Voiding Method Toilet Urinal # Voids 1 - Labs CBC & Chem 7: 04/09/24 01:20 04/10/24 08:38 Labs: Abnormal Lab Results - Last 24 Hours (Table) 04/10/24 Range/Units 08:38 Sodium 136 L (137-145) mmol/L BUN 25 H (9-20) mg/dL
--- NOTE | 2024-04-10 17:32 | P.PN ---
Subjective Progress Note Date: 04/10/24 Subjective: Patient seen and examined at bedside. No acute events overnight. All Systems reviewed and pertinent positives and negatives noted in HPI, all other symptoms are negative Objective: Vital signs reviewed. General: non toxic, no distress, appears at stated age, normal weight Derm: no unusual rashes/lesions, warm Head: atraumatic, normocephalic, symmetric Eyes: EOMI, no lid lag, anicteric sclera, pupils equal round reactive to light ENT: Nose and ears atraumatic Neck: No cervical lymphadenopathy, trachea midline, supple Mouth: no lip lesion, mucus membranes moist Cardiovascular: S1S2 reg, grade 3 systolic murmur, positive dorsalis pedis pulse bilateral, no edema Lungs: CTA bilateral, no rhonchi, no rales, no accessory muscle use Abdominal: soft, nontender to palpation, no guarding Ext: muscle strength 5 out of 5 in all 4 extremities grossly, no gross muscle atrophy, no contractures, Neuro: CN II-XI grossly intact, no gross focal neuro deficits Psych: Alert, oriented x 3, appropriate affect Data reviewed today: Labs: Sodium 136, potassium 4.1, chloride 99, bicarb 30, BUN 25, creatinine 1.05, magnesium 2.1 No new imaging Assessment and Plan: Patient is a 78-year-old male with a PMH of systolic heart failure (EF 40-45%), hypertension, hyperlipidemia, alcohol use disorder, status post aortic valve replacement and mitral valve repair presents to the ED with chest pain. Cardiology on board. Echocardiogram shows worsening ejection fraction of 20- 25%. Cardiac catheterization tomorrow morning. # Acute on chronic systolic congestive heart failure Bioprosthetic aortic valve replacement in 2011 Echocardiogram on 02/18/2023 shows LVEF 40 to 45% Echocardiogram on 04/09/2024 shows worsening ejection fraction 20 to 25% Personally discussed management with cardiology, pending cardiac cath tomorrow -Eliquis to be held overnight Continue with Lasix 40 mg p.o. daily and aspirin 81 mg Strict I's and O's, daily weights, fluid restriction 1.5 L Heart healthy diet Continue cardiac monitoring -Patient needs to be on guideline directed medical therapy, however family is hesitant -Currently only on Farxiga 10 mg daily #COPD, not in acute exacerbation (not on home O2) Procalcitonin 0.2, negative Atrovent nebulizer 0.5 mg inhalation RT 4 times daily Resume Symbicort 80-4.5 mcg inhaler 2 puff BID #Hypokalemia, resolved #Chronic atrial fibrillation (on Eliquis 5 mg), rate controlled Continue with Eliquis 5 mg BID Keep K > 4, Mg > 2.0 Cardiac monitoring #Elevated total bilirubin #Elevated alkaline phosphatase With elevated GGT. Possible related to hepatic congestion from CHF. Monitor outpatient. # Iron deficiency anemia Iron 32, TIBC 314, percent saturation 10.19, transferrin 224, ferritin 97.9 No signs of active bleeding. Outpatient workup including routine CA screening (C-scope) recommended to patient. #Hypertension BP improved Currently not on any antihypertensive #Hyperlipidemia Continue Lipitor 20 mg p.o. at bedtime #Anxiety Xanax 0.25 mg p.o. daily as needed DVT prophylaxis: Eliquis 5 mg PO BID F: N/A E: Replete electrolytes as needed N: Heart healthy diet A: Fall precaution CODE STATUS: Full Discussed with: Patient Anticipated discharge place: Home I have seen and evaluated the patient today. Discussed with the resident and agree with the residents finding and plan as documented in the resident's note. Changes highlighted in blue font. Objective - Vital Signs Vital signs: Vital Signs Temp 97.5 F L 04/10/24 08:00 Pulse 63 04/10/24 14:00 Resp 18 04/10/24 14:00 BP 90/53 04/10/24 12:00 Pulse Ox 95 04/10/24 12:00 FiO2 Intake & Output 04/09/24 04/10/24 04/10/24 18:59 06:59 18:59 Intake Total 120 540 120 Output Total 200 800 Balance 120 340 -680 Weight 67.5 kg Intake: Oral 120 540 120 Output: Urine 200 800 Other: Voiding Method Toilet Urinal # Voids 1 - Labs CBC & Chem 7: 04/09/24 01:20 04/10/24 08:38 Labs: Abnormal Lab Results - Last 24 Hours (Table) 04/10/24 Range/Units 08:38 Sodium 136 L (137-145) mmol/L BUN 25 H (9-20) mg/dL
[2024-04-11] MEDS: SODIUM CHLORIDE 0.9% 1,000 ML in EMPTY BAG 1 BAG IV SCH (03:15)
[2024-04-11] MEDS: ATORVASTATIN 80 MG TAB PO ONE (05:23)
[2024-04-11] MEDS: ASPIRIN 325 MG TAB PO ONE (05:24)
[2024-04-11 06:21] LABS: Glucose,Whole Blood 93 mg/dL (70-110)
[2024-04-11] MEDS ORDERED: HEPARIN SODIUM,PORCINE (1 ML) 2,500 UNIT in SODIUM CHLORIDE 0.9% 250 ML IRRIGATION PRN (07:00)
[2024-04-11] MEDS ORDERED: HEPARIN SODIUM,PORCINE 10,000 UNIT in SODIUM CHLORIDE 0.9% 1,000 ML IRRIGATION PRN (07:00)
[2024-04-11] MEDS: IV FLUID CONTINUATION 900 ML IV ONE (07:19)
[2024-04-11] MEDS: MIDAZOLAM 2 MG/2 ML VIAL IVP ONE (07:41)
[2024-04-11] MEDS: LIDOCAINE 1% INJ 10MG/ML (20 ML MDV) SQ ONE (07:45)
[2024-04-11] MEDS: FLUMAZENIL 0.1 MG/ML 5 ML VIAL IVP ONE ×2 (08:01→08:07)
[2024-04-11] MEDS: IOPAMIDOL-370 100ML BTL INJ ONE ×2 (08:14)
[2024-04-11] MEDS ORDERED: RX INFO: IV CONTRAST WAS GIVEN 1 EACH MISC MISCELLANE PRN (08:28)
--- NOTE | 2024-04-11 08:32 | P.PCN ---
Date of Procedure: 04/11/24 Operative Findings: CARDIAC CATHETERIZATION PERFORMING PHYSICIAN: Fitz Petty MD, RPVI PROCEDURE PERFORMED: 1. Selective right and left coronary angiogram 2. Ultrasound-guided access of the right common femoral artery and selective right common femoral artery angiogram INDICATION: Severe cardiomyopathy COMPLICATION: None APPROACH: Right common femoral artery LEVEL OF SEDATION: Moderate with sedation in length of 45 minutes PROCEDURE DESCRIPTION: After obtaining an informed consent, the patient was brought to cardiac manager cath lab. Local anesthesia was performed using lidocaine subcutaneously. Attempting accessing the right radial artery was unsuccessful because of no good right radial pulse The right common femoral artery was cannulated using Seldinger technique, the guidewire passed easily, following that we advanced a 6 [place] Citizen sheath dilator assembly, the wire and dilator were removed and sheath was flushed. Selective right and left coronary angiogram using a 6-[place] Citizen JR4 and an AL-1 The procedure was completed there was no complication. SELECTIVE CORONARY ANGIOGRAM: The right coronary artery: Large-caliber vessel and a dominant vessel with no high-grade stenosis was identified. The RCA has only mild to moderate disease Left main: The left main appears to be coming from the right coronary cusp appears to be angiographically normal The left circumflex: The left circumflex appear to be subtotally occluded in the proximal to midportion The left anterior descending artery: The LAD is a large-caliber vessel with intermediate lesion in the midportion by the bifurcation of a large diagonal branch and diffuse disease distally CONCLUSION: 1. Intermediate disease involving the mid LAD by the bifurcation of a large diagonal branch POSTPROCEDURE MANAGEMENT: Consider obtaining coronary CTA as an outpatient to evaluate the anatomy Continue maximize medical treatment for cardiomyopathy Consider low-dose dobutamine stress echo to assess for low-flow low gradient aortic stenosis Follow-up with the patient
[2024-04-11] MEDS: SODIUM CHLORIDE 0.9% 1,000 ML IV SCH (09:00)
[2024-04-11 11:39] LABS: Glucose,Whole Blood 96 mg/dL (70-110)
[2024-04-11] MEDS ORDERED: APIXABAN 5 MG TAB PO ONE (12:30)
--- NOTE | 2024-04-11 12:39 | P.CNNES ---
History of Present Illness Consult date: 04/11/24 Requesting physician: Max He Reason for Consult: Stroke code History of Present Illness: Patient is a 78-year-old ambidextrous male who came to the hospital actually on 04/06/2024 at 4:02 PM for chest pain and confusion. Patient was seen by cardiology, and underwent cardiac catheterization this morning. Patient was found to have intermediate disease involving the mid LAD by the bifurcation of the large diagonal branch. Medical management was recommended. No intervention was performed. Patient was sent to the floor. At around 10 AM, patient started seeing double vision. It would come and go. He denies any other focal neurological symptoms with it like headache, loss of vision, slurred speech, facial droop, focal weakness, numbness or tingling. Stroke code was activated. I came to see the patient and by 11:30 AM, the symptoms had completely resolved. At present he has no symptoms. He denies any headache. Patient has a history of acute on chronic heart failure with low ejection fr action 25 to 30%. Patient has worsening cardiomyopathy, atrial fibrillation, on Eliquis. Patient also has bioprosthetic aortic valve replacement and mitral valve repair in 2011. Also has AAA. Patient also has history of a stroke in 2019, with residual numbness of the left side of the body. Patient has been on Eliquis and aspirin. Eliquis was held whole day yesterday as well as this morning for upcoming cardiac catheterization. Review of Systems All pertinent positive and negative mentioned in the HPI. Patient at present denies any shortness of breath, chest pain, nausea vomiting diarrhea, headache. Even the double vision has resolved. He does have chronic numbness of left side from previous stroke. Past Medical History Past Medical History: Cancer, CVA/TIA, GERD/Reflux, Hyperlipidemia, Hypertension Additional Past Medical History / Comment(s): history of aortic stenosis status post valve replacement, aortic dissection status post repair, AAA, skin cancer History of Any Multi-Drug Resistant Organisms: None Reported Past Surgical History: Appendectomy Additional Past Surgical History / Comment(s): aorticvalve replacement , AAA repair, skin cancer removal 2020 Past Anesthesia/Blood Transfusion Reactions: No Reported Reaction Past Psychological History: Anxiety Additional Psychological History / Comment(s): Pt resides with his spouse. He is independent. Smoking Status: Never smoker Past Alcohol Use History: None Reported Past Drug Use History: None Reported - Past Family History Brother(s) Family Medical History: Cancer Mother Family Medical History: Cancer, Coronary Artery Disease (CAD) Father Family Medical History: No Reported History Additional Family Medical History / Comment(s): Father was healthy Medications and Allergies Home Medications Medication Instructions Recorded Confirmed Type ALPRAZolam [Xanax] 0.25 mg PO DAILY PRN 06/13/17 04/06/24 History Multivit-Min/Folic/Vit K/Lycop 1 tab PO DAILY 09/09/20 04/06/24 History [Men's Multivitamin Tablet] Fluticasone/Umeclidin/Vilanter 1 puff INHALATION RT-DAILY 04/05/21 04/06/24 History [Abdirizak Ellipta 100-62.5-25] Apixaban [Eliquis] 5 mg PO BID #60 tab 04/06/21 04/06/24 Rx Atorvastatin [Lipitor] 20 mg PO HS 02/18/23 04/06/24 History Zinc Picolinate 22mg 22 mg PO DAILY 02/18/23 04/06/24 History Furosemide [Lasix] 80 mg PO DAILY 04/06/24 04/06/24 History Magnesium Oxide [Mag-Ox] 400 mg PO DAILY 04/06/24 04/06/24 History Potassium Chloride ER [K-Dur 20] 20 meq PO DAILY 04/06/24 04/06/24 History Vitamin D3/Vitamin K2 (Mk4) 1 tab PO DAILY 04/06/24 04/06/24 History [Vitamin K2 Plus D3 Tablet] Allergies Allergy/AdvReac Type Severity Reaction Status Date / Time Sulfa (Sulfonamide Allergy Anaphylaxis, Verified 04/06/24 19:15 Antibiotics) Rash Physical Examination - Vital Signs Vital Signs: Vital Signs Temp Pulse Pulse Resp BP Pulse Ox 04/11/24 09:13 54 L 117/79 98 04/11/24 09:00 97.4 F L 64 16 110/68 97 04/11/24 03:23 74 17 117/74 95 04/10/24 23:11 69 17 116/63 96 04/10/24 20:19 75 04/10/24 20:02 71 04/10/24 20:01 97.7 F 72 18 127/77 96 04/10/24 16:00 65 95 04/10/24 14:00 63 18 04/10/24 13:08 76 04/10/24 12:59 72 Intake and Output 04/10/24 04/11/24 04/11/24 22:59 06:59 14:59 Intake Total 100 Output Total 250 Balance -150 Intake: IV 100 Output: Urine 250 Other: Voiding Method Toilet Toilet Toilet Urinal Urinal Urinal # Voids 2 1 Weight 67.2 kg Patient is an elderly male, in no acute distress. Patient is alert awake oriented to time place and person. Speech and language functions are normal. Patient can name and repeat very well. No aphasia or dysarthria. Attention, concentration and fund of knowledge is adequate. On cranial nerve examination, pupils are equal, round and reacting to light, visual liang are full on confrontation, with no neglect on double simultaneous stimulation. Extraocular muscles are intact with no nystagmus. Face is symmetric, tongue protrudes to the midline. Palatal elevation and sensation normal, hearing and shoulder shrug normal, facial sensation normal. On muscle strength testing, there is no pronator drift and the strength is normal in arms and legs distally and proximally. Deep tendon reflexes are symmetric 1+ and plantars are flat. Sensory to touch is equal with no neglect on double simultaneous stimulation. Cerebellar function showed no ataxia for [id number] testing. No dysdiadochokinesia. Did not perform cerebellar functions or leg because of re cent cardiac cath. Tone and bulk of muscles normal. Gait deferred.. On general examination, there is no carotid bruit or murmur, S1-S2 audible. Chest is clear on consultation. Abdomen is soft nontender. No organomegaly, bowel sounds present. Peripheral pulses are present. No peripheral edema. Results - Laboratory Findings CBC and BMP: 04/09/24 01:20 04/10/24 08:38 Abnormal Lab Findings: Abnormal Labs 04/06/24 04/06/24 04/06/24 16:37 16:37 16:37 RBC 4.10 L Hgb 12.9 L Hct 38.8 L Neutrophils # Lymphocytes # PT 12.6 H INR 1.2 H Sodium Potassium Chloride BUN Glucose Iron % Saturation Total Bilirubin 1.4 H GGT Alkaline Phosphatase 213 H Total Protein 04/07/24 04/07/24 04/08/24 05:54 06:05 07:19 RBC 3.66 L 4.00 L Hgb 11.7 L 12.2 L Hct 35.3 L 38.4 L Neutrophils # 8.3 H Lymphocytes # 0.7 L PT INR Sodium Potassium 3.4 L Chloride BUN Glucose 111 H Iron % Saturation Total Bilirubin GGT Alkaline Phosphatase 212 H Total Protein 5.8 L 04/08/24 04/09/24 04/09/24 07:19 01:20 01:20 RBC 4.20 L Hgb Hct Neutrophils # Lymphocytes # PT INR Sodium 130 L Potassium 3.0 L 3.1 L Chloride 90 L BUN 21 H 24 H Glucose 106 H Iron 32 L % Saturation 10.19 L Total Bilirubin GGT 285 H Alkaline Phosphatase Total Protein 04/10/24 08:38 RBC Hgb Hct Neutrophils # Lymphocytes # PT INR Sodium 136 L Potassium Chloride BUN 25 H Glucose Iron % Saturation Total Bilirubin GGT Alkaline Phosphatase Total Protein Assessment and Plan Assessment: * Probable TIA manifesting with diplopia, that resolved and 1.5 hours. At present patient's symptoms have completely resolved. Current NIH stroke scale 0. * Acute on chronic congestive heart failure with reduced EF, 25 to 30% * Permanent atrial fibrillation * History of bioprosthetic aortic valve replacement and mitral valve repair, 2011 * History of AAA * History of aortic dissection s/p repair * History of CVA, 2019, with residual left-sided numbness * History of COPD, currently not in acute exacerbation * Hypertension * Hyperlipidemia * Coronary artery disease. Plan: * Patient is not a candidate for tPA, as all symptoms have resolved. Current NIH stroke scale is 0. Patient's has reported that patient had an MRI of the brain performed at * CT head rule out any acute process. * Carotid Doppler * 2D echo performed 04/07/2024 revealed severely impaired left ventricular systolic function with EF between 20 to 25% and dilated left ventricle. Repaired mitral valve with a mean gradient of 3 mmHg. Mild to moderate MR. Bioprosthetic aortic valve with a mean gradient of 25 mmHg. Moderate pulmonary hypertension. Dilated RV. Severely increased left atrial volume. Severe right atrial dilation. * [facility] last month, which revealed "microbleed's" and atrophy. * Check hemoglobin A1c. * Fasting lipid panel with cholesterol 106, LDL 48, HDL 46, triglycerides 55. Continue Lipitor 80 mg daily. * Resume Eliquis 5 mg twice daily and aspirin 81 mg daily. * Discussed with cardiology team and nursing staff. * Neurology will follow. Thank you for the consult. Time with Patient: Greater than 30
--- NOTE | 2024-04-11 12:51 | US ---
EXAMINATION TYPE: US carotid duplex BILAT DATE OF EXAM: 04/11/2024 COMPARISON: NONE CLINICAL INDICATION: Male, 78 years old with history of TIA; TIA. Prior smoker. TECHNIQUE: Carotid duplex ultrasound examination. Indirect Doppler criteria was utilized. FINDINGS: EXAM MEASUREMENTS: RIGHT: Peak Systolic Velocity (PSV) cm/sec ----- Right CCA: 45.5 ----- Right ICA: 97.7 ----- Right ECA: 51.4 ICA/CCA ratio: 2.1 RIGHT: End Diastole cm/sec ----- Right CCA: 11.3 ----- Right ICA: 25.2 ----- Right ECA: 0.0 LEFT: Peak Systolic Velocity (PSV) cm/sec ----- Left CCA: 40.5 ----- Left ICA: 65.3 ----- Left ECA: 52.3 ICA/CCA ratio: 1.6 LEFT: End Diastole cm/sec ----- Left CCA: 9.8 ----- Left ICA: 17.4 ----- Left ECA: 7.8 VERTEBRALS (direction of flow): Right Vertebral: Antegrade Left Vertebral: Antegrade Rhythm: Arrhythmia TRANSCRIPTER NOTES: No elevated velocities. Plaque seen within bilateral carotid arteries, bilateral p roximal ICAs, and bilateral bulbs. Large irregular hard plaque appears to be at the right carotid b ulb. Large hard plaque is also present within the left carotid bulb. Significant flow-limiting stenos is based on velocities however is not evident. IMPRESSION: Large plaques within the carotid bulbs. No significant flow-limiting stenosis identified based on harry ocities. Criteria for Assigning % of Stenosis / Diameter reduction (Estimation based on the indirect measurements of the internal carotid artery velocities (ICA PSV). 1. Normal (no stenosis)=ICA PSV < 125 cm/s: ratio < 2.0: ICA EDV<40 cm/s. 2. Less than 50% stenosis=ICA PSV < 125 cm/s: ratio < 2.0: ICA EDV<40 cm/s. 3. 50 to 69% stenosis=ICA PSV of 125 to 230 cm/s: ration 2.0 ? 4.0: ICA EDV 40-100 cm/s. 4. Greater than 70% stenosis to near occlusion= ICA PSV > 230 cm/s: ratio > 4.0: ICA EDV > 100 cm/s. 5. Near occlusion= ICA PSV velocities may be low or undetectable: variable ratio and ICA EDV. 6. Total occlusion=unable to detect flow. [facility], , 04/11/2024 12:49 PM
[2024-04-11] MEDS: APIXABAN 5 MG TAB PO ONE (13:22)
[2024-04-11] MEDS: carvediloL 3.125 MG TAB PO SCH (13:23)
--- NOTE | 2024-04-11 13:23 | CT ---
EXAMINATION TYPE: CT brain wo con DATE OF EXAM: 04/11/2024 COMPARISON: 09/09/2020 HISTORY: Stroke TECHNIQUE: Examination was done in axial plane without intravenous contrast. Coronal and sagittal r econstructions performed. CT DLP: 1197.4 mGycm Automated exposure control for dose reduction was used. FINDINGS: There is no evidence of acute intracranial hemorrhage, acute ischemic changes, mass, mass-effect, or extra-axial fluid collection. There is no effacement of cerebral sulci or basal subarachnoid cister ns. Mild to moderate ventriculomegaly, Jose's ratio calculated at 0.36, slightly increased from 2020. There is no midline shift. Monsivais-white matter distinction is preserved. Redemonstrate encephalomalacia lateral left frontal lobe. Focal patchy subcortical hypodensity latera l right frontal lobe is unchanged. Old lacunar infarct right thalamus. However, encephalomalacia posterior left parietal lobe is new from 2020. Moderate generalized supratentorial volume loss. Atherosclerotic calcifications within the carotid siphons. There seems to be some IV contrast onboard. Clinically correlate. Chronic volume loss right maxillary sinus with mild to moderate mucosal thickening. Undulating nasal septal deviation. Moderate mucosal thickening right ethmoid air cells. Mastoid air cells are pneumati zed. Orbits and globes are intact. IMPRESSION: 1. There seems to be some IV contrast on board. Clinically correlate. 2. Moderate cerebral atrophy. Ventriculomegaly may be due to central cerebral atrophy. There has been slight increase in the ventricular caliber from 2020. Correlate to exclude a component of NPH. 3. Old infarct left frontal lobe. Old white matter infarct lateral right frontal lobe and old lacunar infarct right thalamus. 4. An infarct in the posterior left parietal lobe is new from 2020 but still old given encephalomalac ia here. No acute intracranial abnormality seen. 5. Mild chronic right ethmoid and right maxillary sinus disease. Chronic volume loss right maxillary sinus. [facility], , 04/11/2024 1:21 PM
--- NOTE | 2024-04-11 14:31 | P.PN ---
Subjective HISTORY OF PRESENT ILLNESS: This is a 78-year-old male with past medical history significant for aortic stenosis status post valve replacement in 2011,aortic dissection 6 weeks following valve replacement status post repair, mitral valve repair, AAA, CVA in April 2020, hypertension, hyperlipidemia. Per past admission now, patient follows with Dr. Davidson of [facility]. We have been asked to see the patient in consultation for chest pain. Patient was examined at the bedside in the emergency room. Patient came to the hospital because he states he had chest pain. He also reports of shortness of breath, orthopnea, paroxysmal nocturnal dyspnea, and swelling in the lower legs. Patient denies fevers, chills, nausea, vomiting, abdominal pain. DIAGNOSTICS: - EKG reveals nonspecific changes - Chest xray shows cardiomegaly mild pulmonary edema - Laboratory data: Hemoglobin 11.7. Potassium 3.4. NT proBNP 7510. Troponins x 2 normal - Current home cardiac medications include Lipitor 20 mg daily, Lasix 80 mg p.o. daily, Eliquis 5 mg twice daily Most recent echocardiogram in January 2023 showed moderately impaired left v entricular function, estimated EF of 40 to 45%, status post mitral valve annuloplasty with mild MR moderate to severe TR with moderate pulmonary hypertension, bioprosthetic aortic valve with gradient of 22 mmHg dilated right ventricle with severe global hypokinesis 04/08/2024 The patient was seen and evaluated this morning. He is feeling better. The shortness of breath has improved significantly. No symptoms of chest pain or chest discomfort. He continues to be in atrial fibrillation with controlled heart rate. He is on oral anticoagulation. The echo still pending. The physical examination is remarkable for irregular rhythm with severe systolic murmur at right upper sternal border with clear breathing sounds bilaterally and no edema was noted April 09, 2024 The patient was seen and evaluated this morning. He is feeling better. The shortness of breath back to baseline. No symptoms of chest pain or chest discomfort. Hemodynamically he is stable. The echo showed reduced LV function with EF between 25 to 30%. I do not have a copy of the last echo from the office but a ASHER was performed in 2019 showed normal ejection fraction. He might benefit from coronary angiogram if the cardiomyopathy is new. Also he might benefit from switching lisinopril to Entresto but the patient would like to go home today. The physical examination is remarkable for regular rhythm with a soft systolic murmur and clear breathing sounds bilaterally and no edema was noted in the lower extremities 04/10/2024 Patient examined this morning. Patient is sitting on the side of the bed. Piper cifuentes currently denies chest pain or pressure. He denies shortness of breath. Vital signs are stable. Telemetry reveals atrial fibrillation with heart rate in the 70s. 04/11/2024 Patient is status post cardiac catheterization this morning with Dr. Petty. RCA has only mild to moderate disease, left main angiographically normal, left circumflex subtotally occluded in the proximal to midportion, and intermediate disease involving the mid LAD by the bifurcation of large diagonal branch. Medical management was recommended along with outpatient coronary CTA to evaluate anatomy. Patient currently denies any chest pain or pressure. He denies any shortness of breath. Vital signs are stable. Blood pressure 109/71. This afternoon, patient did report an episode of double vision. A code stroke was called. His symptoms have since resolved. He underwent CT of the brain which did not reveal any acute CVA. Carotid Doppler was performed with no significant stenosis of the internal carotid arteries. PHYSICAL EXAM: VITAL SIGNS: Reviewed. GENERAL: Well-developed in no acute distress. NECK: Supple. No JVD or thyromegaly LUNGS: Respirations even and unlabored. Lungs essentially clear to auscultation bilaterally. HEART: Irregular rate and rhythm. S1 and S2 heard. Systolic murmur noted. EXTREMITIES: Normal range of motion. No clubbing or cyanosis. Peripheral pulses intact. No lower extremity edema ASSESSMENT: Shortness of breath Acute on chronic heart failure with reduced EF, 25 to 30%, currently euvolemic Worsening cardiomyopathy, previously 40 to 45%, now 25 to 30%, nonischemic Status post cardiac catheterization revealing intermediate disease of the mid LAD, left circumflex subtotally occluded in proximal to midportion, and mild disease of RCA Permanent atrial fibrillation History of bioprosthetic aortic valve replacement and mitral valve repair, 2011 History of AAA History of aortic dissection s/p repair History of CVA, 2019 History of COPD, currently not in acute exacerbation Hypertension Hyperlipidemia Diplopia, resolved, likely TIA PLAN: Continue current cardiac medications Patient was started on Aldactone, metoprolol, and Lisinopril over the weekend but apparently were DC per request. Discussed these medications with the again this morning. She states she is hesitant to begin these medications as the patient has had issues with hypotension in the past. She is agreeable to addition of medication slowly. We will add carvedilol 3.125 mg twice a day. 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 Signing provider agrees with the documented findings, assessment, and plan of care documented by [employer] as a scribe. Objective - Vital Signs Vital signs: Vital Signs Temp 97.4 F L 04/11/24 09:00 Pulse 60 04/11/24 12:00 Resp 16 04/11/24 09:00 BP 114/59 04/11/24 12:00 Pulse Ox 98 04/11/24 12:00 FiO2 Intake & Output 04/10/24 04/11/24 04/11/24 18:59 06:59 18:59 Intake Total 120 218 Output Total 800 250 Balance -680 -32 Weight 67.2 kg Intake: IV 100 Oral 120 118 Output: Urine 800 250 Other: Voiding Method Toilet Toilet Toilet Urinal Urinal Urinal # Voids 1 - Labs CBC & Chem 7: 04/09/24 01:20 04/10/24 08:38
[2024-04-11] MEDS: ALPRAZolam 0.5 MG TAB PO PRN (15:45)
--- NOTE | 2024-04-11 16:04 | P.PN ---
Subjective Progress Note Date: 04/11/24 Hospital course: 78-year-old male with a PMH of systolic heart failure (EF 4045% on Echo 02/18/2023), A-fib (on Eliquis 5 mg), COPD (not on home O2), hypertension, hyperlipidemia, alcohol use disorder, status post aortic valve replacement and mitral valve repair presents to the ED with chest pain associated with cough, SOB, PND and orthopnea. In the ED her underwent extensive evaluation. T 97.5F, MT 78, RR 22, BP 135/80, O2 sat 96% on RA. CBC, Coag panel, CMP significant for RBC 4.1, Hg 12.9, Hct 38.8, PT 12.6, INR 1.2, T. Bili 1.4, alk phos 213. Troponin 0.018, 0.018, 0.022. BNP 7510. Flu, RSV, COVID negative. CXR cardiomegaly with pulmonary edema. Patient was admitted for CHF exacerbation. Pro-debby negative no concerns for PNA. Started on Lasix IV and Cardiology consulted. Repeat Echo EF 20-25% mild-mod MR w/ repaired MV, bioprosthetic AV with mean gradient 25 mmHg, mod pulmonary HTN. Started on Metoprolol, Lisinopril, Aldactone and Farxiga for GDMT. Subsequently, goal-directed medical therapy was discontinued per 's request except for Farxiga. Patient underwent cardiac catheterization on 04/09/2024 which showed intermediate disease involving the mid LAD by the bifurcation of the large diagonal branch. Stroke code was activated after patient complained of new onset double vision. Carotid duplex ultrasound showed large plaques within the carotid bulbs but no significant flow-limiting stenosis were identified. CT brain shows no acute or subacute stroke or intracranial abnormality. New onset double vision, resolved likely TIA patient, back to baseline. To continue with current management with anticipated discharge tomorrow morning. Subjective: Patient seen and examined at bedside. No acute events overnight. All Systems reviewed and pertinent positives and negatives noted in HPI, all other symptoms are negative Objective: Vital signs reviewed. General: non toxic, no distress, appears at stated age, normal weight Derm: no unusual rashes/lesions, warm Head: atraumatic, normocephalic, symmetric Eyes: EOMI, no lid lag, anicteric sclera, pupils equal round reactive to light: Voltaren drops discussed/okay of ENT: Nose and ears atraumatic Neck: No cervical lymphadenopathy, trachea midline, supple Mouth: no lip lesion, mucus membranes moist Cardiovascular: S1S2 reg, grade 3 systolic murmur, positive dorsalis pedis pulse bilateral, no edema Lungs: CTA bilateral, no rhonchi, no rales, no accessory muscle use Abdominal: soft, nontender to palpation, no guarding Ext: muscle strength 5 out of 5 in all 4 extremities grossly, no gross muscle atrophy, no contractures, Neuro: CN II-XI grossly intact, no gross focal neuro deficits Psych: Alert, oriented x 3, appropriate affect Data reviewed today: Labs: Sodium 136, potassium 4.1, chloride 99, bicarb 30, BUN 25, creatinine 1.05, magnesium 2.1 No new imaging Assessment and Plan: Patient is a 78-year-old male with a PMH of systolic heart failure (EF 40-45%), hypertension, hyperlipidemia, alcohol use disorder, status post aortic valve replacement and mitral valve repair presents to the ED with chest pain. Cardiology on board. # Acute on chronic systolic congestive heart failure Bioprosthetic aortic valve replacement in 2011 Echocardiogram on 02/18/2023 shows LVEF 40 to 45% Echocardiogram on 04/09/2024 shows worsening ejection fraction 20 to 25% cardiac catheterization on 04/09/2024 showed intermediate disease involving the mid LAD by the bifurcation of the large diagonal branch. follow-up with cardiology outpatient for further management Continue with aspirin 81 mg Strict I's and O's, daily weights, fluid restriction 1.5 L Heart healthy diet Continue cardiac monitoring Patient needs to be on guideline directed medical therapy, however family is hesitant Currently only on Farxiga 10 mg daily Case was discussed with cardiology #Transient ischemic attack, resolved Carotid duplex ultrasound showed large plaques within the carotid bulbs but no significant flow-limiting stenosis were identified. CT brain shows no acute or subacute stroke or intracranial abnormality. On Eliquis 5 mg p.o. twice daily Discussed the case with neurology; continue current medical management as above, observe for another 24 hours #COPD, not in acute exacerbation (not on home O2) Procalcitonin 0.2, negative Atrovent nebulizer 0.5 mg inhalation RT 4 times daily Resume Symbicort 80-4.5 mcg inhaler 2 puff BID #Hypokalemia, resolved #Chronic atrial fibrillation (on Eliquis 5 mg), rate controlled Continue with Eliquis 5 mg BID Keep K > 4, Mg > 2.0 Cardiac monitoring #Elevated total bilirubin #Elevated alkaline phosphatase With elevated GGT. Possible related to hepatic congestion from CHF. Monitor outpatient. # Iron deficiency anemia Iron 32, TIBC 314, percent saturation 10.19, transferrin 224, ferritin 97.9 No signs of active bleeding. Outpatient workup including routine CA screening (C-scope) recommended to patient. #Hypertension BP improved Currently not on any antihypertensive #Hyperlipidemia Continue Lipitor 20 mg p.o. at bedtime #Anxiety Xanax 0.25 mg p.o. daily as needed DVT prophylaxis: Eliquis 5 mg PO BID F: N/A E: Replete electrolytes as needed N: Heart healthy diet A: Fall precaution CODE STATUS: Full Discussed with: Patient Anticipated discharge place: Home, likely tomorrow I have seen and evaluated the patient today. Discussed with the resident and agree with the residents finding and plan as documented in the resident's note. Changes highlighted in blue font. Objective - Vital Signs Vital signs: Vital Signs Temp 97.4 F L 04/11/24 09:00 Pulse 60 04/11/24 12:00 Resp 16 04/11/24 09:00 BP 114/59 04/11/24 12:00 Pulse Ox 98 04/11/24 12:00 FiO2 Intake & Output 04/10/24 04/11/24 04/11/24 18:59 06:59 18:59 Intake Total 120 218 Output Total 800 250 Balance -680 -32 Weight 67.2 kg Intake: IV 100 Oral 120 118 Output: Urine 800 250 Other: Voiding Method Toilet Toilet Toilet Urinal Urinal Urinal # Voids 1 - Labs CBC & Chem 7: 04/09/24 01:20 04/10/24 08:38
[2024-04-11] MEDS: APIXABAN 5 MG TAB PO SCH (20:24)
[2024-04-11 23:41] VITALS: TEMP 98
[2024-04-12 02:38] VITALS: RESP 16
[2024-04-12 03:37] VITALS: BP 112/62; PULSE 79
[2024-04-12 06:53] LABS: African American GFR (CKD) 83 (>60 ml/min/1.73 sqM); Anion Gap 9 mmol/L; Blood Urea Nitrogen 26 mg/dL (9-20); Calcium 8.8 mg/dL (8.4-10.2); Carbon Dioxide 23 mmol/L (22-30); Chloride 102 mmol/L (98-107); Glucose 84 mg/dL (74-99); Magnesium 2.1 mg/dL (1.6-2.3); Non-African American GFR(CKD) 72 (>60 ml/min/1.73 sqM); Potassium 4.2 mmol/L (3.5-5.1); Sodium 134 mmol/L (137-145)
--- NOTE | 2024-04-12 10:43 | P.DS ---
Providers Date of admission: 04/09/24 07:36 Expected date of discharge: 04/12/24 Attending physician: Ken May Consults: 04/06/24 19:35 Consult Physician Urgent Consulting Provider: [facility] Reason/Comments: Chest pain Do you want consulting provider notified?: Yes 04/11/24 12:27 Consult Physician Urgent Consulting Provider: Nestor Herrera Reason/Comments: double vision Do you want consulting provider notified?: Already Contacted Primary care physician: Dean Richards Hospital Course: Discharge Diagnosis: 1. Acute on chronic systolic congestive heart failure 2. Transient ischemic attack 3. COPD 4. Hypokalemia, resolved 5. Chronic atrial fibrillation on Eliquis, rate control 6. Iron deficiency anemia 7. Elevated total bili and elevated alkaline phosphatase 8. Hypertension 9. Hyperlipidemia 10. Anxiety Hospital Course: 78-year-old male with a PMH of systolic heart failure (EF 4045% on Echo 02/18/2023), A-fib (on Eliquis 5 mg), COPD (not on home O2), hypertension, hyperlipidemia, alcohol use disorder, status post aortic valve replacement and mitral valve repair presents to the ED with chest pain associated with cough, SOB, PND and orthopnea. In the ED her underwent extensive evaluation. T 97.5F, CA 78, RR 22, BP 135/80, O2 sat 96% on RA. CBC, Coag panel, CMP significant for RBC 4.1, Hg 12.9, Hct 38.8, PT 12.6, INR 1.2, T. Bili 1.4, alk phos 213. Troponin 0.018, 0.018, 0.022. BNP 7510. Flu, RSV, COVID negative. CXR cardiomegaly with pulmonary edema. Patient was admitted for CHF exacerbation. Procalcitonin negative no concerns for PNA. Started on Lasix IV and Cardiology consulted. Repeat Echo EF 20-25% mild-mod MR w/ repaired MV, bioprosthetic AV with mean gradient 25 mmHg, mod pulmonary HTN. Started on Metoprolol, Lisinopril, Aldactone and Farxiga for GDMT. Subsequently, goal-directed medical therapy was discontinued per 's request except for Farxiga. Patient underwent cardiac catheterization on 04/09/2024 which showed intermediate disease involving the mid LAD by the bifurcation of the large diagonal branch. Stroke code was activated after patient complained of new onset double vision. Carotid duplex ultrasound showed large plaques within the carotid bulbs but no significant flow-limiting stenosis were identified. CT brain shows no acute or subacute stroke or intracranial abnormality. New onset double vision, resolved likely TIA, patient back to baseline. Patient is hemodynamically stable at the time of discharge. Patient to follow-up outpatient with PCP and chief of service. Instructions/handout provided on TIA, heart failure and heart catheterization. Patient to be discharged on new Rx for carvedilol 3.125 mg p.o. twice daily, F arxiga 10 mg p.o. daily and aspirin 81 mg p.o. daily. Patient is to continue with his regular home medications as directed. Vital signs reviewed. General: non toxic, no distress, appears at stated age, normal weight Derm: no unusual rashes/lesions, warm Head: atraumatic, normocephalic, symmetric Eyes: EOMI, no lid lag, anicteric sclera, pupils equal round reactive to light: Voltaren drops discussed/okay of ENT: Nose and ears atraumatic Neck: No cervical lymphadenopathy, trachea midline, supple Mouth: no lip lesion, mucus membranes moist Cardiovascular: S1S2 reg, grade 3/6 systolic murmur, positive dorsalis pedis pulse bilateral, no edema Lungs: CTA bilateral, no rhonchi, no rales, no accessory muscle use Abdominal: soft, nontender to palpation, no guarding Ext: muscle strength 5 out of 5 in all 4 extremities grossly, no gross muscle atrophy, no contractures, Neuro: CN II-XI grossly intact, no gross focal neuro deficits Psych: Alert, oriented x 3, appropriate affect A total of 33 minutes of time were spent preparing this complex discharge summary. Patient was discharged on 04/12/2024 at 911. I was unable to see the patient today as he had already left soon after d ischarge orders were placed. Discussed with the resident and agree with the residents finding and plan as documented in the resident's note. Changes highlighted in blue font. Plan - Discharge Summary Discharge Rx Participant: Yes New Discharge Prescriptions: New carvediloL [Coreg] 3.125 mg PO BID-W/MEALS #60 tab Dapagliflozin Propanediol [Farxiga] 10 mg PO DAILY #60 tab Aspirin 81 mg PO DAILY #60 tab Continue ALPRAZolam [Xanax] 0.25 mg PO DAILY PRN PRN Reason: Anxiety Multivit-Min/Folic/Vit K/Lycop [Men's Multivitamin Tablet] 1 tab PO DAILY Apixaban [Eliquis] 5 mg PO BID #60 tab Zinc Picolinate 22mg 22 mg PO DAILY Atorvastatin [Lipitor] 20 mg PO HS Magnesium Oxide [Mag-Ox] 400 mg PO DAILY Fluticasone/Umeclidin/Vilanter [Trelegy Ellipta 100-62.5-25] 1 puff INHALATION RT-DAILY Potassium Chloride ER [K-Dur 20] 20 meq PO DAILY Vitamin D3/Vitamin K2 (Mk4) [Vitamin K2 Plus D3 Tablet] 1 tab PO DAILY Changed Furosemide [Lasix] 40 mg PO DAILY #0 Discharge Medication List ALPRAZolam [Xanax] 0.25 mg PO DAILY PRN 06/13/17 [History] Multivit-Min/Folic/Vit K/Lycop [Men's Multivitamin Tablet] 1 tab PO DAILY 09/09/20 [History] Fluticasone/Umeclidin/Vilanter [Trelegy Ellipta 100-62.5-25] 1 puff INHALATION RT-DAILY 04/05/21 [History] Apixaban [Eliquis] 5 mg PO BID #60 tab 04/06/21 [Rx] Atorvastatin [Lipitor] 20 mg PO HS 02/18/23 [History] Zinc Picolinate 22mg 22 mg PO DAILY 02/18/23 [History] Magnesium Oxide [Mag-Ox] 400 mg PO DAILY 04/06/24 [History] Potassium Chloride ER [K-Dur 20] 20 meq PO DAILY 04/06/24 [History] Vitamin D3/Vitamin K2 (Mk4) [Vitamin K2 Plus D3 Tablet] 1 tab PO DAILY 04/06/24 [History] Aspirin 81 mg PO DAILY #60 tab 04/12/24 [Rx] Dapagliflozin Propanediol [Farxiga] 10 mg PO DAILY #60 tab 04/12/24 [Rx] Furosemide [Lasix] 40 mg PO DAILY #0 04/12/24 [Rx] carvediloL [Coreg] 3.125 mg PO BID-W/MEALS #60 tab 04/12/24 [Rx] Follow up Appointment(s)/Referral(s): Dean Richards DO [Primary Care Provider] - 1-2 days (Please call to make follow up appointment) Patient Instructions/Handouts: Transient Ischemic Attack (DC), Heart Failure (DC), Heart Catheterization (DC) Activity/Diet/Wound Care/Special Instructions: Please your PCP and chief of service as soon as possible Discharge Disposition: HOME SELF-CARE
== END 2024-04-12 09:42 | disposition home or self-care (01) | DRG 286 ==
LOC: EC 16:02 → 3SCARD 19:41 → OBSVTOIN 04-09 07:36
PROVIDERS: ADMIT Student in an Organized Health Care Education/Training Program; ATTEND Student in an Organized Health Care Education/Training Program
PROC: B2111ZZ Fluoroscopy of Multiple Coronary Arteries using Low Osmolar Contrast (ICD-10-PCS; 2024-04-11)
PROC: B2151ZZ Fluoroscopy of Left Heart using Low Osmolar Contrast (ICD-10-PCS; 2024-04-11)
PROC: 4A023N7 Measurement of Cardiac Sampling and Pressure, Left Heart, Percutaneous Approach (ICD-10-PCS; principal; 2024-04-11 07:30)
DX: I11.0 Hypertensive heart disease with heart failure (principal); I50.23 Acute on chronic systolic (congestive) heart failure; E87.1 Hypo-osmolality and hyponatremia; I48.21 Permanent atrial fibrillation; E78.5 Hyperlipidemia, unspecified; I42.9 Cardiomyopathy, unspecified; E87.6 Hypokalemia; F41.9 Anxiety disorder, unspecified; I71.40 Abdominal aortic aneurysm, without rupture, unspecified; J32.0 Chronic maxillary sinusitis; D50.9 Iron deficiency anemia, unspecified; I25.10 Atherosclerotic heart disease of native coronary artery without angina pectoris; J44.9 Chronic obstructive pulmonary disease, unspecified; I69.398 Other sequelae of cerebral infarction; K21.9 Gastro-esophageal reflux disease without esophagitis; Z79.01 Long term (current) use of anticoagulants; Z79.51 Long term (current) use of inhaled steroids; Z79.82 Long term (current) use of aspirin; Z79.899 Other long term (current) drug therapy; Z85.828 Personal history of other malignant neoplasm of skin; Z95.3 Presence of xenogenic heart valve
CPT/HCPCS: 36415; 70450; 71046; 80048; 80053; 80061; 82728; 82977; 83540; 83550; 83735; 83880; 84145; 84466; 84484; 85025; 85610; 85730; 87636; 93005; 93306; 93454; 93880; 94640

== ENCOUNTER 2024-08-15 03:20 | Inpatient (IN) | payer MEDICARE ==
--- NOTE | 2024-08-15 03:54 | ED ---
Chest Pain HPI - General Chief Complaint: Chest Pain Stated Complaint: Chest pain Time Seen by Provider: 08/15/24 03:41 Source: patient, EMS Mode of arrival: EMS Limitations: no limitations, physical limitation - History of Present Illness Initial Comments: Patient is a 79-year-old gentleman with a past medical history of aneurysm,Cancer, prior CVA, acid reflux, hypertension, hyperlipidemia presenting today for chest pain. Patient states the pain woke him up out of sleep at 2 AM and is focused in an area of swelling in the subxiphoid region. Patient states pain is severe only when the area is palpated. Notes a small nodule/area of swelling in that region. Endorses intermittent shortness of breath. He denies fevers but endorses chills. Denies cough or hemoptysis. Endorses lower extremity swelling. Denies palpitations, dizziness, new numbness or weakness, abdominal pain, nausea, vomiting or diarrhea. - Related Data Home Medications Medication Instructions Recorded Confirmed ALPRAZolam [Xanax] 0.25 mg PO HS PRN 06/13/17 08/15/24 Multivit-Min/Folic/Vit K/Lycop 1 tab PO DAILY 09/09/20 08/15/24 [Men's Multivitamin Tablet] Fluticasone/Umeclidin/Vilanter 1 puff INHALATION RT-DAILY 04/05/21 08/15/24 [Trelegy Ellipta 100-62.5-25] Atorvastatin [Lipitor] 20 mg PO HS 02/18/23 08/15/24 Zinc Picolinate 22mg 22 mg PO DAILY 02/18/23 08/15/24 Potassium Chloride ER [K-Dur 20] 20 meq PO DAILY 04/06/24 08/15/24 Vitamin D3/Vitamin K2 (Mk4) 1 tab PO DAILY 04/06/24 08/15/24 [Vitamin K2 Plus D3 Tablet] Acetaminophen [Tylenol Extra 500 mg PO Q6H PRN 08/15/24 08/15/24 Strength] Donepezil [Aricept] 10 mg PO HS 08/15/24 08/15/24 Furosemide [Lasix] 40 mg PO BID 08/15/24 08/15/24 Magnesium Asporotate 400mg 2 capsule PO DAILY 08/15/24 08/15/24 Memantine [Namenda] 5 mg PO BID 08/15/24 08/15/24 carvediloL [Coreg] 3.125 mg PO BID 08/15/24 08/15/24 Previous Rx's Medication Instructions Recorded Dapagliflozin Propanediol [Farxiga] 10 mg PO DAILY #60 tab 04/12/24 Dabigatran [Pradaxa] 150 mg PO BID #60 capsule 08/17/24 Allergies Allergy/AdvReac Type Severity Reaction Status Date / Time Sulfa (Sulfonamide Allergy Anaphylaxis, Verified 08/15/24 07:15 Antibiotics) Rash Review of Systems ROS Statement: Those systems with pertinent positive or pertinent negative responses have been documented in the HPI. ROS Other: All systems not noted in ROS Statement are negative. EKG Findings - EKG Comments: EKG Findings:: Sinus rhythm with VPCs, rate 61 bpm ,QRS duration 96 ms, QT/RZh420/414, rhythm with frequent PVCs, no ST elevations or depressions, no STEMI Past Medical History Past Medical History: Cancer, CVA/TIA, GERD/Reflux, Hyperlipidemia, Hypertension Additional Past Medical History / Comment(s): history of aortic stenosis status post valve replacement, aortic dissection status post repair, AAA, skin cancer History of Any Multi-Drug Resistant Organisms: None Reported Past Surgical History: Appendectomy Additional Past Surgical History / Comment(s): aorticvalve replacement , AAA repair, skin cancer removal 2020 Past Anesthesia/Blood Transfusion Reactions: No Reported Reaction Past Psychological History: Anxiety Smoking Status: Never smoker Past Alcohol Use History: None Reported Past Drug Use History: None Reported - Past Family History Brother(s) Family Medical History: Cancer Mother Family Medical History: Cancer, Coronary Artery Disease (CAD) Father Family Medical History: No Reported History Additional Family Medical History / Comment(s): Father was healthy General Exam - General Exam Comments Initial Comments: PE: CONSTITUTIONAL: No apparent distress, chronically ill-appearing, uncomfortable appearing, nontoxic SKIN: Warm, dry, no jaundice, hives or petechiae, no skin changes overlying area of discomfort EYES: Pupils are equally round, extraocular movements intact without nystagmus, clear conjunctiva, non-icteric sclera HENT: Normocephalic, atraumatic, moist mucus membranes, oropharynx clear without exudates NECK: , Full range of motion, normal appearance PULMONARY: Clear to auscultation without wheezes, rhonchi, or rales, normal excursion, no accessory muscle use and no stridor CARDIOVASCULAR: Regular rate, rhythm, normal S1 and S2. No appreciated murmurs, rubs or gallops. Strong radial pulses with intact distal perfusion. No lower extremity edema. There is a small, round (2 cmx 2cm) raised rubbery palpable area of point TTP in the subxyphoid region, nonpulsatile GASTROINTESTINAL: Soft, active bowel sounds throughout, non-tender, non- distended, no palpable masses, no rebound or guarding. No hepatosplenomegaly MUSCULOSKELETAL: Extremities have no gross deformity, no edema, redness, or swelling. No calf swelling NEUROLOGIC:_a/o x 3, GCS 15, normal mentation and speech. Moves all extremities x 4 without motor or sensory deficit PSYCHIATRIC:_normal mood and affect, thought process is clear and linear Limitations: no limitations, physical limitation Course Vital Signs 08/15/24 08/15/24 08/15/24 03:31 04:47 05:43 Temperature 97.6 F Pulse Rate 60 55 L 54 L Pulse Rate [ Pulse Oximetery ] Respiratory 20 18 18 Rate Blood Pressure 123/72 115/70 90/75 Blood Pressure [Right Arm] O2 Sat by Pulse 100 100 94 L Oximetry 08/15/24 08/15/24 08/15/24 06:59 07:47 08:00 Temperature 98 F Pulse Rate 59 L 52 L 54 L Pulse Rate [ Pulse Oximetery ] Respiratory 18 18 18 Rate Blood Pressure 110/73 120/82 120/75 Blood Pressure [Right Arm] O2 Sat by Pulse 97 95 94 L Oximetry 08/15/24 08/15/24 08/15/24 11:00 15:14 17:13 Temperature 98.1 F Pulse Rate 53 L 61 60 Pulse Rate [ Pulse Oximetery ] Respiratory 18 19 19 Rate Blood Pressure 104/91 134/84 132/77 Blood Pressure [Right Arm] O2 Sat by Pulse 97 96 97 Oximetry 08/15/24 08/15/24 08/15/24 20:41 21:00 23:30 Temperature 98.4 F Pulse Rate 59 L 53 L 57 L Pulse Rate [ Pulse Oximetery ] Respiratory 20 17 17 Rate Blood Pressure 123/104 106/65 112/74 Blood Pressure [Right Arm] O2 Sat by Pulse 99 96 95 Oximetry 08/16/24 08/16/24 08/16/24 01:43 03:30 06:02 Temperature 97.7 F Pulse Rate 55 L 52 L 51 L Pulse Rate [ Pulse Oximetery ] Respiratory 22 14 18 Rate Blood Pressure 109/78 101/73 122/71 Blood Pressure [Right Arm] O2 Sat by Pulse 96 97 96 Oximetry 08/16/24 08/16/24 08/16/24 07:36 12:54 14:00 Temperature Pulse Rate 48 L 51 L 53 L Pulse Rate [ Pulse Oximetery ] Respiratory 18 20 Rate Blood Pressure 122/75 98/75 94/61 Blood Pressure [Right Arm] O2 Sat by Pulse 96 98 98 Oximetry 08/16/24 08/16/24 08/16/24 15:40 17:21 18:52 Temperature Pulse Rate 50 L 54 L 52 L Pulse Rate [ Pulse Oximetery ] Respiratory 18 20 18 Rate Blood Pressure 94/62 121/85 89/53 Blood Pressure [Right Arm] O2 Sat by Pulse 97 98 96 Oximetry 08/16/24 08/16/24 08/16/24 19:00 19:15 20:14 Temperature 98.7 F 97.4 F L Pulse Rate 63 62 Pulse Rate [ 52 L Pulse Oximetery ] Respiratory 20 18 18 Rate Blood Pressure 97/63 104/61 Blood Pressure 107/65 [Right Arm] O2 Sat by Pulse 98 98 98 Oximetry Chest Pain MDM - MDM Was pt. sent in by a medical professional or institution (PASQUALE Moseley, CLINICAL INVESTIGATOR, urgent care, hospital, or skilled nursing...) When possible be specific @ -No Did you speak to anyone other than the patient for history (EMS, parent, family, police, friend...)? What history was obtained from this source @ -No Did you review nursing and triage notes (agree or disagree)? Why? @ -I reviewed nursing and triage notes Were old charts reviewed (outside hosp., previous admission, EMS record, old EKG, old radiological studies, urgent care reports/EKG's, skilled nursing records)? Report findings @ -Medical records reviewed Differential Diagnosis (chest pain, altered mental status, abdominal pain women, abdominal pain men, vaginal bleeding, weakness, fever, dyspnea, syncope, headache, dizziness, GI bleed, back pain, seizure, CVA, palpatations, mental health, musculoskeletal)? Differential Chest Pain: Stable Angina, Unstable Angina, STEMI, NSTEMI PE, Aortic Dissection, pericarditis, pleurisy, chostochondirits, Pneumothorax, Musculoskeletal, Esophageal Spasm GERD, Cholecystitis, Pancreatitis, Zoster, this is not meant to be an all-inclusive list. EKG interpreted by me (3pts min.). @ -As above CT interpreted by me (1pt min.). @ Large right sided PE noted, cardiomegaly U/S interpreted by me (1pt. min.). @ -None done What testing was considered but not performed or refused? (CT, X-rays, U/S, labs)? Why? @ -None What meds were considered but not given or refused? Why? @ -None Did you discuss the management of the patient with other professionals (professionals i.e. , PA, CLINICAL INVESTIGATOR, lab, RT, psych nurse, social services coordinator, scrap crane operator, teacher, crime prevention police officer, counseling case manager)? Give summary @ -No Was smoking cessation discussed for >3mins.? @ -No Was critical care preformed (if so, how long)? Yes, 35 minutes Were there social determinants of health that impacted care today? How? (Homelessness, low income, unemployed, alcoholism, drug addiction, transportation, low edu. Level, literacy, decrease access to med. care, usp, rehab)? @ -No Was there de-escalation of care discussed even if they declined (Discuss DNR or withdrawal of care, Hospice)? @ -No What co-morbidities impacted this encounter? (DM, HTN, Smoking, COPD, CAD, Cancer, CVA, ARF, Chemo, Hep., AIDS, mental health diagnosis, sleep apnea, morbid obesity)? @ HTN, HLD, prior CVA, AAA s/p repair Was patient admitted / discharged? Hospital course, mention meds given and route, prescriptions, significant lab abnormalities, going to OR and other pertinent info. @ -Admission to ICU-patient is a 79-year-old gentleman the past medical history of AAA, prior valve replacement on Eliquis presenting today for substernal chest pain and shortness of breath. On my assessment patient is uncomfortable appearing, indicates a small area of swelling/prominence at the subxiphoid region that has point tenderness, is rubbery and nonpulsatile. States pain did radiate across left side of his chest earlier. Patient received aspirin and nitro from EMS with some improvement pain he will receive additional nitro, morphine, CT chest will be performed to evaluate area of swelling and for PE. Bedside US appears to show decreased EF but no enlargement of the right ventricle, area of swelling appears to be a soft tissue mass, not fluid filled. Patient agreeable with plan of care. troponin 0.019. BNP 4190. PE study Right sided pulmonary artery embolism with findings suggestive of right heart strain, trace right-sided pleural effusion, aneurysmal dilation of the ascending thoracic aorta. EKOS paged. Bedside US did not show right ventricular dilation. Heparin ordered. Updated pt and to findings and plan for admission. On reassessment pt endorses improvement of pain. Pt denies recent falls/head trauma, melena or hematochezia. VSS. Pt is not requiring pressors or in any distress. Plan for admission to ICU for close monitoring. Case discussed with Dr. Bell, kindly accepts pt for admission. Que CLINICAL INVESTIGATOR with critical care, aware of pt. Undiagnosed new problem with uncertain prognosis? @ -No Drug Therapy requiring intensive monitoring for toxicity (Heparin, Nitro, Insulin, Cardizem)? heparin Were any procedures done? @ -No Diagnosis/symptom? Submassive PE chest pain Acute, or Chronic, or Acute on Chronic? acute Uncomplicated (without systemic symptoms) or Complicated (systemic symptoms)? complicated Side effects of treatment? @ -No Exacerbation, Progression, or Severe Exacerbation? @ -No Poses a threat to life or bodily function? How? (Chest pain, [place], [place], pneumonia, PE, COPD, DKA, ARF, appy, cholecystitis, CVA, Diverticulitis, Homicidal, Suicidal, threat to staff... and all critical care pts) Yes, could lead to cardiovascular collapse and if left untreated Disposition Clinical Impression: Pulmonary embolism Disposition: ADMITTED IP TO THIS [facility] Condition: Stable
[2024-08-15] MEDS: NITROGLYCERIN SL TABS 0.4 MG TAB SUBLINGUAL STA (04:02)
[2024-08-15] MEDS: MORPHINE SULFATE 4 MG/ML SYRINGE IV STA (04:03)
[2024-08-15] MEDS ORDERED: RX INFO: IV CONTRAST WAS GIVEN 1 EACH MISC MISCELLANE PRN (04:05)
[2024-08-15] MEDS: ONDANSETRON 4 MG/2 ML VIAL IVP STA (04:08)
[2024-08-15 04:16] LABS: Basophils % (A) 1 %; Eosinophils # (A) 0.2 k/uL (0-0.7); Eosinophils % (A) 2 %; HCT 35.7 % (39.0-53.0); HGB 11.9 gm/dL (13.0-17.5); Lymphocytes # (A) 1.9 k/uL (1.0-4.8); Lymphocytes % (A) 26 %; MCH 31.3 pg (25.0-35.0); MCHC 33.4 g/dL (31.0-37.0); MCV 93.6 fL (80.0-100.0); Mean Platelet Volume 7.4; Monocytes # (A) 0.8 k/uL (0-1.0); Monocytes % (A) 11 %; Neutrophils # (A) 4.2 k/uL (1.3-7.7); Neutrophils % (A) 58 %; Platelet Count 121 k/uL (150-450); RBC 3.82 m/uL (4.30-5.90); WBC 7.2 k/uL (3.8-10.6)
[2024-08-15 04:27] LABS: INR 1.2 (<1.2); Prothrombin Time 12.6 sec (10.0-12.5)
[2024-08-15 04:40] LABS: ALT 24 U/L (4-49); AST 42 U/L (17-59); African American GFR (CKD) 78 (>60 ml/min/1.73 sqM); Albumin 3.6 g/dL (3.5-5.0); Alkaline Phosphatase 278 U/L (38-126); Anion Gap 8 mmol/L; Blood Urea Nitrogen 34 mg/dL (9-20); Calcium 8.7 mg/dL (8.4-10.2); Carbon Dioxide 28 mmol/L (22-30); Chloride 98 mmol/L (98-107); Glucose 88 mg/dL (74-99); Lipase 96 U/L (23-300); Magnesium 2.1 mg/dL (1.6-2.3); Non-African American GFR(CKD) 67 (>60 ml/min/1.73 sqM); Potassium 3.2 mmol/L (3.5-5.1); Sodium 134 mmol/L (137-145); Total Bilirubin 1.1 mg/dL (0.2-1.3)
[2024-08-15 04:47] LABS: NT-Pro-B-Type Natriuretic Pept 4190 pg/mL
--- NOTE | 2024-08-15 05:27 | CT ---
EXAM: CT Angiography Chest With Intravenous Contrast CLINICAL HISTORY: ITS.REASON CT Reason: substernal sharp chest pain, +palp mass in region TECHNIQUE: Axial computed tomographic angiography images of the chest with intravenous contrast. CTDI is 7.1 mGy and DLP is 306 mGy-cm. This CT exam was performed using one or more of the following dose reduction techniques: automated exposure control, adjustment of the mA and/or kV according to patient size, and/or use of iterative reconstruction technique. MIP reconstructed images were created and reviewed. COMPARISON: No relevant prior studies available. FINDINGS: Pulmonary arteries: Dilatation of the main pulmonary artery measuring 4.7 cm and the right main pulmonary artery measuring 3.2 cm in the left main pulmonary artery measuring 3.6 cm. Endoluminal filling defect is seen with first order and subsegmental pulmonary artery seen within the right lower lobe. Aorta: Interval dilatation of the ascending thoracic aorta measuring 5. 3 cm. Calcifications are seen within the aorta. Lungs: Bilateral emphysematous changes. Pleural space: Trace right-sided pleural effusion. No pneumothorax. Heart: Findings suggestive of mild right heart strain. Coronary artery calcifications. Moderate to severe cardiac enlargement. No significant pericardial effusion. Bones/joints: Degenerative changes is seen within the spine and shoulders. Sternotomy wires are in place. No acute fracture. No dislocation. Soft tissues: Unremarkable. Lymph nodes: Unremarkable. No enlarged lymph nodes. Liver: Hepatomegaly. Gallbladder and bile ducts: Cholelithiasis. No gallbladder wall thickening. Stomach and bowel: Mild nonspecific gastric wall thickening. Intraperitoneal space: Upper abdominal ascites. IMPRESSION: 1. Right-sided pulmonary artery embolism with findings suggestive of right heart strain. 2. Trace right-sided pleural effusion. 3. Aneurysmal dilatation of the ascending thoracic aorta. <MYCVCSECTION> Communications: 08/15/24 05:33 Call Doctor Regarding Pulmonary Embolism, called Dr. Norton on 08/15 05:33 (-05:00)
[2024-08-15] MEDS: POTASSIUM CHLORIDE ER 10 MEQ TAB.ER.PRT PO STA (05:32)
[2024-08-15] MEDS ORDERED: HEPARIN SODIUM 1,000 UN/ML (10ML VL) IV PRN (05:35)
[2024-08-15] MEDS: HEPARIN SODIUM 1,000 UN/ML (10ML VL) IV ONE (05:51)
[2024-08-15] MEDS: HEPARIN SOD,PORK IN 0.45% NACL 25,000 UNIT in 0.45% NACL 1 250ML.BAG IV SCH (05:52)
[2024-08-15] MEDS ORDERED: NALOXONE 0.4 MG/ML 1 ML VIAL IV PRN ×2 (06:49→14:10)
[2024-08-15] MEDS ORDERED: Magnesium Replacement Protocol 1 EACH MISC MISCELLANE PRN (06:49)
[2024-08-15] MEDS ORDERED: Potassium Replacement Protocol 1 EACH MISC MISCELLANE PRN (06:49)
[2024-08-15] MEDS ORDERED: Phosphorus Replacement Protoco 1 EACH MISC MISCELLANE PRN (06:49)
[2024-08-15] MEDS ORDERED: MORPHINE SULFATE 4 MG/ML SYRINGE IV PRN (06:49)
[2024-08-15] MEDS: FUROSEMIDE 10 MG/ML 10 ML VIAL IV STA (07:48)
[2024-08-15] MEDS: FAMOTIDINE 20 MG TAB PO SCH (08:38)
--- NOTE | 2024-08-15 09:54 | XR ---
EXAMINATION TYPE: XR chest 1V portable DATE OF EXAM: 08/15/2024 9:20 AM COMPARISON: Chest x-ray April 06, 2024. CTA chest earlier today. CLINICAL INDICATION: Male, 79 years old with history of PE, hypoxemia, TECHNIQUE: Single frontal view of the chest is obtained. FINDINGS: Overlying sternal wires are redemonstrated. There is chronic parenchymal change redemonstra bulmaro without suspicious new focal air space opacity, pleural effusion, or pneumothorax seen. Elevated right hemidiaphragm again seen. Persistent cardiomegaly with cardiac valve surgical change along with atherosclerotic and aneurysmal aortic arch. The osseous structures are demineralized. IMPRESSION: Chronic changes and cardiomegaly without acute pulmonary process. [facility], , 08/15/2024 9:52 AM
--- NOTE | 2024-08-15 10:47 | P.GSCN ---
History of Present Illness Consult date: 08/15/24 Reason for Consult: EKOS Requesting physician: Magnolia Tong History of present illness: This a pleasant 79-year-old male with multiple comorbidities including history of atrial fibrillation on Eliquis, aortic and mitral valve repair, thoracic aortic dissection, congestive heart failure, Alzheimer's, history of stroke and TIAs who presented to the emergency department with complaints of shortness of breath and chest pain that had woken him up. Patient is poor historian. Much of patient's history was obtained by his Gudelia Robbins over the phone. She states he has never had any blood clots in his lungs or his legs. His aortic dissection was 2012 status post his aortic valve and mitral valve replacement. She also states that in 2009 he had a shoulder surgery and postsurgery his right diaphragm frozen and has not recovered since that time. She also states that he had a virus in March and was admitted to this hospital and had an EF of 15% at that time. He states that he had some chest pain and shortness of breath the last about a minute 2 or 3 days ago and then occurred again. He states he has chronic bilateral lower extremity swelling. He had a CTA of the chest that reported right sided pulmonary artery embolism with findings suggestive of right heart strain. Vascular surgery was consulted for PE for possible EKOS. Troponins are negative x 2, he currently denies any shortness of breath or chest pain. He is oxygen saturation is 100% on room air. Patient and both state that he has been consistently taking his Eliquis 5 mg twice daily as prescribed. Patient's customs compliance director is [place] [facility] Dr. Rodney Golden. Review of Systems A 14 point review systems was completed all pertinent positives and negatives as stated in the HPI. Past Medical History Past Medical History: Cancer, CVA/TIA, GERD/Reflux, Hyperlipidemia, Hypertension Additional Past Medical History / Comment(s): history of aortic stenosis status post valve replacement, aortic dissection status post repair, AAA, skin cancer History of Any Multi-Drug Resistant Organisms: None Reported Past Surgical History: Appendectomy Additional Past Surgical History / Comment(s): aorticvalve replacement , AAA repair, skin cancer removal 2020 Past Anesthesia/Blood Transfusion Reactions: No Reported Reaction Past Psychological History: Anxiety Smoking Status: Never smoker Past Alcohol Use History: None Reported Past Drug Use History: None Reported - Past Family History Brother(s) Family Medical History: Cancer Mother Family Medical History: Cancer, Coronary Artery Disease (CAD) Father Family Medical History: No Reported History Additional Family Medical History / Comment(s): Father was healthy Medications and Allergies Home Medications Medication Instructions Recorded Confirmed Type ALPRAZolam [Xanax] 0.25 mg PO HS PRN 06/13/17 08/15/24 History Multivit-Min/Folic/Vit K/Lycop 1 tab PO DAILY 09/09/20 08/15/24 History [Men's Multivitamin Tablet] Fluticasone/Umeclidin/Vilanter 1 puff INHALATION RT-DAILY 04/05/21 08/15/24 History [Trelegy Ellipta 100-62.5-25] Apixaban [Eliquis] 5 mg PO BID #60 tab 04/06/21 08/15/24 Rx Atorvastatin [Lipitor] 20 mg PO HS 02/18/23 08/15/24 History Zinc Picolinate 22mg 22 mg PO DAILY 02/18/23 08/15/24 History Potassium Chloride ER [K-Dur 20] 20 meq PO DAILY 04/06/24 08/15/24 History Vitamin D3/Vitamin K2 (Mk4) 1 tab PO DAILY 04/06/24 08/15/24 History [Vitamin K2 Plus D3 Tablet] Dapagliflozin Propanediol [Farxiga] 10 mg PO DAILY #60 tab 04/12/24 08/15/24 Rx Acetaminophen [Tylenol Extra 500 mg PO Q6H PRN 08/15/24 08/15/24 History Strength] Donepezil [Aricept] 10 mg PO HS 08/15/24 08/15/24 History Furosemide [Lasix] 40 mg PO BID 08/15/24 08/15/24 History Magnesium Asporotate 400mg 2 capsule PO DAILY 08/15/24 08/15/24 History Memantine [Namenda] 5 mg PO BID 08/15/24 08/15/24 History carvediloL [Coreg] 3.125 mg PO BID 08/15/24 08/15/24 History Allergies Allergy/AdvReac Type Severity Reaction Status Date / Time Sulfa (Sulfonamide Allergy Anaphylaxis, Verified 08/15/24 07:15 Antibiotics) Rash Surgical - Exam Vital Signs Temp Pulse Resp BP Pulse Ox 97.6 F 60 20 123/72 100 08/15/24 03:31 08/15/24 03:31 08/15/24 03:31 08/15/24 03:31 08/15/24 03:31 General appearance: The patient is alert, oriented, appears in no acute distress. HET: Head is normocephalic and atraumatic. Pupils are equal and reactive. Neck: Supple. Heart: Regular. Lungs: Equal expansion, normal respiratory effort. Abdomen: Soft, nontender, nondistended. Extremities: Normal skin color and turgor. Bilateral lower extremity swelling. Neurological: Alert and oriented. Results - Labs 08/15/24 03:55 08/15/24 03:55 Abnormal Lab Results - Last 24 Hours (Table) 08/15/24 08/15/24 08/15/24 Range/Units 03:55 03:55 03:55 RBC 3.82 L (4.30-5.90) m/uL Hgb 11.9 L (13.0-17.5) gm/dL Hct 35.7 L (39.0-53.0) % Plt Count 121 L (150-450) k/uL PT 12.6 H (10.0-12.5) sec INR 1.2 H (<1.2) Sodium 134 L (137-145) mmol/L Potassium 3.2 L (3.5-5.1) mmol/L BUN 34 H (9-20) mg/dL Alkaline Phosphatase 278 H (38-126) U/L Total Protein 6.0 L (6.3-8.2) g/dL Diabetes panel 08/15/24 Range/Units 03:55 Sodium 134 L (137-145) mmol/L Potassium 3.2 L (3.5-5.1) mmol/L Chloride 98 (98-107) mmol/L Carbon Dioxide 28 (22-30) mmol/L BUN 34 H (9-20) mg/dL Creatinine 1.06 (0.66-1.25) mg/dL Glucose 88 (74-99) mg/dL Calcium 8.7 (8.4-10.2) mg/dL AST 42 (17-59) U/L ALT 24 (4-49) U/L Alkaline Phosphatase 278 H (38-126) U/L Total Protein 6.0 L (6.3-8.2) g/dL Albumin 3.6 (3.5-5.0) g/dL Calcium panel 08/15/24 Range/Units 03:55 Calcium 8.7 (8.4-10.2) mg/dL Albumin 3.6 (3.5-5.0) g/dL Pituitary panel 08/15/24 Range/Units 03:55 Sodium 134 L (137-145) mmol/L Potassium 3.2 L (3.5-5.1) mmol/L Chloride 98 (98-107) mmol/L Carbon Dioxide 28 (22-30) mmol/L BUN 34 H (9-20) mg/dL Creatinine 1.06 (0.66-1.25) mg/dL Glucose 88 (74-99) mg/dL Calcium 8.7 (8.4-10.2) mg/dL Adrenal panel 08/15/24 Range/Units 03:55 Sodium 134 L (137-145) mmol/L Potassium 3.2 L (3.5-5.1) mmol/L Chloride 98 (98-107) mmol/L Carbon Dioxide 28 (22-30) mmol/L BUN 34 H (9-20) mg/dL Creatinine 1.06 (0.66-1.25) mg/dL Glucose 88 (74-99) mg/dL Calcium 8.7 (8.4-10.2) mg/dL Total Bilirubin 1.1 (0.2-1.3) mg/dL AST 42 (17-59) U/L ALT 24 (4-49) U/L Alkaline Phosphatase 278 H (38-126) U/L Total Protein 6.0 L (6.3-8.2) g/dL Albumin 3.6 (3.5-5.0) g/dL - Imaging Comments: CT angiogram chest: Right sided pulmonary artery embolism with findings suggestive of right heart strain. Trace right sided pleural effusion. Aneurysmal dilation of the ascending thoracic aorta. Assessment and Plan Assessment: 1. Pulmonary embolism 2. History of atrial fibrillation on Eliquis 3. History of coronary artery disease with aortic valve and mitral valve replacement 4. History of thoracic aortic dissection status post repair done at [facility] 5. History of heart failure 6. History of stroke/TIAs 7. Alzheimer's disease Plan: 1. Continue IV heparin 2. Await echocardiogram results 3. Await venous duplex 4. Will consult hematology as patient was on anticoagulation and developed pulmonary embolism 5. Further recommendations forthcoming based on clinical course. Patient currently is hemodynamically stable, not requiring any oxygen supplementation. At this time no vascular surgical intervention planned but will await echocardiogram and follow along. Thank you for this consultation, we will continue to follow. The impression and plan of care has been dictated as directed. I performed a history and examination of this patient, discussed the same with the dictator. I agree with the dictator's note ,documented as a scribe. Any additional findings or plans will be noted.
--- NOTE | 2024-08-15 11:01 | US ---
EXAMINATION TYPE: US venous doppler duplex LE BI DATE OF EXAM: 08/15/2024 10:40 AM COMPARISON: NONE CLINICAL INDICATION: Male, 79 years old with history of PE; PE TECHNIQUE: The lower extremity deep venous system is examined utilizing real time linear array sonog chris with graded compression, color doppler sonography, and spectral doppler. SIDE PERFORMED: Bilateral FINDINGS: VESSELS IMAGED: Common Femoral Vein Deep Femoral Vein Greater Saphenous Vein * Femoral Vein Popliteal Vein Small Saphenous Vein * Proximal Calf Veins (* superficial vessels) Right Leg: No evidence of DVT, Color Doppler imaging shows patency of the vessels. Complex area seen right posterior knee: 6.6 x 4.3 x 2.3 cm. Left Leg: No evidence of DVT, Color Doppler imaging shows patency of the vessels. IMPRESSION: No acute DVT in either lower extremity. Moderate size right-sided popliteal cyst incident ally noted. [facility], , 08/15/2024 10:59 AM
[2024-08-15] MEDS: MORPHINE SULFATE 2 MG/ML SYRINGE IV PRN (11:24)
--- NOTE | 2024-08-15 13:29 | P.CNPUL ---
History of Present Illness Consult date: 08/15/24 Requesting physician: Nitin Bell Reason for consult: dyspnea, pulmonary embolism, abnormal CXR/CT Chief complaint: Chest pain, shortness of breath History of present illness: This is a 79-year-old male patient with a known history of dementia, CVA/TIA, hypertension, hyperlipidemia, aortic stenosis status post aortic valve replacement anticoagulated with Eliquis, abdominal aortic aneurysm, status post repair, skin cancer with dissection in 2020, former smoker, chronic obstructive pulmonary disease and follows with a commission clerk out of [facility]. He presented here to the emergency room early this morning after waking up approximately 2 AM with sudden onset of chest pain and shortness of breath. Chest x-ray reveals chronic changes, cardiomegaly, no acute pulmonary process. CT angiogram reveals a right sided pulmonary artery embolism with findings suggestive of right heart strain. Trace right-sided pleural effusion. Count 7.2. Hemoglobin 11.9. Platelets 121. Sodium 134. Potassium 3.2. Bicarb 28. BUN 34. Creatinine 1.06. Glucose 88. Troponin negative x 2. proBNP 4190. He is seen today in consultation in the emergency department. Currently sitting up on a stretcher. Awake and alert in no acute distress. Maintaining O2 saturations in the 90s on room air. He denies any chest pain currently. He is somewhat of a poor historian. His did state he takes his Eliquis as prescribed 5 mg twice daily every day. He has been initiated on a heparin drip. Echocardiogram pending. Review of Systems REVIEW OF SYSTEMS: CONSTITUTIONAL: Denies any recent significant weight loss or weight gain. EYES: Denies change in vision. EARS, NOSE, MOUTH, THROAT: Denies headaches, denies sore throat. CARDIOVASCULAR: Positive for chest pain, no palpitations or syncopal episodes. RESPIRATORY: Positive for shortness of breath, no cough, congestion or hemoptysis. GASTROINTESTINAL: Denies change in appetite, denies abdominal pain GENITOURINARY: Denies hematuria, denies infections. MUSKULOSKELETAL: Denies pain, denies swelling. INTEGUMENTARY: Denies rash, denies eczema. NEUROLOGICAL: Denies recent memory loss, no recent seizure activity. PSYCHIATRIC: Denies anxiety, denies depression. HEMATOLOGIC/LYMPHATIC: Denies anemia, denies enlarged lymph nodes. Past Medical History Past Medical History: Cancer, CVA/TIA, GERD/Reflux, Hyperlipidemia, Hypertension Additional Past Medical History / Comment(s): history of aortic stenosis status post valve replacement, aortic dissection status post repair, AAA, skin cancer History of Any Multi-Drug Resistant Organisms: None Reported Past Surgical History: Appendectomy Additional Past Surgical History / Comment(s): aorticvalve replacement , AAA repair, skin cancer removal 2020 Past Anesthesia/Blood Transfusion Reactions: No Reported Reaction Past Psychological History: Anxiety Smoking Status: Never smoker Past Alcohol Use History: None Reported Past Drug Use History: None Reported - Past Family History Brother(s) Family Medical History: Cancer Mother Family Medical History: Cancer, Coronary Artery Disease (CAD) Father Family Medical History: No Reported History Additional Family Medical History / Comment(s): Father was healthy Medications and Allergies Home Medications Medication Instructions Recorded Confirmed Type ALPRAZolam [Xanax] 0.25 mg PO HS PRN 06/13/17 08/15/24 History Multivit-Min/Folic/Vit K/Lycop 1 tab PO DAILY 09/09/20 08/15/24 History [Men's Multivitamin Tablet] Fluticasone/Umeclidin/Vilanter 1 puff INHALATION RT-DAILY 04/05/21 08/15/24 History [Trelegy Ellipta 100-62.5-25] Apixaban [Eliquis] 5 mg PO BID #60 tab 04/06/21 08/15/24 Rx Atorvastatin [Lipitor] 20 mg PO HS 02/18/23 08/15/24 History Zinc Picolinate 22mg 22 mg PO DAILY 02/18/23 08/15/24 History Potassium Chloride ER [K-Dur 20] 20 meq PO DAILY 04/06/24 08/15/24 History Vitamin D3/Vitamin K2 (Mk4) 1 tab PO DAILY 04/06/24 08/15/24 History [Vitamin K2 Plus D3 Tablet] Dapagliflozin Propanediol [Farxiga] 10 mg PO DAILY #60 tab 04/12/24 08/15/24 Rx Acetaminophen [Tylenol Extra 500 mg PO Q6H PRN 08/15/24 08/15/24 History Strength] Donepezil [Aricept] 10 mg PO HS 08/15/24 08/15/24 History Furosemide [Lasix] 40 mg PO BID 08/15/24 08/15/24 History Magnesium Asporotate 400mg 2 capsule PO DAILY 08/15/24 08/15/24 History Memantine [Namenda] 5 mg PO BID 08/15/24 08/15/24 History carvediloL [Coreg] 3.125 mg PO BID 08/15/24 08/15/24 History Allergies Allergy/AdvReac Type Severity Reaction Status Date / Time Sulfa (Sulfonamide Allergy Anaphylaxis, Verified 08/15/24 07:15 Antibiotics) Rash Physical Exam Vitals: Vital Signs Temp Pulse Resp BP Pulse Ox 08/15/24 11:00 98.1 F 53 L 18 104/91 97 08/15/24 08:00 54 L 18 120/75 94 L 08/15/24 07:47 98 F 52 L 18 120/82 95 08/15/24 06:59 59 L 18 110/73 97 08/15/24 05:43 54 L 18 90/75 94 L 08/15/24 04:47 55 L 18 115/70 100 08/15/24 03:31 97.6 F 60 20 123/72 100 Intake and Output 08/14/24 08/15/24 08/15/24 22:59 06:59 14:59 Output Total 4600 Balance -4600 Output: Urine 3550 Uretheral (Rodriguez) 1050 Post Void Residual 1050 Other: Weight 71.214 kg GENERAL EXAM: Alert, pleasant 79-year-old male patient, poor historian, on room air, comfortable in no apparent distress. HEAD: Normocephalic. EYES: Normal reaction of pupils, equal size. NOSE: Clear with pink turbinates. THROAT: No erythema or exudates. NECK: No masses, no JVD. CHEST: No chest wall deformity. LUNGS: Equal air entry with no crackles, wheeze, rhonchi or dullness. CVS: S1 and S2 normal with no audible murmur, irregular rhythm. ABDOMEN: No hepatosplenomegaly, normal bowel sounds, no guarding or rigidity. SPINE: No scoliosis or deformity SKIN: No rashes CENTRAL NERVOUS SYSTEM: No focal deficits, tone is normal in all 4 extremities. EXTREMITIES: There is no peripheral edema. No clubbing, no cyanosis. Peripheral pulses are intact. Results - Laboratory Findings CBC and BMP: 08/15/24 03:55 08/15/24 03:55 PT/INR, D-dimer PT 12.6 sec (10.0-12.5) H 08/15/24 03:55 INR 1.2 (<1.2) H 08/15/24 03:55 Abnormal lab findings: Abnormal Labs 08/15/24 08/15/24 08/15/24 03:55 03:55 03:55 RBC 3.82 L Hgb 11.9 L Hct 35.7 L Plt Count 121 L PT 12.6 H INR 1.2 H Sodium 134 L Potassium 3.2 L BUN 34 H Alkaline Phosphatase 278 H Total Protein 6.0 L - Diagnostic Findings Chest x-ray: image reviewed CT scan - chest: image reviewed Assessment and Plan Assessment: Chest pain and shortness of breath in a patient found to have a right sided pulmonary embolism with findings suggestive of right heart strain on CT angiogram. Echocardiogram pending. Negative Doppler of the lower extremities. Chronic atrial fibrillation with controlled ventricular response, maintained on Eliquis in the outpatient setting, taking it on a daily basis as prescribed History of Alzheimer's dementia Aortic dissection with aortic valve and mitral valve replacement in 2011 Severe cardiomyopathy with an ejection fraction of 15% in March 2024 Retention Hyperlipidemia Gastroesophageal reflux disease Former smoker Plan: The patient was seen and evaluated Imaging, labs and medications reviewed Echocardiogram pending Currently on a heparin drip Vascular consulted for possible intervention Hematology consult for possible failed Eliquis Currently stable and on room air Hemodynamically stable Admit to 3 S. with telemetry We will continue to follow and make further recommendations based on his clinical status I have personally seen and examined the patient, performed the documentation and the assessment and plan as written. Number of minutes spent on the visit: 20 Dictation was produced using [employer] dictation software. Please excuse any grammatical, word or spelling errors. Time with Patient: Greater than 30
--- NOTE | 2024-08-15 14:20 | P.HPIM ---
History of Present Illness H&P Date: 08/15/24 79-year-old male with past medical history of HFrEF EF 20 to 25% 04/18, permanent A-fib on Eliquis (no compliance issues), COPD not on home oxygen, CAD s/p CABG (show intermediate disease involving the mid LAD and a large diagonal branch, to the lumbar region, and CAD, HTN, HLD, alcohol use disorder, history of aortic and mitral valve repair 2011, history of AAA, history of aortic dissection status postrepair, history of right thalamus CVA 2019 presented to the ED on 08/15/24 with chest pain. Patient notes a lump in his subxiphoid region very tender to palpation that he noted on admission. He also states that he feels shortness of breath especially after Rodriguez insertion was done due to urinary retention. Of note, patient is a poor historian. he reports 40 pound weight loss in the past 4 months. Patient was on GDMT in March 2024, however blood pressure evaluated. It was discontinued exceptFor Farxiga per patient's request due to history of hypertension. ED course: Hemodynamically stable on room air. Lab work significant for no leukocytosis, hemoglobin 11.9, sodium 134, potassium 3.2, elevated alk phos 278. CT showed dilation of the main pulmonary artery 4.7, subsegmental pulmonary artery defect in the right lower lobe, dilation ascending thoracic aorta 4.3 wi th calcifications, monitoring who presented this changes, trace right-sided pleural effusion, mild right heart strain. Patient was started on heparin, pulmonology and cardiology consulted. EKG showed afib, rate controlled. TTE, bilateral lower extremity venous duplex ordered, no DVT hematology consu lted due to Eliquis failure. Rodriguez catheter placed in the ED for urinary retention Pertinent positives and negatives as discussed in HPI, a complete review of systems was performed and all other systems are negative. Patient seen and examined at bedside. Vital signs reviewed General: nontoxic, no distress, appears at stated age Derm: warm, dry Head: atraumatic, normocephalic, symmetric Eyes: EOMI, no lid lag, anicteric sclera, pupils equal round reactive to light ENT: Nose and ears atraumatic Neck: No thyromegaly, supple Mouth: no lip lesion, mucus membranes moist Cardiovascular: S1S2 reg, no murmur, no edema Lungs: clear to auscultation bilateral, no rhonchi, no rales, no wheeze, no ac cessory muscle use Abdominal: soft, nontender to palpation, no guarding, no appreciable organomegaly, linea alba labs likely, subxiphoid tender lump Ext: no gross muscle atrophy, muscle strength muscle strength 5 out of 5 in all 4 extremities, no contractures Neuro: CN II-XII grossly intact Psych: Alert, oriented, appropriate affect Assessment/Plan: Subsegmental PE with possible right right heart strain Possible Eliquis failure -Continue heparin drip -Appreciate pulmonology and cardiology recommendations -Cardiology consulted -TTE pending -Venous duplex negative for DVT Urinary retention -Rodriguez placed, plan removal in a day or 2 with void trial Subxiphoid palpable mass: CT commented negative soft tissue HFrEF EF 20 to 25% 04/18, not in exacerbation Permanent A-fib on Eliquis COPD not on home oxygen not in exacerbation, CAD heart cath showed intermediate disease involving the mid LAD and a large diagonal branch HTN HLD alcohol use disorder history of aortic and mitral valve repair 2011 history of AAA, history of aortic dissection status postrepair, history of right thalamus CVA 2019 -Continue home Farxiga 10, Lasix 40 twice daily hold home:Coreg due to soft BP The patient is admitted with an anticipated [greater] than 2 midnight stay as [inpatient/observation] status for evaluation of [subsegmental PE. CODE STATUS:[Full code DVT prophylaxis: Heparin drip Anticipated discharge date: [address]: [facility] A total of 40 minutes was spent on the care of this complex patient more than 50% of the time was spent in counseling and care coordination. Past Medical History Past Medical History: Cancer, CVA/TIA, GERD/Reflux, Hyperlipidemia, Hypertension Additional Past Medical History / Comment(s): history of aortic stenosis status post valve replacement, aortic dissection status post repair, AAA, skin cancer History of Any Multi-Drug Resistant Organisms: None Reported Past Surgical History: Appendectomy Additional Past Surgical History / Comment(s): aorticvalve replacement , AAA repair, skin cancer removal 2020 Past Anesthesia/Blood Transfusion Reactions: No Reported Reaction Past Psychological History: Anxiety Smoking Status: Never smoker Past Alcohol Use History: None Reported Past Drug Use History: None Reported - Past Family History Brother(s) Family Medical History: Cancer Mother Family Medical History: Cancer, Coronary Artery Disease (CAD) Father Family Medical History: No Reported History Additional Family Medical History / Comment(s): Father was healthy Medications and Allergies Home Medications Medication Instructions Recorded Confirmed Type ALPRAZolam [Xanax] 0.25 mg PO HS PRN 06/13/17 08/15/24 History Multivit-Min/Folic/Vit K/Lycop 1 tab PO DAILY 09/09/20 08/15/24 History [Men's Multivitamin Tablet] Fluticasone/Umeclidin/Vilanter 1 puff INHALATION RT-DAILY 04/05/21 08/15/24 History [Trelegy Ellipta 100-62.5-25] Apixaban [Eliquis] 5 mg PO BID #60 tab 04/06/21 08/15/24 Rx Atorvastatin [Lipitor] 20 mg PO HS 02/18/23 08/15/24 History Zinc Picolinate 22mg 22 mg PO DAILY 02/18/23 08/15/24 History Potassium Chloride ER [K-Dur 20] 20 meq PO DAILY 04/06/24 08/15/24 History Vitamin D3/Vitamin K2 (Mk4) 1 tab PO DAILY 04/06/24 08/15/24 History [Vitamin K2 Plus D3 Tablet] Dapagliflozin Propanediol [Farxiga] 10 mg PO DAILY #60 tab 04/12/24 08/15/24 Rx Acetaminophen [Tylenol Extra 500 mg PO Q6H PRN 08/15/24 08/15/24 History Strength] Donepezil [Aricept] 10 mg PO HS 08/15/24 08/15/24 History Furosemide [Lasix] 40 mg PO BID 08/15/24 08/15/24 History Magnesium Asporotate 400mg 2 capsule PO DAILY 08/15/24 08/15/24 History Memantine [Namenda] 5 mg PO BID 08/15/24 08/15/24 History carvediloL [Coreg] 3.125 mg PO BID 08/15/24 08/15/24 History Allergies Allergy/AdvReac Type Severity Reaction Status Date / Time Sulfa (Sulfonamide Allergy Anaphylaxis, Verified 08/15/24 07:15 Antibiotics) Rash Physical Exam Vitals: Vital Signs Temp Pulse Resp BP Pulse Ox 08/15/24 07:47 98 F 52 L 18 120/82 95 08/15/24 06:59 59 L 18 110/73 97 08/15/24 05:43 54 L 18 90/75 94 L 08/15/24 04:47 55 L 18 115/70 100 08/15/24 03:31 97.6 F 60 20 123/72 100 Intake and Output 08/14/24 08/15/24 08/15/24 22:59 06:59 14:59 Other: Weight 71.214 kg Results CBC & Chem 7: 08/15/24 03:55 08/15/24 03:55 Labs: Abnormal Lab Results - Last 24 Hours (Table) 08/15/24 08/15/24 08/15/24 Range/Units 03:55 03:55 03:55 RBC 3.82 L (4.30-5.90) m/uL Hgb 11.9 L (13.0-17.5) gm/dL Hct 35.7 L (39.0-53.0) % Plt Count 121 L (150-450) k/uL PT 12.6 H (10.0-12.5) sec INR 1.2 H (<1.2) Sodium 134 L (137-145) mmol/L Potassium 3.2 L (3.5-5.1) mmol/L BUN 34 H (9-20) mg/dL Alkaline Phosphatase 278 H (38-126) U/L Total Protein 6.0 L (6.3-8.2) g/dL
[2024-08-15] MEDS: ACETAMINOPHEN TAB 325 MG TAB PO PRN (17:17)
--- NOTE | 2024-08-15 18:01 | CA ---
Transthoracic Echo Report Name: Jean Robbins Age: 79 Gender: M : 1945 Exam Date: 08/15/2024 14:43 Exam Location: [place] [facility] Ht (in): 74 Wt (lb): 157 Ordering Physician: Concetta Mora MD Attending/Referring Phys: Limousine Driver Ashly Davies RDCS Procedure CPT: Indications: PE Cardiac Hx: limited for LVEF and PE Technical Quality: Good Contrast 1: Total Dose (mL): Contrast 2: Total Dose (mL): MEASUREMENTS (Male / Female) Normal Values 2D ECHO LV Diastolic Diameter PLAX 5.3 cm 4.2 - 5.9 / 3.9 - 5.3 cm LV Systolic Diameter PLAX 4.1 cm IVS Diastolic Thickness 1.1 cm 0.6 - 1.0 / 0.6 - 0.9 cm LVPW Diastolic Thickness 1.0 cm 0.6 - 1.0 / 0.6 - 0.9 cm LV Relative Wall Thickness 0.4 RV Internal Dim ED PLAX 5.0 cm LVOT Diameter 1.4 cm Aortic Root Diameter 4.4 cm LV Diastolic Volume MOD BP 159.7 cm??? 67 - 155 / 56 - 104 cm??? LV Systolic Volume MOD BP 108.1 cm??? 22 - 58 / 19 - 49 cm??? LV Ejection Fraction MOD BP 32.3 % >= 55 % LV Cardiac Index MOD BP 1370.5 cm???/min???m??? LV Diastolic Volume MOD 4C 143.4 cm??? LV Systolic Volume MOD 4C 86.7 cm??? LV Ejection Fraction MOD 4C 39.5 % LV Cardiac Index MOD 4C 1506.3 cm???/min???m??? LV Diastolic Length 4C 10.1 cm LV Systolic Length 4C 8.8 cm LV Diastolic Volume MOD 2C 170.1 cm??? LV Systolic Volume MOD 2C 120.6 cm??? LV Ejection Fraction MOD 2C 29.1 % LV Cardiac Index MOD 2C 1317.7 cm???/min???m??? LV Diastolic Length 2C 9.7 cm LV Systolic Length 2C 9.9 cm DOPPLER AV Peak Velocity 273.0 cm/s AV Peak Gradient 29.8 mmHg AV Mean Velocity 156.3 cm/s AV Mean Gradient 11.7 mmHg AV Velocity Time Integral 48.1 cm LVOT Peak Velocity 129.1 cm/s LVOT Peak Gradient 6.7 mmHg LVOT Velocity Time Integral 24.7 cm LVOT Stroke Volume 36.9 cm??? LVOT Stroke Volume Index 18.8 ml/m??? LVOT Cardiac Index 981.1 cm???/min???m??? AV Area Cont Eq vti 0.8 cm??? AV Area Cont Eq pk 0.7 cm??? TR Peak Velocity 210.4 cm/s TR Peak Gradient 17.7 mmHg FINDINGS Left Ventricle Left ventricular ejection fraction is estimated at 25 %. Mildly increased left ventricular diastolic volume. Severely increased left ventricular systolic volume. Moderately decreased left ventricular ejection fraction. Right Ventricle Severe right ventricular dilatation. Moderately reduced right ventricular global systolic function. Right Atrium Severe right atrial dilatation. Left Atrium Left atrial size at the upper limits of normal. Mitral Valve Trace mitral regurgitation. Aortic Valve Bioprosthetic aortic valve without stenosis with a peak velocity of 2.7 m/s, peak gradient 30 mmHg, mean gradient 12 mmHg, and estimated aortic valve area of 0.8 cm???. Tricuspid Valve Structurally normal tricuspid valve. Moderate to severe tricuspid regurgitation. Pulmonic Valve Pericardium Left pleural effusion. Aorta CONCLUSIONS Left ventricular ejection fraction 25% Severe right ventricular dilation with RV: LV ratio of 1.7 Mild to moderate right ventricular hypokinesis Bioprosthetic aortic valve with peak gradient 2.7 m/s Moderate to severe tricuspid regurgitation, eccentric Previewed by: Dr. George Ruiz DO (Electronically Signed) Final Date: 15 August 2024 18:00
[2024-08-15] MEDS: ATORVASTATIN 20 MG TAB PO SCH (20:43)
[2024-08-15] MEDS: carvediloL 3.125 MG TAB PO SCH (20:43)
[2024-08-15] MEDS: MEMANTINE 5 MG TAB PO SCH (20:43)
[2024-08-15] MEDS: DONEPEZIL 10 MG TAB PO SCH (20:44)
[2024-08-15] MEDS: FUROSEMIDE 40 MG TAB PO SCH (20:44)
[2024-08-15] MEDS: ALPRAZolam 0.25 MG TAB PO PRN (23:44)
[2024-08-16 04:38] LABS: Cardiolipin Ab IgG Interp Negative (Negative); Cardiolipin Ab IgM Interp Negative (Negative); Cardiolipin IgA Antibody 3.1 U/mL; Cardiolipin IgM Antibody 4.3 U/mL
[2024-08-16] MEDS: SYMBICORT 160-4.5 MCG INHALER INHALATION SCH (07:32)
[2024-08-16] MEDS: TIOTROPIUM 2.5 MCG INHALER INHALATION SCH (07:32)
[2024-08-16 07:51] LABS: Basophils % (A) 1 %; Eosinophils # (A) 0.2 k/uL (0-0.7); Eosinophils % (A) 3 %; HCT 36.4 % (39.0-53.0); HGB 11.4 gm/dL (13.0-17.5); Hypochromasia Slight; Lymphocytes # (A) 1.5 k/uL (1.0-4.8); Lymphocytes % (A) 19 %; MCH 29.5 pg (25.0-35.0); MCHC 31.3 g/dL (31.0-37.0); MCV 94.2 fL (80.0-100.0); Mean Platelet Volume 7.2; Monocytes # (A) 0.9 k/uL (0-1.0); Monocytes % (A) 11 %; Neutrophils # (A) 5.2 k/uL (1.3-7.7); Neutrophils % (A) 65 %; Platelet Count 143 k/uL (150-450); RBC 3.87 m/uL (4.30-5.90); RDW 15.1 % (11.5-15.5)
--- NOTE | 2024-08-16 08:38 | P.PN ---
Subjective Progress Note Date: 08/16/24 Principal diagnosis: Pulmonary embolism Patient is seen and examined today as a follow-up. He is hold in the emergency department. He remains on IV heparin drip. He denies any shortness of breath or chest pain. Echocardiogram completed reports EF of 25%, severe RV dilation w hich is similar to previous echocardiogram done in March 2024 reporting moderate pulmonary hypertension. Venous duplex negative for DVT bilateral lower extremities. Objective - Vital Signs Vital signs: Vital Signs Temp 97.7 F 08/16/24 03:30 Pulse 48 L 08/16/24 07:36 Resp 18 08/16/24 06:02 BP 122/75 08/16/24 07:36 Pulse Ox 96 08/16/24 07:36 FiO2 Intake & Output 08/15/24 08/16/24 08/16/24 18:59 06:59 18:59 Intake Total 151.264 154.926 Output Total 4600 1900 Balance -4448.736 -1745.074 Intake: Intake, IV Titration 151.264 154.926 Amount Heparin Sod,Pork in 0.45% 151.264 154.926 NaCl 25,000 unit In 0.45 % NaCl 1 250ml.bag @ 18 UNITS/KG/HR 12.819 mls/hr IV .[id number] [facility] Rx#: [id number] Output: Urine 3550 1900 Uretheral (Rodriguez) 1050 Post Void Residual 1050 Other: # Bowel Movements 1 - Exam General appearance: The patient is alert, oriented, appears in no acute distress. HET: Head is normocephalic and atraumatic. Neck: Supple. Heart: Regular. Lungs: Equal expansion, normal respiratory effort. Abdomen: Soft, nontender, nondistended. Extremities: Normal skin color and turgor. Neurological: Alert and oriented. - Labs CBC & Chem 7: 08/16/24 06:26 08/15/24 03:55 Labs: Abnormal Lab Results - Last 24 Hours (Table) 08/15/24 08/16/24 08/16/24 Range/Units 16:08 06:26 06:26 RBC 3.87 L (4.30-5.90) m/uL Hgb 11.4 L (13.0-17.5) gm/dL Hct 36.4 L (39.0-53.0) % Plt Count 143 L (150-450) k/uL APTT 58.5 H 67.4 H (22.0-30.0) sec Assessment and Plan Assessment: 1. Pulmonary embolism, no evidence of right heart strain. RV dilation secondary to pulmonary hypertension as seen on previous echocardiogram in March 2024 2. History of atrial fibrillation on Eliquis 3. History of coronary artery disease with aortic valve and mitral valve replacement 4. History of thoracic aortic dissection status post repair done at [facility] 5. History of heart failure 6. History of stroke/TIAs 7. Alzheimer's disease Plan: 1. There is no indication for any vascular surgical intervention 2. Defer anticoagulation to hematology 3. Patient may have heart healthy diet 4. Activity as tolerated 5. Patient is cleared for discharge from vascular surgery once otherwise medically cleared Thank you for this consultation, we will continue to follow. The impression and plan of care has been dictated as directed. Dr. Rodriguez I performed a history and examination of this patient, discussed the same with the dictator. I agree with the dictator's note ,documented as a scribe. Any additional findings or plans will be noted.
[2024-08-16] MEDS: DAPAGLIFLOZIN PROPANEDIOL 10 MG TABLET PO SCH (08:44)
[2024-08-16] MEDS: MULTIVITAMINS, THERA 1 EACH TAB PO SCH (08:44)
[2024-08-16] MEDS: POTASSIUM CHLORIDE ER 20 MEQ TAB.ER PO SCH (08:44)
[2024-08-16] MEDS: MAGNESIUM OXIDE 400 MG TAB PO SCH (08:44)
[2024-08-16] MEDS ORDERED: ZINC PICOLINATE PO SCH (09:00)
[2024-08-16] MEDS ORDERED: NON FORMULARY DRUG (Vitamin D3/Vitamin K2 (Mk4) [Vitamin K2 Plus D3 Tablet] 1 EACH Tablet) PO SCH (09:00)
[2024-08-16 09:04] LABS: African American GFR (CKD) 80 (>60 ml/min/1.73 sqM); Anion Gap 7 mmol/L; Blood Urea Nitrogen 24 mg/dL (9-20); Calcium 8.4 mg/dL (8.4-10.2); Carbon Dioxide 32 mmol/L (22-30); Chloride 98 mmol/L (98-107); Glucose 75 mg/dL (74-99); Non-African American GFR(CKD) 69 (>60 ml/min/1.73 sqM); Potassium 2.9 mmol/L (3.5-5.1); Sodium 137 mmol/L (137-145)
[2024-08-16 13:07] VITALS: BMI 20.1
--- NOTE | 2024-08-16 13:42 | P.PN ---
Subjective Progress Note Date: 08/16/24 Principal diagnosis: Shortness of breath and chest pain. This is a 79-year-old male patient with a known history of dementia, CVA/TIA, hypertension, hyperlipidemia, aortic stenosis status post aortic valve replacement anticoagulated with Eliquis, abdominal aortic aneurysm, status post repair, skin cancer with dissection in 2020, former smoker, chronic obstructive pulmonary disease and follows with a customer engineer out of [facility]. He presented here to the emergency room early this morning after waking up approximately 2 AM with sudden onset of chest pain and shortness of breath. Chest x-ray reveals chronic changes, cardiomegaly, no acute pulmonary process. CT angiogram reveals a right sided pulmonary artery embolism with findings suggestive of right heart strain. Trace right-sided pleural effusion. Count 7.2. Hemoglobin 11.9. Platelets 121. Sodium 134. Potassium 3.2. Bicarb 28. BUN 34. Creatinine 1.06. Glucose 88. Troponin negative x 2. proBNP 4190. He is seen today in consultation in the emergency department. Currently sitting up on a stretcher. Awake and alert in no acute distress. Maintaining O2 saturations in the 90s on room air. He denies any chest pain currently. He is somewhat of a poor historian. His did state he takes his Eliquis as prescribed 5 mg twice daily every day. He has been initiated on a heparin drip. Echocardiogram pending. Progress note dated August 16, 2024. 79-year-old male who was seen in consultation yesterday. The patient came into the hospital with complaints of shortness of breath and chest pain. He was found to have a pulmonary embolism. He was seen by vascular surgery, and was thought not to be a candidate for EKOS, or suction thrombectomy. He is seen again today in ER room 6. The patient is on room air. He is receiving IV heparin. Hematology was consulted, because the patient apparently was previously on Eliquis, and taking it, and had a PE despite being on Eliquis. Clinically, the patient is very stable. No acute distress. No shortness of breath. Current labs include a white count 8, hemoglobin 11.4, hematocrit 36.4 and a platelet count of 143,000. PTT is 67.4. Sodium 137, potassium 2.9, chlorides 98, CO2 32, BUN 24, creatinine 1.04. Objective - Vital Signs Vital signs: Vital Signs Temp 97.7 F 08/16/24 03:30 Pulse 51 L 08/16/24 12:54 Resp 18 08/16/24 12:54 BP 98/75 08/16/24 12:54 Pulse Ox 98 08/16/24 12:54 FiO2 Intake & Output 08/15/24 08/16/24 08/16/24 18:59 06:59 18:59 Intake Total 151.264 154.926 51.062 Output Total 4600 1900 755 Balance -4448.736 -1745.074 -703.938 Weight 71.214 kg Intake: Intake, IV Titration 151.264 154.926 51.062 Amount Heparin Sod,Pork in 0.45% 151.264 154.926 51.062 NaCl 25,000 unit In 0.45 % NaCl 1 250ml.bag @ 18 UNITS/KG/HR 12.819 mls/hr IV .[id number] [facility] Rx#: [id number] Output: Urine 3550 1900 755 Uretheral (Rodriguez) 1050 Post Void Residual 1050 Other: # Bowel Movements 1 - Exam No acute distress, oriented 3. HEENT examination is grossly unremarkable. Mucous membranes are moist. No oral lesions. Neck supple. Full range of motion. No adenopathy thyromegaly or neck vein distention. Cardiovascular examination reveals regular rhythm rate. S1-S2 normal. No S3 or S4. No discernible murmur noted. Lungs reveal clear breath sounds. Breath sounds are equal bilaterally. No adventitious lung sounds including wheezes rhonchi or crackles. Abdomen soft bowel sounds are heard. No masses or tenderness. Extremities are intact. No cyanosis clubbing or edema. Skin is without rash or lesion. Neurologic examination is brief but nonfocal. - Labs CBC & Chem 7: 08/16/24 06:26 08/16/24 06:26 Labs: Abnormal Lab Results - Last 24 Hours (Table) 08/15/24 08/16/24 08/16/24 Range/Units 16:08 06:26 06:26 RBC 3.87 L (4.30-5.90) m/uL Hgb 11.4 L (13.0-17.5) gm/dL Hct 36.4 L (39.0-53.0) % Plt Count 143 L (150-450) k/uL APTT 58.5 H (22.0-30.0) sec Potassium 2.9 L (3.5-5.1) mmol/L Carbon Dioxide 32 H (22-30) mmol/L BUN 24 H (9-20) mg/dL 08/16/24 Range/Units 06:26 RBC (4.30-5.90) m/uL Hgb (13.0-17.5) gm/dL Hct (39.0-53.0) % Plt Count (150-450) k/uL APTT 67.4 H (22.0-30.0) sec Potassium (3.5-5.1) mmol/L Carbon Dioxide (22-30) mmol/L BUN (9-20) mg/dL Assessment and Plan Assessment: Chest pain and shortness of breath in a patient found to have a right sided pulmonary embolism. Chronic atrial fibrillation with controlled ventricular response. History of Alzheimer's dementia. Aortic dissection with aortic valve and mitral valve replacement in 2011. Severe cardiomyopathy with an ejection fraction of 15% in March 2024. Hyperlipidemia. Gastroesophageal reflux disease. Former smoker. Plan: Plan dated August 16, 2024. The patient apparently was on Eliquis, and was taking it, and was compliant. The patient is seen today in the emergency department, room 6. Hematology has been consulted. He may be a Eliquis failure. Labs, x-rays, and medications are reviewed. The patient does have dementia, and may be unreliable. Will have to check with family members to make sure he was actually taking the Eliquis. Vascular surgery saw the patient, and thought the patient was not a candidate for EKOS, or suction thrombectomy. We will continue to follow. The patient is on room air, and is very stable. Time with Patient: Less than 30
--- NOTE | 2024-08-16 16:43 | P.PN ---
Subjective Progress Note Date: 08/16/24 Hospital Course: 79-year-old male with past medical history of HFrEF EF 20 to 25% 04/18, permanent A-fib on Eliquis (no compliance issues), COPD not on home oxygen, CAD s/p CABG (show intermediate disease involving the mid LAD and a large diagonal branch, to the lumbar region, and CAD, HTN, HLD, alcohol use disorder, history of aortic and mitral valve repair 2011, history of AAA, history of aortic dissection status postrepair, history of right thalamus CVA 2019 presented to the ED on 08/15/24 with chest pain. Patient notes a lump in his subxiphoid region very tender to palpation that he noted on admission. He also states that he feels shortness of breath especially after Rodriguez insertion was done due to urinary retention. Of note, patient is a poor historian. he reports 40 pound weight loss in the past 4 months. Patient was on GDMT in March 2024, however blood pressure evaluated. It was discontinued exceptFor Farxiga per patient's request due to history of hypertension. ED course: Hemodynamically stable on room air. Lab work significant for no leukocytosis, hemoglobin 11.9, sodium 134, potassium 3.2, elevated alk phos 278. CT showed dilation of the main pulmonary artery 4.7, subsegmental pulmonary artery defect in the right lower lobe, dilation ascending thoracic aorta 4.3 with calcifications, monitoring who presented this changes, trace right-sided pleural effusion, mild right heart strain. Patient was started on heparin, pulmonology and cardiology consulted. EKG showed afib, rate controlled. Echocardiogram completed reports EF of 25%, severe RV dilation which is similar to previous echocardiogram done in March 2024 reporting moderate pulmonary hypertension. Venous duplex negative for DVT bilateral lower extremities.hematology consulted due to Eliquis failure. Lab work pending. From vascular surgery standpoint no intervention needed Rodriguez catheter placed in the ED for urinary retention Remains stable on room air Subjective: Patient states that his abdominal lump is better today, less tender, less in size, no shortness of breath Pertinent positives and negatives as discussed above, a complete review of systems was performed and all other systems are negative. Vitals Signs Reviewed. Vital signs reviewed General: nontoxic, no distress, appears at stated age Derm: warm, dry Head: atraumatic, normocephalic, symmetric Eyes: EOMI, no lid lag, anicteric sclera, pupils equal round reactive to light ENT: Nose and ears atraumatic Neck: No thyromegaly, supple Mouth: no lip lesion, mucus membranes moist Cardiovascular: S1S2 reg, no murmur, no edema Lungs: clear to auscultation bilateral, no rhonchi, no rales, no wheeze, no accessory muscle use Abdominal: soft, nontender to palpation, no guarding, no appreciable organomegaly, linea alba labs likely, subxiphoid tender lump Ext: no gross muscle atrophy, muscle strength muscle strength 5 out of 5 in all 4 extremities, no contractures Neuro: CN II-XII grossly intact Psych: Alert, oriented, appropriate affect Data Reviewed Today: Pertinent Labs: No leukocytosis, hemoglobin stable 11.4, platelet count stable 143, sodium 137, potassium 2.9, anticardiolipin IgA IgG and IgM negative Assessment and Plan: Subsegmental PE with possible right right heart strain Possible Eliquis failure -Continue heparin drip -Appreciate pulmonology and cardiology recommendations -Hematology consulted: pending lupus anticoagulant -Echocardiogram completed reports EF of 25%, severe RV dilation which is similar to previous echocardiogram done in March 2024 reporting moderate pulmonary hypertension -Venous duplex negative for DVT Urinary retention -Rodriguez placed, plan to remove 08/16 Subxiphoid palpable mass: CT commented negative soft tissue HFrEF EF 20 to 25% 04/18, not in exacerbation Permanent A-fib on Eliquis COPD not on home oxygen not in exacerbation, CAD heart cath showed intermediate disease involving the mid LAD and a large diagonal branch HTN HLD alcohol use disorder history of aortic and mitral valve repair 2011 history of AAA, history of aortic dissection status postrepair, history of right thalamus CVA 2019 -Continue home Farxiga 10, Lasix 40 twice daily hold home:Coreg due to soft BP DVT prophylaxis: Heparin drip Anticipated discharge date: [address]: home Objective - Vital Signs Vital signs: Vital Signs Temp 97.7 F 08/16/24 03:30 Pulse 50 L 08/16/24 15:40 Resp 18 08/16/24 15:40 BP 94/62 08/16/24 15:40 Pulse Ox 97 08/16/24 15:40 FiO2 Intake & Output 08/15/24 08/16/24 08/16/24 18:59 06:59 18:59 Intake Total 151.264 154.926 51.062 Output Total 4600 1900 755 Balance -4448.736 -1745.074 -703.938 Weight 71.214 kg Intake: Intake, IV Titration 151.264 154.926 51.062 Amount Heparin Sod,Pork in 0.45% 151.264 154.926 51.062 NaCl 25,000 unit In 0.45 % NaCl 1 250ml.bag @ 18 UNITS/KG/HR 12.819 mls/hr IV .[id number] [facility] Rx#: [id number] Output: Urine 3550 1900 755 Uretheral (Rodriguez) 1050 Post Void Residual 1050 Other: # Bowel Movements 1 - Labs CBC & Chem 7: 08/16/24 06:26 08/16/24 06:26 Labs: Abnormal Lab Results - Last 24 Hours (Table) 08/15/24 08/16/24 08/16/24 Range/Units 16:08 06:26 06:26 RBC 3.87 L (4.30-5.90) m/uL Hgb 11.4 L (13.0-17.5) gm/dL Hct 36.4 L (39.0-53.0) % Plt Count 143 L (150-450) k/uL APTT 58.5 H (22.0-30.0) sec Potassium 2.9 L (3.5-5.1) mmol/L Carbon Dioxide 32 H (22-30) mmol/L BUN 24 H (9-20) mg/dL 08/16/24 Range/Units 06:26 RBC (4.30-5.90) m/uL Hgb (13.0-17.5) gm/dL Hct (39.0-53.0) % Plt Count (150-450) k/uL APTT 67.4 H (22.0-30.0) sec Potassium (3.5-5.1) mmol/L Carbon Dioxide (22-30) mmol/L BUN (9-20) mg/dL
[2024-08-16] MEDS: POTASSIUM CHLORIDE 10 MEQ in WATER FOR INJECTION 1 100ML.BAG IVPB SCH (16:52)
[2024-08-17 00:01] VITALS: RESP 20
[2024-08-17 06:31] LABS: Basophils % (A) 1 %; Eosinophils # (A) 0.2 k/uL (0-0.7); Eosinophils % (A) 3 %; HCT 37.2 % (39.0-53.0); Hypochromasia Slight; Lymphocytes # (A) 1.6 k/uL (1.0-4.8); Lymphocytes % (A) 23 %; MCH 30.5 pg (25.0-35.0); MCHC 32.4 g/dL (31.0-37.0); MCV 94.1 fL (80.0-100.0); Mean Platelet Volume 7.4; Monocytes # (A) 0.7 k/uL (0-1.0); Monocytes % (A) 11 %; Neutrophils # (A) 4.1 k/uL (1.3-7.7); Neutrophils % (A) 60 %; Platelet Count 141 k/uL (150-450); RBC 3.95 m/uL (4.30-5.90); WBC 6.8 k/uL (3.8-10.6)
[2024-08-17 07:12] LABS: African American GFR (CKD) 83 (>60 ml/min/1.73 sqM); Anion Gap 7 mmol/L; Blood Urea Nitrogen 20 mg/dL (9-20); Calcium 8.9 mg/dL (8.4-10.2); Carbon Dioxide 30 mmol/L (22-30); Chloride 99 mmol/L (98-107); Glucose 98 mg/dL (74-99); Non-African American GFR(CKD) 72 (>60 ml/min/1.73 sqM); Potassium 3.6 mmol/L (3.5-5.1); Sodium 136 mmol/L (137-145)
--- NOTE | 2024-08-17 09:06 | P.CONS ---
History of Present Illness - Reason for Consult Consult date: 08/15/24 Pulmonary embolism Requesting physician: Salma Melgar - Chief Complaint chest pain - History of Present Illness Mr. Robbins is a 79-year-old male we have been asked to see because of massive PE well on treatment dose of Eliquis, 5 mg twice daily for atrial fibrillation. Patient states that he has been on for at least 5 years, he does not miss doses. He reports his mother had a history of blood clots in her legs, thinks it was related to varicose veins. Patient denies any personal history of blood clots or pulmonary embolism. Patient states that in March he and his both had a "virus" that attacked her heart. Patient now deals with heart failure, his LVEF is improving per him and his . He will occasionally have swelling in his legs. They did notice some swelling in the last week or so. Doppler performed was negative for DVT in the bilateral lower extremities. Patient has a history of a paralyzed diaphragm status post anesthesia. He is also reporting a 40 pound weight loss over the last year, he is unable to gain weight. He denies any personal history of cancer. Review of Systems 14 point review of systems is negative except as stated in HPI Past Medical History Past Medical History: Cancer, CVA/TIA, GERD/Reflux, Hyperlipidemia, Hypertension Additional Past Medical History / Comment(s): history of aortic stenosis status post valve replacement, aortic dissection status post repair, AAA, skin cancer History of Any Multi-Drug Resistant Organisms: None Reported Past Surgical History: Appendectomy Additional Past Surgical History / Comment(s): aorticvalve replacement , AAA repair, skin cancer removal 2020 Past Anesthesia/Blood Transfusion Reactions: No Reported Reaction Past Psychological History: Anxiety Smoking Status: Never smoker Past Alcohol Use History: None Reported Past Drug Use History: None Reported - Past Family History Brother(s) Family Medical History: Cancer Mother Family Medical History: Cancer, Coronary Artery Disease (CAD) Father Family Medical History: No Reported History Additional Family Medical History / Comment(s): Father was healthy Medications and Allergies Home Medications Medication Instructions Recorded Confirmed Type ALPRAZolam [Xanax] 0.25 mg PO HS PRN 06/13/17 08/15/24 History Multivit-Min/Folic/Vit K/Lycop 1 tab PO DAILY 09/09/20 08/15/24 History [Men's Multivitamin Tablet] Fluticasone/Umeclidin/Vilanter 1 puff INHALATION RT-DAILY 04/05/21 08/15/24 History [Trelegy Ellipta 100-62.5-25] Apixaban [Eliquis] 5 mg PO BID #60 tab 04/06/21 08/15/24 Rx Atorvastatin [Lipitor] 20 mg PO HS 02/18/23 08/15/24 History Zinc Picolinate 22mg 22 mg PO DAILY 02/18/23 08/15/24 History Potassium Chloride ER [K-Dur 20] 20 meq PO DAILY 04/06/24 08/15/24 History Vitamin D3/Vitamin K2 (Mk4) 1 tab PO DAILY 04/06/24 08/15/24 History [Vitamin K2 Plus D3 Tablet] Dapagliflozin Propanediol [Farxiga] 10 mg PO DAILY #60 tab 04/12/24 08/15/24 Rx Acetaminophen [Tylenol Extra 500 mg PO Q6H PRN 08/15/24 08/15/24 History Strength] Donepezil [Aricept] 10 mg PO HS 08/15/24 08/15/24 History Furosemide [Lasix] 40 mg PO BID 08/15/24 08/15/24 History Magnesium Asporotate 400mg 2 capsule PO DAILY 08/15/24 08/15/24 History Memantine [Namenda] 5 mg PO BID 08/15/24 08/15/24 History carvediloL [Coreg] 3.125 mg PO BID 08/15/24 08/15/24 History Dabigatran [Pradaxa] 150 mg PO BID #60 capsule 08/17/24 Rx Allergies Allergy/AdvReac Type Severity Reaction Status Date / Time Sulfa (Sulfonamide Allergy Anaphylaxis, Verified 08/15/24 07:15 Antibiotics) Rash Physical Exam Vitals: Vital Signs Temp Pulse Resp BP Pulse Ox 08/15/24 17:13 60 19 97 08/15/24 15:14 61 19 134/84 96 08/15/24 11:00 98.1 F 53 L 18 104/91 97 08/15/24 08:00 54 L 18 120/75 94 L 08/15/24 07:47 98 F 52 L 18 120/82 95 08/15/24 06:59 59 L 18 110/73 97 08/15/24 05:43 54 L 18 90/75 94 L 08/15/24 04:47 55 L 18 115/70 100 08/15/24 03:31 97.6 F 60 20 123/72 100 Intake and Output 08/15/24 08/15/24 08/15/24 06:59 14:59 22:59 Intake Total 151.264 Output Total 4600 Balance -4600 151.264 Intake: Intake, IV Titration 151.264 Amount Heparin Sod,Pork in 0.45% 151.264 NaCl 25,000 unit In 0.45 % NaCl 1 250ml.bag @ 18 UNITS/KG/HR 12.819 mls/hr IV .[id number] [facility] Rx#: [id number] Output: Urine 3550 Uretheral (Rodriguez) 1050 Post Void Residual 1050 Other: Weight 71.214 kg - Constitutional General appearance: cooperative, no acute distress, thin - EENT Eyes: anicteric sclerae, EOMI ENT: hearing grossly normal, normal oropharynx - Neck Neck: no lymphadenopathy - Respiratory Respiratory: bilateral: CTA - Cardiovascular Rhythm: irregularly irregular Heart sounds: normal: S1, S2 Abnormal Heart Sounds: no systolic murmur, no diastolic murmur, no rub, no S3 Gallop, no S4 Gallop, no click, no other leg Peripheral Edema: bilateral: None - Gastrointestinal General gastrointestinal: no absent bowel sounds, no decreased bowel sounds, no distended, no hepatomegaly, no hyperactive bowel sounds, normal bowel sounds, no organomegaly, no rigid, no scaphoid, soft, no splenomegaly, tenderness, no umbilical hernia, ventral hernia - Integumentary Integumentary: pale - Neurologic Neurologic: CNII-XII intact - Musculoskeletal Musculoskeletal: strength equal bilaterally - Psychiatric Psychiatric: A&O x's 3, appropriate affect, intact judgment & insight Results CBC & Chem 7: 08/17/24 05:39 08/17/24 05:39 Labs: Abnormal Lab Results - Last 24 Hours (Table) 08/15/24 08/15/24 08/15/24 Range/Units 03:55 03:55 03:55 RBC 3.82 L (4.30-5.90) m/uL Hgb 11.9 L (13.0-17.5) gm/dL Hct 35.7 L (39.0-53.0) % Plt Count 121 L (150-450) k/uL PT 12.6 H (10.0-12.5) sec INR 1.2 H (<1.2) APTT (22.0-30.0) sec Sodium 134 L (137-145) mmol/L Potassium 3.2 L (3.5-5.1) mmol/L BUN 34 H (9-20) mg/dL Alkaline Phosphatase 278 H (38-126) U/L Total Protein 6.0 L (6.3-8.2) g/dL 08/15/24 Range/Units 16:08 RBC (4.30-5.90) m/uL Hgb (13.0-17.5) gm/dL Hct (39.0-53.0) % Plt Count (150-450) k/uL PT (10.0-12.5) sec INR (<1.2) APTT 58.5 H (22.0-30.0) sec Sodium (137-145) mmol/L Potassium (3.5-5.1) mmol/L BUN (9-20) mg/dL Alkaline Phosphatase (38-126) U/L Total Protein (6.3-8.2) g/dL CT scan - chest: report reviewed Venous US: report reviewed Assessment and Plan (1) Pulmonary embolism Current Visit: Yes Status: Acute Priority: High Code(s): I26.99 - OTHER PULMONARY EMBOLISM WITHOUT ACUTE COR PULMONALE SNOMED Code(s): 58909421 Plan: Pulmonary embolism -PE while on treatment dose eliquis for afib -Recent significant illness with cardiac complications -Doppler BLE neg for DVT -Unprovoked PE -Failure of eliquis -Recommendations for change of class of anticoagulation. Pradaxa Rx, CM consult for copay verification -APL ab labs ordered due to recent viral illness. If positive, then pt will need to be on coumadin
[2024-08-17] MEDS: DABIGATRAN 150 MG CAP PO STA (10:47)
[2024-08-17 11:43] VITALS: BP 130/72; PULSE 66; TEMP 97.3
--- NOTE | 2024-08-17 11:44 | P.DS ---
Providers Date of admission: 08/15/24 06:58 Discharge Diagnosis: Subsegmental PE with possible right right heart strain Eliquis failure Urinary retention Subxiphoid palpable mass HFrEF EF 20 to 25% 04/18, not in exacerbation Permanent A-fib on Eliquis COPD not on home oxygen not in exacerbation, CAD heart cath showed intermediate disease involving the mid LAD and a large diagonal branch HTN HLD alcohol use disorder history of aortic and mitral valve repair 2011 history of AAA, history of aortic dissection status postrepair, history of right thalamus CVA 2019 Hospital Course: 9-year-old male with past medical history of HFrEF EF 20 to 25% 04/18, permanent A-fib on Eliquis (no compliance issues), COPD not on home oxygen, CAD s/p CABG (show intermediate disease involving the mid LAD and a large diagonal branch, to the lumbar region, and CAD, HTN, HLD, alcohol use disorder, history of aortic and mitral valve repair 2011, history of AAA, history of aortic dissection status postrepair, history of right thalamus CVA 2019 presented to the ED on 08/15/24 with chest pain. Patient notes a lump in his subxiphoid region very t vicki to palpation that he noted on admission. He also states that he feels shortness of breath especially after Rodriguez insertion was done due to urinary retention. Of note, patient is a poor historian. he reports 40 pound weight loss in the past 4 months. Patient was on GDMT in March 2024, however blood pressure evaluated. It was discontinued exceptFor Farxiga per patient's request due to history of hypertension. ED course: Hemodynamically stable on room air. Lab work significant for no leukocytosis, hemoglobin 11.9, sodium 134, potassium 3.2, elevated alk phos 278. CT showed dilation of the main pulmonary artery 4.7, subsegmental pulmonary artery defect in the right lower lobe, dilation ascending thoracic aorta 4.3 with calcifications, monitoring who presented this changes, trace right-sided pleural effusion, mild right heart strain. Patient was started on heparin, pulmonology and cardiology consulted. EKG showed afib, rate controlled. Echocardiogram completed reports EF of 25%, severe RV dilation which is similar to previous echocardiogram done in March 2024 reporting moderate pulmonary hypertension. Venous duplex negative for DVT bilateral lower extremities.jessica tology consulted due to Eliquis failure. Recommended to switch to Pradaxa 150 twice daily, co-pay 31$, anticardiolipin IgG IgA and IgM negative. From vascular surgery standpoint no intervention needed Rodriguez catheter placed in the ED for urinary retention Will follow up with PCP regarding Subxiphoid palpable mass Patient seen and examined at bedside Vital signs reviewed and stable. Vital signs reviewed General: nontoxic, no distress, appears at stated age Derm: warm, dry Head: atraumatic, normocephalic, symmetric Eyes: EOMI, no lid lag, anicteric sclera, pupils equal round reactive to light ENT: Nose and ears atraumatic Neck: No thyromegaly, supple Mouth: no lip lesion, mucus membranes moist Cardiovascular: S1S2 reg, no murmur, no edema Lungs: clear to auscultation bilateral, no rhonchi, no rales, no wheeze, no accessory muscle use Abdominal: soft, nontender to palpation, no guarding, no appreciable organomegaly, linea alba labs likely, subxiphoid tender lump Ext: no gross muscle atrophy, muscle strength muscle strength 5 out of 5 in all 4 extremities, no contractures Neuro: CN II-XII grossly intact Psych: Alert, oriented, appropriate affect A total of [40] minutes of time were spent preparing this complex discharge summary. Patient was discharged on [08/17/24]. Attending physician: Nitin Bell MD Consults: 08/15/24 06:49 Consult Physician Stat Consulting Provider: Jerel Harmon Consult Reason/Comments: Submassive PE Do you want consulting provider notified?: Already Contacted 08/15/24 09:13 Consult Physician Routine Consulting Provider: Melyssa Rodriguez Consult Reason/Comments: ekos Do you want consulting provider notified?: Yes 08/15/24 10:27 Consult Physician Routine Consulting Provider: Chris Gallagher Consult Reason/Comments: PE on Eliquis (for Afib) Do you want consulting provider notified?: Yes Primary care physician: Dean Richards Plan - Discharge Summary Discharge Rx Participant: No New Discharge Prescriptions: New Dabigatran [Pradaxa] 150 mg PO BID #60 capsule Continue ALPRAZolam [Xanax] 0.25 mg PO HS PRN PRN Reason: Anxiety Multivit-Min/Folic/Vit K/Lycop [Men's Multivitamin Tablet] 1 tab PO DAILY Zinc Picolinate 22mg 22 mg PO DAILY Atorvastatin [Lipitor] 20 mg PO HS Dapagliflozin Propanediol [Farxiga] 10 mg PO DAILY #60 tab Magnesium Asporotate 400mg 2 capsule PO DAILY carvediloL [Coreg] 3.125 mg PO BID Memantine [Namenda] 5 mg PO BID Fluticasone/Umeclidin/Vilanter [Trelegy Ellipta 100-62.5-25] 1 puff INHALATION RT-DAILY Potassium Chloride ER [K-Dur 20] 20 meq PO DAILY Vitamin D3/Vitamin K2 (Mk4) [Vitamin K2 Plus D3 Tablet] 1 tab PO DAILY Donepezil [Aricept] 10 mg PO HS Furosemide [Lasix] 40 mg PO BID Acetaminophen [Tylenol Extra Strength] 500 mg PO Q6H PRN PRN Reason: Fever And/ Or Pain Discontinued Apixaban [Eliquis] 5 mg PO BID #60 tab Discharge Medication List ALPRAZolam [Xanax] 0.25 mg PO HS PRN 06/13/17 [History] Multivit-Min/Folic/Vit K/Lycop [Men's Multivitamin Tablet] 1 tab PO DAILY 09/09/20 [History] Fluticasone/Umeclidin/Vilanter [Trelegy Ellipta 100-62.5-25] 1 puff INHALATION RT-DAILY 04/05/21 [History] Atorvastatin [Lipitor] 20 mg PO HS 02/18/23 [History] Zinc Picolinate 22mg 22 mg PO DAILY 02/18/23 [History] Potassium Chloride ER [K-Dur 20] 20 meq PO DAILY 04/06/24 [History] Vitamin D3/Vitamin K2 (Mk4) [Vitamin K2 Plus D3 Tablet] 1 tab PO DAILY 04/06/24 [History] Dapagliflozin Propanediol [Farxiga] 10 mg PO DAILY #60 tab 04/12/24 [Rx] Acetaminophen [Tylenol Extra Strength] 500 mg PO Q6H PRN 08/15/24 [History] Donepezil [Aricept] 10 mg PO HS 08/15/24 [History] Furosemide [Lasix] 40 mg PO BID 08/15/24 [History] Magnesium Asporotate 400mg 2 capsule PO DAILY 08/15/24 [History] Memantine [Namenda] 5 mg PO BID 08/15/24 [History] carvediloL [Coreg] 3.125 mg PO BID 08/15/24 [History] Dabigatran [Pradaxa] 150 mg PO BID #60 capsule 08/17/24 [Rx] Follow up Appointment(s)/Referral(s): Dean Richards DO [Primary Care Provider] - 1-2 days Patient Instructions/Handouts: Dabigatran (By mouth) Discharge Disposition: HOME SELF-CARE
--- NOTE | 2024-08-17 12:44 | P.PN ---
Subjective Progress Note Date: 08/17/24 Principal diagnosis: Shortness of breath and chest pain. This is a 79-year-old male patient with a known history of dementia, CVA/TIA, hypertension, hyperlipidemia, aortic stenosis status post aortic valve replacement anticoagulated with Eliquis, abdominal aortic aneurysm, status post repair, skin cancer with dissection in 2020, former smoker, chronic obstructive pulmonary disease and follows with a riveter helper out of [facility]. He presented here to the emergency room early this morning after waking up approximately 2 AM with sudden onset of chest pain and shortness of breath. Chest x-ray reveals chronic changes, cardiomegaly, no acute pulmonary process. CT angiogram reveals a right sided pulmonary artery embolism with findings suggestive of right heart strain. Trace right-sided pleural effusion. Count 7.2. Hemoglobin 11.9. Platelets 121. Sodium 134. Potassium 3.2. Bicarb 28. BUN 34. Creatinine 1.06. Glucose 88. Troponin negative x 2. proBNP 4190. He is seen today in consultation in the emergency department. Currently sitting up on a stretcher. Awake and alert in no acute distress. Maintaining O2 saturations in the 90s on room air. He denies any chest pain currently. He is somewhat of a poor historian. His did state he takes his Eliquis as prescribed 5 mg twice daily every day. He has been initiated on a heparin drip. Echocardiogram pending. Progress note dated August 16, 2024. 79-year-old male who was seen in consultation yesterday. The patient came into the hospital with complaints of shortness of breath and chest pain. He was found to have a pulmonary embolism. He was seen by vascular surgery, and was thought not to be a candidate for EKOS, or suction thrombectomy. He is seen again today in ER room 6. The patient is on room air. He is receiving IV heparin. Hematology was consulted, because the patient apparently was previously on Eliquis, and taking it, and had a PE despite being on Eliquis. Clinically, the patient is very stable. No acute distress. No shortness of breath. Current labs include a white count 8, hemoglobin 11.4, hematocrit 36.4 and a platelet count of 143,000. PTT is 67.4. Sodium 137, potassium 2.9, chlorides 98, CO2 32, BUN 24, creatinine 1.04. Progress note dated August 17, 2024. 79-year-old male seen today in room 357. Previously, we are seeing him in the emergency department. He is currently on room air. He is receiving IV heparin. The patient was seen by hematology, and was thought to be a failure on Eliquis, and they recommended Pradaxa, versus Coumadin. The patient is clinically well, without complaints. He is alert and awake. He denies any shortness of breath, or chest pain. White count 6.8, hemoglobin 12, hematocrit 37.2, platelet count 141,000. PTT is 71.5. Sodium 136, potassium 3.6, chlorides 99, CO2 30, BUN 20, creatinine 1. Calcium is 8.9. Objective - Vital Signs Vital signs: Vital Signs Temp 97.3 F L 08/17/24 11:42 Pulse 66 08/17/24 11:42 Resp 20 08/17/24 11:42 BP 130/72 08/17/24 11:42 Pulse Ox 93 L 08/17/24 11:42 FiO2 Intake & Output 08/16/24 08/17/24 08/17/24 18:59 06:59 18:59 Intake Total 165.151 287.288 Output Total 755 750 200 Balance -589.849 -750 87.288 Weight 71.214 kg 69.2 kg Intake: Intake, IV Titration 165.151 167.288 Amount Heparin Sod,Pork in 0.45% 165.151 167.288 NaCl 25,000 unit In 0.45 % NaCl 1 250ml.bag @ 18 UNITS/KG/HR 12.819 mls/hr IV .[id number] [facility] Rx#: [id number] Oral 120 Output: Urine 755 750 200 Other: Voiding Method Indwelling Catheter Indwelling Catheter - Exam No acute distress, oriented 3. HEENT examination is grossly unremarkable. Mucous membranes are moist. No oral lesions. Neck supple. Full range of motion. No adenopathy thyromegaly or neck vein distention. Cardiovascular examination reveals regular rhythm rate. S1-S2 normal. No S3 or S4. No discernible murmur noted. Lungs reveal clear breath sounds. Breath sounds are equal bilaterally. No adventitious lung sounds including wheezes rhonchi or crackles. Abdomen soft bowel sounds are heard. No masses or tenderness. Extremities are intact. No cyanosis clubbing or edema. Skin is without rash or lesion. Neurologic examination is brief but nonfocal. - Labs CBC & Chem 7: 08/17/24 05:39 08/17/24 05:39 Labs: Abnormal Lab Results - Last 24 Hours (Table) 08/17/24 08/17/24 08/17/24 Range/Units 05:39 05:39 05:39 RBC 3.95 L (4.30-5.90) m/uL Hgb 12.0 L (13.0-17.5) gm/dL Hct 37.2 L (39.0-53.0) % Plt Count 141 L (150-450) k/uL APTT 71.5 H (22.0-30.0) sec Sodium 136 L (137-145) mmol/L Assessment and Plan Assessment: Chest pain and shortness of breath in a patient found to have a right sided pulmonary embolism. Chronic atrial fibrillation with controlled ventricular response. History of Alzheimer's dementia. Aortic dissection with aortic valve and mitral valve replacement in 2011. Severe cardiomyopathy with an ejection fraction of 15% in March 2024. Hyperlipidemia. Gastroesophageal reflux disease. Former smoker. Plan: Plan dated August 16, 2024. The patient apparently was on Eliquis, and was taking it, and was compliant. The patient is seen today in the emergency department, room 6. Hematology has been consulted. He may be a Eliquis failure. Labs, x-rays, and medications are reviewed. The patient does have dementia, and may be unreliable. Will have to check with family members to make sure he was actually taking the Eliquis. Vascular surgery saw the patient, and thought the patient was not a candidate for EKOS, or suction thrombectomy. We will continue to follow. The patient is on room air, and is very stable. Plan dated January 15, 2025. The patient was seen today in room 357. He was admitted with a diagnosis of pulmonary embolism. The patient was apparently on Eliquis, and apparently was t aking the Eliquis, was seen by hematology, and was thought to be an Eliquis failure. Anyway, they recommended either Pradaxa, or Coumadin. He was seen by vascular surgery. He was not thought to be a candidate for either EKOS, or suction thrombectomy. Labs, x-rays, and medications are reviewed. Clinically, the patient is stable. We will continue to follow the patient, make recommendations where appropriate. Time with Patient: Less than 30
[2024-08-17 13:25] LABS: APTT 156 Sec(s) (<43); APTT 1:1 Mix 60 Sec(s) (<43); DRVVT 1:1 Mix 37 Sec(s) (<44); Dilute Russell Viper Venom 52 Sec(s) (<44); Hexagonal Phase Neutralization Negative (Negative)
--- NOTE | 2024-08-17 23:15 | P.PN ---
Subjective Progress Note Date: 08/17/24 Principal diagnosis: Pulmonary embolism on anticoagulation In follow-up today patient denies any chest pain, shortness of breath or bleeding. He is going to be discharged. Objective - Vital Signs Vital signs: Vital Signs Temp 97.3 F L 08/17/24 11:42 Pulse 66 08/17/24 11:42 Resp 20 08/17/24 11:42 BP 130/72 08/17/24 11:42 Pulse Ox 93 L 08/17/24 11:42 FiO2 Intake & Output 08/16/24 08/17/24 08/17/24 18:59 06:59 18:59 Intake Total 165.151 287.288 Output Total 755 750 200 Balance -589.849 -750 87.288 Weight 71.214 kg 69.2 kg Intake: Intake, IV Titration 165.151 167.288 Amount Heparin Sod,Pork in 0.45% 165.151 167.288 NaCl 25,000 unit In 0.45 % NaCl 1 250ml.bag @ 18 UNITS/KG/HR 12.819 mls/hr IV .[id number] [facility] Rx#: [id number] Oral 120 Output: Urine 755 750 200 Other: Voiding Method Indwelling Catheter Indwelling Catheter - Constitutional General appearance: Present: average body habitus, cooperative, no acute distress - EENT Eyes: Present: anicteric sclerae, EOMI ENT: Present: hearing grossly normal - Respiratory Details: Respirations unlabored at rest - Cardiovascular Details: Skin warm and dry to the touch, well-perfused - Peripheral edema leg Peripheral Edema: bilateral: None - Integumentary Integumentary: Present: normal - Neurologic Neurologic: Present: CNII-XII intact - Musculoskeletal Musculoskeletal: Present: strength equal bilaterally - Psychiatric Psychiatric: Present: A&O x's 3, appropriate affect, intact judgment & insight - Labs CBC & Chem 7: 08/17/24 05:39 08/17/24 05:39 Labs: Abnormal Lab Results - Last 24 Hours (Table) 08/15/24 08/17/24 08/17/24 Range/Units 20:19 05:39 05:39 RBC 3.95 L (4.30-5.90) m/uL Hgb 12.0 L (13.0-17.5) gm/dL Hct 37.2 L (39.0-53.0) % Plt Count 141 L (150-450) k/uL APTT (22.0-30.0) sec Lupus Anticoag aPTT 156 H (<43) Sec(s) Lupus Anticoag PTT Mix 60 H (<43) Sec(s) Dil Ac Viper Venom 52 H (<44) Sec(s) Sodium 136 L (137-145) mmol/L 08/17/24 Range/Units 05:39 RBC (4.30-5.90) m/uL Hgb (13.0-17.5) gm/dL Hct (39.0-53.0) % Plt Count (150-450) k/uL APTT 71.5 H (22.0-30.0) sec Lupus Anticoag aPTT (<43) Sec(s) Lupus Anticoag PTT Mix (<43) Sec(s) Dil Ac Viper Venom (<44) Sec(s) Sodium (137-145) mmol/L Assessment and Plan (1) Pulmonary embolism Status: Acute Priority: High Code(s): I26.99 - OTHER PULMONARY EMBOLISM WITHOUT ACUTE COR PULMONALE SNOMED Code(s): 09820726 Plan: Pulmonary embolism -PE while on treatment dose eliquis for afib -Recent significant illness with cardiac complications -Doppler BLE neg for DVT -Unprovoked PE -Failure of eliquis -Recommendations for change of class of anticoagulation. Pradaxa Rx, $30 co-pay -Cardiolipin antibodies and lupus anticoagulant both negative. Will watch for the results of beta-2 glycoprotein 1. Patient will be contacted if any modifications to anticoagulations need to be made.
--- NOTE | 2024-08-24 10:08 | CDI ---
Documentation Clarification Form Date: 08/24/24 From: Rowdy Mcmillan, LANRE, RN, CCDS, CDIP Phone: [phone] Admit Date: 08/15/2024 06:58:00 AM Patient Name: Jean Robbins Visit Number: [id number] Discharge Date: 08/17/2024 01:52:00 PM ATTENTION: The Clinical Documentation Specialists (CDI) and [facility] Coding Staff appreciate your assistance in clarifying documentation. All clinical indicators were obtained from the EMR unless otherwise noted. Please respond to the clarification below the line at the bottom and electronically sign. The CDI & [facility] Coding staff will review the response and follow-up if needed. Please note: Queries are made part of the Legal Health Record. If you have any questions, please contact the author of this message via ITS or [employer]. Dr. Mora Subsegmental PE with possible right heart strain was documented in the discharge summary on 08/17. Based on this information and the findings below, is there an additional diagnosis that is clinically appropriate for this patient? Pertinent Patient history/risk factors: 79 yo male presented with chest pain and SOB, dx with PE. PMH HFrEF, permanent afib, on Eliquis, HTN, CAD, HLD (H&P 08/15) Clinical Indicators: Pro-BNP: 4190 (08/15) Echo 08/15 EF 25% Severe right ventricular dilatation and Severe right atrial dilatation. CTA Chest 08/15: No pneumothorax. Findings suggestive of mild right heart strain. Treatment: IV Heparin gtt per titrated per protocol. PE Response team consult: patient is not a candidate for EKOS or suction thrombectomy. DC home with Pradaxa (Eliquis was dcd) Is there an additional diagnosis that is clinically appropriate for this patient? [ x ] Acute Cor Pulmonale [ ] No additional diagnosis/Not clinically significant [ ] Unable to determine [ ] Other, please specify MTDD
== END 2024-08-17 13:52 | disposition home or self-care (01) | DRG 175 ==
LOC: EC 03:20 → 2SICU 06:58 → 3SCARD 12:21
PROVIDERS: ADMIT Internal Medicine; ATTEND Internal Medicine
DX: I26.09 Other pulmonary embolism with acute cor pulmonale (principal); I27.22 Pulmonary hypertension due to left heart disease; I42.8 Other cardiomyopathies; I48.21 Permanent atrial fibrillation; I11.0 Hypertensive heart disease with heart failure; G30.9 Alzheimer's disease, unspecified; E78.5 Hyperlipidemia, unspecified; J44.9 Chronic obstructive pulmonary disease, unspecified; I70.0 Atherosclerosis of aorta; Z95.3 Presence of xenogenic heart valve; F10.10 Alcohol abuse, uncomplicated; I50.22 Chronic systolic (congestive) heart failure; I71.21 Aneurysm of the ascending aorta, without rupture; F02.80 Dementia in other diseases classified elsewhere, unspecified severity, without behavioral disturbance, psychotic disturbance, mood disturbance, and anxiety; I25.10 Atherosclerotic heart disease of native coronary artery without angina pectoris; R22.2 Localized swelling, mass and lump, trunk; R33.9 Retention of urine, unspecified; K21.9 Gastro-esophageal reflux disease without esophagitis; Z79.01 Long term (current) use of anticoagulants; Z79.84 Long term (current) use of oral hypoglycemic drugs; Z79.51 Long term (current) use of inhaled steroids; Z79.02 Long term (current) use of antithrombotics/antiplatelets; Z79.82 Long term (current) use of aspirin; Z86.79 Personal history of other diseases of the circulatory system; Z87.891 Personal history of nicotine dependence; Z79.899 Other long term (current) drug therapy; Z86.73 Personal history of transient ischemic attack (TIA), and cerebral infarction without residual deficits; Z85.828 Personal history of other malignant neoplasm of skin
CPT/HCPCS: 36415; 51702; 51798; 71045; 71275; 80048; 80053; 83690; 83735; 83880; 84484; 85025; 85598; 85610; 85613; 85730; 85732; 86146; 86147; 93005; 93306; 93970; 96365; 96366; 96367; 96375; 96376; 99291

== ENCOUNTER 2025-01-02 02:09 | Observation (INO) | payer MEDICARE ==
--- NOTE | 2025-01-02 02:42 | ED ---
General Adult HPI - General Chief complaint: Chest Pain Stated complaint: Low heart rate, AUDREY Time Seen by Provider: 01/02/25 02:17 Source: patient Mode of arrival: wheelchair Limitations: no limitations - History of Present Illness Initial comments: Patient is a pleasant 79-year-old gentleman past medical history of PE, on Xarelto, CAD, CHF, Lewy body dementia presenting today for chest pain and shortness of breath. Patient's states that this evening patient came up to her around 6 PM and began complaining of chest pain in the center of his chest and feeling like there was "an IV in his left arm". Later this evening he felt like his legs would not work, as if they were weak, and "felt like something was wrong" so patient's brought him to the hospital. Patient currently denies chest pain. Endorses shortness of breath. Takes medications as prescribed. Was hospitalized at [facility] in October for CHF exacerbation. Pt denies dizziness, headache, changes in vision, focal numbness or weakness. does note that over the last week pt has had a decline in his baseline mental status, stating that he is becoming more confused, and appears to hallucinate, such as when he will think there is something on the TV when it is not actually on. - Related Data Home Medications Medication Instructions Recorded Confirmed ALPRAZolam [Xanax] 0.25 mg PO DAILY PRN 06/13/17 01/02/25 Fluticasone/Umeclidin/Vilanter 1 puff INHALATION RT-DAILY 04/05/21 01/02/25 [Abdirizak Diazta 100-62.5-25] Atorvastatin [Lipitor] 20 mg PO HS 02/18/23 01/02/25 Potassium Chloride ER [K-Dur 20] 20 meq PO DAILY 04/06/24 01/02/25 Furosemide [Lasix] 40 mg PO DAILY 08/15/24 01/02/25 Memantine [Namenda] 5 mg PO BID 08/15/24 01/02/25 Furosemide [Lasix] 40 mg PO DAILY PRN 01/02/25 01/02/25 Losartan [Cozaar] 25 mg PO DAILY 01/02/25 01/02/25 Rivaroxaban [Xarelto] 20 mg PO DAILY 01/02/25 01/02/25 Spironolactone [Aldactone] 25 mg PO DAILY 01/02/25 01/02/25 Allergies Allergy/AdvReac Type Severity Reaction Status Date / Time Sulfa (Sulfonamide Allergy Anaphylaxis, Verified 01/02/25 11:15 Antibiotics) Rash Review of Systems ROS Statement: Those systems with pertinent positive or pertinent negative responses have been documented in the HPI. ROS Other: All systems not noted in ROS Statement are negative. Past Medical History Past Medical History: Cancer, CVA/TIA, GERD/Reflux, Hyperlipidemia, Hypertension Additional Past Medical History / Comment(s): history of aortic stenosis status post valve replacement, aortic dissection status post repair, AAA, skin cancer History of Any Multi-Drug Resistant Organisms: None Reported Past Surgical History: Appendectomy Additional Past Surgical History / Comment(s): aorticvalve replacement , AAA repair, skin cancer removal 2020 Past Anesthesia/Blood Transfusion Reactions: No Reported Reaction Past Psychological History: Anxiety Smoking Status: Never smoker Past Alcohol Use History: None Reported Past Drug Use History: None Reported - Past Family History Brother(s) Family Medical History: Cancer Mother Family Medical History: Cancer, Coronary Artery Disease (CAD) Father Family Medical History: No Reported History Additional Family Medical History / Comment(s): Father was healthy General Exam - General Exam Comments Initial Comments: PE: CONSTITUTIONAL: mild distress, tachypneic, ill appearing, nontoxic SKIN: Cool, dry, no jaundice, hives or petechiae EYES: Pupils are equally round, extraocular movements intact without nystagmus, clear conjunctiva, non-icteric sclera HENT: Normocephalic, atraumatic, moist mucus membranes, oropharynx clear without exudates NECK: , Full range of motion, normal appearance PULMONARY: Mild tachypnea clear to auscultation without wheezes, rhonchi, or rales, normal excursion, no accessory muscle use and no stridor CARDIOVASCULAR: Bradycardia, irregularly irregular rate and rhythm, normal S1 and S2. No appreciated murmurs, rubs or gallops. Strong radial pulses with intact distal perfusion. No lower extremity edema GASTROINTESTINAL: Soft, active bowel sounds throughout, non-tender, non- distended, no palpable masses, no rebound or guarding. No hepatosplenomegaly MUSCULOSKELETAL: Extremities have no gross deformity, no edema, redness, or swelling. No calf swelling NEUROLOGIC:_a/o x 3, GCS 15, normal mentation and speech. Moves all extremities x 4 without motor or sensory deficit, equal 5/5 strength in all 4 extremities, no focal neurologic deficits PSYCHIATRIC:_somewhat anxious mood and affect, thought process is clear and linear Limitations: no limitations Course Vital Signs 01/02/25 01/02/25 01/02/25 02:10 02:29 03:00 Temperature 97.5 F L Pulse Rate 43 L 44 L 40 L Respiratory 24 18 17 Rate Blood Pressure 109/67 108/75 106/72 O2 Sat by Pulse 98 98 Oximetry 01/02/25 01/02/25 01/02/25 04:38 05:24 07:35 Temperature 98.2 F Pulse Rate 44 L 44 L 41 L Respiratory 17 17 20 Rate Blood Pressure 109/58 101/60 108/65 O2 Sat by Pulse 96 95 99 Oximetry 01/02/25 01/02/25 01/02/25 08:50 10:00 11:00 Temperature Pulse Rate 48 L 48 L 60 Respiratory 20 16 16 Rate Blood Pressure 123/73 131/79 O2 Sat by Pulse 96 100 97 Oximetry 01/02/25 14:30 Temperature 97.8 F Pulse Rate 56 L Respiratory 16 Rate Blood Pressure 139/90 O2 Sat by Pulse 95 Oximetry EKG Findings - EKG Comments: EKG Findings:: Atrial fibrillation with slow ventricular response, rate 53 bpm QT/QTc 487/440 ms, normal axis, no significant ST elevations, T wave inversions anterior leads Medical Decision Making - Medical Decision Making Was pt. sent in by a medical professional or institution (, PA, DIVISION MANAGER, urgent care, hospital, or fdc...) When possible be specific @ -No Did you speak to anyone other than the patient for history (EMS, parent, family, police, friend...)? What history was obtained from this source Spoke with pt's who provided hx, states came up to her at 6 PM with chest pain, then later stated felt like his legs wouldn't work and he didn't feel right Did you review nursing and triage notes (agree or disagree)? Why? @ -I reviewed nursing and triage notes Were old charts reviewed (outside hosp., previous admission, EMS record, old EKG, old radiological studies, urgent care reports/EKG's, fdc records)? Report findings @ -Medical records reviewed- reviewed CT chest from visit in July 2023, per review of report pt was found to have right sided PE with possible right heart strain Differential Diagnosis (chest pain, altered mental status, abdominal pain women, abdominal pain men, vaginal bleeding, weakness, fever, dyspnea, syncope, headache, dizziness, GI bleed, back pain, seizure, CVA, palpatations, mental health, musculoskeletal)? Differential Chest Pain: Stable Angina, Unstable Angina, STEMI, NSTEMI Aortic Dissection, pericarditis, pleurisy, chostochondirits, Pneumothorax, Musculoskeletal, Esophageal Spasm GERD, Cholecystitis, Pancreatitis, Zoster, this is not meant to be an all- inclusive list. EKG interpreted by me (3pts min.). @ -As above X-rays interpreted by me (1pt min.). @ -None done CT interpreted by me (1pt min.). Personally reviewed CT PE study see no evidence of massive or submassive PE agrees radiologist interpretation U/S interpreted by me (1pt. min.). @ -None done What testing was considered but not performed or refused? (CT, X-rays, U/S, labs)? Why? @ -None What meds were considered but not given or refused? Why? @ -None Did you discuss the management of the patient with other professionals (professionals i.e. , PA, DIVISION MANAGER, lab, RT, psych nurse, social and human services assistant, mushroom packer, teacher, collections officer, director of casework department)? Give summary @Case discussed with radiologist who notes PE noted in right lung likely chronic however has potential to be acute on chronic Was smoking cessation discussed for >3mins.? @ -No Was critical care preformed (if so, how long)? @ -No Were there social determinants of health that impacted care today? How? (Homelessness, low income, unemployed, alcoholism, drug addiction, transportation, low edu. Level, literacy, decrease access to med. care, residential, rehab)? @ -No Was there de-escalation of care discussed even if they declined (Discuss DNR or withdrawal of care, Hospice)? @ -No What co-morbidities impacted this encounter? (DM, HTN, Smoking, COPD, CAD, Cancer, CVA, ARF, Chemo, Hep., AIDS, mental health diagnosis, sleep apnea, morbid obesity)? @ -CAD, CHF, Lewy body dementia, prior PE on Xarelto Was patient admitted / discharged? Hospital course, mention meds given and route, prescriptions, significant lab abnormalities, going to OR and other pertinent info. @ Admission-Patient is a 79-year-old gentleman history as noted above presenting today for chest pain and generalized weakness. On arrival patient states chest pain is resolved he does still feel short of breath. Patient's also states that he is very anxious about being in the ER. Pulse ox within normal minutes, patient is notably bradycardic with heart rates in the 40s, blood pressure stable. Physical exam is overall benign. Lungs clear to auscultation, no lower extremity edema. EKG shows small T wave inversions though no new ST elevations. Patient received 325 mg aspirin, home Xanax, CT PE study as well as comprehensive labs. Patient and agreeable plan of care. On reassessment patient is resting comfortably, endorses improvement of symptoms. Labs are significant for a BNP of 5310, troponin 0.015, sodium 129, given elevated BNP I suspect potentially hypervolemic hyponatremia, with elevated BNP we will hold off on additional IV fluids at this point. CT brain negative for acute process. CT PE study appears to show persistent right-sided PE no new pulmonary embolism. Discussed this with radiologist who notes that PE is likely chronic in nature. Discussed with patient with plan for admission due to bradycardia, chest pain. They are agreeable w/ plan of care. Case discussed with Dr. Bell, kindly accepts pt for admission. Undiagnosed new problem with uncertain prognosis? @ -No Drug Therapy requiring intensive monitoring for toxicity (Heparin, Nitro, Insulin, Cardizem)? @ -No Were any procedures done? @ -No Diagnosis/symptom? Chest pain, bradycardia, CHF exacerbation Acute, or Chronic, or Acute on Chronic? @acute Uncomplicated (without systemic symptoms) or Complicated (systemic symptoms)? complicated Side effects of treatment? @ -No Exacerbation, Progression, or Severe Exacerbation? @ -No Poses a threat to life or bodily function? How? (Chest pain, USA, AR, pneumonia, PE, COPD, DKA, ARF, appy, cholecystitis, CVA, Diverticulitis, Homicidal, Suicidal, threat to staff... and all critical care pts) Potentially - Lab Data Result diagrams: 01/03/25 05:56 01/03/25 05:56 Lab Results 01/02/25 01/02/25 01/02/25 Range/Units 02:40 02:40 02:40 WBC 6.75 (4.50-10.00) 10*3/uL RBC 3.36 L (4.40-5.60) 10*6/uL Hgb 10.7 L (13.0-17.0) g/dL Hct 31.4 L (39.6-50.0) % MCV 93.5 (80.0-97.0) fL MCH 31.8 (27.0-32.0) pg MCHC 34.1 (32.0-37.0) g/dL Plt Count 114 L (140-440) 10*3/uL MPV 9.5 (9.5-12.2) fL Immature Gran % (Auto) 0.4 % Neutrophils % 58.2 % Lymphocytes % 25.3 % Monocytes % 12.9 % Eosinophils % 2.8 % Basophils % 0.4 % Immature Gran # 0.03 (0.00-0.04) 10*3/uL Neutrophils # 3.92 (1.80-7.70) 10*3/uL Lymphocytes # 1.71 (0.90-5.00) 10*3/uL Monocytes # 0.87 (0.20-1.00) 10*3/uL Eosinophils # 0.19 (0.04-0.35) 10*3/uL Basophils # 0.03 (0.00-0.10) 10*3/uL PT 17.9 H (10.0-12.5) sec INR 1.7 H (<1.2) APTT 30.1 H (22.0-30.0) sec Sodium 129 L (137-145) mmol/L Potassium 3.8 (3.5-5.1) mmol/L Chloride 96 L (98-107) mmol/L Carbon Dioxide 23 (22-30) mmol/L Anion Gap 10 mmol/L BUN 33 H (9-20) mg/dL Creatinine 1.10 (0.66-1.25) mg/dL Est GFR (CKD-EPI)AfAm 74 (>60 ml/min/1.73 sqM) Est GFR (CKD-EPI)NonAf 64 (>60 ml/min/1.73 sqM) Glucose 97 (74-99) mg/dL Calcium 9.4 (8.4-10.2) mg/dL Magnesium 2.0 (1.6-2.3) mg/dL Total Bilirubin 0.6 (0.2-1.3) mg/dL AST 38 (17-59) U/L ALT 31 (4-49) U/L Alkaline Phosphatase 188 H (38-126) U/L Troponin I (0.000-0.034) ng/mL NT-Pro-B Natriuret Pep 5310 pg/mL Total Protein 6.2 L (6.3-8.2) g/dL Albumin 3.9 (3.5-5.0) g/dL Lipase 107 (23-300) U/L TSH 1.370 (0.465-4.680) mIU/L Influenza Type A (PCR) (Not Detectd) Influenza Type B (PCR) (Not Detectd) RSV (PCR) (Not Detectd) SARS-CoV-2 (PCR) (Not Detectd) 01/02/25 01/02/25 Range/Units 02:40 03:04 WBC (4.50-10.00) 10*3/uL RBC (4.40-5.60) 10*6/uL Hgb (13.0-17.0) g/dL Hct (39.6-50.0) % MCV (80.0-97.0) fL MCH (27.0-32.0) pg MCHC (32.0-37.0) g/dL Plt Count (140-440) 10*3/uL MPV (9.5-12.2) fL Immature Gran % (Auto) % Neutrophils % % Lymphocytes % % Monocytes % % Eosinophils % % Basophils % % Immature Gran # (0.00-0.04) 10*3/uL Neutrophils # (1.80-7.70) 10*3/uL Lymphocytes # (0.90-5.00) 10*3/uL Monocytes # (0.20-1.00) 10*3/uL Eosinophils # (0.04-0.35) 10*3/uL Basophils # (0.00-0.10) 10*3/uL PT (10.0-12.5) sec INR (<1.2) APTT (22.0-30.0) sec Sodium (137-145) mmol/L Potassium (3.5-5.1) mmol/L Chloride (98-107) mmol/L Carbon Dioxide (22-30) mmol/L Anion Gap mmol/L BUN (9-20) mg/dL Creatinine (0.66-1.25) mg/dL Est GFR (CKD-EPI)AfAm (>60 ml/min/1.73 sqM) Est GFR (CKD-EPI)NonAf (>60 ml/min/1.73 sqM) Glucose (74-99) mg/dL Calcium (8.4-10.2) mg/dL Magnesium (1.6-2.3) mg/dL Total Bilirubin (0.2-1.3) mg/dL AST (17-59) U/L ALT (4-49) U/L Alkaline Phosphatase (38-126) U/L Troponin I 0.015 (0.000-0.034) ng/mL NT-Pro-B Natriuret Pep pg/mL Total Protein (6.3-8.2) g/dL Albumin (3.5-5.0) g/dL Lipase (23-300) U/L TSH (0.465-4.680) mIU/L Influenza Type A (PCR) Not Detected (Not Detectd) Influenza Type B (PCR) Not Detected (Not Detectd) RSV (PCR) Not Detected (Not Detectd) SARS-CoV-2 (PCR) Not Detected (Not Detectd) Disposition Clinical Impression: Chest pain, Bradycardia Disposition: ADMITTED IP TO THIS HOSP Condition: Stable
[2025-01-02 02:56] LABS: Basophils # (A) 0.03 10*3/uL (0.00-0.10); Basophils % (A) 0.4 %; Eosinophils # (A) 0.19 10*3/uL (0.04-0.35); Eosinophils % (A) 2.8 %; HCT 31.4 % (39.6-50.0); HGB 10.7 g/dL (13.0-17.0); Lymphocytes # (A) 1.71 10*3/uL (0.90-5.00); Lymphocytes % (A) 25.3 %; MCH 31.8 pg (27.0-32.0); MCHC 34.1 g/dL (32.0-37.0); MCV 93.5 fL (80.0-97.0); Mean Platelet Volume 9.5 fL (9.5-12.2); Monocytes # (A) 0.87 10*3/uL (0.20-1.00); Monocytes % (A) 12.9 %; Neutrophils # (A) 3.92 10*3/uL (1.80-7.70); Neutrophils % (A) 58.2 %; Platelet Count 114 10*3/uL (140-440); RBC 3.36 10*6/uL (4.40-5.60); RDW 14.3 % (11.5-14.5); WBC 6.75 10*3/uL (4.50-10.00)
[2025-01-02] MEDS: ASPIRIN 81 MG PO STA (02:58)
[2025-01-02] MEDS: ALPRAZolam 0.25 MG TAB PO STA (03:00)
[2025-01-02 03:09] LABS: ALT 31 U/L (4-49); AST 38 U/L (17-59); African American GFR (CKD) 74 (>60 ml/min/1.73 sqM); Albumin 3.9 g/dL (3.5-5.0); Alkaline Phosphatase 188 U/L (38-126); Anion Gap 10 mmol/L; Blood Urea Nitrogen 33 mg/dL (9-20); Calcium 9.4 mg/dL (8.4-10.2); Carbon Dioxide 23 mmol/L (22-30); Chloride 96 mmol/L (98-107); Glucose 97 mg/dL (74-99); Lipase 107 U/L (23-300); Non-African American GFR(CKD) 64 (>60 ml/min/1.73 sqM); Potassium 3.8 mmol/L (3.5-5.1); Sodium 129 mmol/L (137-145); Total Bilirubin 0.6 mg/dL (0.2-1.3); Total Protein 6.2 g/dL (6.3-8.2)
[2025-01-02 03:17] LABS: NT-Pro-B-Type Natriuretic Pept 5310 pg/mL
[2025-01-02 03:23] LABS: INR 1.7 (<1.2); Partial Thromboplastin Time 30.1 sec (22.0-30.0); Prothrombin Time 17.9 sec (10.0-12.5)
--- NOTE | 2025-01-02 04:10 | CT ---
EXAM: CT Head Without Intravenous Contrast CLINICAL HISTORY: ITS.REASON CT Reason: hx LBD, rapid decline over last week TECHNIQUE: Axial computed tomography images of the head/brain without intravenous contrast. CTDI is 49.2 mGy and DLP is 1171.4 mGy-cm. This CT exam was performed using one or more of the following dose reduction techniques: automated exposure control, adjustment of the mA and/or kV according to patient size, and/or use of iterative reconstruction technique. COMPARISON: CT Head dated 04/11/2024 FINDINGS: Brain: Volume loss with prominent ventricles and sulci. Periventricular and subcortical white matter hypoattenuation likely reflects chronic small vessel disease. Focal left frontal encephalomalacia, stable. Old bilateral basal ganglia and right thalamic lacunar infarcts. Old cerebellar lacunar infarct. No hemorrhage. Ventricles: Unremarkable. No ventriculomegaly. Bones/joints: Unremarkable. No acute fracture. Soft tissues: Unremarkable. Sinuses: Unremarkable as visualized. No acute sinusitis. Mastoid air cells: Unremarkable as visualized. No mastoid effusion. IMPRESSION: No evidence of acute intracranial abnormality.
[2025-01-02 04:53] LABS: Influenza A Not Detected (Not Detectd); Influenza B Not Detected (Not Detectd); RSV Not Detected (Not Detectd)
--- NOTE | 2025-01-02 04:55 | CT ---
EXAM: CT Angiography Chest With Intravenous Contrast CLINICAL HISTORY: ITS.REASON CT Reason: Shortness of breath, prior right sided PE TECHNIQUE: Axial computed tomographic angiography images of the chest with intravenous contrast. CTDI is 33 mGy and DLP is 318.6 mGy-cm. This CT exam was performed using one or more of the following dose reduction techniques: automated exposure control, adjustment of the mA and/or kV according to patient size, and/or use of iterative reconstruction technique. MIP reconstructed images were created and reviewed. COMPARISON: CTA Chest dated 08/15/2024 FINDINGS: Pulmonary arteries: Enlarged pulmonary artery/pulmonary arterial hypertension as on the prior. Small linear filling defect in the right lower lobe arteries similar to the prior and may represent chronic PE and some flow related artifact. No new areas of pulmonary embolism. Aorta: Aneurysmal dilation of the ascending aorta up to 5.0 cm, similar to the prior. Lungs: Mild centrilobular emphysema. Right basilar atelectasis similar to the prior. No mass. Pleural space: Unremarkable. No significant effusion. No pneumothorax. Heart: Marked cardiomegaly, similar to the prior. Prosthetic mitral and aortic valves. Stable. Coronary calcifications. No significant pericardial effusion. No evidence of RV dysfunction. Bones/joints: Median sternotomy wires. Old right rib fracture. No dislocation. Soft tissues: Unremarkable. Lymph nodes: Unremarkable. No enlarged lymph nodes. Gallbladder and bile ducts: Cholelithiasis. Intraperitoneal space: Minimal ascites in the upper abdomen. Decreased since the prior. IMPRESSION: 1. Small linear filling defect in the right lower lobe arteries similar to the prior and may represent chronic PE and some flow related artifact. No new areas of pulmonary embolism. 2. Enlarged pulmonary artery/pulmonary arterial hypertension as on the prior. 3. Marked cardiomegaly, similar to the prior. 4. Aneurysmal dilation of the ascending aorta up to 5.0 cm, similar to the prior. 5. Mild centrilobular emphysema. <MYCVCSECTION> Communications: 01/02/25 04:58 Call Doctor Regarding Pulmonary Embolism, called Dr. Norton on 01/02 04:57 (-04:00)
[2025-01-02] MEDS ORDERED: ACETAMINOPHEN TAB 500 MG TAB PO PRN (05:19)
[2025-01-02] MEDS ORDERED: ALPRAZolam 0.25 MG TAB PO PRN (05:19)
[2025-01-02] MEDS ORDERED: NALOXONE 0.4 MG/ML 1 ML VIAL IV PRN (06:01)
[2025-01-02] MEDS ORDERED: bisacodyL 5 MG TABLET.DR PO PRN (06:01)
[2025-01-02] MEDS ORDERED: ONDANSETRON 4 MG/2 ML VIAL IVP PRN (06:01)
[2025-01-02] MEDS: carvediloL 6.25 MG TAB PO SCH (06:31)
[2025-01-02] MEDS: ASPIRIN 81 MG PO SCH (08:48)
[2025-01-02] MEDS: MEMANTINE 5 MG TAB PO SCH (08:49)
[2025-01-02] MEDS: LOSARTAN 25 MG TAB PO SCH (08:49)
[2025-01-02] MEDS: FAMOTIDINE 20 MG TAB PO SCH (08:49)
[2025-01-02] MEDS: SPIRONOLACTONE 25 MG TAB PO SCH (08:49)
[2025-01-02] MEDS: MULTIVITAMINS, THERA 1 EACH TAB PO SCH (08:49)
[2025-01-02] MEDS: FUROSEMIDE 40 MG TAB PO SCH (08:49)
[2025-01-02] MEDS ORDERED: DAPAGLIFLOZIN PROPANEDIOL 10 MG TABLET PO SCH (09:00)
[2025-01-02] MEDS ORDERED: POTASSIUM CHLORIDE ER 20 MEQ TAB.ER PO SCH ×2 (09:00)
[2025-01-02] MEDS: FUROSEMIDE 10 MG/ML 4 ML VIAL IV SCH (10:09)
[2025-01-02] MEDS: DAPAGLIFLOZIN PROPANEDIOL 10 MG TABLET PO SCH (10:12)
--- NOTE | 2025-01-02 12:06 | CA ---
Transthoracic Echo Report Name: Jean Robbins Age: 79 Gender: M : 1945 Exam Date: 01/02/2025 10:06 Exam Location: [place] [facility] Ht (in): 74 Wt (lb): 160 Ordering Physician: Suha Martínez Attending/Referring Phys: [id number], Tanya Strategy Director Jonathan Daley, ELIUD Procedure CPT: Indications: LVF, chf Cardiac Hx: AVR, A-fib, CAD, HTN Technical Quality: Good Contrast 1: Total Dose (mL): Contrast 2: Total Dose (mL): MEASUREMENTS (Male / Female) Normal Values 2D ECHO LV Diastolic Diameter PLAX 4.2 cm 4.2 - 5.9 / 3.9 - 5.3 cm LV Systolic Diameter PLAX 3.8 cm IVS Diastolic Thickness 1.3 cm 0.6 - 1.0 / 0.6 - 0.9 cm LVPW Diastolic Thickness 1.2 cm 0.6 - 1.0 / 0.6 - 0.9 cm LV Relative Wall Thickness 0.6 RV Internal Dim ED PLAX 5.3 cm LVOT Diameter 1.9 cm LA Systolic Diameter LX 4.5 cm 3.0 - 4.0 / 2.7 - 3.8 cm LV Diastolic Volume MOD BP 149.4 cm??? 67 - 155 / 56 - 104 cm??? LV Systolic Volume MOD BP 117.8 cm??? 22 - 58 / 19 - 49 cm??? LV Ejection Fraction MOD BP 21.2 % >= 55 % LV Diastolic Volume MOD 4C 126.0 cm??? LV Systolic Volume MOD 4C 91.4 cm??? LV Ejection Fraction MOD 4C 27.4 % LV Diastolic Length 4C 9.4 cm LV Systolic Length 4C 8.9 cm LV Diastolic Volume MOD 2C 160.8 cm??? LV Systolic Volume MOD 2C 137.1 cm??? LV Ejection Fraction MOD 2C 14.7 % LV Diastolic Length 2C 10.3 cm LV Systolic Length 2C 9.9 cm LA Volume 124.3 cm??? 18 - 58 / 22 - 52 cm??? LA Volume Index 64.2 cm???/m??? 16 - 28 cm???/m??? DOPPLER AV Peak Velocity 240.2 cm/s AV Peak Gradient 23.1 mmHg AV Mean Velocity 178.7 cm/s AV Mean Gradient 14.2 mmHg AV Velocity Time Integral 57.1 cm MV Peak Velocity 151.3 cm/s MV Peak Gradient 9.2 mmHg MV Mean Velocity 58.2 cm/s MV Mean Gradient 1.8 mmHg MV Velocity Time Integral 39.3 cm MV Area PHT 3.4 cm??? Mitral E Point Velocity 106.5 cm/s Mitral A Point Velocity 34.0 cm/s Mitral E to A Ratio 3.1 MV Deceleration Time 224.7 ms TR Peak Velocity 253.4 cm/s TR Peak Gradient 25.7 mmHg Right Atrial Pressure 20.0 mmHg Pulmonary Artery Systolic Pressu 45.7 mmHg Right Ventricular Systolic Press 45.7 mmHg FINDINGS Left Ventricle Left ventricular ejection fraction is estimated at 15-20 %. Mild concentric left ventricular hypertrophy. . Severely decreased left ventricular ejection fraction. Severely reduced global left ventricular systolic function. Right Ventricle Severe right ventricular dilatation. Moderate pulmonary hypertension. Severe hypokinesis of the right ventricle Right Atrium Severe right atrial dilatation. Left Atrium Mildly increased left atrial diameter. Severely increased left atrial volume. Moderately increased left atrial area. Mitral Valve Mild mitral regurgitation. Mitral valve annuloplasty Aortic Valve mean gradient 14 mmhg. Trace to mild aortic regurgitation.bioprosthetic aortic valve. Tricuspid Valve Structurally normal tricuspid valve. No tricuspid stenosis. [id number] tricuspid regurgitation. Pulmonic Valve Structurally normal pulmonic valve. No pulmonic stenosis. [id number] pulmonic regurgitation. Pericardium No pericardial effusion. Aorta Moderately dilated aortic annulus. CONCLUSIONS 1. Severely impaired left ventricular systolic function 2. Mitral valve annuloplasty with mild mitral regurgitation 3. Bioprosthetic aortic valve with trace to mild aortic regurgitation and mean gradient of 14 mmHg 4. Moderate to severe tricuspid regurgitation with moderate pulmonary hypertension Previewed by: Dr. Al Farnsworth MD (Electronically Signed) Final Date: 02 January 2025 12:05
--- NOTE | 2025-01-02 12:37 | P.HPIM ---
History of Present Illness H&P Date: 01/02/25 History of Presenting Illness: Patient is a very pleasant 79-year-old male with a past medical history of Lewy body dementia, hypertension, hyperlipidemia, congestive heart failure, aortic stenosis status post aortic valve replacement, abdominal aortic dissection status postrepair, and previous PE on anticoagulation with Xarelto. He presented to the emergency department with a chief complaint of chest pain accompanying by mild pain in left arm. Per ED physician, patient's also stating she has noticed increased episodes of confusion over the last week with occasions of perceived hallucinations. Patient currently alert to person, place, time, and situation. He admits to experiencing mild chest pain to midsternal chest described as a pressure and a tingling in his left arm. He denies having any fevers, chills, diaphoresis, headache, lightheadedness, dizziness, palpitations, shortness of breath, cough or congestion, abdominal pain, nausea, vomiting, or experiencing any focal numbness/tingling/weakness in his extremities. Upon arrival to our facility, patient underwent evaluation in the emergency department. Vital signs upon arrival show blood pressure 109/67, heart rate 43, respiratory rate 24, temp 97.5 F, and SpO2 of 98% on room air. EKG completed showing atrial fibrillation with a slow ventricular response of 53 bpm. CTA head negative for acute intracranial abnormality. CTA chest showing mild centrilobular emphysema, small linear filling defect in the right lower lobe arteries similar to previous possibly representing chronic PE and some flow related artifact, no new areas of pulmonary embolism reported, and large pulmonary artery/pulmonary arterial pressure unchanged from previous, marked cardiomegaly reported similar to prior, and aneurysmal dilation of the ascending aorta up to 5 cm again similar to previous. Labs completed and reviewed. CBC showing bicytopenia with hemoglobin of 10.7 and platelet count of 114. Coagulation profile showing elevated PT of 17.9, INR of 1.7, and PTT of 30.1. BMP showing hyponatremia with sodium of 129, chloride 96, and elevated BUN of 33. Blood glucose 97. Magnesium 2.0. Calcium 9.4. Liver profile showing elevated alkaline phosphatase of 188. Troponin was 0.015. proBNP 5310. TSH normal findings at 1.370. Influenza A, influenza B, RSV, and COVID PCR were negative. Patient mated under services with consultation to cardiology. Review of systems: Pertinent positives and negatives as discussed in HPI, a complete review of systems was performed and all other systems are negative. Physical exam: Vital signs reviewed and stable. General: Nontoxic, no distress and appears stated age. Derm: Skin warm and dry, normal coloration for ethnicity. Head: Atraumatic, normocephalic and symmetric. Eyes: EOM's intact, no lid lag, and anicteric sclera Mouth: no lip lesions, mucus membranes moist Cardiovascular: r irregularly irregular with bradycardic rate, systolic murmur (loudest right midsternal border), positive posterior tibial pulses bilaterally, and cap refill < 2 seconds. Lungs: Respirations even, regular, and unlabored on room air. Lungs CTA bilaterally, no rhonchi, no rales, no wheezing, and no accessory muscle usage. Abdominal: soft, nontender to palpation, no guarding, no appreciable organomegaly Ext: ROM intact. No gross muscle atrophy, 1+ BLE edema, no contractures Neuro: Speech clear, face symmetrical and CN II-XII grossly intact with no noted focal neuro deficits Psych: Alert and oriented to person, place, time, and situation. Appropriate and pleasant affect. Assessment and Plan of Care: Chest pain, rule out acute coronary event acute on chronic heart failure Bradycardia Atrial fibrillation with a slowed ventricular rate, possibly new onset no documented history Acute on chronic diastolic heart failure, mild exacerbation Hypertension Hyperlipidemia History of aortic valve replacement History of abdominal aortic aneurysm dissection status postrepair History of PE -Cardiology consulted, starting patient on Farxiga 10 mg daily and Lasix 40 mg IVP every 12 hours. -Telemetry monitoring -Trend troponins -Cardiac diet, NPO at midnight -Aspirin 81 mg daily, atorvastatin 20 mg nightly, Xarelto 20 mg daily, Aldactone 25 mg daily, and losartan 25 mg daily. Hold Coreg secondary to bradycardia. -Echocardiogram - Monitor I's and O's and daily weights Lewy body dementia Continue Aricept 10 mg nightly and Namenda 5 mg twice daily. Provide safe and supportive care with assistance and redirection as needed. Maintain fall precautions Data and imaging reviewed: As stated above in HPI. The patient is admitted with an anticipated less than 2 midnight stay for evaluation of chest pain CODE STATUS: Full code DVT prophylaxis: Xarelto Anticipated discharge date: Pending clinical course, likely 24 to [address]: Home Patient was seen independently by Nurse Practitioner. This document was prepared using [employer] dictation software. Please allow for errors in pitch filler while rare they do occur. Edwin Pena NP rendered care for this patient independently, reviewed the findings and plan as documented in the note above and agree with plan. I did not physically speak with or examine the patient on this date. . Past Medical History Past Medical History: Cancer, CVA/TIA, GERD/Reflux, Hyperlipidemia, Hypertension Additional Past Medical History / Comment(s): history of aortic stenosis status post valve replacement, aortic dissection status post repair, AAA, skin cancer History of Any Multi-Drug Resistant Organisms: None Reported Past Surgical History: Appendectomy Additional Past Surgical History / Comment(s): aorticvalve replacement , AAA repair, skin cancer removal 2020 Past Anesthesia/Blood Transfusion Reactions: No Reported Reaction Past Psychological History: Anxiety Smoking Status: Never smoker Past Alcohol Use History: None Reported Past Drug Use History: None Reported - Past Family History Brother(s) Family Medical History: Cancer Mother Family Medical History: Cancer, Coronary Artery Disease (CAD) Father Family Medical History: No Reported History Additional Family Medical History / Comment(s): Father was healthy Medications and Allergies Home Medications Medication Instructions Recorded Confirmed Type ALPRAZolam [Xanax] 0.25 mg PO DAILY PRN 06/13/17 01/02/25 History Fluticasone/Umeclidin/Vilanter 1 puff INHALATION RT-DAILY 04/05/21 01/02/25 History [Abdirizak Ellipta 100-62.5-25] Atorvastatin [Lipitor] 20 mg PO HS 02/18/23 01/02/25 History Potassium Chloride ER [K-Dur 20] 20 meq PO DAILY 04/06/24 01/02/25 History Furosemide [Lasix] 40 mg PO DAILY 08/15/24 01/02/25 History Memantine [Namenda] 5 mg PO BID 08/15/24 01/02/25 History Furosemide [Lasix] 40 mg PO DAILY PRN 01/02/25 01/02/25 History Losartan [Cozaar] 25 mg PO DAILY 01/02/25 01/02/25 History Rivaroxaban [Xarelto] 20 mg PO DAILY 01/02/25 01/02/25 History Spironolactone [Aldactone] 25 mg PO DAILY 01/02/25 01/02/25 History carvediloL [Coreg] 6.25 mg PO BID 01/02/25 01/02/25 History Allergies Allergy/AdvReac Type Severity Reaction Status Date / Time Sulfa (Sulfonamide Allergy Anaphylaxis, Verified 01/02/25 11:15 Antibiotics) Rash Physical Exam Vitals: Vital Signs Temp Pulse Resp BP Pulse Ox 01/02/25 07:35 41 L 20 108/65 99 01/02/25 05:24 98.2 F 44 L 17 101/60 95 01/02/25 04:38 44 L 17 109/58 96 01/02/25 03:00 40 L 17 106/72 01/02/25 02:29 44 L 18 108/75 98 01/02/25 02:10 97.5 F L 43 L 24 109/67 98 Intake and Output 01/01/25 01/02/25 01/02/25 22:59 06:59 14:59 Other: Weight 72.575 kg Results CBC & Chem 7: 01/02/25 02:40 01/02/25 02:40 Labs: Abnormal Lab Results - Last 24 Hours (Table) 01/02/25 01/02/25 01/02/25 Range/Units 02:40 02:40 02:40 RBC 3.36 L (4.40-5.60) 10*6/uL Hgb 10.7 L (13.0-17.0) g/dL Hct 31.4 L (39.6-50.0) % Plt Count 114 L (140-440) 10*3/uL PT 17.9 H (10.0-12.5) sec INR 1.7 H (<1.2) APTT 30.1 H (22.0-30.0) sec Sodium 129 L (137-145) mmol/L Chloride 96 L (98-107) mmol/L BUN 33 H (9-20) mg/dL Alkaline Phosphatase 188 H (38-126) U/L Total Protein 6.2 L (6.3-8.2) g/dL
--- NOTE | 2025-01-02 14:17 | P.CRDCN ---
History of Present Illness Consult date: 01/02/25 History of present illness: This is a 79-year-old male patient with past medical history of PE diagnosed 08/15/2024 considered Eliquis failure, history of aortic stenosis status post valve replacement in 2011, aortic dissection following valve replacement status post repair, mitral valve repair, AAA, CVA in April 2020, hypertension, hyperlipidemia, chronic atrial fibrillation, Lewy body dementia. Patient follows with Dr. Davidson of [facility]. We have been asked to evaluate the patient for bradycardia and chest pain. Patient history is somewhat unreliable. Patient states he had a one-time episode of left-sided chest pain and was a little dizzy. He states he is not active. He denies smoking. He denies cough or fever. He denies wheezing. He denies blood in his urine or stool. He denies abdominal pain. He has lower extremity edema that is chronic and he states unchanged. Blood pressure 131/79, heart rate 60, pulse ox 97% on room air. According to the ER note, patient presented with chest pain and shortness of breath which occurred around 6 PM. Patient is seen today in the emergency center waiting for a bed on the observation unit. -EKG: Atrial fibrillation at 53 bpm. -CTA chest: Small linear filling defect in the right lower lobe arteries similar to prior may represent chronic PE and some flow related artifact. No new areas of pulmonary embolism. Enlarged pulmonary artery/pulmonary artery hypertension. Marked cardiomegaly similar to prior. Aneurysmal dilatation of the ascending aorta up to 5 cm. Mild centrilobular emphysema. -CT brain: No acute intracranial abnormality. -Echocardiogram reveals severely impaired left ventricular systolic function with EF of 15 to 20%. Mitral valve annuloplasty with mild mitral regurgitation. Bioprosthetic aortic valve with trace to mild aortic regurgitation and mean gradient of 14 mmHg. Moderate to severe tricuspid regurgitation with moderate pulmonary hypertension. -Laboratory studies: WBC 6.7, hemoglobin 10.7, sodium 129, potassium 3.8. BUN 33 creatinine 1.1. Alkaline phosphatase 188. Troponin negative x 2. proBNP 5310. Cepheid viral panel not detected. -Home cardiac medications: Atorvastatin 20 mg at bedtime, Coreg 6.25 mg twice daily, Lasix 40 mg daily and 40 mg as needed, losartan 25 mg daily, potassium chloride 20 mill equivalents daily, Xarelto 20 mg daily, spironolactone 25 mg daily. -Echocardiogram performed 08/15/2024 revealed EF 25%, severe right ventricular dilation. Mild to moderate right ventricular hypokinesis. Bioprosthetic aortic valve with peak gradient 2.7 mm/s. Moderate to severe tricuspid regurgitation. -Cardiac catheterization performed 04/06/2024 revealed intermediate disease involving the mid LAD by the bifurcation of the large diagonal branch. Plan was to consider obtaining coronary CTA, maximize medical therapy for cardiomyopathy and consider low-dose dobutamine stress echo to assess for low-flow low gradient aortic stenosis. -ASHER performed 05/15/2020 revealed bioprosthetic aortic valve appears somewhat smaller than the annulus. No paravalvular leak. Mild to moderate calcification of the bioprosthetic valve with mild decrease in leaflet excursion. No significant aortic regurgitation. Mitral valve has ring status post repair with normally functioning mitral valve leaflets. Mild mitral regurgitation. Tricus pid valve appears to be normal with mild to moderate tricuspid regurgitation. The anterior atrial septum is intact. No evidence of PFO. Left atrial appendage is free of clot. Left ventricular size and function appears to be normal with EF of 55 to 60%. -Event monitor performed April, revealed sinus mechanism, single PVC with 1.7 complex nonsustained ventricular tachycardia. 1 pause noted during the night was asymptomatic. No symptoms were reported. Review Of Systems: At the time of my exam: CONSTITUTIONAL: Denies fever or chills. HEENT: Denies blurred vision, vision changes, or eye pain. Denies hemoptysis CARDIOVASCULAR: Denies chest pain. Denies orthopnea. Denies PND. Denies palpitations RESPIRATORY: Denies shortness of breath. GASTROINTESTINAL: Denies abdominal pain. Denies nausea or vomiting. HEMATOLOGIC: Denies bleeding disorders. GENITOURINARY: Denies any blood in urine. SKIN: Denies puritis. Denies rash. Physical examination: Gen: This is 79-year-old male in no acute distress VS: reviewed HEENT: Head is atraumatic, normocephalic. Pupils equal, round. Sclerae is anicteric. NECK: Supple. No JVD. LUNGS: Clear to auscultation. No wheezes or rhonchi. No intercostal retractions. HEART: Irregular rate and rhythm. Systolic murmur. ABDOMEN: Soft No tenderness. EXTREMITIES: Bilateral lower extremity edema. No calf tenderness. NEUROLOGICAL: Patient is awake, alert and oriented. Assessment: Atypical chest pain, appears to be noncardiac, no evidence of [place] Bradycardia Acute systolic heart failure Hyponatremia History of PE 08/15/2024 considered Eliquis failure, currently on Xarelto Nonischemic cardiomyopathy with known EF of 25% History of aortic stenosis status post valve replacement in 2011 Aortic dissection following valve replacement status post repair Mitral valve repair AAA CVA in April 2020 Hypertension Hyperlipidemia Chronic atrial fibrillation Lewy body dementia Plan: Resume patient's home cardiac medications with the following changes Hold aspirin and Coreg Start patient on Farxiga 10 mg daily Continue IV Lasix 40 mg twice daily Repeat BNP in the morning Monitor CHANTAL, daily weights, electrolytes and renal function Continue telemetry monitoring to rule out need for pacemaker Obtain 2-D echocardiogram and Doppler study to assess cardiac structure and function Further recommendations to follow based upon clinical course Thank you kindly for this consultation. Nurse practitioner note has been reviewed, I agree with documented findings and plan of care. Patient was seen and examined. Past Medical History Past Medical History: Cancer, CVA/TIA, GERD/Reflux, Hyperlipidemia, Hypertension Additional Past Medical History / Comment(s): history of aortic stenosis status post valve replacement, aortic dissection status post repair, AAA, skin cancer History of Any Multi-Drug Resistant Organisms: None Reported Past Surgical History: Appendectomy Additional Past Surgical History / Comment(s): aorticvalve replacement , AAA repair, skin cancer removal 2020 Past Anesthesia/Blood Transfusion Reactions: No Reported Reaction Past Psychological History: Anxiety Smoking Status: Never smoker Past Alcohol Use History: None Reported Past Drug Use History: None Reported - Past Family History Brother(s) Family Medical History: Cancer Mother Family Medical History: Cancer, Coronary Artery Disease (CAD) Father Family Medical History: No Reported History Additional Family Medical History / Comment(s): Father was healthy Medications and Allergies Home Medications Medication Instructions Recorded Confirmed Type ALPRAZolam [Xanax] 0.25 mg PO DAILY PRN 06/13/17 01/02/25 History Fluticasone/Umeclidin/Vilanter 1 puff INHALATION RT-DAILY 04/05/21 01/02/25 History [Trelegy Ellipta 100-62.5-25] Atorvastatin [Lipitor] 20 mg PO HS 02/18/23 01/02/25 History Potassium Chloride ER [K-Dur 20] 20 meq PO DAILY 04/06/24 01/02/25 History Furosemide [Lasix] 40 mg PO DAILY 08/15/24 01/02/25 History Memantine [Namenda] 5 mg PO BID 08/15/24 01/02/25 History Furosemide [Lasix] 40 mg PO DAILY PRN 01/02/25 01/02/25 History Losartan [Cozaar] 25 mg PO DAILY 01/02/25 01/02/25 History Rivaroxaban [Xarelto] 20 mg PO DAILY 01/02/25 01/02/25 History Spironolactone [Aldactone] 25 mg PO DAILY 01/02/25 01/02/25 History carvediloL [Coreg] 6.25 mg PO BID 01/02/25 01/02/25 History Allergies Allergy/AdvReac Type Severity Reaction Status Date / Time Sulfa (Sulfonamide Allergy Anaphylaxis, Verified 01/02/25 11:15 Antibiotics) Rash Physical Exam Vitals: Vital Signs Temp Pulse Resp BP Pulse Ox 01/02/25 08:50 48 L 20 96 01/02/25 07:35 41 L 20 108/65 99 01/02/25 05:24 98.2 F 44 L 17 101/60 95 01/02/25 04:38 44 L 17 109/58 96 01/02/25 03:00 40 L 17 106/72 01/02/25 02:29 44 L 18 108/75 98 01/02/25 02:10 97.5 F L 43 L 24 109/67 98 Intake and Output 01/01/25 01/02/25 01/02/25 22:59 06:59 14:59 Other: Weight 72.575 kg Results 01/02/25 02:40 01/02/25 02:40 Cardiac Enzymes 01/02/25 01/02/25 01/02/25 Range/Units 02:40 02:40 06:09 AST 38 (17-59) U/L Troponin I 0.015 0.016 (0.000-0.034) ng/mL Coagulation 01/02/25 Range/Units 02:40 PT 17.9 H (10.0-12.5) sec APTT 30.1 H (22.0-30.0) sec CBC 01/02/25 Range/Units 02:40 WBC 6.75 (4.50-10.00) 10*3/uL RBC 3.36 L (4.40-5.60) 10*6/uL Hgb 10.7 L (13.0-17.0) g/dL Hct 31.4 L (39.6-50.0) % Plt Count 114 L (140-440) 10*3/uL Comprehensive Metabolic Panel 01/02/25 Range/Units 02:40 Sodium 129 L (137-145) mmol/L Potassium 3.8 (3.5-5.1) mmol/L Chloride 96 L (98-107) mmol/L Carbon Dioxide 23 (22-30) mmol/L BUN 33 H (9-20) mg/dL Creatinine 1.10 (0.66-1.25) mg/dL Glucose 97 (74-99) mg/dL Calcium 9.4 (8.4-10.2) mg/dL AST 38 (17-59) U/L ALT 31 (4-49) U/L Alkaline Phosphatase 188 H (38-126) U/L Total Protein 6.2 L (6.3-8.2) g/dL Albumin 3.9 (3.5-5.0) g/dL Current Medications Generic Name Dose Route Start Last Admin Trade Name Freq PRN Reason Stop Dose Admin Acetaminophen 500 mg 01/02/25 05:19 Acetaminophen Tab 500 Mg Tab PO Q6H PRN Fever and/ or Pain Alprazolam 0.25 mg 01/02/25 05:19 Alprazolam 0.25 Mg Tab PO HS PRN Anxiety Aspirin 81 mg 01/02/25 09:00 01/02/25 08:48 Aspirin 81 Mg PO 81 mg DAILY ELENA Administration Atorvastatin Calcium 20 mg 01/02/25 21:00 Atorvastatin 20 Mg Tab PO HS ELENA Bisacodyl 5 mg 01/02/25 06:01 Bisacodyl 5 Mg Tablet.Dr PO DAILY PRN Constipation Budesonide/Formoterol Fumarate 2 puff 01/03/25 08:00 Symbicort 160-4.5 Mcg Inhaler INHALATION RT-BID ELENA Donepezil HCl 10 mg 01/02/25 21:00 Donepezil 10 Mg Tab PO HS ELENA Famotidine 20 mg 01/02/25 09:00 01/02/25 08:49 Famotidine 20 Mg Tab PO 20 mg DAILY ELENA Administration Furosemide 40 mg 01/02/25 09:00 01/02/25 08:49 Furosemide 40 Mg Tab PO 40 mg BID ELENA Administration Losartan Potassium 25 mg 01/02/25 09:00 01/02/25 08:49 Losartan 25 Mg Tab PO 25 mg DAILY ELENA Administration Memantine 5 mg 01/02/25 09:00 01/02/25 08:49 Memantine 5 Mg Tab PO 5 mg BID ELENA Administration Multivitamins 1 each 01/02/25 09:00 01/02/25 08:49 Multivitamins, Thera 1 Each Tab PO 1 each DAILY ELENA Administration Naloxone HCl 0.2 mg 01/02/25 06:01 Naloxone 0.4 Mg/Ml 1 Ml Vial IV Q2M PRN Opioid Reversal Ondansetron HCl 4 mg 01/02/25 06:01 Ondansetron 4 Mg/2 Ml Vial IVP Q8HR PRN Nausea And Vomiting Rivaroxaban 20 mg 01/02/25 17:30 Rivaroxaban 20 Mg Tab PO W/SUPPER [facility] Protocol Spironolactone 25 mg 01/02/25 09:00 01/02/25 08:49 Spironolactone 25 Mg Tab PO 25 mg DAILY ELENA Administration Tiotropium [place] 2 puff 01/03/25 08:00 Tiotropium 2.5 Mcg Inhaler INHALATION RT-DAILY [facility] Intake and Output 01/01/25 01/02/25 01/02/25 22:59 06:59 14:59 Other: Weight 72.575 kg 01/02/25 02:40 01/02/25 02:40
[2025-01-02] MEDS: DONEPEZIL 10 MG TAB PO SCH (15:44)
[2025-01-02] MEDS: RIVAROXABAN 20 MG TAB PO SCH (17:57)
[2025-01-02] MEDS: SYMBICORT 160-4.5 MCG INHALER INHALATION SCH (18:35)
[2025-01-02] MEDS: ATORVASTATIN 20 MG TAB PO SCH (20:45)
[2025-01-03 08:33] VITALS: BP 129/70; PULSE 61; RESP 18; TEMP 97.6
[2025-01-03] MEDS: TIOTROPIUM 2.5 MCG INHALER INHALATION SCH (09:47)
[2025-01-03] MEDS: FUROSEMIDE 40 MG TAB PO SCH (10:20)
[2025-01-03 10:55] LABS: HCT 35.4 % (39.6-50.0); HGB 11.8 g/dL (13.0-17.0); MCH 31.3 pg (27.0-32.0); MCHC 33.3 g/dL (32.0-37.0); MCV 93.9 FL (80.0-97.0); NRBC Per 100 WBC 0 X 10*3/uL (0.00-0.01); Platelet Count 140 X 10*3/uL (140-440); RBC 3.77 X 10*6/uL (4.40-5.60); RDW 14.4 % (11.5-14.5); WBC 8.28 X 10*3/uL (4.50-10.00)
[2025-01-03 10:59] LABS: Carbon Dioxide 28.3 mmol/L (21.6-31.8); Chloride 97 mmol/L (96-109); Glucose 94 mg/dL (70-110); Magnesium 2.2 mg/dL (1.5-2.4); Potassium 3.9 mmol/L (3.5-5.5); Sodium 138 mmol/L (135-145)
[2025-01-03 11:00] LABS: NT-Pro-B-Type Natriuretic Pept 3692 pg/mL (0-450)
--- NOTE | 2025-01-03 11:11 | P.PN ---
Subjective Progress Note Date: 01/03/25 This is a 79-year-old male patient with past medical history of PE diagnosed 08/15/2024 considered Eliquis failure, history of aortic stenosis status post valve replacement in 2011, aortic dissection following valve replacement status post repair, mitral valve repair, AAA, CVA in April 2020, hypertension, hyperlipidemia, chronic atrial fibrillation, Lewy body dementia. Patient follows with Dr. Cordova. We have been asked to evaluate the patient for bradycardia and chest pain. Patient history is somewhat unreliable. Patient states he had a one-time episode of left-sided chest pain and was a little dizzy. He states he is not active. He denies smoking. He denies cough or fever. He denies wheezing. He denies blood in his urine or stool. He denies abdominal pain. He has lower extremity edema that is chronic and he states unchanged. Blood pressure 131/79, heart rate 60, pulse ox 97% on room air. According to the ER note, patient presented with chest pain and shortness of breath which occurred around 6 PM. Patient is seen today in the emergency center waiting for a bed on the observation unit. -EKG: Atrial fibrillation at 53 bpm. -CTA chest: Small linear filling defect in the right lower lobe arteries similar to prior may represent chronic PE and some flow related artifact. No new areas of pulmonary embolism. Enlarged pulmonary artery/pulmonary artery hypertension. Marked cardiomegaly similar to prior. Aneurysmal dilatation of the ascending aorta up to 5 cm. Mild centrilobular emphysema. -CT brain: No acute intracranial abnormality. -Echocardiogram reveals severely impaired left ventricular systolic function with EF of 15 to 20%. Mitral valve annuloplasty with mild mitral regurgitation. Bioprosthetic aortic valve with trace to mild aortic regurgitation and mean g radient of 14 mmHg. Moderate to severe tricuspid regurgitation with moderate pulmonary hypertension. -Laboratory studies: WBC 6.7, hemoglobin 10.7, sodium 129, potassium 3.8. BUN 33 creatinine 1.1. Alkaline phosphatase 188. Troponin negative x 2. proBNP 5310. Cepheid viral panel not detected. -Home cardiac medications: Atorvastatin 20 mg at bedtime, Coreg 6.25 mg twice daily, Lasix 40 mg daily and 40 mg as needed, losartan 25 mg daily, potassium chloride 20 mill equivalents daily, Xarelto 20 mg daily, spironolactone 25 mg daily. -Echocardiogram performed 08/15/2024 revealed EF 25%, severe right ventricular dilation. Mild to moderate right ventricular hypokinesis. Bioprosthetic aortic valve with peak gradient 2.7 mm/s. Moderate to severe tricuspid regurgitation. -Cardiac catheterization performed 04/06/2024 revealed intermediate disease involving the mid LAD by the bifurcation of the large diagonal branch. Plan was to consider obtaining coronary CTA, maximize medical therapy for cardiomyopathy and consider low-dose dobutamine stress echo to assess for low-flow low gradient aortic stenosis. -ASHER performed 05/15/2020 revealed bioprosthetic aortic valve appears somewhat smaller than the annulus. No paravalvular leak. Mild to moderate calcification of the bioprosthetic valve with mild decrease in leaflet excursion. No significant aortic regurgitation. Mitral valve has ring status post repair with normally functioning mitral valve leaflets. Mild mitral regurgitation. Tricuspid valve appears to be normal with mild to moderate tricuspid regurgitation. The anterior atrial septum is intact. No evidence of PFO. Left atrial appendage is free of clot. Left ventricular size and function appears to be normal with EF of 55 to 60%. -Event monitor performed May 20Nov2019, revealed sinus mechanism, single PVC with 1.7 complex nonsustained ventricular tachycardia. 1 pause noted during the night was asymptomatic. No symptoms were reported. 01/03/2025 The patient was seen and examined resting comfortably in bed. He is a poor historian but overall has no significant complaints at this time. Echocardiogram with Doppler study revealed severely impaired LV systolic function with an ejection fraction estimated at 15 to 20% with severe global hypokinesis mitral valve annuloplasty with mild mitral regurgitation, bioprosthetic aortic valve with trace to mild aortic regurgitation and mean gradient of 14 mmHg, moderate to severe tricuspid regurgitation with moderate pulmonary hypertension. Physical examination: Gen: This is 79-year-old male in no acute distress VS: reviewed HEENT: Head is atraumatic, normocephalic. Pupils equal, round. Sclerae is anicteric. NECK: Supple. No JVD. LUNGS: Clear to auscultation. No wheezes or rhonchi. No intercostal retractions. HEART: Irregular rate and rhythm. Systolic murmur. ABDOMEN: Soft No tenderness. EXTREMITIES: Bilateral lower extremity edema. No calf tenderness. NEUROLOGICAL: Patient is awake, alert and oriented x 1-2. Assessment: Atypical chest pain, appears to be noncardiac, no evidence of [place] Bradycardia Acute systolic heart failure Hyponatremia History of PE 08/15/2024 considered Eliquis failure, currently on Xarelto Nonischemic cardiomyopathy with known EF of 20% History of aortic stenosis status post valve replacement in 2011 Aortic dissection following valve replacement status post repair Mitral valve repair AAA CVA in April 2020 Hypertension Hyperlipidemia Chronic atrial fibrillation Lewy body dementia Plan: Labs from this morning are pending. We will switch the patient to p.o. Lasix. If labs show stable renal function patient may be discharged home. He has an appointment with his primary fingernail technician this Wednesday and he will keep that appointment. Thank you kindly for this consultation. Nurse practitioner note has been reviewed, I agree with documented findings and plan of care. Patient was seen and examined. Objective - Vital Signs Vital signs: Vital Signs Temp 97.6 F 01/03/25 07:40 Pulse 61 01/03/25 07:40 Resp 18 01/03/25 07:40 BP 129/70 01/03/25 07:40 Pulse Ox 98 01/03/25 07:40 FiO2 Intake & Output 01/02/25 01/03/25 01/03/25 18:59 06:59 18:59 Weight 70.9 kg Other: Voiding Method Toilet Toilet - Labs CBC & Chem 7: 01/03/25 05:56 01/03/25 05:56 Labs: Abnormal Lab Results - Last 24 Hours (Table) 01/03/25 01/03/25 Range/Units 05:56 05:56 RBC 3.77 L (4.40-5.60) X 10*6/uL Hgb 11.8 L (13.0-17.0) g/dL Hct 35.4 L (39.6-50.0) % Anion Gap 12.70 H (4.00-12.00) mmol/L BUN/Creatinine Ratio 23.00 H (12.00-20.00) Ratio NT-Pro-B Natriuret Pep 3692 H (0-450) pg/mL
--- NOTE | 2025-01-03 11:58 | P.DS ---
Providers Date of admission: 01/02/25 06:01 Expected date of discharge: 01/03/25 Attending physician: Nitin Bell MD Consults: 01/02/25 06:01 Consult Physician Urgent Consulting Provider: [facility] Consult Reason/Comments: Chest pain, bradycardia Do you want consulting provider notified?: Yes, Notify in am Primary care physician: Dean Richards Hospital Course: Discharge Diagnosis: Chest pain, rule out acute coronary event acute on chronic heart failure Bradycardia Acute systolic heart failure with history of chronic diastolic heart failure with new EF of 15 to 20% Atrial fibrillation with a slowed ventricular rate, possibly new onset no documented history Hypertension Hyperlipidemia History of aortic valve replacement History of abdominal aortic aneurysm dissection status postrepair History of PE Lewy body dementia Hospital Course: Patient is a very pleasant 79-year-old male with a past medical history of Lewy body dementia, hypertension, hyperlipidemia, congestive heart failure, aortic stenosis status post aortic valve replacement, abdominal aortic dissection status postrepair, and previous PE on anticoagulation with Xarelto. He presented to the emergency department with a chief complaint of chest pain accompanying by mild pain in left arm. Per ED physician, patient's also stating she has noticed increased episodes of confusion over the last week with occasions of perceived hallucinations. Patient currently alert to person, place, time, and situation. He admits to experiencing mild chest pain to midsternal chest described as a pressure and a tingling in his left arm. He denies having any fevers, chills, diaphoresis, headache, lightheadedness, dizziness, palpitations, shortness of breath, cough or congestion, abdominal pain, nausea, vomiting, or experiencing any focal numbness/tingling/weakness in his extremities. Upon arrival to our facility, patient underwent evaluation in the emergency department. Vital signs upon arrival show blood pressure 109/67, heart rate 43, respiratory rate 24, temp 97.5 F, and SpO2 of 98% on room air. EKG completed showing atrial fibrillation with a slow ventricular response of 53 bpm. CTA head negative for acute intracranial abnormality. CTA chest showing mild centrilobular emphysema, small linear filling defect in the right lower lobe arteries similar to previous possibly representing chronic PE and some flow related artifact, no new areas of pulmonary embolism reported, and large pulmonary artery/pulmonary arterial pressure unchanged from previous, marked cardiomegaly reported similar to prior, and aneurysmal dilation of the ascending aorta up to 5 cm again similar to previous. Labs completed and reviewed. CBC showing bicytopenia with hemoglobin of 10.7 and platelet count of 114. Coagulation profile showing elevated PT of 17.9, INR of 1.7, and PTT of 30.1. BMP showing hyponatremia with sodium of 129, chloride 96, and elevated BUN of 33. Blood glucose 97. Magnesium 2.0. Calcium 9.4. Liver profile showing elevated alkaline phosphatase of 188. Troponin was 0.015. proBNP 5310. TSH normal findings at 1.370. Influenza A, influenza B, RSV, and COVID PCR were negative. Patient mated under services with consultation to cardiology. Troponins were trended resulting at 0.015 and 0.016. Initial BNP 5310 with repeat BMP this morning decreasing at 3692. Hyponatremia resolving with IV diuresis from initial sodium of 129 to repeat sodium of 138 and renal function remained stable. Echocardiogram completed showing an EF of 15 to 20% with mild concentric left ventricular hypertrophy, severely decreased left ventricular systolic function, mitral valve annuloplasty with mitral regurgitation and bioprosthetic aortic valve with trace to mild aortic regurgitation and moderate to severe tricuspid regurgitation with moderate pulmonary hypertension. Cardiol randell evaluated patient and recommended starting patient on Farxiga 10 mg daily and discharge home so patient can follow-up with his primary auto washer as scheduled on 01/05/2025. Patient's declined patient being started on Farxiga stating it causes him to have swelling and that she will discuss this further with her auto washer. Patient had full resolution of previous reported chest pain and currently free from any complaints or concerns. Coreg being discontinued on discharge secondary to persistent bradycardia with heart rate in the 40s throughout the night. Patient's also to discuss this with patient's primary auto washer. Patient and patient's requesting discharge, patient was cleared from cardiac perspective and medically optimized for discharge at this time. Patient to follow-up outpatient with his PCP in 1 to 2 days and with auto washer on Wednesday as scheduled. Patient instructed to return to the emergency department or call 911 immediately if any further episodes of chest pain occur. Physical exam: Vital signs reviewed and stable. General: Nontoxic, no distress and appears stated age. Derm: Skin warm and dry, normal coloration for ethnicity. Head: Atraumatic, normocephalic and symmetric. Eyes: EOM's intact, no lid lag, and anicteric sclera Mouth: no lip lesions, mucus membranes moist Cardiovascular: r irregularly irregular with bradycardic rate, systolic murmur (loudest right midsternal border), positive posterior tibial pulses bilaterally, and cap refill < 2 seconds. Lungs: Respirations even, regular, and unlabored on room air. Lungs CTA bilaterally, no rhonchi, no rales, no wheezing, and no accessory muscle usage. Abdominal: soft, nontender to palpation, no guarding, no appreciable organomegaly Ext: ROM intact. No gross muscle atrophy, 1+ BLE edema, no contractures Neuro: Speech clear, face symmetrical and CN II-XII grossly intact with no noted focal neuro deficits Psych: Alert and oriented to person, place, time, and situation. Appropriate and pleasant affect. A total of 37 minutes of time were spent preparing this complex discharge summary. Pt was discharged on 01/03/25 at 11:55 AM Patient was seen independently by Nurse Practitioner. This document was prepared using [employer] dictation software. Please allow for errors in bronc buster while rare they do occur. Edwin Pena NP rendered care for this patient independently, reviewed the findings and plan as documented in the note above. I did not physically speak with or examine the patient on this date. Patient Condition at Discharge: Stable Plan - Discharge Summary Discharge Rx Participant: No New Discharge Prescriptions: Continue ALPRAZolam [Xanax] 0.25 mg PO DAILY PRN PRN Reason: Anxiety Atorvastatin [Lipitor] 20 mg PO HS Memantine [Namenda] 5 mg PO BID Losartan [Cozaar] 25 mg PO DAILY Rivaroxaban [Xarelto] 20 mg PO DAILY Spironolactone [Aldactone] 25 mg PO DAILY Fluticasone/Umeclidin/Vilanter [Trelegy Ellipta 100-62.5-25] 1 puff INHALATION RT-DAILY Potassium Chloride ER [K-Dur 20] 20 meq PO DAILY Furosemide [Lasix] 40 mg PO DAILY Furosemide [Lasix] 40 mg PO DAILY PRN PRN Reason: weight gain Discontinued carvediloL [Coreg] 6.25 mg PO BID Discharge Medication List ALPRAZolam [Xanax] 0.25 mg PO DAILY PRN 06/13/17 [History] Fluticasone/Umeclidin/Vilanter [Trelegy Ellipta 100-62.5-25] 1 puff INHALATION RT-DAILY 04/05/21 [History] Atorvastatin [Lipitor] 20 mg PO HS 02/18/23 [History] Potassium Chloride ER [K-Dur 20] 20 meq PO DAILY 04/06/24 [History] Furosemide [Lasix] 40 mg PO DAILY 08/15/24 [History] Memantine [Namenda] 5 mg PO BID 08/15/24 [History] Furosemide [Lasix] 40 mg PO DAILY PRN 01/02/25 [History] Losartan [Cozaar] 25 mg PO DAILY 01/02/25 [History] Rivaroxaban [Xarelto] 20 mg PO DAILY 01/02/25 [History] Spironolactone [Aldactone] 25 mg PO DAILY 01/02/25 [History] Follow up Appointment(s)/Referral(s): Dean Richards DO [Primary Care Provider] - 1-2 days Patient Instructions/Handouts: Heart Failure (DC), Leg Edema (ED), Bradycardia (DC) Activity/Diet/Wound Care/Special Instructions: Activity: As tolerated. Take breaks as needed. Diet: Heart healthy and carb consistent diet. Avoid salts, or foods with hidden salts such as canned or boxed foods and frozen dinners. Extra salt makes your heart work harder and traps the fluid in your body for longer. Special Instructions: Follow-up as scheduled with your primary auto washer on Wednesday. Weigh yourself every morning after you urinate. If you gain 3 pounds overnight or more than 5 pounds in one week, call your primary physician and auto washer for guidance on your medications or they may want to see you in their office. Keep a daily log of your weights and be sure to bring with you at follow up visits with your PCP and auto washer. Take all of your medications as directed, especially your water pills. NEVER skip a dose. And remember to keep all of your doctor's appointments and follow- up as needed. Elevate your legs when you are not up moving around to help with circulation and prevent swelling. Compression stockings are also a great way to improve lower extremity circulation and prevent/improve lower extremity edema. Call your primary care provider and auto washer if you notice any extra swelling in your legs, ankles, feet or abdomen, if you have a new dry cough, if your shortness of breath worsens with activity or at rest, or if you feel more fatigued. Thank you for allowing us to participate in your care, it was truly a pleasure having you for our patient!!! Discharge Disposition: HOME SELF-CARE
== END 2025-01-03 12:30 | disposition home or self-care (01) ==
LOC: EC 02:09 → 6NMEDSUR 06:01
PROVIDERS: ADMIT Internal Medicine; ATTEND Internal Medicine
DX: R07.89 Other chest pain (principal); I50.43 Acute on chronic combined systolic (congestive) and diastolic (congestive) heart failure; I11.0 Hypertensive heart disease with heart failure; R00.1 Bradycardia, unspecified; G31.83 Neurocognitive disorder with Lewy bodies; F02.84 Dementia in other diseases classified elsewhere, unspecified severity, with anxiety; I25.10 Atherosclerotic heart disease of native coronary artery without angina pectoris; I48.20 Chronic atrial fibrillation, unspecified; E87.1 Hypo-osmolality and hyponatremia; I26.99 Other pulmonary embolism without acute cor pulmonale; J43.2 Centrilobular emphysema; I71.21 Aneurysm of the ascending aorta, without rupture; E78.5 Hyperlipidemia, unspecified; M79.602 Pain in left arm; R20.2 Paresthesia of skin; R74.8 Abnormal levels of other serum enzymes; I27.21 Secondary pulmonary arterial hypertension; Z11.52 Encounter for screening for COVID-19; Z11.59 Encounter for screening for other viral diseases; Z79.01 Long term (current) use of anticoagulants; Z79.51 Long term (current) use of inhaled steroids; Z79.899 Other long term (current) drug therapy; Z88.2 Allergy status to sulfonamides; Z95.3 Presence of xenogenic heart valve; Z86.79 Personal history of other diseases of the circulatory system
CPT/HCPCS: 96376; 96374; 99285; 36415; 94640 ×2; 93005; 93306; 97161; 97165; 83880 ×2; 80053; 80048; 84443; 83690; 83735 ×2; 84484; 85025; 85027; 85610; 85730; 87636; 70450; 71275; G0378 ×2; Q9967; J1938